=== PATIENT | female | born 1985 | race Caucasian/White ===

== ENCOUNTER → 2020-03-19 07:44 | Outpatient (BNVA) | payer OTHER, SELFPAY | PROVIDERS: PCP Nurse Practitioner Family; Referring Provider Nurse Practitioner Family; Visit Provider Surgery | DX: E66.9 Obesity, unspecified (principal); Z68.33 Body mass index [BMI] 33.0-33.9, adult; K90.9 Intestinal malabsorption, unspecified; Z98.84 Bariatric surgery status ==

== ENCOUNTER → 2020-04-23 08:55 | Outpatient (BNVA) | payer OTHER, SELFPAY | PROVIDERS: PCP Nurse Practitioner Family; Referring Provider Nurse Practitioner Family; Visit Provider Surgery | DX: E66.3 Overweight (principal); Z68.29 Body mass index [BMI] 29.0-29.9, adult; Z98.84 Bariatric surgery status | CPT/HCPCS: 99212 ==

== ENCOUNTER → 2020-05-23 07:44 | Outpatient (BNVA) | payer OTHER, SELFPAY | PROVIDERS: PCP Nurse Practitioner Family; Referring Provider Nurse Practitioner Family; Visit Provider Surgery | DX: Z76.89 Persons encountering health services in other specified circumstances (principal) ==

== ENCOUNTER → 2020-05-30 10:42 | Outpatient (BNVA) | payer OTHER, SELFPAY | PROVIDERS: PCP Nurse Practitioner Family; Visit Provider Nurse Practitioner | DX: Z76.89 Persons encountering health services in other specified circumstances (principal) ==

== ENCOUNTER 2020-06-12 08:43 | Outpatient (REF) | payer OTHER, SELFPAY ==
[2020-06-12 11:35] LABS: Alanine Aminotransferase 11 U/L (0-31); Albumin Level 4.2 g/dL (3.5-5.0); Alkaline Phosphatase 51 U/L (39-117); Anion Gap 12 (12-20); Aspartate Amino Transferase 12 U/L (5-31); Bilirubin Total 0.8 mg/dL (0.0-1.0); Blood Urea Nitrogen 9 mg/dL (9-16); Calcium 8.5 mg/dL (8.4-10.2); Carbon Dioxide 28 mmol/L (22-29); Chloride 104 mmol/L (96-108); Cholesterol 153 mg/dL; Estimated Glomerular Filt Rate > 60; Glucose Fasting 87 mg/dL (60-99); HDL Cholesterol 48 mg/dL; LDL Cholesterol Calculated 92 mg/dl; Potassium 3.8 mmol/l (3.3-5.1); Sodium 140 mmol/L (135-145); Total Protein 6.4 g/dL (6.5-8.0); Triglycerides 68 mg/dL
[2020-06-12 11:55] LABS: TSH reflex Free T4 0.89 mIU/mL (0.32-4.0)
[2020-06-14 11:37] LABS: Alpha Fetoprotein 2.1 ng/mL
== END 2020-06-12 08:44 | disposition home or self-care (01) ==
LOC: HO.HMGCLDS 08:43
PROVIDERS: PCP Nurse Practitioner Family; Visit Provider Nurse Practitioner
DX: Z00.00 Encounter for general adult medical examination without abnormal findings (principal); K75.81 Nonalcoholic steatohepatitis (NASH)
CPT/HCPCS: 80053; 80061; 82105; 84443

== ENCOUNTER → 2020-06-25 08:08 | Outpatient (BNVA) | payer OTHER, SELFPAY | PROVIDERS: PCP Nurse Practitioner Family; Visit Provider Surgery | DX: Z76.89 Persons encountering health services in other specified circumstances (principal) ==

== ENCOUNTER 2020-07-03 08:13 | Outpatient (REF) | payer OTHER, SELFPAY ==
--- NOTE | 2020-07-03 08:16 | US_ITS ---
EXAMINATION: US ABDOMEN COMPLETE CLINICAL INFORMATION: CHATMAN COMPARISON: None TECHNIQUE: Real-time imaging of the abdominal viscera. FINDINGS: PANCREAS: Normal. ABDOMINAL AORTA: The proximal, mid, and distal segments are normal in caliber. INFERIOR VENA CAVA: Visualized portions are normal. LIVER: The liver is normal size, contour with increased echogenicity. No focal lesion seen. There is no intrahepatic biliary duct dilatation seen. It is slightly limited in evaluation due to bowel gas pattern. GALLBLADDER: Normal. The gallbladder is physiologically distended without evidence of stones, sludge, polyps, wall thickening or pericholecystic fluid. COMMON BILE DUCT: Normal in caliber measuring 0.7 cm in diameter. RIGHT KIDNEY: Normal. No hydronephrosis. No renal calculi or focal parenchymal lesions. The kidney measures 10.9 cm in maximum dimension. LEFT KIDNEY: Normal. No hydronephrosis. No renal calculi or focal parenchymal lesions. The kidney measures 12.4 cm in maximum dimension. SPLEEN: Normal. The spleen measures 12.3 cm in maximum dimension. FREE FLUID: None. US/US abdomen complete IMPRESSION: Hepatic steatosis without focal lesion. Rest of the abdominal ultrasound is unremarkable.
== END 2020-07-03 08:14 | disposition home or self-care (01) ==
LOC: HO.US 08:13
PROVIDERS: PCP Nurse Practitioner Family; Visit Provider Nurse Practitioner
DX: K75.81 Nonalcoholic steatohepatitis (NASH) (principal)
CPT/HCPCS: 76700

== ENCOUNTER → 2020-08-03 08:21 | Outpatient (BNVA) | payer OTHER, SELFPAY | PROVIDERS: PCP Nurse Practitioner Family; Visit Provider Surgery ==

== ENCOUNTER → 2020-08-17 08:41 | Outpatient (BNVA) | payer OTHER, SELFPAY | PROVIDERS: PCP Nurse Practitioner Family; Visit Provider Physician Assistant ==

== ENCOUNTER 2020-08-31 09:05 | Outpatient (REF) | payer OTHER, SELFPAY ==
[2020-09-06 07:22] LABS: HPV 16 RNA NOT DETECTED (NOT DETECTED); HPV mRNA E6/E7 rflx Detected (Not Detected)
== END 2020-08-31 09:06 | disposition home or self-care (01) ==
LOC: HO.LAB 09:05
PROVIDERS: PCP Nurse Practitioner Family; Visit Provider Obstetrics & Gynecology
DX: Z01.419 Encounter for gynecological examination (general) (routine) without abnormal findings (principal); Z11.51 Encounter for screening for human papillomavirus (HPV); Z91.89 Other specified personal risk factors, not elsewhere classified
CPT/HCPCS: 36415; 87624; 87625; 88141; 88142

== ENCOUNTER → 2020-09-10 08:13 | Outpatient (BNVA) | payer OTHER, SELFPAY | PROVIDERS: PCP Nurse Practitioner Family; Visit Provider Surgery ==

== ENCOUNTER 2020-10-09 15:27 | Outpatient (REF) | payer OTHER, SELFPAY | END 2020-10-09 15:28 | disposition home or self-care (01) | LOC: HO.LAB 15:27 | PROVIDERS: PCP Nurse Practitioner Family; Visit Provider Obstetrics & Gynecology | DX: B97.7 Papillomavirus as the cause of diseases classified elsewhere (principal); Z87.891 Personal history of nicotine dependence | CPT/HCPCS: 57454; 81025; 88305 ==

== ENCOUNTER → 2020-10-24 11:19 | Outpatient (BNVA) | payer OTHER, SELFPAY | PROVIDERS: PCP Nurse Practitioner Family; Visit Provider Obstetrics & Gynecology ==

== ENCOUNTER 2020-11-06 11:41 | Outpatient (REF) | payer OTHER, SELFPAY ==
--- NOTE | ~2020-11-06 | MM_ITS ---
EXAMINATION: MM SCREENING DIGITAL BREAST TOMOSYNTHESIS, BILATERAL CLINICAL INFORMATION: Screening. Asymptomatic. Family history breast cancer. The lifetime risk of breast cancer based on the Tyrer-Cuzick Model is 25%. COMPARISON: Mammography: 11/01/2018 (baseline) TECHNIQUE: Digital breast tomosynthesis is performed in both the craniocaudal and mediolateral oblique views along with computer-aided detection (CAD). Synthesized 2D images are generated from the tomosynthesis. FINDINGS: There are scattered areas of fibroglandular density (ACR BI-RADS breast composition Category b). There are no significant masses, abnormal calcifications, or other abnormalities. Parenchymal pattern is similar to prior exams. No developing density. The axilla and skin contours are unremarkable. No significant changes. MM/MM tomosynthesis screening BI IMPRESSION: No mammographic evidence of malignancy. ASSESSMENT: BI-RADS 1: Negative RECOMMENDATION: 1. Routine annual mammography screening. 2. The lifetime risk of breast cancer based on the Tyrer-Cuzick Model is 25%. Additional annual adjunct screening with breast MRI may be of benefit in women with a risk score of 20% or greater. This patient's information was entered into a reminder system with a target due date for their next mammogram.
== END 2020-11-06 11:42 | disposition home or self-care (01) ==
LOC: HO.MAMMO 11:41
PROVIDERS: PCP Nurse Practitioner Family; Visit Provider Obstetrics & Gynecology
DX: Z12.31 Encounter for screening mammogram for malignant neoplasm of breast (principal)
CPT/HCPCS: 77063; 77067

== ENCOUNTER → 2020-11-27 13:17 | Outpatient (BNVA) | payer OTHER, SELFPAY | PROVIDERS: PCP Nurse Practitioner Family; Referring Provider Nurse Practitioner Family; Visit Provider Nurse Practitioner | DX: K59.04 Chronic idiopathic constipation (principal); K75.81 Nonalcoholic steatohepatitis (NASH); K90.89 Other intestinal malabsorption; K21.9 Gastro-esophageal reflux disease without esophagitis | CPT/HCPCS: 99212 ==

== ENCOUNTER 2020-12-11 08:12 | Outpatient (REF) | payer OTHER, SELFPAY ==
[2020-12-11 09:46] LABS: Alanine Aminotransferase 6 U/L (0-31); Albumin Level 4.2 g/dL (3.5-5.0); Alkaline Phosphatase 44 U/L (39-117); Anion Gap 12 (12-20); Aspartate Amino Transferase 10 U/L (5-31); Bilirubin Total 0.2 mg/dL (0.0-1.0); Blood Urea Nitrogen 12 mg/dL (9-16); Calcium 9.3 mg/dL (8.4-10.2); Carbon Dioxide 27 mmol/L (22-29); Chloride 107 mmol/L (96-108); Estimated Glomerular Filt Rate > 60; Glucose Random 79 mg/dL (60-115); Potassium 4.5 mmol/L (3.3-5.1); Sodium 141 mmol/L (135-145); Total Protein 6.4 g/dL (6.5-8.0)
[2020-12-12 13:17] LABS: Alpha Fetoprotein 2.3 ng/mL
== END 2020-12-11 08:13 | disposition home or self-care (01) ==
LOC: HO.LAB 08:12
PROVIDERS: PCP Nurse Practitioner Family; Visit Provider Nurse Practitioner
DX: K75.81 Nonalcoholic steatohepatitis (NASH) (principal)
CPT/HCPCS: 36415; 80053; 82105

== ENCOUNTER 2021-01-15 10:24 | Outpatient (REF) | payer OTHER, SELFPAY ==
--- NOTE | ~2021-01-15 | US_ITS ---
EXAMINATION: US ABDOMEN LIMITED CLINICAL INFORMATION: CHATMAN (nonalcoholic steatosis). COMPARISON: Ultrasound abdomen complete dated 07/03/2020 and 04/29/2019. CT abdomen and pelvis without contrast dated 07/01/2017. X-ray abdomen dated 02/15/2016 and 02/06/2016. TECHNIQUE: Real-time imaging of the right upper quadrant abdominal viscera. FINDINGS: PANCREAS: Normal. The visualized pancreatic head and body are normal in appearance. The remainder of the pancreas is obscured from visualization by the overlying bowel gas. LIVER: There is diffuse increased liver parenchymal echogenicity. No focal hepatic mass is seen. The liver is normal in size and contour. No biliary ductal dilatation. GALLBLADDER: Surgically absent. COMMON BILE DUCT: Normal in caliber measuring 0.35 cm in diameter. RIGHT KIDNEY: There is mild pelviectasis, without myrna hydronephrosis. No renal calculi or focal parenchymal lesions. The kidney measures 11.9 cm in maximum dimension. FREE FLUID: None. US/US abdomen limited IMPRESSION: 1. There is generalized increase in hepatic echotexture, consistent with fatty infiltration or hepatocellular disease. Please correlate clinically. Provided history of CHATMAN noted. No focal hepatic mass or intrahepatic biliary dilatation is seen. 2. Otherwise, unremarkable abdominal ultrasound examination, with imaging of the pancreas technically limited.
== END 2021-01-15 10:25 | disposition home or self-care (01) ==
LOC: HO.HMGCX 10:24
PROVIDERS: PCP Nurse Practitioner Family; Visit Provider Nurse Practitioner
DX: K75.81 Nonalcoholic steatohepatitis (NASH) (principal)
CPT/HCPCS: 76705

== ENCOUNTER 2021-01-31 09:40 | Outpatient (REF) | payer OTHER, SELFPAY ==
--- NOTE | ~2021-01-31 | MR_ITS ---
EXAMINATION: MR BREAST WITHOUT AND WITH CONTRAST, BILATERAL CLINICAL INFORMATION: 35-year-old for high-risk screening lifetime risk based on Tyrer-Cuzick model is 25%. Family history of aunts mothers and cousins. COMPARISON: Correlation to mammogram of 11/06/2020. TECHNIQUE: Imaging was performed with a dedicated breast coil. Prior to the administration of contrast, bilateral axial T1 and bilateral axial T2 weighted sequences were obtained. After the uneventful administration of?7 mL of Gadavist, dynamic contrast-enhanced VIBRANT series through the breasts in the axial plane were performed. Subtracted images were performed and reviewed. A delayed sagittal sequence through both breasts was acquired. Additionally, CAD post-processing, including maximum intensity projections, 3-D reconstructions and kinetic analysis, were performed an independent workstation and reviewed by the interpreting radiologist is a portion of this exam. FINDINGS: The patient's fibroglandular tissue demonstrates minimal background enhancement. LEFT BREAST: No suspicious mass-like or icg-chvd-laae enhancement. No abnormal skin thickening or nipple retraction. There are a few scattered foci of enhancement demonstrating subthreshold and progressive-type kinetics. No abnormal architectural distortion. Review of the T2-weighted images demonstrates no fibrocystic changes or dilated ducts. Review of kinetic images reveals no additional findings. RIGHT BREAST: No suspicious mass-like or vgm-[id number]-csfn enhancement. No abnormal skin thickening or nipple retraction. There are a few scattered foci of enhancement demonstrating subthreshold kinetics. No abnormal architectural distortion. Review of the T2-weighted images demonstrates no fibrocystic changes or dilated ducts. Review of kinetic images reveals no additional findings. There is no suspicious internal mammary chain or axillary adenopathy. Limited views of the chest and abdomen are unremarkable. MR/MR breast BI wo/w con IMPRESSION: No MR specific evidence of malignancy. ASSESSMENT: Left Breast: BI-RADS 2 - Benign Right Breast: BI-RADS 2 - Benign RECOMMENDATIONS: Routine mammographic imaging as per most recent study and MRI as per high-risk protocol.
== END 2021-01-31 09:41 | disposition home or self-care (01) ==
LOC: HO.MRI 09:40
PROVIDERS: Visit Provider Obstetrics & Gynecology
DX: Z91.89 Other specified personal risk factors, not elsewhere classified (principal)
CPT/HCPCS: 77049; A9585

== ENCOUNTER → 2021-02-25 10:54 | Outpatient (BNVA) | payer OTHER, SELFPAY | PROVIDERS: PCP Nurse Practitioner Family; Referring Provider Nurse Practitioner Family; Visit Provider Surgery | DX: M79.3 Panniculitis, unspecified (principal); Z98.84 Bariatric surgery status | CPT/HCPCS: 99212 ==

== ENCOUNTER → 2021-04-22 08:04 | Outpatient (BNVA) | payer OTHER, SELFPAY | PROVIDERS: PCP Nurse Practitioner Family; Visit Provider Surgery | DX: M79.3 Panniculitis, unspecified (principal); Z98.84 Bariatric surgery status ==

== ENCOUNTER → 2021-05-22 08:03 | Outpatient (BNVA) | payer OTHER, SELFPAY | PROVIDERS: PCP Nurse Practitioner Family; Visit Provider Physician Assistant ==

== ENCOUNTER 2021-06-28 07:34 | Outpatient (REF) | payer OTHER, SELFPAY ==
[2021-06-28 11:36] LABS: Appearance Urine CLEAR; Color Urine YELLOW; Glucose Urine UA NEG (NEG); Leukocyte Esterase Urine NEG (NEG); MANUAL DIFF FLAG NO; Nitrite Urine NEG (NEG); Specific Gravity - Urine 1.015 (1.005-1.025); Urine Blood NEG (NEG); Urine Ketones 40 MG/DL (NEG); Urine Protein NEG (NEG-TRACE)
[2021-06-28 11:53] LABS: Basophils Percent Auto 0.5 % (0-2); Eosinophils Absolute Auto 0.2 X10*3/uL (0.0-0.4); Eosinophils Percent Auto 3.7 % (0-4); Hematocrit 39.6 % (37.0-47.0); Hemoglobin 13.7 g/dl (12.0-16.0); Imm Gran Abs Auto 0.01 X10*3/uL (0.00-0.03); Imm Gran Pct Auto 0.2 % (0.0-0.4); Lymphocytes Absolute Auto 1.6 X10*3/uL (1.2-4.9); Lymphocytes Percent Auto 38.6 % (20-40); Mean Corpuscular HGB Conc 34.6 g/dl (31.0-35.0); Mean Corpuscular Hemoglobin 31.2 pg (27.0-33.0); Mean Corpuscular Volume 90.2 fL (80.0-98.0); Monocytes Absolute Auto 0.2 X10*3/uL (0.1-1.2); Monocytes Percent Auto 5.7 % (2-11); Neutrophils Absolute Auto 2.1 x10*3/uL (2.0-8.3); Neutrophils Percent Auto 51.3 % (45-73); Platelet Count 176 X10*3/uL (160-400); Red Blood Count 4.39 X10*6/uL (4.20-5.50); Red Cell Distribution Width 11.9 % (11.0-16.0)
[2021-06-28 11:57] LABS: Estimated Average Glucose 91 mg/dL; Hemoglobin A1c % 4.8 %
[2021-06-28 12:05] LABS: Alanine Aminotransferase 9 U/L (0-31); Albumin Level 4.3 g/dL (3.5-5.0); Alkaline Phosphatase 40 U/L (39-117); Anion Gap 16 (12-20); Aspartate Amino Transferase 12 U/L (5-31); Bilirubin Total 0.7 mg/dL (0.0-1.0); Blood Urea Nitrogen 11 mg/dL (9-16); C Reactive Protein 0.05 mg/dL (< or = 0.50); Calcium 9.2 mg/dL (8.4-10.2); Carbon Dioxide 24 mmol/L (22-29); Chloride 103 mmol/L (96-108); Cholesterol 152 mg/dL; Estimated Glomerular Filt Rate > 60; Glucose Fasting 76 mg/dL (60-99); HDL Cholesterol 38 mg/dL; Iron 104 mcg/dL (30-160); LDL Cholesterol Calculated 99 mg/dl; Percent Iron Saturation 42 % (15-50); Potassium 3.4 mmol/L (3.3-5.1); Sodium 140 mmol/L (135-145); Total Iron Binding Capacity 250 mcg/dL (228-428); Total Protein 6.7 g/dL (6.5-8.0); Triglycerides 77 mg/dL; Unsaturated Iron Binding 146 ug/dL
[2021-06-28 12:11] LABS: Cholesterol 150 mg/dL; HDL Cholesterol 39 mg/dL; LDL Cholesterol Calculated 96 mg/dl; Triglycerides 76 mg/dL
[2021-06-28 12:30] LABS: Ferritin 70 ng/mL (10-122); Insulin 7 uU/mL (2-29); Vitamin D 25-OH Total 54.1 ng/mL (>30)
[2021-06-28 12:34] LABS: TSH reflex Free T4 0.49 uIU/mL (0.32-4.0)
[2021-06-28 12:46] LABS: Folate > 20.0 ng/mL (> or = 4.0); Vitamin B12 1341 pg/mL (200-900)
[2021-07-02 15:06] LABS: Calcium (PTHI) 9.4 mg/dL (8.6-10.2); PTHI 8 pg/mL (14-64)
[2021-07-03 03:01] LABS: Zinc 56 mcg/dL (60-130)
[2021-07-04 16:06] LABS: Vitamin B1 22 nmol/L (8-30)
[2021-07-05 23:56] LABS: Vitamin A 37 mcg/dL (38-98)
== END 2021-06-28 07:35 | disposition home or self-care (01) ==
LOC: HO.HMGCLDS 07:34
PROVIDERS: Absent Provider Nurse Practitioner Family; PCP Nurse Practitioner Family; Visit Provider Physician Assistant
DX: Z00.00 Encounter for general adult medical examination without abnormal findings (principal); Z98.84 Bariatric surgery status
CPT/HCPCS: 36415; 80053; 80061; 81003; 82306; 82607; 82728; 82746; 83036; 83525; 83540; 83970; 84425; 84443; 84590; 84630; 85025; 86140

== ENCOUNTER 2021-07-04 09:54 | Emergency (ER) | payer OTHER, SELFPAY ==
--- NOTE | ~2021-07-04 | US_ITS ---
EXAMINATION: US PELVIS TRANSVAGINAL CLINICAL INFORMATION: Right lower quadrant pain COMPARISON: CT scan of July 01, 2017 and ultrasound of June 24, 2016 TECHNIQUE: Transcutaneous and transvaginal pelvic ultrasound. Transvaginal scanning was performed after voiding to better evaluate the endometrium and adnexa. FINDINGS: The uterus measures 7.6 x 4.6 x 5.7 cm. The uterus is anteverted. No suspicious abnormalities region of the cervix. The uterine contour is smooth. The endometrium measures 0.8 cm. No focal abnormalities within the myometrium. The right ovary measures approximately 3.5 x 2.2 x 2.9 cm. The calculated right ovarian volume is approximately 11.7 mL. There are numerous simple appearing right adnexal cysts present largest measuring 1.7 x 1.9 x 1.4 cm in size. There is normal vascularity present. The left ovary measures 3.5 x 2.2 x 2.6 cm. The calculated left ovarian volume is approximately 10.5 mL. No abnormal left adnexal mass. Normal vascular flow. Numerous simple appearing cysts with the largest one measuring approximately 1.5 cm in diameter. There is a small amount of free fluid present within the cul-de-sac. US/US pelvic and transvaginal IMPRESSION: Bilateral ovarian cysts with small amount of free pelvic fluid. No abnormal adnexal mass.
[2021-07-04 10:14] VITALS: BP 136/72; PULSE 100; RESP 18; TEMP 35.9; O2SAT 98; BMI 24.3
[2021-07-04 10:45] LABS: MANUAL DIFF FLAG NO
[2021-07-04 10:46] LABS: Basophils Absolute Auto 0.1 X10*3/uL (0.0-0.2); Basophils Percent Auto 0.9 % (0-2); Eosinophils Absolute Auto 0.3 X10*3/uL (0.0-0.4); Eosinophils Percent Auto 4.6 % (0-4); Hematocrit 41.1 % (37.0-47.0); Imm Gran Abs Auto 0.01 X10*3/uL (0.00-0.03); Imm Gran Pct Auto 0.2 % (0.0-0.4); Lymphocytes Absolute Auto 1.9 X10*3/uL (1.2-4.9); Lymphocytes Percent Auto 35.7 % (20-40); Mean Corpuscular HGB Conc 34.1 g/dl (31.0-35.0); Mean Corpuscular Hemoglobin 31.1 pg (27.0-33.0); Mean Corpuscular Volume 91.3 fL (80.0-98.0); Mean Platelet Volume 11.6 fL (9.4-12.3); Monocytes Absolute Auto 0.4 X10*3/uL (0.1-1.2); Monocytes Percent Auto 6.8 % (2-11); Neutrophils Absolute Auto 2.8 x10*3/uL (2.0-8.3); Neutrophils Percent Auto 51.8 % (45-73); Platelet Count 179 X10*3/uL (160-400); Red Cell Distribution Width 12.1 % (11.0-16.0); White Blood Count 5.4 X10*3/uL (4.8-10.8)
[2021-07-04 10:58] LABS: Appearance Urine CLEAR; Color Urine YELLOW; Glucose Urine UA NEG (NEG); Leukocyte Esterase Urine NEG (NEG); Nitrite Urine NEG (NEG); PH 6.5 (5.0-8.0); Specific Gravity - Urine 1.015 (1.005-1.025); Urine Blood NEG (NEG); Urine Ketones NEG (NEG); Urine Pregnancy NEGATIVE (NEGATIVE); Urine Protein NEG (NEG-TRACE)
[2021-07-04 10:59] LABS: UPreg QC Valid YES
[2021-07-04 11:09] LABS: Alanine Aminotransferase 11 U/L (0-31); Albumin Level 4.2 g/dL (3.5-5.0); Alkaline Phosphatase 44 U/L (39-117); Anion Gap 9 (12-20); Aspartate Amino Transferase 12 U/L (5-31); Bilirubin Direct 0.2 mg/dL (0.0-0.5); Bilirubin Total 0.5 mg/dL (0.0-1.0); Blood Urea Nitrogen 8 mg/dL (9-16); Calcium 9.4 mg/dL (8.4-10.2); Carbon Dioxide 33 mmol/L (22-29); Chloride 106 mmol/L (96-108); Creatinine Clr Calc Pharmacy 93.6; Estimated Glomerular Filt Rate > 60; Glucose Random 99 mg/dL (60-115); Lipase 30 U/L (8-78); Potassium 4.2 mmol/L (3.3-5.1); Sodium 144 mmol/L (135-145); Total Protein 6.7 g/dL (6.5-8.0)
--- NOTE | 2021-07-04 11:13 | ED_ITS ---
HPI - Abdominal Pain General Chief Complaint: Abdominal Pain Stated Complaint: Pelvic pain Time Seen by Provider: 07/04/21 11:00 Source: patient Mode of arrival: ambulatory Limitations: no limitations History of Present Illness HPI narrative: Patient comes to emergency room complaining of right lower quadrant pain since yesterday. Patient states that she has had ovarian cyst ruptures in the past and the pain is similar. Patient states that 2-3 years ago she had a laparotomy done due to a ruptured ovarian cyst, at the same time, her appendix was taken out due to inflammation that was visualized during the [facility]. Patient has been taking ibuprofen at home with no relief. Related Data Home Medications Medication Instructions Recorded Confirmed buspirone 30 mg tablet 30 mg PO BID 03/17/20 06/27/21 duloxetine 60 mg capsule,delayed 60 mg PO DAILY 03/17/20 06/27/21 release ondansetron 4 mg disintegrating mg PO 03/17/20 06/27/21 tablet prazosin 2 mg capsule mg PO 05/29/20 06/27/21 prazosin 5 mg capsule 5 mg PO BEDTIME 05/29/20 06/27/21 cholecalciferol (vitamin D3) 25 25 mcg PO DAILY 05/22/21 06/27/21 mcg (1,000 unit) capsule cyanocobalamin (vitamin B-12) 500 500 mcg PO DAILY 05/22/21 06/27/21 mcg tablet dyxzpmnchexm-Sd-amqu-minerals 18 tab PO 05/22/21 06/27/21 mg-0.4 mg tablet bupropion HCl 150 mg 24 hr tablet, 150 mg PO BEDTIME 06/27/21 06/27/21 extended release duloxetine 30 mg capsule,delayed 30 mg PO DAILY 06/27/21 06/27/21 release Previous Rx's Medication Instructions Recorded clonazepam 1 mg tablet 1 mg PO BID PRN 30 Days #60 tab 08/13/20 verapamil 80 mg tablet 80 mg PO BID #60 tab 08/20/20 sumatriptan succinate 100 mg tablet See Rx Instructions PO .COMPLEX 10 01/28/21 Days #10 tab pantoprazole 40 mg tablet,delayed 40 mg PO DAILY #30 tab 03/07/21 release cyclobenzaprine 10 mg tablet 10 mg PO BEDTIME #30 tab 05/17/21 loratadine 10 mg tablet 10 mg PO DAILY 30 Days #90 tab 05/17/21 clotrimazole 1 % topical cream 1 appl TOPICAL BID 28 Days #90 g 05/22/21 gabapentin 800 mg tablet 800 mg PO BID #60 tab 06/10/21 epinephrine 0.3 mg/0.3 mL 0.3 mg (0.3 mL) IM ONCE 30 Days #9 06/16/21 injection, auto-injector ea nicotine 14 mg/24 hr daily 1 patch TRANSDERMAL DAILY 30 Days 07/03/21 transdermal patch #28 ea diphenhydramine HCl 25 mg tablet 25 mg PO BID PRN #7 tab 07/04/21 (Benadryl Allergy) finasteride 5 mg tablet 5 mg PO DAILY #30 tab 07/04/21 tramadol 50 mg tablet 50 mg PO BID PRN #7 tab 07/04/21 Allergies Allergy/AdvReac Type Severity Reaction Status Date / Time hydromorphone [From DILAUDID] Allergy Severe HIVES Verified 06/27/21 12:06 morphine [MORPHINE] Allergy Intermediate RASH,DIZZINESS,VOMITING, Verified 06/27/21 12:06 hives, hives zolpidem [From AMBIEN] Allergy Intermediate BLACK Verified 06/27/21 12:06 OUTS acetaminophen [Percocet] Allergy Unknown hives Verified 06/27/21 12:06 codeine Allergy Unknown anaphylaxsi Verified 06/27/21 12:06 s Vicodin Allergy Unknown nausea and Verified 06/27/21 12:06 vomiting, sweats,nausea,spins influenza virus vaccine, AdvReac Severe SWELLING Verified 06/27/21 12:06 specific [FLU VACCINE] bees Allergy Unknown Unknown Uncoded 06/27/21 12:06 TDAP Allergy Unknown anaphylaxis Uncoded 06/27/21 12:06 Review of Systems Review of Systems Constitutional : No Weight loss, No Fever, No Chills, No Night Sweats, No Fatigue, No Malaise ENT/Mouth : No Hearing loss, No Ear Pain, No Nasal Congestion, No Sinus Pain, No Hoarseness, No sore throat, No Rhinorrhea, No Swallowing Difficulty Eyes: No Eye Pain, No Swelling, No Redness, No Foreign Body, No Discharge, No Vision Changes Cardiovascular : No Chest Pain, No SOB, No Dyspnea on Exertion, No Orthopnea, No Edema, No Palpitations Respiratory : No Cough, No Sputum, No Wheezing, No Smoke Exposure, No Dyspnea Gastrointestinal : Complaining of nausea, No Diarrhea, No Constipation, complaining of right lower quadrant pain, No Hematochezia, No Melena Genitourinary : no irregular bleeding, No Dysuria, No Urinary Frequency, No Hematuria, No Urinary Incontinence, No Urgency, No Flank Pain, No Urinary Flow Changes, No Hesitancy Musculoskeletal : No joint pain, No Myalgias, No Joint Swelling Skin : No Skin Lesions, No rash Neuro : No Weakness, No Numbness, No Paresthesias, No Loss of Consciousness, No Dizziness, No Headache Psych : No Anxiety/Panic, No Depression, No SI/HI/AH/VH, No Social Issues, Heme/Lymph: No Bruising, No Bleeding,No Lymphadenopathy Endocrine : No Polyuria, No Polydipsia, No Temperature Intolerance Physical Exam Vital Signs: Vital Signs: Last Vital Signs Temp 98.6 F 07/04/21 11:25 Pulse 70 07/04/21 11:25 Resp 16 07/04/21 11:25 BP 112/77 07/04/21 11:25 Pulse Ox 98 07/04/21 11:25 BMI result Body Mass Index 24.3 Const: Other: Appearance: Alert. Oriented X3. No acute distress. Well- appearing Eyes: Pupils equal, round and reactive to light. ENT: Pharynx normal. Neck: Normal inspection. Neck supple. No lymph nodes noted. No crepitus CVS: Normal heart rate and rhythm. Pulses normal. Normal S1 and S2 Respiratory: No respiratory distress. Breath sounds normal. No Wheezing. No rales Abdomen: Soft , tenderness to palpation in suprapubic area, right lower quadrant, mild rebound, no guarding Skin: Skin warm and dry. Normal skin color. Normal skin turgor. Extremities: No lower extremity edema. No lower extremity edema. No Lacerations. No Rash Neuro: Oriented X 3. No motor deficit. No sensory deficit. Moving all extermities. No slurred speech. Course Course Course Narrative: Pain medication was offered to the patient, however it is very limited well within offered to her. Patient is allergic to all narcotics, states it causes severe nausea, vomiting and hives. Patient cannot take NSAIDs due to her gastric sleeve surgery. At this time, we can only offer Tylenol, patient understands. Ultrasound the right lower quadrant pending. I discussed the ultrasound with the patient, patient does have ovarian cysts but does not seem to have rupture cyst. Patient's hemoglobin and blood pressure stable. Patient states that she can take tramadol if given with Benadryl. Patient drove herself. Patient agrees to pick and shovel man her medication at her pharmacy. Patient will follow-up with OBGYN MDM - Abdominal Pain Lab Data Result diagrams: 07/04/21 10:39 07/04/21 10:39 Labs: Lab Results 07/04/21 07/04/21 07/04/21 Range/Units 10:35 10:35 10:39 WBC 5.4 (4.8-10.8) X10*3/uL RBC 4.50 (4.20-5.50) X10*6/uL Hgb 14.0 (12.0-16.0) g/dl Hct 41.1 (37.0-47.0) % MCV 91.3 (80.0-98.0) fL MCH 31.1 (27.0-33.0) pg MCHC 34.1 (31.0-35.0) g/dl RDW 12.1 (11.0-16.0) % Plt Count 179 (160-400) X10*3/uL MPV 11.6 (9.4-12.3) fL Immature Gran % (Auto) 0.2 (0.0-0.4) % Neut % (Auto) 51.8 (45-73) % Lymph % (Auto) 35.7 (20-40) % [place] % (Auto) 6.8 (2-11) % Eos % (Auto) 4.6 H (0-4) % Baso % (Auto) 0.9 (0-2) % Lymph # (Auto) 1.9 (1.2-4.9) X10*3/uL [place] # (Auto) 0.4 (0.1-1.2) X10*3/uL Eos # (Auto) 0.3 (0.0-0.4) X10*3/uL Baso # (Auto) 0.1 (0.0-0.2) X10*3/uL Abs Immat Gran (auto) 0.01 (0.00-0.03) X10*3/uL Absolute Neuts (auto) 2.8 (2.0-8.3) x10*3/uL Absolute Nucleated RBC 0.000 (0.0-0.012) X10*3/uL Nucleated RBC % (auto) 0.0 (0.0-0.2) /100WBC Sodium (135-145) mmol/L Potassium (3.3-5.1) mmol/L Chloride (96-108) mmol/L Carbon Dioxide (22-29) mmol/L Anion Gap (12-20) BUN (9-16) mg/dL Creatinine (0.5-1.4) mg/dL Estim Creat Clear Calc Estimated GFR Random Glucose (60-115) mg/dL Calcium (8.4-10.2) mg/dL Total Bilirubin (0.0-1.0) mg/dL Direct Bilirubin (0.0-0.5) mg/dL AST (5-31) U/L ALT (0-31) U/L Alkaline Phosphatase (39-117) U/L Total Protein (6.5-8.0) g/dL Albumin (3.5-5.0) g/dL Lipase (8-78) U/L Urine Color YELLOW Urine Appearance CLEAR Urine pH 6.5 (5.0-8.0) Ur Specific [place] 1.015 (1.005-1.025) Urine Protein NEG (NEG-TRACE) MG/DL Urine Glucose (UA) NEG (NEG) MG/DL Urine Ketones NEG (NEG) MG/DL Urine Blood NEG (NEG) Urine Nitrite NEG (NEG) Ur Leukocyte Esterase NEG (NEG) Urine Test NEGATIVE (NEGATIVE) 07/04/21 Range/Units 10:39 WBC (4.8-10.8) X10*3/uL RBC (4.20-5.50) X10*6/uL Hgb (12.0-16.0) g/dl Hct (37.0-47.0) % MCV (80.0-98.0) fL MCH (27.0-33.0) pg MCHC (31.0-35.0) g/dl RDW (11.0-16.0) % Plt Count (160-400) X10*3/uL MPV (9.4-12.3) fL Immature Gran % (Auto) (0.0-0.4) % Neut % (Auto) (45-73) % Lymph % (Auto) (20-40) % [place] % (Auto) (2-11) % Eos % (Auto) (0-4) % Baso % (Auto) (0-2) % Lymph # (Auto) (1.2-4.9) X10*3/uL [place] # (Auto) (0.1-1.2) X10*3/uL Eos # (Auto) (0.0-0.4) X10*3/uL Baso # (Auto) (0.0-0.2) X10*3/uL Abs Immat Gran (auto) (0.00-0.03) X10*3/uL Absolute Neuts (auto) (2.0-8.3) x10*3/uL Absolute Nucleated RBC (0.0-0.012) X10*3/uL Nucleated RBC % (auto) (0.0-0.2) /100WBC Sodium 144 (135-145) mmol/L Potassium 4.2 D (3.3-5.1) mmol/L Chloride 106 (96-108) mmol/L Carbon Dioxide 33 H (22-29) mmol/L Anion Gap 9 L (12-20) BUN 8 L (9-16) mg/dL Creatinine 0.74 (0.5-1.4) mg/dL Estim Creat Clear Calc 93.6 Estimated GFR > 60 Random Glucose 99 (60-115) mg/dL Calcium 9.4 (8.4-10.2) mg/dL Total Bilirubin 0.5 (0.0-1.0) mg/dL Direct Bilirubin 0.2 (0.0-0.5) mg/dL AST 12 (5-31) U/L ALT 11 (0-31) U/L Alkaline Phosphatase 44 (39-117) U/L Total Protein 6.7 (6.5-8.0) g/dL Albumin 4.2 (3.5-5.0) g/dL Lipase 30 (8-78) U/L Urine Color Urine Appearance Urine pH (5.0-8.0) Ur Specific [place] (1.005-1.025) Urine Protein (NEG-TRACE) MG/DL Urine Glucose (UA) (NEG) MG/DL Urine Ketones (NEG) MG/DL Urine Blood (NEG) Urine Nitrite (NEG) Ur Leukocyte Esterase (NEG) Urine Test (NEGATIVE) Imaging Data US - abdomen: Radiologist's impression: INDINGS: The uterus measures 7.6 x 4.6 x 5.7 cm. The uterus is anteverted. No suspicious abnormalities region of the cervix. The uterine contour is smooth. The endometrium measures 0.8 cm. No focal abnormalities within the myometrium. The right ovary measures approximately 3.5 x 2.2 x 2.9 cm. The calculated right ovarian volume is approximately 11.7 mL. There are numerous simple appearing right adnexal cysts present largest measuring 1.7 x 1.9 x 1.4 cm in size. There is normal vascularity present. The left ovary measures 3.5 x 2.2 x 2.6 cm. The calculated left ovarian volume is approximately 10.5 mL. No abnormal left adnexal mass. Normal vascular flow. Numerous simple appearing cysts with the largest one measuring approximately 1.5 cm in diameter. There is a small amount of free fluid present within the cul-de-sac. US/US pelvic and transvaginal IMPRESSION: Bilateral ovarian cysts with small amount of free pelvic fluid. ? No abnormal adnexal mass. ? Discharge Plan Discharge Clinical Impression: Ovarian cyst Patient Disposition: Home, Self-Care Instructions: Ovarian Cyst (ED) Additional Instructions: Please follow-up with your primary care physician tomorrow. If you have any worsening or new symptoms, please return to the emergency room or call 911 Prescriptions: New tramadol 50 mg tablet 50 mg PO BID PRN (Reason: pain) Qty: 7 RF: 0 diphenhydramine HCl [Benadryl Allergy] 25 mg tablet 25 mg PO BID PRN (Reason: allergy symptoms) Qty: 7 RF: 0 No Action clonazepam 1 mg tablet 1 mg PO BID PRN (Reason: anxiety) 30 Days Qty: 60 RF: 0 verapamil 80 mg tablet 80 mg PO BID Qty: 60 RF: 11 sumatriptan succinate 100 mg tablet See Rx Instructions PO .COMPLEX 10 Days Qty: 10 RF: 0 pantoprazole 40 mg tablet,delayed release (DR/EC) 40 mg PO DAILY Qty: 30 RF: 4 cyclobenzaprine 10 mg tablet 10 mg PO BEDTIME Qty: 30 RF: 1 loratadine 10 mg tablet 10 mg PO DAILY 30 Days Qty: 90 RF: 2 gabapentin 800 mg tablet 800 mg PO BID Qty: 60 RF: 1 epinephrine 0.3 mg/0.3 mL auto-injector 0.3 mg IM ONCE 30 Days Qty: 9 RF: 2 nicotine 14 mg/24 hr patch 24 hour 1 patch transdermal DAILY 30 Days Qty: 28 RF: 0 finasteride 5 mg tablet 5 mg PO DAILY Qty: 30 RF: 1 prazosin 2 mg capsule PO RF: 0 prazosin 5 mg capsule 5 mg PO BEDTIME RF: 0 bupropion HCl 150 mg tablet extended release 24 hr 150 mg PO BEDTIME RF: 0 duloxetine 30 mg capsule,delayed release(DR/EC) 30 mg PO DAILY RF: 0 buspirone 30 mg tablet 30 mg PO BID RF: 0 ondansetron 4 mg tablet,disintegrating PO RF: 0 duloxetine 60 mg capsule,delayed release(DR/EC) 60 mg PO DAILY RF: 0 clotrimazole 1 % cream 1 appl topical BID 28 Days Qty: 90 RF: 2 cholecalciferol (vitamin D3) 25 mcg (1,000 unit) capsule 25 mcg PO DAILY RF: 0 jjrxnxlwrzqt-Of-nbfk-minerals 18-0.4 mg tablet PO RF: 0 cyanocobalamin (vitamin B-12) 500 mcg tablet 500 mcg PO DAILY RF: 0 PMFSH Past Medical History Medical History ASCUS with positive high risk HPV Asthma Cervical adenopathy Complex ovarian cyst Cyst of ovary Depression Elevated ferritin Fatty liver Hemochromatosis carrier IBS (irritable bowel syndrome) Intestinal malabsorption Lymphadenopathy Migraine Obesity (BMI 30.0-34.9) PCOS (polycystic ovarian syndrome) Positive IVANA (antinuclear antibody) PTSD (post-traumatic stress disorder) Restless leg Surgical History History of esophagogastroduodenoscopy (EGD) History of exploratory laparotomy Hx laparoscopic cholecystectomy Hx of colonoscopy Hx of tubal ligation S/P appendectomy S/P tonsillectomy and adenoidectomy S/P wisdom tooth extraction Family History Family History Father History of colon polyps Cancer Mother Thyroid disease Breast cancer Brother No problems noted. Son No problems noted. Son No problems noted. Other Mental health disorder Substance use disorder Social History Social History Housing: House Alcohol intake: current Alcohol intake frequency: does not drink Patient Tobacco Use Status: Current everyday Tobacco user Tobacco use type: Cigarette Cigarettes Per Day: 4 Years Smoked: 10.5 e-Cigarette/Vaping Use: Currently Using Second Hand Smoke Exposure: Yes Advance Directives: No Advance Directives Information Provided: No service: No Current occupational status: unemployed and disabled
[2021-07-04 11:25] VITALS: BP 112/77; PULSE 70; RESP 16; TEMP 37; O2SAT 98
[2021-07-04] MEDS: Acetaminophen 325 MG TABLET 650 MG PO (11:52)
== END 2021-07-04 14:16 | disposition home or self-care (01) ==
PROVIDERS: Emergency Provider Emergency Medicine; PCP Nurse Practitioner Family
DX: N83.202 Unspecified ovarian cyst, left side (principal); N83.201 Unspecified ovarian cyst, right side; R10.2 Pelvic and perineal pain
CPT/HCPCS: 36415; 76830; 76856; 80048; 80076; 81003; 81025; 83690; 85025; 99284

== ENCOUNTER → 2021-07-24 08:38 | Outpatient (BNVA) | payer OTHER, SELFPAY | PROVIDERS: PCP Nurse Practitioner Family; Visit Provider Physician Assistant | DX: Z98.84 Bariatric surgery status (principal) ==

== ENCOUNTER 2021-08-16 08:41 | Outpatient (REF) | payer OTHER, SELFPAY ==
--- NOTE | ~2021-08-16 | XR_ITS ---
EXAMINATION: XR C-SPINE XR PELVIS CLINICAL INFORMATION: Cervicalgia. Sacrococcygeal disorder. COMPARISON: C-spine done on 08/30/2018. TECHNIQUE: 3 views of the cervical spine and single frontal view of the pelvis. FINDINGS: Cervical spine: Mild reversal of midcervical lordosis is present. Mild degenerative spondylosis is seen at C4-5, similar to prior study. The remainder of the intervertebral discs appear unremarkable. The posterior appendages are intact. The C1-C2 alignment is intact. Prespinal soft tissues are unremarkable. Pelvis: The bony alignment is intact. The cortices are intact. The soft tissues are unremarkable. XR/XR pelvis 1-2V IMPRESSION: 1. Mild reversal of midcervical lordosis and mild degenerative spondylosis at C4, similar to prior study dated 08/30/2018. 2. Radiographically unremarkable pelvis.
--- NOTE | ~2021-08-16 | XR_ITS ---
EXAMINATION: XR C-SPINE XR PELVIS CLINICAL INFORMATION: Cervicalgia. Sacrococcygeal disorder. COMPARISON: C-spine done on 08/30/2018. TECHNIQUE: 3 views of the cervical spine and single frontal view of the pelvis. FINDINGS: Cervical spine: Mild reversal of midcervical lordosis is present. Mild degenerative spondylosis is seen at C4-5, similar to prior study. The remainder of the intervertebral discs appear unremarkable. The posterior appendages are intact. The C1-C2 alignment is intact. Prespinal soft tissues are unremarkable. Pelvis: The bony alignment is intact. The cortices are intact. The soft tissues are unremarkable. XR/XR cervical spine 2V IMPRESSION: 1. Mild reversal of midcervical lordosis and mild degenerative spondylosis at C4, similar to prior study dated 08/30/2018. 2. Radiographically unremarkable pelvis.
== END 2021-08-16 08:42 | disposition home or self-care (01) ==
LOC: HO.XRAY 08:41
PROVIDERS: PCP Nurse Practitioner Family; Visit Provider Nurse Practitioner Family
DX: M54.2 Cervicalgia (principal); M53.3 Sacrococcygeal disorders, not elsewhere classified; M79.7 Fibromyalgia
CPT/HCPCS: 72040; 72170; 99212

== ENCOUNTER 2021-08-21 08:54 | Outpatient (REF) | payer OTHER, SELFPAY ==
--- NOTE | 2021-08-21 12:29 | MHC.AU.ANR ---
Adult Audiological Evaluation Date of Visit: 08/21/21 Reason for Appointment: Audiological evaluation due to concern for decreased hearing. Ms. Curran reports that she often has to ask for repetition and uses captions when watching TV. She notes that she talks louder because she can't hear herself well. Ms. Curran reports intermittent feelings of aural fullness (like she's underwater) and intermittent tinnitus daily. She has a history of ear infections both in childhood and adulthood, but hasn't had any in at least three years. Does patient feel they have a hearing loss?: Yes If Yes, Which Ear?: Both Ears Hearing Handicap Inventory: HHIE SCORE: 28 Based on HHIE score, patient has: Severe perceived hearing handicap Ear History: Family History of Hearing Loss?: Yes: Father, grandparents Ear Infections in Childhood: Both Ears Bothersome Tinnitus/Ringing/Noises in Ears: Both Ears Blocked/Full Sensation in Ear(s): Both Ears Medical History: Medical History: Headache, Migraines, Tobacco Use Medical History (Other): Tonsillectomy, adenoidectomy, chronic dehydration, tubal ligation, ovarian cyst removal, bariatric sleeve in February 2020, fibromyalgia Allergies: Codeine, Percocet, Vicodin, morphine, Dilaudid (hydromorphone), tramadol, zolpidem, acetaminophen, flu vaccine Medication List: See EMR Otoscopy: Right Ear: Unremarkable Left Ear: Unremarkable Tympanometry: Tympanometry performed due to: To assess integrity of the middle ear system Right Ear: Normal Middle Ear System (Type A) Left Ear: Normal Middle Ear System (Type A) Hearing Evaluation: Transducer(s) Used: Insert Earphones, Bone Conduction Method: Conventional Audiometry Stimuli Used: Pure Tones Right Ear: Description of Hearing: Mild sensorineural hearing loss from 250-8000 Hz. Left Ear: Description of Hearing: Mild to moderate sensorineural hearing loss from 250-8000 Hz. Speech Recognition Threshold (SRT): Method Used: Monitored Live Voice Stimuli Used: Spondee Words Right Ear: 30 dBHL Left Ear: 35 dBHL Word Discrimination: Method: Recorded Lists Word Lists Used: NU-6 Right Ear: 100% at 70 dBHL Left Ear: 96% at 75 dBHL Recommendations: Audiological re-evaluation in one year. Trial with amplification is recommended. Medical clearance from a physician is required before fitting. Hearing aid(s) will be ordered after approval is received. Given hearing loss and patient's reported hearing difficulties/needs, binaural amplification is recommended to help facilitate improved communication. She is agreeable to this recommendation and would like the try rechargeable jziowflm-lk-zzx-canal style hearing aids. Diagnosis: Primary Diagnosis: H90.3 Bilateral Sensorineural Hearing Loss Services Performed: Services Performed: Comprehensive Audiological Evaluation (CPT 22519) Tympanometry (CPT 10540) Signature: Provider: Gonzalo Frost, CCC-A
--- NOTE | 2021-08-21 12:30 | MHC.AU.HAS ---
Hearing Aid Evaluation Date of Visit: 08/21/21 Historical Information: Description of Hearing: Mild SNHL in the right ear. Mild to moderate SNHL in the left ear. Current personal amplification information, if applicable: None Summary: Based on degree of hearing loss and patient's shared listening needs and difficulties, binaural amplification is recommended to help facilitate improved communication. Discussed hearing aid styles and technologies. Patient is interested in rechargeable qfllpdnm-hl-uno-canal style hearing aids. Hearing Aid Prescription: Based on the individual?s shared listening needs, communication environments, dexterity, desire for connectivity, and personal preferences, the following prescription for amplification has been made: Right ear: Career Development Manager: Phonak Model: Audeo P70-R Battery Size: Rechargeable Color: P6- Silver Griffin Motion Picture Critic: Size 1 M Type of Dome: Open Left ear: Left ear prescription to be same as Right Hearing Aid above: Career Development Manager: Phonak Model: Audeo P70-R Battery Size: Rechargeable Color: P6 - Silver Griffin Motion Picture Critic: Size 1 M Type of Dome: Open Plan of Care: Medical Clearance to be requested from PCP/ENT. Hearing Instrument Fitting to be scheduled when materials arrive. Hearing aids will be ordered once MD clearance is received. Primary Diagnosis: H90.3 Bilateral Sensorineural Hearing Loss Signature: Provider: Gonzalo Frost, CCC-A
--- NOTE | 2021-08-21 12:31 | MHC.AU.MED ---
Medical Clearance for Hearing Instrumentation Date: 08/21/21 Patient Name: Suni Curran Date of : 1985 We have seen your patient on 08/21/21 and have determined that they are a candidate for amplification (See accompanying report). Specifically, they would benefit from: Hearing aid use in both ears There is a statute that addresses Medical Evaluation Requirements prior to fitting a patient with a hearing aid. According to [place] statute [facility] CMR:6.03(1), (a) General. Except as provided in 265 CMR 6.03(1)(b), a body shop technician shall not sell a hearing aid unless the prospective user has presented to the body shop technician a written statement signed by a licensed physician that states that the patient's hearing loss has been medically evaluated and the patient may be considered a candidate for a hearing aid. The medical evaluation must have taken place within the preceding six months. Please note: Due to the [place] Statute referenced above, we cannot accept a signature other than that of a licensed physician. PACK PRESS OPERATOR and PA signatures cannot be accepted. I am in agreement with the above recommendation. There is no medical contraindication for hearing instrumentation. Physician Signature Date Physician Name (Printed)
== END 2021-08-21 08:55 | disposition home or self-care (01) ==
LOC: HO.SH 08:54
PROVIDERS: Visit Provider Nurse Practitioner Family
DX: Z01.118 Encounter for examination of ears and hearing with other abnormal findings (principal); Z46.1 Encounter for fitting and adjustment of hearing aid; H90.3 Sensorineural hearing loss, bilateral
CPT/HCPCS: 92557; 92567; 92591

== ENCOUNTER 2021-09-02 09:41 | Outpatient (REF) | payer OTHER, SELFPAY ==
[2021-09-02 14:16] LABS: CT PCR NOT DETECTED (Not Detect.); NG PCR NOT DETECTED (Not Detect.)
[2021-09-07 23:46] LABS: HPV 16 RNA NOT DETECTED (NOT DETECTED); HPV mRNA E6/E7 rflx Detected (Not Detected)
== END 2021-09-02 09:42 | disposition home or self-care (01) ==
LOC: HO.LAB 09:41
PROVIDERS: PCP Nurse Practitioner Family; Visit Provider Obstetrics & Gynecology
DX: Z01.411 Encounter for gynecological examination (general) (routine) with abnormal findings (principal); Z11.51 Encounter for screening for human papillomavirus (HPV); R10.2 Pelvic and perineal pain; N93.9 Abnormal uterine and vaginal bleeding, unspecified
CPT/HCPCS: 87491; 87591; 87624; 87625; 88142; 99212

== ENCOUNTER 2021-09-05 12:21 | Outpatient (REF) | payer OTHER, SELFPAY ==
--- NOTE | ~2021-09-05 | US_ITS ---
EXAMINATION: US PELVIS and transvaginal CLINICAL INFORMATION: Abnormal uterine and vaginal bleeding COMPARISON: None TECHNIQUE: Ultrasound of the pelvis is performed using both transabdominal and transvaginal transducers along with Doppler. Transvaginal imaging is performed due to inadequate visualization transabdominally. FINDINGS: Uterus: The uterus is anteverted and measures 8.8 cm in length, 4.4 cm in AP and 5.0 cm and transit dimension. The double wall endometrial thickness is 0.91 cm. The uterus is smooth in contour and has normal myometrial echogenicity. No visible fibroid. Adnexa: Both ovaries are visualized. There is normal color flow to the adnexa. There is no ovarian torsion. There is no pelvic ascites or fluid collection. Right ovary measures 3.2 x 1.6 x 2.4 cm and volume 6.4 mL. There are small follicular cysts seen. Previously right ovary measured 3.5 x 2.2 x 2.9 cm and volume 11.7 cm. Left ovary measures 3.5 x 2.3 x 2.6 cm and volume 10.5 mL. There is a corpus luteal cyst measuring 2.4 x 1.2 x 1.7 cm. Previously left ovary measured 3.5 x 2.2 x 2.6 cm and volume 11.0 mL. There is a small amount of free fluid adjacent to left ovary. US/US pelvic and transvaginal IMPRESSION: Unremarkable uterus. Small corpus luteal cyst left ovary measuring 2.4 x 1.2 x 1.7 cm. Small follicular cyst in right ovary.
== END 2021-09-05 12:22 | disposition home or self-care (01) ==
LOC: HO.US 12:21
PROVIDERS: PCP Nurse Practitioner Family; Visit Provider Obstetrics & Gynecology
DX: R10.2 Pelvic and perineal pain (principal); N93.9 Abnormal uterine and vaginal bleeding, unspecified
CPT/HCPCS: 76830; 76856; 87491; 87591; 99212

== ENCOUNTER 2021-09-05 14:08 | Outpatient (REF) | payer OTHER, SELFPAY ==
[2021-09-05 21:42] LABS: CT PCR NOT DETECTED (Not Detect.); NG PCR NOT DETECTED (Not Detect.)
== END 2021-09-05 14:09 | disposition home or self-care (01) ==
LOC: HO.LAB 14:08
PROVIDERS: Visit Provider Obstetrics & Gynecology
DX: Z13.89 Encounter for screening for other disorder (principal)
CPT/HCPCS: 87491; 87591

== ENCOUNTER 2021-09-18 08:07 | Outpatient (REF) | payer OTHER, SELFPAY | END 2021-09-18 08:08 | disposition home or self-care (01) | LOC: HO.HAP 08:07 | PROVIDERS: Visit Provider Internal Medicine | DX: Z46.1 Encounter for fitting and adjustment of hearing aid (principal); H90.3 Sensorineural hearing loss, bilateral | CPT/HCPCS: V5011; V5020; V5160; V5261 ==

== ENCOUNTER 2021-09-23 09:56 | Outpatient (REF) | payer OTHER, SELFPAY | END 2021-09-23 09:57 | disposition home or self-care (01) | LOC: HO.LAB 09:56 | PROVIDERS: PCP Nurse Practitioner Family; Visit Provider Obstetrics & Gynecology | DX: N93.9 Abnormal uterine and vaginal bleeding, unspecified (principal); B97.7 Papillomavirus as the cause of diseases classified elsewhere; F17.210 Nicotine dependence, cigarettes, uncomplicated; Z32.02 Encounter for pregnancy test, result negative | CPT/HCPCS: 57454; 58100; 58110; 81025; 88305 ==

== ENCOUNTER 2021-09-24 15:33 | Outpatient (REF) | payer OTHER, SELFPAY ==
[2021-09-25 03:15] LABS: CT PCR NOT DETECTED (Not Detect.); NG PCR NOT DETECTED (Not Detect.)
[2021-10-11 05:01] LABS: HPV 16 RNA NOT DETECTED (NOT DETECTED); HPV mRNA E6/E7 rflx Detected (Not Detected)
== END 2021-09-24 15:34 | disposition home or self-care (01) ==
LOC: HO.LAB 15:33
PROVIDERS: PCP Nurse Practitioner Family; Visit Provider Obstetrics & Gynecology
DX: R87.615 Unsatisfactory cytologic smear of cervix (principal); R10.2 Pelvic and perineal pain; N93.9 Abnormal uterine and vaginal bleeding, unspecified; B97.7 Papillomavirus as the cause of diseases classified elsewhere; Z11.3 Encounter for screening for infections with a predominantly sexual mode of transmission; Z11.8 Encounter for screening for other infectious and parasitic diseases; U07.0 Vaping-related disorder; F17.210 Nicotine dependence, cigarettes, uncomplicated; Z98.51 Tubal ligation status; Z90.49 Acquired absence of other specified parts of digestive tract; Z88.7 Allergy status to serum and vaccine; Z88.8 Allergy status to other drugs, medicaments and biological substances; Z88.6 Allergy status to analgesic agent; Z91.030 Bee allergy status
CPT/HCPCS: 81025; 87491; 87591; 87624; 87625; 88142; 99212

== ENCOUNTER → 2021-09-27 15:02 | Outpatient (BNVA) | payer OTHER, SELFPAY | PROVIDERS: PCP Nurse Practitioner Family; Visit Provider Nurse Practitioner | DX: K21.9 Gastro-esophageal reflux disease without esophagitis (principal); R10.9 Unspecified abdominal pain; R19.7 Diarrhea, unspecified | CPT/HCPCS: 99212 ==

== ENCOUNTER 2021-10-02 08:09 | Outpatient (REF) | payer OTHER, SELFPAY | END 2021-10-02 08:10 | disposition home or self-care (01) | LOC: HO.HAP 08:09 | PROVIDERS: Visit Provider Nurse Practitioner Family | DX: Z13.89 Encounter for screening for other disorder (principal) ==

== ENCOUNTER 2021-10-11 07:48 | Outpatient (REF) | payer OTHER, SELFPAY ==
[2021-10-11 08:42] LABS: Hematocrit 38.4 % (37.0-47.0); Hemoglobin 13.3 g/dl (12.0-16.0); Mean Corpuscular HGB Conc 34.6 g/dl (31.0-35.0); Mean Corpuscular Hemoglobin 31.6 pg (27.0-33.0); Mean Corpuscular Volume 91.2 fL (80.0-98.0); Mean Platelet Volume 11.5 fL (9.4-12.3); Platelet Count 167 X10*3/uL (160-400); Red Blood Count 4.21 X10*6/uL (4.20-5.50); Red Cell Distribution Width 12.1 % (11.0-16.0); White Blood Count 4.8 X10*3/uL (4.8-10.8)
[2021-10-11 08:47] LABS: Amylase 63 U/L (28-100)
[2021-10-11 08:58] LABS: Alanine Aminotransferase 12 U/L (0-31); Albumin Level 4.1 g/dL (3.5-5.0); Alkaline Phosphatase 42 U/L (39-117); Anion Gap 10 (12-20); Aspartate Amino Transferase 13 U/L (5-31); Bilirubin Total 0.5 mg/dL (0.0-1.0); Blood Urea Nitrogen 16 mg/dL (9-16); C Reactive Protein 0.04 mg/dL (< or = 0.50); Calcium 9.4 mg/dL (8.4-10.2); Carbon Dioxide 32 mmol/L (22-29); Chloride 102 mmol/L (96-108); Estimated Glomerular Filt Rate > 60; Glucose Random 89 mg/dL (60-115); Lipase 33 U/L (8-78); Potassium 4.1 mmol/L (3.3-5.1); Sodium 140 mmol/L (135-145); Total Protein 6.4 g/dL (6.5-8.0)
[2021-10-11 09:22] LABS: HCG Quantitative < 2 mIU/mL
[2021-10-14 23:01] LABS: Gliadin Deamidated IgA Ab <1.0 U/mL; Gliadin Deamidated IgG Ab <1.0 U/mL; Transglutaminase Ab IgG <1.0 U/mL; Transglutaminase IgA <1.0 U/mL
== END 2021-10-11 07:49 | disposition home or self-care (01) ==
LOC: HO.LAB 07:48
PROVIDERS: Absent Provider Nurse Practitioner; PCP Nurse Practitioner Family; Visit Provider Obstetrics & Gynecology
DX: N93.9 Abnormal uterine and vaginal bleeding, unspecified (principal); K75.81 Nonalcoholic steatohepatitis (NASH); R10.9 Unspecified abdominal pain; R19.7 Diarrhea, unspecified
CPT/HCPCS: 36415; 80053; 82150; 83690; 84443; 84702; 85027; 86003; 86140; 86258; 86364

== ENCOUNTER 2021-10-29 13:02 | Outpatient (REF) | payer OTHER, SELFPAY ==
--- NOTE | ~2021-10-29 | US_ITS ---
EXAMINATION: US PELVIC AND TRANSVAGINAL CLINICAL INFORMATION: Abnormal uterine and vaginal bleeding. COMPARISON: 09/05/2021 and 07/04/2021. TECHNIQUE: Ultrasound of the pelvis is performed using both transabdominal and transvaginal transducers along with Doppler. Transvaginal imaging is performed due to inadequate visualization transabdominally. FINDINGS: Uterus: The uterus is anteverted and measures 8.5 x 4.3 x 5.2 cm. The double wall endometrial thickness is 7 mm. The uterus is smooth in contour and has normal myometrial echogenicity. No visible fibroid. Adnexa: Both ovaries are visualized. There is normal color flow to the adnexa. There is no ovarian torsion. There is no pelvic ascites or fluid collection. Right ovary measures 3.1 x 1.7 x 2.5 cm. Volume of 6.8 mL. There is a heterogeneous hypoechoic 1.7 x 1.0 x 1.6 cm lesion with large amount of peripheral vascularity consistent with a corpus luteum. Left ovary measures 3.2 x 2.2 x 2.2 cm. Volume of 8.2 mL. There is a 1.9 x 1.6 x 1.8 cm minimally complex cyst with increased through sound transmission and no internal vascularity appreciated. US/US pelvic and transvaginal IMPRESSION: 1. Right ovarian corpus luteum cyst. 2. Minimally complex left ovarian cyst.
== END 2021-10-29 13:03 | disposition home or self-care (01) ==
LOC: HO.HMGCX 13:02
PROVIDERS: Absent Provider Nurse Practitioner Family; PCP Nurse Practitioner Family; Visit Provider Obstetrics & Gynecology
DX: N93.9 Abnormal uterine and vaginal bleeding, unspecified (principal); R30.0 Dysuria
CPT/HCPCS: 76830; 76856; 87086; 87088; 87186

== ENCOUNTER → 2021-10-31 08:09 | Outpatient (BNVA) | payer OTHER, SELFPAY | PROVIDERS: PCP Nurse Practitioner Family; Visit Provider Physician Assistant | DX: Z98.84 Bariatric surgery status (principal); K90.9 Intestinal malabsorption, unspecified ==

== ENCOUNTER 2021-11-18 13:02 | Outpatient (REF) | payer OTHER, SELFPAY ==
--- NOTE | ~2021-11-18 | CT_ITS ---
EXAMINATION: CT ABDOMEN AND PELVIS WITH CONTRAST CLINICAL INFORMATION: Nonalcoholic steatohepatitis COMPARISON: Previous abdominal ultrasounds from [address] of the abdomen and pelvis from 2018 TECHNIQUE: Multidetector volumetric images were obtained from the superior aspect of the liver through the pubic symphysis following administration 75 mL of Omnipaque 350 intravenous contrast. Sagittal and coronal reformatted images were obtained on the technologist's workstation. Oral contrast: Yes This CT examination was performed using dose optimization techniques as appropriate, variously including the following: *Automated exposure control *Adjustment of mA and/or kV according to patient size (this includes techniques or standardized protocols for targeted exams where dose is matched to indication/reason for exam; i.e. extremities or head) *Use of iterative reconstruction technique DLP: 329 mGy-cm FINDINGS: LUNG BASES: The visualized lung bases are unremarkable. LIVER, GALLBLADDER, AND BILIARY TREE: The liver is normal in size, shape, and attenuation. No focal hepatic lesion or biliary ductal dilatation is present. The gallbladder has been removed. PANCREAS: Unremarkable. SPLEEN: Unremarkable. ADRENAL GLANDS: Unremarkable. KIDNEYS AND URETERS: The kidneys are normal in size, shape, and attenuation. There are bilateral extrarenal pelvises. No hydronephrosis, hydroureter, or calculi seen. No perinephric stranding. BLADDER: There is a small amount of air in the bladder. The bladder is otherwise normal. GASTROINTESTINAL TRACT: The small and large bowel are unremarkable. The appendix is not seen and may been removed. There are surgical clips adjacent to the stomach. ABDOMINAL WALL: No significant hernia is appreciated. LYMPH NODES: Normal. VASCULAR: Unremarkable. PELVIC VISCERA: Unremarkable. OSSEOUS STRUCTURES: Unremarkable. CT/CT abdomen pelvis w con IMPRESSION: Normal-appearing liver. Postcholecystectomy. Surgical clips adjacent to the stomach. Small amount of air in the bladder. This may be related to recent catheterization. Clinical correlation recommended. Fleischner guidelines were followed.
== END 2021-11-18 13:03 | disposition home or self-care (01) ==
LOC: HO.CT 13:02
PROVIDERS: Visit Provider Nurse Practitioner
DX: K75.81 Nonalcoholic steatohepatitis (NASH) (principal); R10.9 Unspecified abdominal pain
CPT/HCPCS: 74177; Q9967

== ENCOUNTER 2021-11-20 09:00 | Outpatient (RCR) | payer OTHER, SELFPAY ==
--- NOTE | 2021-10-11 14:55 | MHC.PT.EP ---
[facility] [place] Office [place] Office [place] Office [address] Isaac Skaggs [address] [phone] F: [phone] F: [phone] F: [phone] F: [phone] Physical Therapy Plan of Care Date of Evaluation: Date of Surgery: Diagnosis: NECK PAIN, HIP PAIN (KP) Assessment: JITENDRA IS A PLEASANT 36 YO FEMALE WHO PRESENTS TO PT WITH TY NECK AND SHOULDER PAIN. UPON EXAM, SHE DEMONSTRATES SIGNIFICANT TISSUE TENSION IN TY UPPER TRAPS, LEVATOR, SCM AND SCALENES. OTHER IMPAIRMENTS INCLUDE DECREASED STRENGTH AND ROM OF SHOULDERS, INCREASED PAIN AND SOFT TISSUE DYSFUNCTION, ALTERED POSTURE AND POSITIONING. FUNCTIONAL LIMITATIONS INCLUDE DECREASED ABILITY TO PERFORM LIFTING, REACHING, PUSHING, PULLING AND CARRYING. SHE REPORTS DECREASED ABILITY TO PERFORM HOMEMAKING AND CHILDCARE TASKS, DECREASED PARTICIPATION IN FITNESS AND COMMUNITY ACTIVITIES AND DISRUPTED SLEEP. OF NOTE SHE UNDERWENT BARIATRIC SURGERY AND HAS LOST NEARLY 100# BUT ALSO WITH INCREASED PELVIC PAIN AND INCONTENINCE RESULTING FROM THIS AND MAY BENEFIT FROM PELVIC FLOOR THERAPY WELL. Pt IS A GOOD CANDIDATE FOR SKILLED PT DUE TO AGE, POTENTIAL REMEDIATION OF IMPAIRMENTS, TYPICAL DISEASE/CONDITION PROGRESSION AND PROGNOSIS, COMORBIDITIES, AND MOTIVATION. Pt WOULD BENEFIT FROM TAILORED PROGRAM OF THERAPEUTIC ACTIVITIES, FUNCTIONAL TRAINING, GAIT TRAINING, POSTURAL EDUCATION, NEUROMUSCULAR RE-EDUCATION, AND MODALITIES NEEDED. Frequency and Duration: The patient will be seen 2 X WEEK FOR 4 WEEKS Short Term Goals: INITIATE HEP AND PROMOTE SELF MANAGEMENT OF SYMPTOMS Penitentiary Goals: IN 4 WEEKS FULL, PAIN FREE CERVICAL ROM FULL, PAIN FREE UPPER EXTREMITY STRENGTH, EQUAL TY TO REPORT AT MOST 2 HEADACHE DAYS PER WEEK INDEPENDENT HEP Treatment Plan: Modalities to reduce pain, spasms and effusion. Manual therapy to restore motion and function. Therapeutic exercise to improve strength and flexibility. Neuromuscular re-education for posture and balance. Therapeutic activities to return to functional activities of daily living. Electronically signed by: Brianna Ho PT, DPT Please sign and return to therapist. Thank you for your referral.
== END 2021-12-31 13:00 | disposition home or self-care (01) ==
LOC: HO.PT 09:00
PROVIDERS: PCP Nurse Practitioner Family; Visit Provider Nurse Practitioner Family
DX: M54.2 Cervicalgia (principal); M25.551 Pain in right hip; M25.552 Pain in left hip
CPT/HCPCS: 97110; 97112; 97140; 97162

== ENCOUNTER 2021-11-20 14:08 | Outpatient (REF) | payer OTHER, SELFPAY ==
--- NOTE | ~2021-11-20 | XR_ITS ---
EXAMINATION: RIGHT HAND AND WRIST, RIGHT ELBOW, AND RIGHT SHOULDER. CLINICAL INFORMATION: Pain COMPARISON: Hand study of November 13, 2016 TECHNIQUE: Three-view right elbow, three-view right hand and wrist, and three-view right shoulder. FINDINGS: 3 views of the right elbow do not demonstrate any evidence of acute fracture or dislocation. No elbow effusion is identified. No significant degenerative change. There is no evidence of acute fracture or dislocation of the right shoulder. Glenohumeral joint appears unremarkable. No calcific tendinitis. Acromioclavicular joint unremarkable. No widening of the coracoclavicular space is seen. Views of the right hand and wrist do not demonstrate any evidence of acute fracture or dislocation. No erosive changes are identified. Joint spaces are maintained. No significant degenerative changes noted. XR/XR shoulder RT min 2V IMPRESSION: No significant bony abnormality of the right elbow, right shoulder, or right hand and wrist.
--- NOTE | ~2021-11-20 | XR_ITS ---
EXAMINATION: RIGHT HAND AND WRIST, RIGHT ELBOW, AND RIGHT SHOULDER. CLINICAL INFORMATION: Pain COMPARISON: Hand study of November 13, 2016 TECHNIQUE: Three-view right elbow, three-view right hand and wrist, and three-view right shoulder. FINDINGS: 3 views of the right elbow do not demonstrate any evidence of acute fracture or dislocation. No elbow effusion is identified. No significant degenerative change. There is no evidence of acute fracture or dislocation of the right shoulder. Glenohumeral joint appears unremarkable. No calcific tendinitis. Acromioclavicular joint unremarkable. No widening of the coracoclavicular space is seen. Views of the right hand and wrist do not demonstrate any evidence of acute fracture or dislocation. No erosive changes are identified. Joint spaces are maintained. No significant degenerative changes noted. XR/XR elbow RT min 3V IMPRESSION: No significant bony abnormality of the right elbow, right shoulder, or right hand and wrist.
--- NOTE | ~2021-11-20 | XR_ITS ---
EXAMINATION: RIGHT HAND AND WRIST, RIGHT ELBOW, AND RIGHT SHOULDER. CLINICAL INFORMATION: Pain COMPARISON: Hand study of November 13, 2016 TECHNIQUE: Three-view right elbow, three-view right hand and wrist, and three-view right shoulder. FINDINGS: 3 views of the right elbow do not demonstrate any evidence of acute fracture or dislocation. No elbow effusion is identified. No significant degenerative change. There is no evidence of acute fracture or dislocation of the right shoulder. Glenohumeral joint appears unremarkable. No calcific tendinitis. Acromioclavicular joint unremarkable. No widening of the coracoclavicular space is seen. Views of the right hand and wrist do not demonstrate any evidence of acute fracture or dislocation. No erosive changes are identified. Joint spaces are maintained. No significant degenerative changes noted. XR/XR hand wrist RT IMPRESSION: No significant bony abnormality of the right elbow, right shoulder, or right hand and wrist.
== END 2021-11-20 14:09 | disposition home or self-care (01) ==
LOC: HO.HMGCX 14:08
PROVIDERS: PCP Nurse Practitioner Family; Visit Provider Physician Assistant
DX: M25.521 Pain in right elbow (principal); M25.511 Pain in right shoulder; M25.531 Pain in right wrist
CPT/HCPCS: 73030; 73080; 73110; 73130

== ENCOUNTER → 2021-11-26 12:42 | Outpatient (BNVA) | payer OTHER, SELFPAY | PROVIDERS: PCP Nurse Practitioner Family; Visit Provider Orthopaedic Surgery | DX: M25.531 Pain in right wrist (principal); S60.211A Contusion of right wrist, initial encounter | CPT/HCPCS: 99202 ==

== ENCOUNTER 2021-12-03 09:08 | Outpatient (REF) | payer OTHER, SELFPAY ==
--- NOTE | ~2021-12-03 | XR_ITS ---
EXAMINATION: XR WRIST, RIGHT CLINICAL INFORMATION: M25.531 - Pain in right wrist COMPARISON: Radiographs right hand and wrist 11/20/2021, 11/13/2016 TECHNIQUE: Right wrist is imaged in 4 views. FINDINGS: Normal bony mineralization. No fracture, dislocation, or destructive process. No joint narrowing or erosive change or chondral calcinosis. Pronator quadratus fat pad normal. XR/XR wrist RT w scaphoid IMPRESSION: Normal study.
== END 2021-12-03 09:09 | disposition home or self-care (01) ==
LOC: HO.HOSX 09:08
PROVIDERS: Visit Provider Orthopaedic Surgery
DX: M25.531 Pain in right wrist (principal); S60.211A Contusion of right wrist, initial encounter; M79.642 Pain in left hand
CPT/HCPCS: 73110; 99212

== ENCOUNTER 2021-12-03 11:58 | Outpatient (REF) | payer SELFPAY | END 2021-12-03 11:59 | disposition home or self-care (01) | LOC: HO.HAP 11:58 | PROVIDERS: Visit Provider Nurse Practitioner Family | DX: Z13.89 Encounter for screening for other disorder (principal) ==

== ENCOUNTER 2021-12-17 15:23 | Outpatient (REF) | payer OTHER, SELFPAY ==
--- NOTE | ~2021-12-17 | MR_ITS ---
EXAMINATION: MR WRIST WITHOUT CONTRAST, RIGHT CLINICAL INFORMATION: Wrist pain. Fall 2 weeks ago. COMPARISON: X-ray 12/03/2021 TECHNIQUE: MRI of the wrist was performed using routine sequences on a high-field scanner. FINDINGS: BONE/JOINTS: Inhomogeneous fat saturation limits evaluation of the proximal first metacarpal. Question increased signal in the proximal first metacarpal base, which could be artifactual versus mild nonspecific edema. Mild patchy edema in the distal scaphoid, nonspecific. These findings could represent bone bruise. No focal fracture is seen. Focal subchondral sclerosis in the proximal medial lunate. No significant wrist joint effusion. Small distal radioulnar joint fluid. MUSCLE/TENDONS: Tendons intact. No appreciable tenosynovitis. Mild edema in the thenar muscles possible contusion/strain injury. LIGAMENTS: There is degeneration, slight thinning and fraying of the radial aspect of the triangular fibrocartilage involving a segment approximately 3 mm transverse. No full-thickness perforation is identified. Mild increased signal in the ulnar attachments of the TFCC, could reflect degeneration. Scapholunate, lunotriquetral ligaments appear grossly intact. MEDIAN NERVE: Within normal limits. Guyon's canal: Unremarkable MR/MR wrist RT wo con IMPRESSION: 1. Findings in the distal scaphoid pole and the proximal first metacarpal base, could represent mild bone contusion. No focal fracture is seen. 2. Mild edema in the thenar muscles of the hand, could reflect contusion or strain injury. 3. Thinning/fraying of the radial aspect of the triangular fibrocartilage involving a segment approximately 3 mm transverse. No full-thickness tear is seen. 4. Additional findings and details as above.
== END 2021-12-17 15:24 | disposition home or self-care (01) ==
LOC: HO.MRI 15:23
PROVIDERS: Visit Provider Orthopaedic Surgery
DX: M25.531 Pain in right wrist (principal)
CPT/HCPCS: 73221

== ENCOUNTER → 2022-01-07 13:44 | Outpatient (BNVA) | payer OTHER, SELFPAY | PROVIDERS: PCP Nurse Practitioner Family; Visit Provider Orthopaedic Surgery | DX: S60.211A Contusion of right wrist, initial encounter (principal); M25.531 Pain in right wrist | CPT/HCPCS: 99212 ==

== ENCOUNTER → 2022-01-08 10:52 | Outpatient (BNVA) | payer OTHER, SELFPAY | PROVIDERS: PCP Nurse Practitioner Family; Visit Provider Obstetrics & Gynecology | DX: G25.81 Restless legs syndrome (principal); G47.50 Parasomnia, unspecified; R40.0 Somnolence; R06.83 Snoring; E28.2 Polycystic ovarian syndrome; N71.9 Inflammatory disease of uterus, unspecified; N93.9 Abnormal uterine and vaginal bleeding, unspecified; N83.299 Other ovarian cyst, unspecified side; R87.610 Atypical squamous cells of undetermined significance on cytologic smear of cervix (ASC-US); R87.810 Cervical high risk human papillomavirus (HPV) DNA test positive | CPT/HCPCS: 99202; 99212 ==

== ENCOUNTER → 2022-02-03 20:30 | Outpatient (REF) | payer OTHER, SELFPAY | LOC: HO.SL 20:30 | PROVIDERS: PCP Nurse Practitioner Family; Visit Provider Nurse Practitioner Family | DX: R06.83 Snoring (principal) | CPT/HCPCS: 95810 ==

== ENCOUNTER 2022-02-18 14:10 | Outpatient (REF) | payer OTHER, SELFPAY ==
[2022-02-18 18:16] LABS: CT PCR NOT DETECTED (Not Detect.); NG PCR NOT DETECTED (Not Detect.)
== END 2022-02-18 14:11 | disposition home or self-care (01) ==
LOC: HO.LNP 14:10
PROVIDERS: PCP Nurse Practitioner Family; Visit Provider Obstetrics & Gynecology
DX: R10.2 Pelvic and perineal pain (principal); N83.299 Other ovarian cyst, unspecified side; Z32.02 Encounter for pregnancy test, result negative
CPT/HCPCS: 81025; 87491; 87591; 99212

== ENCOUNTER 2022-03-14 13:22 | Outpatient (REF) | payer OTHER, SELFPAY ==
--- NOTE | 2022-03-25 10:12 | MHC.AU.HFU ---
Hearing Instrument Follow-Up- Binaural Date of Visit: 03/14/22 Right Ear: Mud Jack Nozzleman: Phonak Model: Audeo P70-R Serial Number: [id number] Repair Warranty: 12/02/2024 Loss and Damage Warranty: 12/02/2024 Battery Size: Rechargeable Color: P6- Silver Griffin Tinware Lithograph Press Operator: Size 1 M Type of Dome: Open Type of Wax Guard: Cerushield Dispensed By: [facility] Date of Fittin09/18/2021 Left Ear: Mud Jack Nozzleman: Phonak Model: Audeo P70-R Serial Number: [id number] Repair Warranty: 12/02/2024 Loss and Damage Warranty: 12/02/2024 Battery Size: Rechargeable Color: P6 - Silver Griffin Tinware Lithograph Press Operator: Size 1 M Type of Dome: Open Type of Wax Guard: Cerushield Dispensed By: [facility] Date of Fittin09/18/2021 Follow-Up Summary: Suni returned to sisal picker her right L&D replacement hearing aid. She reported that she had since found the lost hearing aid but it is not working. Suni did not bring any hearing aids to this appointment. Called [facility] to determine if L&D warranty could be reinstated if the replacement hearing aid is returned, as patient has since found the lost hearing aid. [facility] customer leader, Romana, reported L&D warranty will be reinstated once aid is received. Suni will drop off her hearing aids next week for service. Will return replacement hearing aid to [facility] and service patient's hearing aids once she drops them off. Recommendations: Hearing instrument follow-up/maintenance upon drop-off. Please contact our clinic with any questions or concerns. Diagnosis Code(s): Primary Diagnosis: H90.3 Bilateral Sensorineural Hearing Loss Signature: Provider: Olu Beal CCC-Melissa
== END 2022-03-14 13:23 | disposition home or self-care (01) ==
LOC: HO.HAP 13:22
PROVIDERS: Visit Provider Nurse Practitioner Family
DX: Z13.89 Encounter for screening for other disorder (principal)

== ENCOUNTER 2022-03-17 12:36 | Outpatient (REF) | payer OTHER, SELFPAY ==
--- NOTE | 2022-03-17 17:17 | MHC.AU.HFU ---
Hearing Instrument Follow-Up- Binaural Date of Visit: 03/17/22 Right Ear: Plate Gauger: Phonak Model: Audeo P70-R Serial Number: [id number] Repair Warranty: 12/02/2024 Loss and Damage Warranty: 12/02/2024 Battery Size: Rechargeable Color: P6- Silver Griffin Systems Operator: Size 1 M Type of Dome: Open Type of Wax Guard: Cerushield Dispensed By: [facility] Date of Fittin09/18/2021 Left Ear: Plate Gauger: Phonak Model: Audeo P70-R Serial Number: [id number] Repair Warranty: 12/02/2024 Loss and Damage Warranty: 12/02/2024 Battery Size: Rechargeable Color: P6 - Silver Griffin Systems Operator: Size 1 M Type of Dome: Open Type of Wax Guard: Cerushield Dispensed By: [facility] Date of Fittin09/18/2021 Follow-Up Summary: Patient dropped off both hearing aids today reporting the right aid is not working. Listening check confirmed the aid is . Replaced the #1M right instructor ground services with improved sound quality, but still sounded weak based on the audiogram. Increased the right low and high frquencies by 3 dB overall with the aid providing more appropriate amplification. Returned the right L&D since patient has found both hearing aids now. Spoke with Phone Customer Service who reported Olu had called on 03/14/22 regarding the found L&D. Hao will reinstate the L&D warranty when the L&D aid is received. Sent the aid back today. Patient will car pick up driver the aids and blind hooker dropped off today. Recommendations:Hearing instrument follow-up or maintenance as needed. Please contact our clinic with any questions or concerns. Diagnosis Code(s):Primary Diagnosis: H90.3 Bilateral Sensorineural Hearing Loss Signature:Provider: Gonzalo Rae, HELENA-A
== END 2022-03-17 12:37 | disposition home or self-care (01) ==
LOC: HO.HAP 12:36
PROVIDERS: Visit Provider Nurse Practitioner Family
DX: Z13.89 Encounter for screening for other disorder (principal)

== ENCOUNTER 2022-03-20 12:45 | Outpatient (REF) | payer OTHER, SELFPAY ==
--- NOTE | ~2022-03-20 | US_ITS ---
EXAMINATION: US PELVIS CLINICAL INFORMATION: Ovarian cyst. Pelvic pain. COMPARISON: None. TECHNIQUE: Ultrasound of the pelvis is performed using both transabdominal and transvaginal transducers along with Doppler. Transvaginal imaging is performed due to inadequate visualization transabdominally. FINDINGS: UTERUS: The uterus is anteverted and measures 8.3 cm in length, 4.1 mL in AP and 4.8 cm in transverse dimension. The double wall endometrial thickness is 0.34 cm. The uterus is smooth in contour and has normal myometrial echogenicity. No visible fibroid. ADNEXA: Both ovaries are visualized. There is normal color flow to the adnexa. There is no ovarian torsion. There is no pelvic ascites or fluid collection. Right ovary measures 2.7 x 1.4 x 1.7 cm and volume 3.2 mL. Ovary appears unremarkable. Previously it measured 3.1 x 1.7 x 2.5 cm and volume 6.8 mL. Left ovary measures 3.5 x 1.4 x 1.9 cm and volume 4.9 mL. Previously left ovary measured 3.2 x 2.2 x 2.2 cm and volume 8.2 mL. There is no free fluid in the cul-de-sac. US/US pelvic and transvaginal IMPRESSION: Unremarkable uterus and ovaries. No free fluid in the cul-de-sac. Previously seen cyst in both ovaries on CT 10/29/2021 are not visualized.
[2022-03-22 08:31] LABS: Follicle Stimulating Hormone 21.7 mIU/mL; Lutenizing Hormone 8.9 mIU/mL; Prolactin 3.4 ng/mL
[2022-03-26 18:42] LABS: Vitamin A 54 mcg/dL (38-98)
== END 2022-03-20 12:46 | disposition home or self-care (01) ==
LOC: HO.HMGCX 12:45
PROVIDERS: Absent Provider Physician Assistant; PCP Nurse Practitioner Family; Referring Provider Internal Medicine Endocrinology, Diabetes & Metabolism; Visit Provider Obstetrics & Gynecology
DX: E28.2 Polycystic ovarian syndrome (principal); Z98.84 Bariatric surgery status
CPT/HCPCS: 36415; 76830; 76856; 83001; 83002; 84146; 84590

== ENCOUNTER 2022-03-25 08:08 | Outpatient (REF) | payer OTHER, SELFPAY | END 2022-03-25 08:09 | disposition home or self-care (01) | LOC: HO.HAP 08:08 | PROVIDERS: Visit Provider Nurse Practitioner Family | DX: Z13.89 Encounter for screening for other disorder (principal) ==

== ENCOUNTER → 2022-04-23 08:17 | Outpatient (BNVA) | payer OTHER, SELFPAY | PROVIDERS: PCP Nurse Practitioner Family; Visit Provider Physician Assistant Surgical | DX: K21.9 Gastro-esophageal reflux disease without esophagitis (principal); F17.210 Nicotine dependence, cigarettes, uncomplicated; Z98.84 Bariatric surgery status | CPT/HCPCS: 99212 ==

== ENCOUNTER 2022-05-07 11:45 | Outpatient (REF) | payer OTHER, SELFPAY ==
--- NOTE | ~2022-05-07 | XR_ITS ---
EXAMINATION: XR BILATERAL HIPS WITH AP PELVIS CLINICAL INFORMATION: Pain bilateral hips. COMPARISON: None TECHNIQUE: AP view of the pelvis and 2 views of each hip were obtained. FINDINGS: AP pelvis: There is normal symmetry of bilateral SI joints and hip joints. No bony erosive changes. No fracture, sclerotic or lytic process seen involving the pelvic bones. Right hip: AP and frog-leg views right hip reveal no bony erosive changes, loose bodies or fracture. No enthesophytes or soft tissue calcification. Left hip: AP and frog-leg views reveals no bony erosive changes. No acute fracture or dislocation. No loose bodies. The soft tissues are normal. XR/XR hips TY min 3V IMPRESSION: Unremarkable AP pelvis and bilateral hip exam.
== END 2022-05-07 11:46 | disposition home or self-care (01) ==
LOC: HO.HMGCX 11:45
PROVIDERS: PCP Nurse Practitioner Family; Visit Provider Nurse Practitioner Family
DX: M25.551 Pain in right hip (principal); M25.552 Pain in left hip
CPT/HCPCS: 73522

== ENCOUNTER 2022-05-21 13:00 | Outpatient (REF) | payer OTHER, SELFPAY ==
--- NOTE | ~2022-05-21 | US_ITS ---
EXAMINATION: US PELVIS COMPLETE CLINICAL INFORMATION: Ovarian cyst COMPARISON: Pelvic ultrasound 03/20/[address] abdomen pelvis 11/18/2021 TECHNIQUE: Transabdominal and transvaginal imaging was performed. FINDINGS: The uterus is of normal size and echogenicity measuring 7.7 x 4.3 x 5.5 cm. A regular homogeneous endometrium is identified measuring 0.6 cm. Both ovaries are of normal size and echogenicity. The right measures 2.7 x 1.6 x 2.7 cm for a volume of 5.7 mL. The left measures 3.1 x 2.9 x 2.2 cm for a volume of 0.6 mL. Ovaries are remarkable for bilateral physiologic involuting hemorrhagic corpus luteum cyst. A avascular 4 mm echogenic focus in the left ovary, not previously seen unclear if this could be artifactual due to technique or reflect a tiny echogenic lesion, such as a dermoid. Consider 6-12 week follow-up pelvic ultrasound and reassessment. There is no pelvic free fluid. US/US pelvic and transvaginal IMPRESSION: An avascular 4 mm echogenic focus in the left ovary, not previously seen unclear if this could be artifactual due to technique or reflect a tiny echogenic lesion, such as a dermoid. Consider 6-12 week follow-up pelvic ultrasound and reassessment
== END 2022-05-21 13:01 | disposition home or self-care (01) ==
LOC: HO.HMGCX 13:00
PROVIDERS: PCP Nurse Practitioner Family; Visit Provider Obstetrics & Gynecology
DX: N83.299 Other ovarian cyst, unspecified side (principal)
CPT/HCPCS: 76830; 76856

== ENCOUNTER 2022-05-27 07:54 | Outpatient (REF) | payer OTHER, SELFPAY ==
[2022-05-27 08:12] LABS: MANUAL DIFF FLAG NO
[2022-05-27 08:55] LABS: Basophils Percent Auto 0.7 % (0-2); Eosinophils Absolute Auto 0.2 X10*3/uL (0.0-0.4); Eosinophils Percent Auto 4.3 % (0-4); Hematocrit 39.1 % (37.0-47.0); Hemoglobin 13.2 g/dl (12.0-16.0); Imm Gran Abs Auto 0.01 X10*3/uL (0.00-0.03); Imm Gran Pct Auto 0.2 % (0.0-0.4); Lymphocytes Absolute Auto 2.1 X10*3/uL (1.2-4.9); Lymphocytes Percent Auto 37.2 % (20-40); Mean Corpuscular HGB Conc 33.8 g/dl (31.0-35.0); Mean Corpuscular Hemoglobin 31.2 pg (27.0-33.0); Mean Corpuscular Volume 92.4 fL (80.0-98.0); Mean Platelet Volume 11.8 fL (9.4-12.3); Monocytes Absolute Auto 0.4 X10*3/uL (0.1-1.2); Monocytes Percent Auto 6.7 % (2-11); Neutrophils Absolute Auto 2.8 x10*3/uL (2.0-8.3); Neutrophils Percent Auto 50.9 % (45-73); Platelet Count 175 X10*3/uL (160-400); Red Blood Count 4.23 X10*6/uL (4.20-5.50); Red Cell Distribution Width 12.3 % (11.0-16.0); White Blood Count 5.6 X10*3/uL (4.8-10.8)
[2022-05-27 09:16] LABS: Appearance Urine Clear; Color Urine Yellow; Glucose Urine UA Negative (Negative); Leukocyte Esterase Urine Negative (Negative); Nitrite Urine Positive (Negative); PH 6.5 (5.0-9.0); UMIC TRIGGER UACC YES; Urine Blood Negative (Negative); Urine Ketones Negative (Negative); Urine Protein Negative (Neg-Trace)
[2022-05-27 09:22] LABS: Bacteria Urine 4+ (None Seen); Hyaline Casts Urine 0-2 /LPF (0-2); RBC Urine 0-2 /HPF (0-2); Squamous Epithelial Cell Urine 0-2 /HPF (0-2); UACC Culture Trigger YES; WBC Urine 0-5 /HPF (0-5)
[2022-05-27 09:41] LABS: Erythrocyte Sedimentation Rate 5 MM/HR (0-20)
[2022-05-27 10:01] LABS: Alanine Aminotransferase 13 U/L (0-31); Albumin Level 4.2 g/dL (3.5-5.0); Alkaline Phosphatase 40 U/L (39-117); Anion Gap 11 (12-20); Aspartate Amino Transferase 19 U/L (5-31); Bilirubin Total 0.5 mg/dL (0.0-1.0); Blood Urea Nitrogen 10 mg/dL (9-16); Calcium 9.3 mg/dL (8.4-10.2); Carbon Dioxide 30 mmol/L (22-29); Chloride 105 mmol/L (96-108); Cholesterol 170 mg/dL; Estimated Glomerular Filt Rate > 60; Glucose Fasting 76 mg/dL (60-99); HDL Cholesterol 51 mg/dL; LDL Cholesterol Calculated 102 mg/dl; Potassium 4.1 mmol/L (3.3-5.1); Rheumatoid Factor < 13.0 IU/mL (<15.0); Sodium 142 mmol/L (135-145); TSH reflex Free T4 1.13 uIU/mL (0.32-4.0); Total Protein 6.2 g/dL (6.5-8.0); Triglycerides 86 mg/dL; Vitamin D 25-OH Total 43.6 ng/mL (>30)
[2022-05-27 10:07] LABS: Folate 17.9 ng/mL (> or = 4.0); Vitamin B12 592 pg/mL (200-900)
[2022-05-29 08:29] LABS: CA-125 7 U/mL (<35)
[2022-05-29 14:44] LABS: Cyclic Citrullinated Peptide <16 UNITS
[2022-05-29 21:14] LABS: Antibody to SS-A Antigen <1.0 NEG AI (<1.0 NEG); Antibody to SS-B Antigen <1.0 NEG AI (<1.0 NEG)
[2022-05-30 12:49] LABS: Anti Nuclear Antibody Screen NEGATIVE (NEGATIVE)
[2022-06-05 01:29] LABS: HLA B27 Negative (Negative)
== END 2022-05-27 07:55 | disposition home or self-care (01) ==
LOC: HO.LAB 07:54
PROVIDERS: Absent Provider Nurse Practitioner; PCP Nurse Practitioner Family; Visit Provider Obstetrics & Gynecology
DX: M79.7 Fibromyalgia (principal); N83.299 Other ovarian cyst, unspecified side; R52 Pain, unspecified
CPT/HCPCS: 36415; 80053; 80061; 81001; 81003; 82306; 82607; 82746; 84443; 85025; 85652; 86038; 86039; 86140; 86200; 86235; 86304; 86431; 86812; 87086; 87088; 87186

== ENCOUNTER → 2022-06-25 12:29 | Outpatient (BNVA) | payer OTHER, SELFPAY | PROVIDERS: PCP Nurse Practitioner Family; Visit Provider Obstetrics & Gynecology | DX: N83.299 Other ovarian cyst, unspecified side (principal) | CPT/HCPCS: 99212 ==

== ENCOUNTER → 2022-07-04 08:23 | Outpatient (BNVA) | payer OTHER, SELFPAY | PROVIDERS: PCP Nurse Practitioner Family; Visit Provider Nurse Practitioner Family | DX: G25.81 Restless legs syndrome (principal); R53.82 Chronic fatigue, unspecified | CPT/HCPCS: 99212 ==

== ENCOUNTER → 2022-07-18 09:19 | Outpatient (BNVA) | payer OTHER, SELFPAY | PROVIDERS: PCP Nurse Practitioner Family; Visit Provider Physician Assistant Surgical | DX: Z13.89 Encounter for screening for other disorder (principal) ==

== ENCOUNTER → 2022-09-05 08:12 | Outpatient (BNVA) | payer OTHER, SELFPAY | PROVIDERS: PCP Nurse Practitioner Family; Visit Provider Nurse Practitioner Family | DX: M79.7 Fibromyalgia (principal); M54.2 Cervicalgia | CPT/HCPCS: 99212 ==

== ENCOUNTER → 2022-09-12 14:22 | Outpatient (BNVA) | payer OTHER, SELFPAY | PROVIDERS: PCP Nurse Practitioner Family; Referring Provider Nurse Practitioner Family; Visit Provider Nurse Practitioner | DX: K58.2 Mixed irritable bowel syndrome (principal); K21.9 Gastro-esophageal reflux disease without esophagitis; K75.81 Nonalcoholic steatohepatitis (NASH); Z90.710 Acquired absence of both cervix and uterus; Z83.71 Family history of colonic polyps | CPT/HCPCS: 99212 ==

== ENCOUNTER 2022-09-16 10:54 | Outpatient (REF) | payer OTHER, SELFPAY ==
--- NOTE | ~2022-09-16 | US_ITS ---
EXAMINATION: US PELVIS CLINICAL INFORMATION: Ovarian cyst; the patient is status-post hysterectomy. COMPARISON: Pelvic ultrasound dated 05/21/2022. TECHNIQUE: Ultrasound of the pelvis is performed using both transabdominal and transvaginal transducers along with Doppler. Transvaginal imaging is performed due to inadequate visualization transabdominally. FINDINGS: Uterus: The uterus is surgically absent. Adnexa: Both ovaries are visualized. There is normal color flow to the adnexa. There is no ovarian torsion. There is no pelvic ascites or fluid collection. Right ovary measures 2.5 x 2.1 x 1.6 cm, volume 4.4 mL. Small physiologic follicles are noted, as detailed. Left ovary measures 3.0 x 1.6 x 1.6 cm, volume 4.0 mL. The left ovary contains 1.2 cm in 1.1 cm in maximal diameter dominant simple cysts. These are benign and require no imaging follow-up. US/US pelvic and transvaginal IMPRESSION: 1. The uterus is surgically absent. 2. There are benign, simple dominant left ovarian cysts, for which no imaging follow-up is recommended. 3. A previously noted 4 mm echogenic left ovarian focus is not presently redemonstrated.
== END 2022-09-16 10:55 | disposition home or self-care (01) ==
LOC: HO.US 10:54
PROVIDERS: PCP Nurse Practitioner Family; Visit Provider Obstetrics & Gynecology
DX: N83.299 Other ovarian cyst, unspecified side (principal)
CPT/HCPCS: 76830; 76856

== ENCOUNTER 2022-10-15 10:58 | Outpatient (REF) | payer SELFPAY | END 2022-10-15 10:59 | disposition home or self-care (01) | LOC: HO.HAP 10:58 | PROVIDERS: Visit Provider Nurse Practitioner Family | DX: Z46.1 Encounter for fitting and adjustment of hearing aid (principal); H90.3 Sensorineural hearing loss, bilateral | CPT/HCPCS: V5267 ==

== ENCOUNTER 2022-10-15 11:18 | Outpatient (REF) | payer OTHER, SELFPAY ==
[2022-10-15 11:41] LABS: MANUAL DIFF FLAG NO
[2022-10-15 11:58] LABS: Basophils Absolute Auto 0.1 X10*3/uL (0.0-0.2); Eosinophils Absolute Auto 0.2 X10*3/uL (0.0-0.4); Eosinophils Percent Auto 3.4 % (0-4); Hematocrit 37.9 % (37.0-47.0); Imm Gran Abs Auto 0.02 X10*3/uL (0.00-0.03); Imm Gran Pct Auto 0.3 % (0.0-0.4); Lymphocytes Absolute Auto 2.5 X10*3/uL (1.2-4.9); Lymphocytes Percent Auto 34.7 % (20-40); Mean Corpuscular HGB Conc 34.3 g/dl (31.0-35.0); Mean Corpuscular Volume 93.3 fL (80.0-98.0); Mean Platelet Volume 10.9 fL (9.4-12.3); Monocytes Absolute Auto 0.5 X10*3/uL (0.1-1.2); Monocytes Percent Auto 6.6 % (2-11); Neutrophils Absolute Auto 3.9 x10*3/uL (2.0-8.3); Platelet Count 209 X10*3/uL (160-400); Red Blood Count 4.06 X10*6/uL (4.20-5.50); Retic HGB Equivalent 36.9 pg (30.0-35.0); Reticulocyte Percent 1.3 % (0.5-1.8); Reticulocytes Absolute 0.053 X10*6/uL (0.026-0.095); White Blood Count 7.1 X10*3/uL (4.8-10.8)
[2022-10-15 12:32] LABS: Alanine Aminotransferase 8 U/L (0-31); Albumin Level 4.1 g/dL (3.5-5.0); Alkaline Phosphatase 43 U/L (39-117); Anion Gap 11 (12-20); Aspartate Amino Transferase 12 U/L (5-31); Bilirubin Total 0.3 mg/dL (0.0-1.0); Blood Urea Nitrogen 13 mg/dL (9-16); Calcium 9.3 mg/dL (8.4-10.2); Carbon Dioxide 30 mmol/L (22-29); Chloride 106 mmol/L (96-108); Estimated Glomerular Filt Rate > 60; Glucose Random 95 mg/dL (60-115); Iron 49 mcg/dL (30-160); Percent Iron Saturation 15 % (15-50); Potassium 4.4 mmol/L (3.3-5.1); Sodium 143 mmol/L (135-145); Total Iron Binding Capacity 329 mcg/dL (228-428); Total Protein 6.3 g/dL (6.5-8.0); Unsaturated Iron Binding 280 ug/dL
[2022-10-15 12:53] LABS: Ferritin 8 ng/mL (10-122); Folate 8.5 ng/mL (> or = 4.0); TSH reflex Free T4 0.89 uIU/mL (0.32-4.0); Vitamin B12 448 pg/mL (200-900)
[2022-10-15 14:25] LABS: Appearance Urine Clear; Color Urine Yellow; Glucose Urine UA Negative (Negative); Leukocyte Esterase Urine Negative (Negative); Nitrite Urine Negative (Negative); PH 6.5 (5.0-9.0); Specific Gravity - Urine <= 1.005 (1.005-1.025); Urine Blood Negative (Negative); Urine Ketones Negative (Negative); Urine Protein Negative (Neg-Trace)
== END 2022-10-15 11:19 | disposition home or self-care (01) ==
LOC: HO.LAB 11:18
PROVIDERS: Absent Provider Nurse Practitioner Family; PCP Nurse Practitioner Family; Visit Provider Nurse Practitioner Family
DX: R53.82 Chronic fatigue, unspecified (principal)
CPT/HCPCS: 36415; 80053; 81003; 82306; 82607; 82728; 82746; 83540; 84443; 85025; 85045

== ENCOUNTER 2022-10-21 12:01 | Outpatient (REF) | payer OTHER, SELFPAY ==
[2022-10-24 04:18] LABS: HPV mRNA E6/E7 rflx Not Detected (Not Detected)
== END 2022-10-21 12:02 | disposition home or self-care (01) ==
LOC: HO.LNP 12:01
PROVIDERS: PCP Nurse Practitioner Family; Visit Provider Obstetrics & Gynecology
DX: Z01.419 Encounter for gynecological examination (general) (routine) without abnormal findings (principal); N83.299 Other ovarian cyst, unspecified side; R87.610 Atypical squamous cells of undetermined significance on cytologic smear of cervix (ASC-US); R87.810 Cervical high risk human papillomavirus (HPV) DNA test positive; Z90.710 Acquired absence of both cervix and uterus
CPT/HCPCS: 87624; 88142; 99212

== ENCOUNTER → 2022-10-29 13:31 | Outpatient (BNVA) | payer OTHER, SELFPAY | PROVIDERS: PCP Nurse Practitioner Family; Visit Provider Physician Assistant Surgical | DX: L98.7 Excessive and redundant skin and subcutaneous tissue (principal); R21 Rash and other nonspecific skin eruption; Z90.49 Acquired absence of other specified parts of digestive tract | CPT/HCPCS: 99212 ==

== ENCOUNTER 2022-11-19 08:13 | Outpatient (REF) | payer OTHER, SELFPAY | END 2022-11-19 08:14 | disposition home or self-care (01) | LOC: HO.HAP 08:13 | PROVIDERS: Visit Provider Nurse Practitioner Family | DX: Z13.89 Encounter for screening for other disorder (principal) ==

== ENCOUNTER 2022-11-27 10:02 | Outpatient (REF) | payer OTHER, SELFPAY | END 2022-11-27 10:03 | disposition home or self-care (01) | LOC: HO.HAP 10:02 | PROVIDERS: Visit Provider Nurse Practitioner Family | DX: Z46.1 Encounter for fitting and adjustment of hearing aid (principal); H90.3 Sensorineural hearing loss, bilateral | CPT/HCPCS: 92592 ==

== ENCOUNTER 2023-01-09 09:58 | Outpatient (AMB) | payer OTHER, SELFPAY ==
--- NOTE | 2023-01-09 10:02 | MHC.OFFVISWM ---
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 Allergies hydromorphone [From DILAUDID] Allergy (Severe, Verified 01/09/23 10:11) HIVES morphine [MORPHINE] Allergy (Intermediate, Verified 01/09/23 10:11) RASH,DIZZINESS,VOMITING, hives, hives tramadol Allergy (Intermediate, Verified 01/09/23 10:11) Hives zolpidem [From AMBIEN] Allergy (Intermediate, Verified 01/09/23 10:11) BLACK OUTS acetaminophen [Percocet] Allergy (Unknown, Verified 01/09/23 10:11) hives codeine Allergy (Unknown, Verified 01/09/23 10:11) anaphylaxsis hydrocodone [From Vicodin] Allergy (Unknown, Verified 01/09/23 10:11) Nausea, Vomiting, Sweats, Spins influenza virus vaccine, specific [FLU VACCINE] Adverse Reaction (Severe, Verified 01/09/23 10:11) SWELLING bees Allergy (Unknown, Uncoded 12/01/22 11:44) Unknown TDAP Allergy (Unknown, Uncoded 12/01/22 11:44) anaphylaxis Medication List - Last Reconciled 01/09/23 by AWA Kapadia bupropion HCl 300 mg PO DAILY buspirone 30 mg PO BID calcium carbonate-vitamin D3 600 mg-10 mcg (400 unit) (Calcium with Vitamin D) 1 tab PO BID 90 days clonazepam 1 mg PO TID PRN cyclobenzaprine 10 mg PO BEDTIME diphenhydramine HCl (Benadryl Allergy) 25 mg PO BID PRN duloxetine 60 mg PO BID epinephrine 0.3 mg (0.3 mL) IM ONCE 30 days finasteride 5 mg PO DAILY 90 days gabapentin 800 mg PO BID loratadine 10 mg PO DAILY 30 days methylcellulose (laxative) (Citrucel) 1,000 mg (2 x 500 mg) PO DAILY pantoprazole 40 mg PO BID prazosin 5 mg PO BEDTIME prazosin 2 mg PO BID ropinirole 1 mg PO BEDTIME 90 days simethicone (Gas Relief (simethicone)) 80 mg PO QID PRN sumatriptan succinate take 1 tab at onset of headache; if no relief, may repeat 1 tab after at least 2 hrs; max = 2 tabs/24 hrs PO 10 days verapamil 80 mg PO BID 90 days HPI HPI Comments History of Present Illness Details 37 yo female presents for pre-op planning for scheduled panniculectomy on 01/22/23. Meal plan: 20 gm czech yogurt, toast w PB or egg cold cut sandwich w veggies 4-5 forks steak/chicken and veg Exercise plan: walking PFSH Medical History ASCUS with positive high risk HPV Asthma Cervical adenopathy Chronic idiopathic constipation Complex ovarian cyst Cyst of ovary Depression Elevated ferritin Fatty liver Hemochromatosis carrier IBS (irritable bowel syndrome) Intestinal malabsorption Lymphadenopathy Migraine Obesity (BMI 30.0-34.9) PCOS (polycystic ovarian syndrome) Positive IVANA (antinuclear antibody) PTSD (post-traumatic stress disorder) Restless leg Surgical History History of esophagogastroduodenoscopy (EGD) History of exploratory laparotomy Hx laparoscopic cholecystectomy Hx of colonoscopy Hx of hysterectomy Hx of tubal ligation S/P appendectomy S/P tonsillectomy and adenoidectomy S/P wisdom tooth extraction Family History Father History of colon polyps Cancer Mother Thyroid disease Breast cancer Brother Cardiac abnormality Son No problems noted. Son No problems noted. Other Mental health disorder Substance use disorder Social History Housing: House Alcohol intake: former Year quit: 2017 Patient Tobacco Use Status: Former Tobacco user Quit Date: May 2022 Years Smoked: 10.5 e-Cigarette/Vaping Use: Currently Using Second Hand Smoke Exposure: Yes Substance Use Type: Marijuana service: No Current occupational status: unemployed and disabled Cognitive needs: No Hearing needs: No Vision needs: No Female Reproductive History Menstrual Age of Menarche: 9 Assessment & Plan Assessment & Plan (1) Excess skin: Code(s): L98.7 - Excessive and redundant skin and subcutaneous tissue Plan: 1. Plan for panniculectomy on 01/22/23 2. Continue all vitamins 3. Avoid aspirin, Motrin, aleve, Naproxyn, Advil, tumeric etc from now until surgery 4. 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 It is an antibiotic for after surgery. Not now 5. Please do the preoperative blood work any day between Thursday01/12/23 and Thursday01/16/23 6. Change nutritional plan to 3 Pure shakes (1 scoop in the first shake and 1/2 scoop in 8oz almond milk in the other shakes) and a dinner. This nutritional plan will give you the best nutritional support to heal your incisions after your surgery. 7. Risks and complications were discussed the possibility of bleeding that may require transfusion, loss of the umbilicus, wound dehiscence or infection, dog ears , flap asymmetry. We also discussed the need for a drain postoperatively that may remain for more than 3-4 weeks. We also discussed the importance of strict avoidance of weight lifting. Orders: Orders Type and Screen Today Z01.818 - Encounter for other preprocedural examination Vitamin B12 Today Z01.818 - Encounter for other preprocedural examination Comprehensive Met. Panel Today Z01.818 - Encounter for other preprocedural examination C Reactive Protein Today Z01.818 - Encounter for other preprocedural examination Ferritin Today Z01.818 - Encounter for other preprocedural examination Hemoglobin A1c Today Z01.818 - Encounter for other preprocedural examination IRON PROFILE Today Z01.818 - Encounter for other preprocedural examination Lipid Panel Today Z01.818 - Encounter for other preprocedural examination PTHI Today Z01.818 - Encounter for other preprocedural examination TSH reflex Free T4 Today Z01.818 - Encounter for other preprocedural examination Vitamin A Today Z01.818 - Encounter for other preprocedural examination Vitamin B1 Today Z01.818 - Encounter for other preprocedural examination Vitamin D 25-OH Total Today Z01.818 - Encounter for other preprocedural examination Zinc Today Z.818 - Encounter for other preprocedural examination Prothrombin Time INR Today Z.818 - Encounter for other preprocedural examination Partial Thromboplastin Time Today Z.818 - Encounter for other preprocedural examination Complete Blood Count Auto Diff Today Z.818 - Encounter for other preprocedural examination [facility]errals [facility] Referral L98.7 - Excessive and redundant skin and subcutaneous tissue Medications: New cephalexin do not start until after surgery on 01/22/23 500 mg PO Q12H 60 caps 0RF Coding Level of Care Code Est Pt Level 4 (32519) Diagnoses Excess skin L98.7 Time Spent (min) 45
[2023-01-09 10:09] VITALS: BP 116/56; PULSE 84; TEMP 36.4; O2SAT 97; BMI 25.4
== END 2023-01-09 11:55 | disposition home or self-care (01) ==
PROVIDERS: PCP Nurse Practitioner Family; Visit Provider Physician Assistant Surgical
DX: L98.7 Excessive and redundant skin and subcutaneous tissue (principal)
CPT/HCPCS: 99214

== ENCOUNTER → 2023-01-09 09:58 | Outpatient (BNVA) | payer OTHER, SELFPAY | PROVIDERS: PCP Nurse Practitioner Family; Visit Provider Physician Assistant Surgical | DX: Z01.818 Encounter for other preprocedural examination (principal); L98.7 Excessive and redundant skin and subcutaneous tissue | CPT/HCPCS: 99212 ==

== ENCOUNTER 2023-01-16 07:54 | Outpatient (REF) | payer OTHER, SELFPAY ==
[2023-01-16 08:30] LABS: MANUAL DIFF FLAG NO
[2023-01-16 09:13] LABS: Basophils Absolute Auto 0.1 X10*3/uL (0.0-0.2); Basophils Percent Auto 0.9 % (0-2); Eosinophils Absolute Auto 0.3 X10*3/uL (0.0-0.4); Eosinophils Percent Auto 4.6 % (0-4); Hematocrit 39.6 % (37.0-47.0); Hemoglobin 13.3 g/dl (12.0-16.0); Imm Gran Abs Auto 0.01 X10*3/uL (0.00-0.03); Imm Gran Pct Auto 0.2 % (0.0-0.4); Lymphocytes Percent Auto 31.9 % (20-40); Mean Corpuscular HGB Conc 33.6 g/dl (31.0-35.0); Mean Corpuscular Hemoglobin 31.5 pg (27.0-33.0); Mean Corpuscular Volume 93.8 fL (80.0-98.0); Monocytes Absolute Auto 0.4 X10*3/uL (0.1-1.2); Monocytes Percent Auto 6.9 % (2-11); Neutrophils Absolute Auto 3.5 x10*3/uL (2.0-8.3); Neutrophils Percent Auto 55.5 % (45-73); Platelet Count 183 X10*3/uL (160-400); Red Blood Count 4.22 X10*6/uL (4.20-5.50); Red Cell Distribution Width 12.4 % (11.0-16.0); White Blood Count 6.4 X10*3/uL (4.8-10.8)
[2023-01-16 09:15] LABS: Estimated Average Glucose 91 mg/dL; Hemoglobin A1c % 4.8 %
[2023-01-16 09:16] LABS: INTERNATIONAL NORM RATIO 0.9 (0.9-1.1); Prothrombin Time 10.9 SEC (11.1-13.3)
[2023-01-16 09:18] LABS: Partial Thromboplastin Time 32.4 SEC (26.0-36.4)
[2023-01-16 09:50] LABS: Appearance Urine Cloudy; Color Urine Yellow; Glucose Urine UA Negative (Negative); Leukocyte Esterase Urine Trace (Negative); Nitrite Urine Negative (Negative); PH >= 9.0 (5.0-9.0); Specific Gravity - Urine 1.025 (1.005-1.025); UMIC TRIGGER UACC YES; Urine Blood Negative (Negative); Urine Ketones Negative (Negative); Urine Protein 30 (1+) mg/dL (Neg-Trace)
[2023-01-16 09:56] LABS: Bacteria Urine 1+ (None Seen); Hyaline Casts Urine 0-2 /LPF (0-2); RBC Urine 0-2 /HPF (0-2); WBC Urine 0-5 /HPF (0-5)
[2023-01-16 10:11] LABS: Cholesterol 193 mg/dL; HDL Cholesterol 54 mg/dL; LDL Cholesterol Calculated 125 mg/dl; Triglycerides 70 mg/dL
[2023-01-16 10:24] LABS: Alanine Aminotransferase 26 U/L (0-31); Albumin Level 3.9 g/dL (3.5-5.0); Alkaline Phosphatase 42 U/L (39-117); Aspartate Amino Transferase 21 U/L (5-31); Bilirubin Total 0.3 mg/dL (0.0-1.0); Blood Urea Nitrogen 13 mg/dL (9-16); C Reactive Protein < 0.10 mg/dL (< or = 0.50); Calcium 9.1 mg/dL (8.4-10.2); Chloride 104 mmol/L (96-108); Cholesterol 194 mg/dL; Estimated Glomerular Filt Rate > 60; Glucose Fasting 86 mg/dL (60-99); Glucose Random 86 mg/dL (60-115); HDL Cholesterol 53 mg/dL; Iron 100 mcg/dL (30-160); LDL Cholesterol Calculated 127 mg/dl; Percent Iron Saturation 34 % (15-50); Potassium 4.2 mmol/L (3.3-5.1); Sodium 141 mmol/L (135-145); TSH reflex Free T4 0.81 uIU/mL (0.32-4.0); Total Iron Binding Capacity 297 mcg/dL (228-428); Total Protein 6.4 g/dL (6.5-8.0); Triglycerides 70 mg/dL; Unsaturated Iron Binding 197 ug/dL; Vitamin B12 663 pg/mL (200-900)
[2023-01-16 10:27] LABS: Ferritin 26 ng/mL (10-122); TSH reflex Free T4 0.79 uIU/mL (0.32-4.0); Vitamin D 25-OH Total 48.1 ng/mL (>30)
[2023-01-16 10:50] LABS: Anion Gap 17 (12-20); Carbon Dioxide 26 mmol/L (22-29)
[2023-01-19 12:42] LABS: Calcium (PTHI) 8.9 mg/dL (8.6-10.2); PTHI 43 pg/mL (16-77)
[2023-01-20 17:08] LABS: Zinc 67 mcg/dL (60-130)
[2023-01-21 16:18] LABS: Vitamin B1 18 nmol/L (8-30)
[2023-01-22 15:08] LABS: Vitamin A 66 mcg/dL (38-98)
== END 2023-01-16 07:55 | disposition home or self-care (01) ==
LOC: HO.LAB 07:54
PROVIDERS: Physician Assistant Surgical; PCP Nurse Practitioner Family; Visit Provider Nurse Practitioner Family
DX: Z00.00 Encounter for general adult medical examination without abnormal findings (principal)
CPT/HCPCS: 36415; 80053; 80061; 81001; 82306; 82607; 82728; 83036; 83540; 83970; 84425; 84443; 84590; 84630; 85025; 85610; 85730; 86140

== ENCOUNTER 2023-01-22 07:31 | Day surgery (SDC) | payer OTHER, SELFPAY ==
--- NOTE | 2023-01-14 08:36 | MHC.SHP ---
Pre-Procedural Eval Section A Date of Service: 01/14/23 The patient is an INPATIENT: No The History & Physical has been completed within 30 days and I have reviewed it.: Yes Section B Chief Complaint: Excessive and redundant skin and subcutaneous tiss Relevant Family History (Specify if Yes): No Relevant Social History: None Present Medications: None Medical History: No relevant PMH History of Previous Operations: Relevant previous surgery/procedure and date(s) (laparoscopic sleeve gastrectomy) Allergies: Allergies Allergy/AdvReac Type Severity Reaction Status Date / Time hydromorphone [From DILAUDID] Allergy Severe HIVES Verified 01/09/23 10:11 morphine [MORPHINE] Allergy Intermediate RASH,DIZZINESS,VOMITING, Verified 01/09/23 10:11 hives, hives tramadol Allergy Intermediate Hives Verified 01/09/23 10:11 zolpidem [From AMBIEN] Allergy Intermediate BLACK Verified 01/09/23 10:11 OUTS acetaminophen [Percocet] Allergy Unknown hives Verified 01/09/23 10:11 codeine Allergy Unknown anaphylaxsi Verified 01/09/23 10:11 s hydrocodone [From Vicodin] Allergy Unknown Nausea, Verified 01/09/23 10:11 Vomiting, Sweats, Spins influenza virus vaccine, AdvReac Severe SWELLING Verified 01/09/23 10:11 specific [FLU VACCINE] bees Allergy Unknown Unknown Uncoded 12/01/22 11:44 TDAP Allergy Unknown anaphylaxis Uncoded 12/01/22 11:44 Review of Systems Sugical H&P ROS: Negative: Constitution, Cardiovascular, Respiratory, Neurological, Psychiatric, Hem-Onc, Allergic/Immunologic, Gastrointestinal, Genitourinary, Musculoskeletal, Integumentary, Endocrine and Eyes/Ears/Nose/Throat Exam Surgical H&P Exam: Normal: HEENT, Normal: Heart, Normal: Lungs, Normal: Extremities, Normal: Abdomen, Normal: Skin and Normal: Neurological Plan Diagnosis/Plan: Unchanged I have reviewed the history and physical and performed a pertinent physical examination on my patient. No changes have occurred unless specified. Time Spent With Patient Time: Total time managing care of this patient today ____ minutes.
[2023-01-14 16:11] VITALS: BMI 24.8
--- NOTE | 2023-01-21 10:15 | HO.ANESPROP2 ---
Documented by User: Anne Grullon NP 01/21/23 10:19 HPI - Anesthesia Eval Consult details Narrative: 37yo F for Panniculectomy s/p sleeve 02/2020 PMFSH Active Problems Active Problems: All Active Problems (Updated 01/09/23 @ 10:32 by AWA Kapadia) BMI 33.0-33.9,adult (Acute) Overweight (Acute) Physical exam (Acute) Family hx-breast malignancy (Acute) Family hx of ovarian malignancy (Acute) GERD (gastroesophageal reflux disease) (Acute) CHATMAN (nonalcoholic steatohepatitis) (Acute) Well woman exam (Acute) At risk for breast cancer (Acute) HPV in female (Acute) Acute sinusitis (Acute) Panniculitis (Acute) S/P laparoscopic sleeve gastrectomy (Acute) Hearing loss (Acute) Fibromyalgia (Acute) JOHANNA (obstructive sleep apnea) (Acute) Female pelvic pain (Acute) Abnormal uterine bleeding (Acute) Pelvic pain (Acute) DDD (degenerative disc disease), cervical (Acute) Endometritis (Acute) Unsatisfactory cervical Papanicolaou smear (Acute) Diarrhea (Acute) Abdominal pain (Acute) Dysuria (Acute) PTSD (post-traumatic stress disorder) (Acute) Fibromyalgia (Acute) Right wrist pain (Acute) Contusion of right wrist (Acute) Tenderness of anatomical snuffbox (Acute) ASCUS with positive high risk HPV cervical (Acute) Complex ovarian cyst (Acute) Snoring (Acute) Daytime sleepiness (Acute) Parasomnia (Acute) Whole body pain (Acute) Bilateral hip pain (Acute) Chronic fatigue (Acute) Urinary incontinence (Acute) Irritable bowel syndrome with both constipation and diarrhea (Acute) Family history of polyps in the colon (Acute) Breast cancer screening, high risk patient (Acute) Excess skin (Acute) Pre-op evaluation (Acute) Restless leg (Acute) PCOS (polycystic ovarian syndrome) (Acute) Intestinal malabsorption (Acute) Obesity (BMI 30.0-34.9) (Acute) Past Medical History Medical History ASCUS with positive high risk HPV Asthma Cervical adenopathy Chronic idiopathic constipation Complex ovarian cyst Cyst of ovary Depression Elevated ferritin Fatty liver Hemochromatosis carrier IBS (irritable bowel syndrome) Intestinal malabsorption Lymphadenopathy Migraine Obesity (BMI 30.0-34.9) PCOS (polycystic ovarian syndrome) Positive IVANA (antinuclear antibody) PTSD (post-traumatic stress disorder) Restless leg Family History Family History Father History of colon polyps Cancer Mother Thyroid disease Breast cancer Brother Cardiac abnormality Son No problems noted. Son No problems noted. Other Mental health disorder Substance use disorder Surgical History Surgical History History of esophagogastroduodenoscopy (EGD) History of exploratory laparotomy Hx laparoscopic cholecystectomy Hx of colonoscopy Hx of hysterectomy Hx of tubal ligation S/P appendectomy S/P gastric sleeve procedure S/P tonsillectomy and adenoidectomy S/P wisdom tooth extraction Social History Social History Housing: House Are you a primary respiratory care instructor to a significant other at home: No Do you presently have visiting nurse or other home services: No Alcohol intake: former Year quit: 2017 Patient Tobacco Use Status: Former Tobacco user Quit Date: 2021 Tobacco use type: Cigarette Years Smoked: 10.5 e-Cigarette/Vaping Use: Currently Using Second Hand Smoke Exposure: Yes Use of substances other than those prescribed or required for medical reasons: Yes Substance Use Type: Marijuana Substance Use Type Other:: vapes THC at bedtime Substance Use Frequency: Daily Have you been hit, kicked, punched, or otherwise hurt by someone within the past year? If so, by whom?: No Are you DNR?: No Advance Directives: No Advance Directives Information Provided: Yes Advance Directives on File: No Recently lost weight without trying: No Patient : No service: No Current occupational status: unemployed and disabled Cognitive needs: No Hearing needs: No Vision needs: No Meds Allergies Allergy/AdvReac Type Severity Reaction Status Date / Time codeine Allergy Intermediate Nausea and Verified 01/14/23 16:09 Vomiting hydrocodone [From Vicodin] Allergy Intermediate Nausea, Verified 01/14/23 16:09 Vomiting, Sweats, Spins hydromorphone [From DILAUDID] Allergy Intermediate HIVES Verified 01/14/23 16:09 morphine [MORPHINE] Allergy Intermediate RASH,DIZZINESS,VOMITING, Verified 01/09/23 10:11 hives, hives oxycodone Allergy Intermediate Nausea and Verified 01/14/23 16:09 Vomiting tramadol Allergy Intermediate Hives Verified 01/09/23 10:11 zolpidem [From AMBIEN] Allergy Intermediate BLACK Verified 01/09/23 10:11 OUTS influenza virus vaccine, AdvReac Severe SWELLING, Verified 01/14/23 16:08 specific at [FLU VACCINE] injection site bees Allergy Severe Anaphylaxis Uncoded 01/14/23 16:08 TDAP Allergy Severe Swelling Uncoded 01/14/23 16:08 at injection site Home Medications Medication Instructions Recorded Confirmed Last Taken Type buspirone 30 mg tablet 30 mg PO BID 03/17/20 01/14/23 01/22/23 History prazosin 5 mg capsule 5 mg PO BEDTIME 05/29/20 01/14/23 Unknown History duloxetine 60 mg capsule,delayed 60 mg PO BID 04/23/22 01/14/23 01/22/23 History release clonazepam 1 mg tablet 1 mg PO TID PRN anxiety 07/04/22 01/14/23 Unknown History prazosin 2 mg capsule 2 mg PO BID 09/05/22 01/14/23 01/22/23 History bupropion HCl 300 mg 24 hr tablet, 300 mg PO DAILY 09/12/22 01/14/23 01/22/23 History extended release simethicone 80 mg chewable tablet 80 mg PO QID PRN abdominal 01/09/23 01/14/23 Unknown History (Gas Relief (simethicone)) distention Exam Exam Date and Time: January 21, 2023 1015 Height,Weight and Vital Signs: Height 5 ft 5 in Weight 67.585 kg Pertinent Lab Results Pertinent Lab Results: Laboratory Tests 01/16/23 08:20 Blood Type O Negative Antibody Screen NEGATIVE Laboratory Tests 01/16/23 01/16/23 08:28 08:28 WBC 6.4 Hgb 13.3 Hct 39.6 Plt Count 183 Sodium 141 Potassium 4.2 Chloride 104 Carbon Dioxide 26 BUN 13 Creatinine 0.69 Assessment and Plan Assessment Anesthesia Assessment: Chart Reviewed Documented by User: Tracy Victoria MD 01/22/23 09:51 PMF Active Problems Active Problems: All Active Problems (Updated 01/22/23 @ 09:15 by Tracy Victoria MD) BMI 33.0-33.9,adult (Acute) Overweight (Acute) Physical exam (Acute) Family hx-breast malignancy (Acute) Family hx of ovarian malignancy (Acute) GERD (gastroesophageal reflux disease) (Acute) CHATMAN (nonalcoholic steatohepatitis) (Acute) Well woman exam (Acute) At risk for breast cancer (Acute) HPV in female (Acute) Acute sinusitis (Acute) Panniculitis (Acute) S/P laparoscopic sleeve gastrectomy (Acute) Hearing loss (Acute) Fibromyalgia (Acute) JOHANNA (obstructive sleep apnea) (Acute)- 02/03 Normal sleep study Female pelvic pain (Acute) Abnormal uterine bleeding (Acute) Pelvic pain (Acute) DDD (degenerative disc disease), cervical (Acute) Endometritis (Acute) Unsatisfactory cervical Papanicolaou smear (Acute) Diarrhea (Acute) Abdominal pain (Acute) Dysuria (Acute) PTSD (post-traumatic stress disorder) (Acute) Fibromyalgia (Acute) Right wrist pain (Acute) Contusion of right wrist (Acute) Tenderness of anatomical snuffbox (Acute) ASCUS with positive high risk HPV cervical (Acute) Complex ovarian cyst (Acute) Snoring (Acute) Daytime sleepiness (Acute) Parasomnia (Acute) Whole body pain (Acute) Bilateral hip pain (Acute) Chronic fatigue (Acute) Urinary incontinence (Acute) Irritable bowel syndrome with both constipation and diarrhea (Acute) Family history of polyps in the colon (Acute) Breast cancer screening, high risk patient (Acute) Excess skin (Acute) Pre-op evaluation (Acute) Restless leg (Acute) PCOS (polycystic ovarian syndrome) (Acute) Intestinal malabsorption (Acute) Obesity (BMI 30.0-34.9) (Acute) Past Medical History Medical History ASCUS with positive high risk HPV Asthma Cervical adenopathy Chronic idiopathic constipation Complex ovarian cyst Cyst of ovary Depression Elevated ferritin Fatty liver Hemochromatosis carrier IBS (irritable bowel syndrome) Intestinal malabsorption Lymphadenopathy Migraine Obesity (BMI 30.0-34.9) PCOS (polycystic ovarian syndrome) Positive IVANA (antinuclear antibody) PTSD (post-traumatic stress disorder) Restless leg Family History Family History Father History of colon polyps Cancer Mother Thyroid disease Breast cancer Brother Cardiac abnormality Son No problems noted. Son No problems noted. Other Mental health disorder Substance use disorder Family history of problems with anesthesia: No Surgical History Surgical History History of esophagogastroduodenoscopy (EGD) History of exploratory laparotomy Hx laparoscopic cholecystectomy Hx of colonoscopy Hx of hysterectomy Hx of tubal ligation S/P appendectomy S/P gastric sleeve procedure S/P tonsillectomy and adenoidectomy S/P wisdom tooth extraction History of Problems with Anesthesia: Yes (PONV) Social History Social History Housing: House Are you a primary respiratory care instructor to a significant other at home: No Do you presently have visiting nurse or other home services: No Alcohol intake: former Year quit: 2017 Patient Tobacco Use Status: Former Tobacco user Quit Date: 2021 Tobacco use type: Cigarette Years Smoked: 10.5 e-Cigarette/Vaping Use: Currently Using Second Hand Smoke Exposure: Yes Use of substances other than those prescribed or required for medical reasons: Yes Substance Use Type: Marijuana Substance Use Type Other:: vapes THC at bedtime Substance Use Frequency: Daily Have you been hit, kicked, punched, or otherwise hurt by someone within the past year? If so, by whom?: No Are you DNR?: No Advance Directives: No Advance Directives Information Provided: Yes Advance Directives on File: No Recently lost weight without trying: No Patient : No service: No Current occupational status: unemployed and disabled Cognitive needs: No Hearing needs: No Vision needs: No Meds Allergies Allergy/AdvReac Type Severity Reaction Status Date / Time codeine Allergy Intermediate Nausea and Verified 01/14/23 16:09 Vomiting hydrocodone [From Vicodin] Allergy Intermediate Nausea, Verified 01/14/23 16:09 Vomiting, Sweats, Spins hydromorphone [From DILAUDID] Allergy Intermediate HIVES Verified 01/14/23 16:09 morphine [MORPHINE] Allergy Intermediate RASH,DIZZINESS,VOMITING, Verified 01/09/23 10:11 hives, hives oxycodone Allergy Intermediate Nausea and Verified 01/14/23 16:09 Vomiting tramadol Allergy Intermediate Hives Verified 01/09/23 10:11 zolpidem [From AMBIEN] Allergy Intermediate BLACK Verified 01/09/23 10:11 OUTS influenza virus vaccine, AdvReac Severe SWELLING, Verified 01/14/23 16:08 specific at [FLU VACCINE] injection site bees Allergy Severe Anaphylaxis Uncoded 01/14/23 16:08 TDAP Allergy Severe Swelling Uncoded 01/14/23 16:08 at injection site Home Medications Medication Instructions Recorded Confirmed Last Taken Type buspirone 30 mg tablet 30 mg PO BID 03/17/20 01/14/23 01/22/23 History prazosin 5 mg capsule 5 mg PO BEDTIME 05/29/20 01/14/23 Unknown History duloxetine 60 mg capsule,delayed 60 mg PO BID 04/23/22 01/14/23 01/22/23 History release clonazepam 1 mg tablet 1 mg PO TID PRN anxiety 07/04/22 01/14/23 Unknown History prazosin 2 mg capsule 2 mg PO BID 09/05/22 01/14/23 01/22/23 History bupropion HCl 300 mg 24 hr tablet, 300 mg PO DAILY 09/12/22 01/14/23 01/22/23 History extended release simethicone 80 mg chewable tablet 80 mg PO QID PRN abdominal 01/09/23 01/14/23 Unknown History (Gas Relief (simethicone)) distention Exam Height,Weight and Vital Signs: Height 5 ft 5 in Weight 67.585 kg Vital Signs Temp Pulse Resp BP Pulse Ox O2 Del Method 01/22/23 08:44 96.9 F 65 16 94/41 L 98 Room Air Pertinent Lab Results Pertinent Lab Results: Laboratory Tests 01/16/23 08:20 Blood Type O Negative Antibody Screen NEGATIVE Laboratory Tests 01/16/23 01/16/23 08:28 08:28 WBC 6.4 Hgb 13.3 Hct 39.6 Plt Count 183 Sodium 141 Potassium 4.2 Chloride 104 Carbon Dioxide 26 BUN 13 Creatinine 0.69 Airway Mallampati Class: II TM Dist: >3cm Neck ROM: Full (but some discomfort with full extension) Loose/Missing/Broken Teeth: No (Denies broken, loose, missing teeth) Heart: RRR Lungs: CTAB Assessment and Plan Assessment Anesthesia Assessment: Anesthesia Plan Discussed Final Anesthetic Review Family History of Problems with Anesthesia: No History of Problems with Anesthesia: Yes (PONV) NPO: Yes ASA Class: III Final Preanesthetic Review: No Changes in Pt Med Stat, Meds/Allgs Chart Reviewed, Consent Obtained/Reviewed and Anes Risks/Benef Reviewed Patient Risk: Intermediate Procedure Risk: Intermediate Assessment/Block/Sedation in SS: Assess/Block/Sedation-SS Anesthetic Plan Anesthetic Plan: GA Disposition: Standard PACU
[2023-01-22] VITALS (7 sets, daily range): BP systolic 94–107; BP diastolic 41–63; PULSE 65–73; RESP 12–16; TEMP 36.1–36.8; O2SAT 97–99
[2023-01-22] MEDS: Lactated Ringers 1,000 ML 100 ML IVCONT (08:45)
[2023-01-22] MEDS: Scopolamine 1.5 MG PATCH.TD.3 TRANSDERMA (09:37)
--- NOTE | 2023-01-22 10:02 | P.BOP_ITS ---
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 She had an excellent result achieving a BMI of 25.5 kg/m2 with a total weight loss of 86.5lbs, or 36.8% of her TBWL. As a result, she has developed panniculitis which has not resolved despite continuous use of clotrimazole ointment as well as skin irritation. On exam she has extreme skin laxity due to massive weight loss, with the abdominal pannus completely hanging 4cm below the pubis. Panniculectomy was recommended. We discussed the two options for the panniculectomy of using a combined vertical and horizontal incisions or just a horizontal (bikini) incision. It was my recommendation to do only horizontal incision based on her body habitus and skin laxity. The patient agreed with this. Risks and complications were discussed with the patient including bleeding, infection, umbilical loss, flap necrosis, asymmetry, dehiscence, seroma, VTE. The patient understood the risks and was in agreement to proceed with surgery. PROCEDURE: The incisions were appropriately marked at the preop area with the patient standing and laying down. After induction of general anesthesia a Rodriguez catheter and pneumatic compression devices were placed. The patient was prepped and draped in the usual sterile manner and the incisions were marked again and confirmed. The skin was infiltrated with lidocaine and epinephrine. The #10 blade scalpel was used for the large incisions and the #15 blade scalpel for the umbilicus. Cautery was used to divide the subcutaneous tissues until the fascia was identified. Then I used the Sonincision (R-Squared) to separate the pannus from the fascia. The inferior incision was made initially and I mobilized the flap for a several centimeters cephalad to the umbilicus. The umbilicus was incised circumferentially and detached from the surrounding tissues all the way to the fascia while its stalk was preserved. With the patient in reflex position I confirmed that the skin flaps were appropriate and would allow for the tissues to come together with reasonable tension. At that point a horizontal incision was made 4 cm above the umbilicus. #10 blade was used for the skin, cautery for the dermis and the Thunderbeat for the remaining tissues. A subcutaneous fat flap was raised from the upper skin flap in order to fill the space under the skin and support the closure of the two flaps. In addition the inferior flap was mobilized caudally for a few centimeters to create a space for the subcutaneous fat flap as well as relieve tension from the closure. A circumferential incision was made at the area where the umbilicus would be re-implanted. The umbilicus was appropriately oriented and was delivered through the defect and was secured in place with a Saurav. No bleeding was noted anywhere. One Shay drain was placed from the left corner of the horizontal incision across the wound and was secured in place with a silk suture. A total of 14ml of Zynrelef was applied on top of the fascia and under the subcutaneous fat flaps. The subcutaneous fat flap was secured under the inferior flap with several interrupted 3.0 Monocryl sutures. The two flaps were brought together and were attached at the midline of the horizontal incision with a #3.0 Monocryl suture. At that point the umbilicus was properly oriented and was re-approximated to the skin with 8 interrupted 3.0 Monocryl sutures. In a similar fashion the skin flaps were re-approximated with multiple 3.0 Monocryl sutures. The skin was closed in all incisions and umbilicus with 4.0 Monocryl sutures. Steri-strips, xeroform gauzes and gauzes were used to cover the incisions. An abdominal binder was also placed. The was awaken and was transferred to the recover room in a stable condition. I was present and performed the entire procedure. Mr. Reyna was the sales assistant displays. Earl Keyes MD, PhD, FACS Surgeon: Grzegorz Keyes MD Surgeon: Grzegorz Keyes MD Anesthesia: GETA, local and other (14ml Zynrelef ) Was an And Drying Supervisor Cooking Casing used for this Procedure?: No And Drying Supervisor Cooking Casing: Isrrael Reyna Estimated blood loss (mL): 10 IV fluids (mL): 1,500 Urine output (mL): 200 Pathology: other (Abdominal pannus) Condition: stable Disposition: PACU
== END 2023-01-22 16:00 | disposition home or self-care (01) ==
PROVIDERS: PCP Nurse Practitioner Family; Visit Provider Surgery
PROC: 0JB80ZZ Excision of Abdomen Subcutaneous Tissue and Fascia, Open Approach (ICD-10-PCS; CPT 15830; principal; 2023-01-22 10:10)
DX: L98.7 Excessive and redundant skin and subcutaneous tissue (principal); M79.3 Panniculitis, unspecified; E65 Localized adiposity; Z90.3 Acquired absence of stomach [part of]; Z98.84 Bariatric surgery status; K90.9 Intestinal malabsorption, unspecified; K76.0 Fatty (change of) liver, not elsewhere classified; R79.89 Other specified abnormal findings of blood chemistry; J45.909 Unspecified asthma, uncomplicated; E66.9 Obesity, unspecified; Z68.25 Body mass index [BMI] 25.0-25.9, adult; Z79.899 Other long term (current) drug therapy; Z88.8 Allergy status to other drugs, medicaments and biological substances; Z90.49 Acquired absence of other specified parts of digestive tract; Z87.891 Personal history of nicotine dependence
CPT/HCPCS: 15830; 15847; 86850; 86900; 86901; 88304; C9088; J0131; J0690; J1100; J1170; J1200; J2250; J2371; J2405; J3010; J3370

== ENCOUNTER → 2023-01-22 07:31 | Outpatient (BNV) | payer OTHER, SELFPAY | PROVIDERS: PCP Nurse Practitioner Family; Visit Provider Surgery | DX: L98.7 Excessive and redundant skin and subcutaneous tissue (principal); Z90.3 Acquired absence of stomach [part of]; Z98.84 Bariatric surgery status | CPT/HCPCS: 15830 ==

== ENCOUNTER 2023-01-30 10:58 | Outpatient (AMB) | payer OTHER, SELFPAY ==
--- NOTE | 2023-01-30 11:08 | MHC.OFFVISWM ---
Intake VS Expanded 01/30/23 11:11 Height 5 ft 5 in Weight 150 lb 12.8 oz BMI 25.1 BP 135/60 Blood Pressure Location Rt brachial Blood Pressure Position Sitting Pulse 105 H Pulse Source Pulse Oximeter Temp 97.4 F Temperature Source Temporal Artery Scan Pulse Oximetry 97 Oxygen Delivery Method Room Air Body Fat 46.0 Body Fat Percentage 30.6 Free Fat Mass 104.8 Muscle Mass 99.4 Visceral Mass 5.0 Water Mass 74.8 BMR 1,422 Intake Visit Reasons: (OV) 8 Days PO Panniculectomy 01/22/23 Allergies codeine Allergy (Intermediate, Verified 01/30/23 11:19) Nausea and Vomiting hydrocodone [From Vicodin] Allergy (Intermediate, Verified 01/30/23 11:19) Nausea, Vomiting, Sweats, Spins hydromorphone [From DILAUDID] Allergy (Intermediate, Verified 01/30/23 11:19) HIVES morphine [MORPHINE] Allergy (Intermediate, Verified 01/30/23 11:19) RASH,DIZZINESS,VOMITING, hives, hives oxycodone Allergy (Intermediate, Verified 01/30/23 11:19) Nausea and Vomiting tramadol Allergy (Intermediate, Verified 01/30/23 11:19) Hives zolpidem [From AMBIEN] Allergy (Intermediate, Verified 01/30/23 11:19) BLACK OUTS influenza virus vaccine, specific [FLU VACCINE] Adverse Reaction (Severe, Verified 01/30/23 11:19) SWELLING, at injection site bees Allergy (Severe, Uncoded 01/14/23 16:08) Anaphylaxis TDAP Allergy (Severe, Uncoded 01/14/23 16:08) Swelling at injection site Medication List - Last Reconciled 01/30/23 by Radha Condon PA-C bupropion HCl 300 mg PO DAILY buspirone 30 mg PO BID calcium carbonate-vitamin D3 600 mg-10 mcg (400 unit) (Calcium with Vitamin D) 1 tab PO BID 90 days cephalexin 500 mg PO Q12H clonazepam 1 mg PO TID PRN cyclobenzaprine 10 mg PO BEDTIME diphenhydramine HCl (Benadryl Allergy) 25 mg PO BID PRN docusate sodium (Colace) 100 mg PO DAILY duloxetine 60 mg PO BID epinephrine 0.3 mg (0.3 mL) IM ONCE 30 days finasteride 5 mg PO DAILY 90 days gabapentin 800 mg PO BID loratadine 10 mg PO DAILY methylcellulose (laxative) (Citrucel) 1,000 mg (2 x 500 mg) PO DAILY pantoprazole 40 mg PO BID prazosin 5 mg PO BEDTIME prazosin 2 mg PO BID ropinirole 1 mg PO BEDTIME 90 days simethicone (Gas Relief (simethicone)) 80 mg PO QID PRN sumatriptan succinate take 1 tab at onset of headache; if no relief, may repeat 1 tab after at least 2 hrs; max = 2 tabs/24 hrs PO 10 days verapamil 80 mg PO BID 90 days HPI HPI Comments History of Present Illness Details Pt is 1 week s/p panniculectomy. Was very upset yesterday when she was told that she would have a different provider to see today, she does not like when things change. She is tired of being in her bedroom all day everyday and wants to sit downstairs with her family sometimes. Hard to pass her BM's, use citracell and colace daily. Meal plan of 3 shakes, 1 meal of 46 forks protien and 4-6 forks vegetables. May have some fruit at night. Drain output - 65 - 75 cc/day of dark watery bloody fluid Antibiotics - still taking PFSH Medical History ASCUS with positive high risk HPV Asthma Cervical adenopathy Chronic idiopathic constipation Complex ovarian cyst Cyst of ovary Depression Elevated ferritin Fatty liver Hemochromatosis carrier IBS (irritable bowel syndrome) Intestinal malabsorption Lymphadenopathy Migraine Obesity (BMI 30.0-34.9) PCOS (polycystic ovarian syndrome) Positive IVANA (antinuclear antibody) PTSD (post-traumatic stress disorder) Restless leg Surgical History History of esophagogastroduodenoscopy (EGD) History of exploratory laparotomy Hx laparoscopic cholecystectomy Hx of colonoscopy Hx of hysterectomy Hx of tubal ligation S/P appendectomy S/P gastric sleeve procedure S/P tonsillectomy and adenoidectomy S/P wisdom tooth extraction Family History Father History of colon polyps Cancer Mother Thyroid disease Breast cancer Brother Cardiac abnormality Son No problems noted. Son No problems noted. Other Mental health disorder Substance use disorder Social History Housing: House Are you a primary healthcare consultant to a significant other at home: No Do you presently have visiting nurse or other home services: No Alcohol intake: former Year quit: 2017 Patient Tobacco Use Status: Former Tobacco user Quit Date: 2021 Tobacco use type: Cigarette Years Smoked: 10.5 e-Cigarette/Vaping Use: Currently Using Second Hand Smoke Exposure: Yes Substance Use Type: Marijuana service: No Current occupational status: unemployed and disabled Cognitive needs: No Hearing needs: No Vision needs: No Female Reproductive History Menstrual Age of Menarche: 9 Physical Exam Const General: cooperative, healthy appearing, comfortable, no acute distress and anxious GI Other: drain site clean and dry, drain emptied of watery bloody serous fluid 10 cc. Inspection: Yes incision (clean, dry intact with steri strips) Assessment & Plan Assessment & Plan (1) S/P panniculectomy: Code(s): Z98.890 - Other specified postprocedural states Plan: Doing well 8 d post op. Continue to record drain output daily and being sheet to office visits. Will continue VNA visits and same meal plan. May go down the stairs once or twice per day for activity. Continue to keep knees bent when sitting or lying down. Increase colace to bid. Next aptp in 1 week with Isrrael. PT given another binder, guaze pads and tape today. Coding Level of Care Code Global (39043) Diagnoses S/P panniculectomy Z98.890
[2023-01-30 11:11] VITALS: BP 135/60; PULSE 105; TEMP 36.3; O2SAT 97; BMI 25.1
== END 2023-01-30 11:49 | disposition home or self-care (01) ==
PROVIDERS: PCP Nurse Practitioner Family; Visit Provider Physician Assistant
DX: Z98.890 Other specified postprocedural states (principal)
CPT/HCPCS: 99024

== ENCOUNTER → 2023-01-30 10:58 | Outpatient (BNVA) | payer OTHER, SELFPAY | PROVIDERS: PCP Nurse Practitioner Family; Visit Provider Physician Assistant ==

== ENCOUNTER 2023-02-05 14:12 | Outpatient (AMB) | payer OTHER, SELFPAY ==
[2023-02-05 14:29] VITALS: BP 139/73; PULSE 88; TEMP 36.6; O2SAT 98
--- NOTE | 2023-02-05 14:29 | MHC.OFFVISWM ---
Intake VS Expanded 02/05/23 14:29 Height 5 ft 5 in BP 139/73 Blood Pressure Location Rt brachial Blood Pressure Position Sitting Pulse 88 Pulse Source Pulse Oximeter Temp 97.8 F Temperature Source Temporal Artery Scan Pulse Oximetry 98 Oxygen Delivery Method Room Air Intake Visit Reasons: (OV) PO Panniculectomy 01/22/23 Allergies codeine Allergy (Intermediate, Verified 02/05/23 14:31) Nausea and Vomiting hydrocodone [From Vicodin] Allergy (Intermediate, Verified 02/05/23 14:31) Nausea, Vomiting, Sweats, Spins hydromorphone [From DILAUDID] Allergy (Intermediate, Verified 02/05/23 14:31) HIVES morphine [MORPHINE] Allergy (Intermediate, Verified 02/05/23 14:31) RASH,DIZZINESS,VOMITING, hives, hives oxycodone Allergy (Intermediate, Verified 02/05/23 14:31) Nausea and Vomiting tramadol Allergy (Intermediate, Verified 02/05/23 14:31) Hives zolpidem [From AMBIEN] Allergy (Intermediate, Verified 02/05/23 14:31) BLACK OUTS influenza virus vaccine, specific [FLU VACCINE] Adverse Reaction (Severe, Verified 02/05/23 14:31) SWELLING, at injection site bees Allergy (Severe, Uncoded 01/14/23 16:08) Anaphylaxis TDAP Allergy (Severe, Uncoded 01/14/23 16:08) Swelling at injection site HPI HPI Comments History of Present Illness Details 37 yo female POD 14 s/p panniculectomy. Doing very well. 40-50 mL serosang drainage daily no sig pain following nicola plan and continues abx PFSH Medical History ASCUS with positive high risk HPV Asthma Cervical adenopathy Chronic idiopathic constipation Complex ovarian cyst Cyst of ovary Depression Elevated ferritin Fatty liver Hemochromatosis carrier IBS (irritable bowel syndrome) Intestinal malabsorption Lymphadenopathy Migraine Obesity (BMI 30.0-34.9) PCOS (polycystic ovarian syndrome) Positive IVANA (antinuclear antibody) PTSD (post-traumatic stress disorder) Restless leg Surgical History History of esophagogastroduodenoscopy (EGD) History of exploratory laparotomy Hx laparoscopic cholecystectomy Hx of colonoscopy Hx of hysterectomy Hx of tubal ligation S/P appendectomy S/P gastric sleeve procedure S/P tonsillectomy and adenoidectomy S/P wisdom tooth extraction Family History Father History of colon polyps Cancer Mother Thyroid disease Breast cancer Brother Cardiac abnormality Son No problems noted. Son No problems noted. Other Mental health disorder Substance use disorder Social History Housing: House Are you a primary healthcare economics consultant to a significant other at home: No Do you presently have visiting nurse or other home services: No Alcohol intake: former Year quit: 2017 Patient Tobacco Use Status: Former Tobacco user Quit Date: 2021 Tobacco use type: Cigarette Years Smoked: 10.5 e-Cigarette/Vaping Use: Currently Using Second Hand Smoke Exposure: Yes Substance Use Type: Marijuana service: No Current occupational status: unemployed and disabled Cognitive needs: No Hearing needs: No Vision needs: No Female Reproductive History Menstrual Age of Menarche: 9 Physical Exam Vital Signs: Last Vital Signs Temp 97.8 F 02/05/23 14:29 Pulse 88 02/05/23 14:29 BP 139/73 02/05/23 14:29 Pulse Ox 98 02/05/23 14:29 Oxygen Delivery Method Room Air 02/05/23 14:29 GI Other: no dehiscence or drainage Assessment & Plan Assessment & Plan (1) S/P panniculectomy: Code(s): Z98.890 - Other specified postprocedural states Plan: continue current plan rtc 1 week Coding Level of Care Code Global (29298) Diagnoses S/P panniculectomy Z98.890
== END 2023-02-05 15:07 | disposition home or self-care (01) ==
PROVIDERS: PCP Nurse Practitioner Family; Visit Provider Physician Assistant Surgical
DX: Z98.890 Other specified postprocedural states (principal)
CPT/HCPCS: 99024

== ENCOUNTER → 2023-02-05 14:12 | Outpatient (BNVA) | payer OTHER, SELFPAY | PROVIDERS: PCP Nurse Practitioner Family; Visit Provider Physician Assistant Surgical ==

== ENCOUNTER 2023-02-12 08:55 | Outpatient (AMB) | payer OTHER, SELFPAY ==
--- NOTE | 2023-02-12 09:07 | MHC.OFFVISWM ---
Intake VS Expanded 02/12/23 09:10 BP 104/58 L Blood Pressure Location Lt brachial Blood Pressure Position Sitting Pulse 118 H Pulse Source Pulse Oximeter Temp 96.9 F Temperature Source Temporal Artery Scan Pulse Oximetry 98 Oxygen Delivery Method Room Air Intake Visit Reasons: (OV) PO Panniculectomy 01/22/23 Allergies codeine Allergy (Intermediate, Verified 02/12/23 09:11) Nausea and Vomiting hydrocodone [From Vicodin] Allergy (Intermediate, Verified 02/12/23 09:11) Nausea, Vomiting, Sweats, Spins hydromorphone [From DILAUDID] Allergy (Intermediate, Verified 02/12/23 09:11) HIVES morphine [MORPHINE] Allergy (Intermediate, Verified 02/12/23 09:11) RASH,DIZZINESS,VOMITING, hives, hives oxycodone Allergy (Intermediate, Verified 02/12/23 09:11) Nausea and Vomiting tramadol Allergy (Intermediate, Verified 02/12/23 09:11) Hives zolpidem [From AMBIEN] Allergy (Intermediate, Verified 02/12/23 09:11) BLACK OUTS influenza virus vaccine, specific [FLU VACCINE] Adverse Reaction (Severe, Verified 02/12/23 09:11) SWELLING, at injection site bees Allergy (Severe, Uncoded 02/12/23 09:11) Anaphylaxis TDAP Allergy (Severe, Uncoded 02/12/23 09:11) Swelling at injection site HPI HPI Comments History of Present Illness Details 37 yo female POD 21 s/p panniculectomy. Following meal plan per Dr Dwain valladares sig pain continues abd binder at all times except care continues abx 40 serosang daily from drain [facility] Medical History ASCUS with positive high risk HPV Asthma Cervical adenopathy Chronic idiopathic constipation Complex ovarian cyst Cyst of ovary Depression Elevated ferritin Fatty liver Hemochromatosis carrier IBS (irritable bowel syndrome) Intestinal malabsorption Lymphadenopathy Migraine Obesity (BMI 30.0-34.9) PCOS (polycystic ovarian syndrome) Positive IVANA (antinuclear antibody) PTSD (post-traumatic stress disorder) Restless leg Surgical History History of esophagogastroduodenoscopy (EGD) History of exploratory laparotomy Hx laparoscopic cholecystectomy Hx of colonoscopy Hx of hysterectomy Hx of tubal ligation S/P appendectomy S/P gastric sleeve procedure S/P tonsillectomy and adenoidectomy S/P wisdom tooth extraction Family History Father History of colon polyps Cancer Mother Thyroid disease Breast cancer Brother Cardiac abnormality Son No problems noted. Son No problems noted. Other Mental health disorder Substance use disorder Social History Housing: House Are you a primary career development coordinator/teacher to a significant other at home: No Do you presently have visiting nurse or other home services: No Alcohol intake: former Year quit: 2017 Patient Tobacco Use Status: Former Tobacco user Quit Date: 2021 Tobacco use type: Cigarette Years Smoked: 10.5 e-Cigarette/Vaping Use: Currently Using Second Hand Smoke Exposure: Yes Substance Use Type: Marijuana service: No Current occupational status: unemployed and disabled Cognitive needs: No Hearing needs: No Vision needs: No Female Reproductive History Menstrual Age of Menarche: 9 Physical Exam Skin Other: all incisions healing well Assessment & Plan Assessment & Plan (1) S/P panniculectomy: Code(s): Z98.890 - Other specified postprocedural states Plan: continue plans continue abx continue tracking output continue binder rtc 1 week Coding Level of Care Code Global (52518) Diagnoses S/P panniculectomy Z98.890
[2023-02-12 09:10] VITALS: BP 104/58; PULSE 118; TEMP 36.1; O2SAT 98
== END 2023-02-12 09:27 | disposition home or self-care (01) ==
PROVIDERS: PCP Nurse Practitioner Family; Visit Provider Physician Assistant Surgical
DX: Z98.890 Other specified postprocedural states (principal)
CPT/HCPCS: 99024

== ENCOUNTER → 2023-02-12 08:55 | Outpatient (BNVA) | payer OTHER, SELFPAY | PROVIDERS: PCP Nurse Practitioner Family; Visit Provider Physician Assistant Surgical ==

== ENCOUNTER 2023-02-20 11:25 | Outpatient (AMB) | payer OTHER, SELFPAY ==
--- NOTE | 2023-02-20 11:36 | MHC.OFFVISWM ---
Intake VS Expanded 02/20/23 11:40 Height 5 ft 5 in Weight 151 lb 9.6 oz BMI 25.2 BP 117/58 L Blood Pressure Location Rt brachial Blood Pressure Position Sitting Pulse 88 Pulse Source Pulse Oximeter Temp 97.6 F Temperature Source Temporal Artery Scan Pulse Oximetry 97 Oxygen Delivery Method Room Air Body Fat 51.0 Body Fat Percentage 33.6 Free Fat Mass 100.6 Muscle Mass 95.4 Visceral Mass 5.0 Water Mass 71.8 BMR 1,383 Intake Visit Reasons: PO Panniculectomy 01/22/23 Allergies codeine Allergy (Intermediate, Verified 02/20/23 11:42) Nausea and Vomiting hydrocodone [From Vicodin] Allergy (Intermediate, Verified 02/20/23 11:42) Nausea, Vomiting, Sweats, Spins hydromorphone [From DILAUDID] Allergy (Intermediate, Verified 02/20/23 11:42) HIVES morphine [MORPHINE] Allergy (Intermediate, Verified 02/20/23 11:42) RASH,DIZZINESS,VOMITING, hives, hives oxycodone Allergy (Intermediate, Verified 02/20/23 11:42) Nausea and Vomiting tramadol Allergy (Intermediate, Verified 02/20/23 11:42) Hives zolpidem [From AMBIEN] Allergy (Intermediate, Verified 02/20/23 11:42) BLACK OUTS influenza virus vaccine, specific [FLU VACCINE] Adverse Reaction (Severe, Verified 02/20/23 11:42) SWELLING, at injection site bees Allergy (Severe, Uncoded 02/12/23 09:11) Anaphylaxis TDAP Allergy (Severe, Uncoded 02/12/23 09:11) Swelling at injection site HPI HPI Comments History of Present Illness Details 37 yo female s/p panniculectomy on 01/22/23 30 ml ser output via drain continue abx but only 2 days left continues meal plan/binder/no heavy lifting no complaints PFSH Medical History ASCUS with positive high risk HPV Asthma Cervical adenopathy Chronic idiopathic constipation Complex ovarian cyst Cyst of ovary Depression Elevated ferritin Fatty liver Hemochromatosis carrier IBS (irritable bowel syndrome) Intestinal malabsorption Lymphadenopathy Migraine Obesity (BMI 30.0-34.9) PCOS (polycystic ovarian syndrome) Positive IVANA (antinuclear antibody) PTSD (post-traumatic stress disorder) Restless leg Surgical History S/P gastric sleeve procedure Hx of hysterectomy History of esophagogastroduodenoscopy (EGD) Hx of colonoscopy S/P wisdom tooth extraction S/P tonsillectomy and adenoidectomy Hx of tubal ligation S/P appendectomy History of exploratory laparotomy Hx laparoscopic cholecystectomy Family History Father History of colon polyps Cancer Mother Thyroid disease Breast cancer Brother Cardiac abnormality Son No problems noted. Son No problems noted. Other Mental health disorder Substance use disorder Social History Housing: House Are you a primary landcare facilitator to a significant other at home: No Do you presently have visiting nurse or other home services: No Alcohol intake: former Year quit: 2017 Patient Tobacco Use Status: Former Tobacco user Quit Date: 2021 Tobacco use type: Cigarette Years Smoked: 10.5 e-Cigarette/Vaping Use: Currently Using Second Hand Smoke Exposure: Yes Substance Use Type: Marijuana service: No Current occupational status: unemployed and disabled Cognitive needs: No Hearing needs: No Vision needs: No Female Reproductive History Menstrual Age of Menarche: 9 Physical Exam Vital Signs: Last Vital Signs Temp 97.6 F 02/20/23 11:40 Pulse 88 02/20/23 11:40 BP 117/58 L 02/20/23 11:40 Pulse Ox 97 02/20/23 11:40 Oxygen Delivery Method Room Air 02/20/23 11:40 BMI result Body Mass Index 25.2 Skin Other: transverse incision looks great, umbilicus healing well, no s/sx infection or dehisc Assessment & Plan Assessment & Plan (1) S/P panniculectomy: Code(s): Z98.890 - Other specified postprocedural states Plan: abx refill track drain output rtc 1 week Medications: Refilled cephalexin do not start until after surgery on 01/22/23 500 mg PO Q12H 60 caps 0RF Coding Level of Care Code Global (43641) Diagnoses S/P panniculectomy Z98.890
[2023-02-20 11:40] VITALS: BP 117/58; PULSE 88; TEMP 36.4; O2SAT 97; BMI 25.2
== END 2023-02-20 12:10 | disposition home or self-care (01) ==
PROVIDERS: PCP Nurse Practitioner Family; Visit Provider Physician Assistant Surgical
DX: Z98.890 Other specified postprocedural states (principal)
CPT/HCPCS: 99024

== ENCOUNTER → 2023-02-20 11:25 | Outpatient (BNVA) | payer OTHER, SELFPAY | PROVIDERS: PCP Nurse Practitioner Family; Visit Provider Physician Assistant Surgical ==

== ENCOUNTER 2023-02-25 11:27 | Outpatient (AMB) | payer OTHER, SELFPAY ==
--- NOTE | 2023-02-25 11:28 | MHC.OFFVISWM ---
Intake VS Expanded 02/25/23 11:36 Height 5 ft 5 in Weight 153 lb 6.4 oz BMI 25.5 BP 114/57 L Blood Pressure Location Rt brachial Blood Pressure Position Sitting Pulse 97 Pulse Source Pulse Oximeter Temp 97.7 F Temperature Source Temporal Artery Scan Pulse Oximetry 97 Oxygen Delivery Method Room Air Body Fat 49.8 Body Fat Percentage 32.5 Free Fat Mass 103.4 Muscle Mass 98.2 Visceral Mass 5.0 Water Mass 5.0 BMR 1,413 Intake Visit Reasons: PO Panniculectomy 01/22/23 Allergies codeine Allergy (Intermediate, Verified 02/25/23 11:34) Nausea and Vomiting hydrocodone [From Vicodin] Allergy (Intermediate, Verified 02/25/23 11:34) Nausea, Vomiting, Sweats, Spins hydromorphone [From DILAUDID] Allergy (Intermediate, Verified 02/25/23 11:34) HIVES morphine [MORPHINE] Allergy (Intermediate, Verified 02/25/23 11:34) RASH,DIZZINESS,VOMITING, hives, hives oxycodone Allergy (Intermediate, Verified 02/25/23 11:34) Nausea and Vomiting tramadol Allergy (Intermediate, Verified 02/25/23 11:34) Hives zolpidem [From AMBIEN] Allergy (Intermediate, Verified 02/25/23 11:34) BLACK OUTS influenza virus vaccine, specific [FLU VACCINE] Adverse Reaction (Severe, Verified 02/25/23 11:34) SWELLING, at injection site bees Allergy (Severe, Uncoded 02/12/23 09:11) Anaphylaxis TDAP Allergy (Severe, Uncoded 02/12/23 09:11) Swelling at injection site HPI HPI Comments History of Present Illness Details 37 yo female s/p panniculectomy 01/22/23. Continues abx, meal plan per Dr Dwain Sr ser fluid in bulb daily. [facility] Medical History ASCUS with positive high risk HPV Asthma Cervical adenopathy Chronic idiopathic constipation Complex ovarian cyst Cyst of ovary Depression Elevated ferritin Fatty liver Hemochromatosis carrier IBS (irritable bowel syndrome) Intestinal malabsorption Lymphadenopathy Migraine Obesity (BMI 30.0-34.9) PCOS (polycystic ovarian syndrome) Positive IVANA (antinuclear antibody) PTSD (post-traumatic stress disorder) Restless leg Surgical History S/P gastric sleeve procedure Hx of hysterectomy History of esophagogastroduodenoscopy (EGD) Hx of colonoscopy S/P wisdom tooth extraction S/P tonsillectomy and adenoidectomy Hx of tubal ligation S/P appendectomy History of exploratory laparotomy Hx laparoscopic cholecystectomy Family History Father History of colon polyps Cancer Mother Thyroid disease Breast cancer Brother Cardiac abnormality Son No problems noted. Son No problems noted. Other Mental health disorder Substance use disorder Social History Housing: House Are you a primary post acute care registered nurse to a significant other at home: No Do you presently have visiting nurse or other home services: No Alcohol intake: former Year quit: 2018 Patient Tobacco Use Status: Former Tobacco user Quit Date: 2021 Tobacco use type: Cigarette Years Smoked: 10.5 e-Cigarette/Vaping Use: Currently Using Second Hand Smoke Exposure: Yes Substance Use Type: Marijuana service: No Current occupational status: unemployed and disabled Cognitive needs: No Hearing needs: No Vision needs: No Female Reproductive History Menstrual Age of Menarche: 9 Physical Exam Vital Signs: Last Vital Signs Temp 97.7 F 02/25/23 11:36 Pulse 97 02/25/23 11:36 BP 114/57 L 02/25/23 11:36 Pulse Ox 97 02/25/23 11:36 Oxygen Delivery Method Room Air 02/25/23 11:36 BMI result Body Mass Index 25.5 GI Inspection: Yes incision (healing well) Assessment & Plan Assessment & Plan (1) S/P panniculectomy: Code(s): Z98.890 - Other specified postprocedural states Plan: continue plans, maintain drain, rtc 1 week Coding Level of Care Code Global (51181) Diagnoses S/P panniculectomy Z98.890
[2023-02-25 11:36] VITALS: BP 114/57; PULSE 97; TEMP 36.5; O2SAT 97; BMI 25.5
== END 2023-02-25 12:09 | disposition home or self-care (01) ==
PROVIDERS: PCP Nurse Practitioner Family; Visit Provider Physician Assistant Surgical
DX: Z98.890 Other specified postprocedural states (principal)
CPT/HCPCS: 99024

== ENCOUNTER → 2023-02-25 11:27 | Outpatient (BNVA) | payer OTHER, SELFPAY | PROVIDERS: PCP Nurse Practitioner Family; Visit Provider Physician Assistant Surgical ==

== ENCOUNTER 2023-03-04 10:28 | Outpatient (AMB) | payer OTHER, SELFPAY ==
--- NOTE | 2023-03-04 10:31 | A.OFFVIS_ITS ---
Intake VS Expanded 03/04/23 10:51 Height 5 ft 5 in BP 112/58 L Blood Pressure Location Rt brachial Blood Pressure Position Sitting Pulse 89 Pulse Source Pulse Oximeter Temp 98.2 F Temperature Source Temporal Artery Scan Pulse Oximetry 97 Oxygen Delivery Method Room Air Intake Visit Reasons: PO Panniculectomy 01/22/23 Allergies codeine Allergy (Intermediate, Verified 03/04/23 10:52) Nausea and Vomiting hydrocodone [From Vicodin] Allergy (Intermediate, Verified 03/04/23 10:52) Nausea, Vomiting, Sweats, Spins hydromorphone [From DILAUDID] Allergy (Intermediate, Verified 03/04/23 10:52) HIVES morphine [MORPHINE] Allergy (Intermediate, Verified 03/04/23 10:52) RASH,DIZZINESS,VOMITING, hives, hives oxycodone Allergy (Intermediate, Verified 03/04/23 10:52) Nausea and Vomiting tramadol Allergy (Intermediate, Verified 03/04/23 10:52) Hives zolpidem [From AMBIEN] Allergy (Intermediate, Verified 03/04/23 10:52) BLACK OUTS influenza virus vaccine, specific [FLU VACCINE] Adverse Reaction (Severe, Verified 03/04/23 10:52) SWELLING, at injection site bees Allergy (Severe, Uncoded 02/12/23 09:11) Anaphylaxis TDAP Allergy (Severe, Uncoded 02/12/23 09:11) Swelling at injection site HPI HPI Comments History of Present Illness Details 37 yo female s/p panniculectomy 01/22/23. Developed a small opening at the midline of the incision over the weekend. Bandais and steri strips applied and has since scabbed over.No other issuees Continues abx and following meal plan. [facility] Medical History ASCUS with positive high risk HPV Asthma Cervical adenopathy Chronic idiopathic constipation Complex ovarian cyst Cyst of ovary Depression Elevated ferritin Fatty liver Hemochromatosis carrier IBS (irritable bowel syndrome) Intestinal malabsorption Lymphadenopathy Migraine Obesity (BMI 30.0-34.9) PCOS (polycystic ovarian syndrome) Positive IVANA (antinuclear antibody) PTSD (post-traumatic stress disorder) Restless leg Surgical History S/P gastric sleeve procedure Hx of hysterectomy History of esophagogastroduodenoscopy (EGD) Hx of colonoscopy S/P wisdom tooth extraction S/P tonsillectomy and adenoidectomy Hx of tubal ligation S/P appendectomy History of exploratory laparotomy Hx laparoscopic cholecystectomy Family History Father History of colon polyps Cancer Mother Thyroid disease Breast cancer Brother Cardiac abnormality Son No problems noted. Son No problems noted. Other Mental health disorder Substance use disorder Social History Housing: House Are you a primary senior care manager to a significant other at home: No Do you presently have visiting nurse or other home services: No Alcohol intake: former Year quit: 2017 Patient Tobacco Use Status: Former Tobacco user Quit Date: 2021 Tobacco use type: Cigarette Years Smoked: 10.5 e-Cigarette/Vaping Use: Currently Using Second Hand Smoke Exposure: Yes Substance Use Type: Marijuana service: No Current occupational status: unemployed and disabled Cognitive needs: No Hearing needs: No Vision needs: No Female Reproductive History Menstrual Age of Menarche: 9 Physical Exam Skin Other: 0.2 x 0.4 cm scab midline incision, no erythema or warmth Assessment & Plan Assessment & Plan (1) S/P panniculectomy: Code(s): Z98.890 - Other specified postprocedural states Plan: continues with 20 mL drainiage. Drain left off suction but intact to monitor clinical course. Will text if any firmness or accumulation to lower abdomen. If no issues will remove next week may shower Coding Level of Care Code Global (71798) Diagnoses S/P panniculectomy Z98.890
[2023-03-04 10:51] VITALS: BP 112/58; PULSE 89; TEMP 36.8; O2SAT 97
== END 2023-03-04 10:56 | disposition home or self-care (01) ==
PROVIDERS: PCP Nurse Practitioner Family; Visit Provider Physician Assistant Surgical
DX: Z98.890 Other specified postprocedural states (principal)
CPT/HCPCS: 99024

== ENCOUNTER → 2023-03-04 10:28 | Outpatient (BNVA) | payer OTHER, SELFPAY | PROVIDERS: PCP Nurse Practitioner Family; Visit Provider Physician Assistant Surgical ==

== ENCOUNTER 2023-03-06 08:27 | Outpatient (AMB) | payer OTHER, SELFPAY ==
--- NOTE | 2023-03-06 08:44 | MHC.OFFVISWM ---
Intake Intake Visit Reasons: (OV) PO Panniculectomy 01/22/23 Allergies codeine Allergy (Intermediate, Verified 03/06/23 08:55) Nausea and Vomiting hydrocodone [From Vicodin] Allergy (Intermediate, Verified 03/06/23 08:55) Nausea, Vomiting, Sweats, Spins hydromorphone [From DILAUDID] Allergy (Intermediate, Verified 03/06/23 08:55) HIVES morphine [MORPHINE] Allergy (Intermediate, Verified 03/06/23 08:55) RASH,DIZZINESS,VOMITING, hives, hives oxycodone Allergy (Intermediate, Verified 03/06/23 08:55) Nausea and Vomiting tramadol Allergy (Intermediate, Verified 03/06/23 08:55) Hives zolpidem [From AMBIEN] Allergy (Intermediate, Verified 03/06/23 08:55) BLACK OUTS influenza virus vaccine, specific [FLU VACCINE] Adverse Reaction (Severe, Verified 03/06/23 08:55) SWELLING, at injection site bees Allergy (Severe, Uncoded 03/06/23 08:55) Anaphylaxis TDAP Allergy (Severe, Uncoded 03/06/23 08:55) Swelling at injection site HPI HPI Comments History of Present Illness Details Patient called service last night - her drain stitch dislodged, was told to come to office this am for evaluation. States drainage has been about 10 cc over last 36 hours. No other complaints. [facility] Medical History ASCUS with positive high risk HPV Asthma Cervical adenopathy Chronic idiopathic constipation Complex ovarian cyst Cyst of ovary Depression Elevated ferritin Fatty liver Hemochromatosis carrier IBS (irritable bowel syndrome) Intestinal malabsorption Lymphadenopathy Migraine Obesity (BMI 30.0-34.9) PCOS (polycystic ovarian syndrome) Positive IVANA (antinuclear antibody) PTSD (post-traumatic stress disorder) Restless leg Surgical History S/P gastric sleeve procedure Hx of hysterectomy History of esophagogastroduodenoscopy (EGD) Hx of colonoscopy S/P wisdom tooth extraction S/P tonsillectomy and adenoidectomy Hx of tubal ligation S/P appendectomy History of exploratory laparotomy Hx laparoscopic cholecystectomy Family History Father History of colon polyps Cancer Mother Thyroid disease Breast cancer Brother Cardiac abnormality Son No problems noted. Son No problems noted. Other Mental health disorder Substance use disorder Social History Housing: House Are you a primary family day care provider to a significant other at home: No Do you presently have visiting nurse or other home services: No Alcohol intake: former Year quit: 2017 Patient Tobacco Use Status: Former Tobacco user Quit Date: 2021 Tobacco use type: Cigarette Years Smoked: 10.5 e-Cigarette/Vaping Use: Currently Using Second Hand Smoke Exposure: Yes Substance Use Type: Marijuana service: No Current occupational status: unemployed and disabled Cognitive needs: No Hearing needs: No Vision needs: No Female Reproductive History Menstrual Age of Menarche: 9 Physical Exam GI Inspection: Yes incision (intact. 0.5 cm opening in mid incision has closed. ) and Yes J-tube present (thick white/yellowish fluid in drain about 8cc. stitch dislodged from skin ) Assessment & Plan Assessment & Plan (1) S/P panniculectomy: Code(s): Z98.890 - Other specified postprocedural states Plan: Pt is about 6 weeks s/p panniculectomy and stitch has dislodged, drain no longer functioning appropriately. Dr Prakash is awre of color and consistency of drainfluid and advised to have drain removed today. Drain removed without difficulty, pt will continue her present plan of treatment and return to office next week for her scheduled appt with [place]. Coding Level of Care Code Global (91683) Diagnoses S/P panniculectomy Z98.890
== END 2023-03-06 09:25 | disposition home or self-care (01) ==
LOC: HO.HBS 08:27
PROVIDERS: PCP Nurse Practitioner Family; Visit Provider Physician Assistant
DX: Z98.890 Other specified postprocedural states (principal)
CPT/HCPCS: 99024

== ENCOUNTER → 2023-03-06 08:27 | Outpatient (BNVA) | payer OTHER, SELFPAY | PROVIDERS: PCP Nurse Practitioner Family; Visit Provider Physician Assistant ==

== ENCOUNTER 2023-03-12 08:25 | Outpatient (AMB) | payer OTHER, SELFPAY ==
[2023-03-12 08:58] VITALS: BP 122/60; PULSE 132; RESP 16; TEMP 36.4; O2SAT 97
--- NOTE | 2023-03-12 08:58 | A.OFFVIS_ITS ---
Intake VS Expanded 03/12/23 08:58 Height 5 ft 5 in BP 122/60 Blood Pressure Location Rt brachial Blood Pressure Position Sitting Respiratory Rate 16 Pulse 132 H Pulse Source Pulse Oximeter Temp 97.6 F Temperature Source Temporal Artery Scan Pulse Oximetry 97 Oxygen Delivery Method Room Air Intake Visit Reasons: (OV) PO Panniculectomy 01/22/23 Allergies codeine Allergy (Intermediate, Verified 03/06/23 08:55) Nausea and Vomiting hydrocodone [From Vicodin] Allergy (Intermediate, Verified 03/06/23 08:55) Nausea, Vomiting, Sweats, Spins hydromorphone [From DILAUDID] Allergy (Intermediate, Verified 03/06/23 08:55) HIVES morphine [MORPHINE] Allergy (Intermediate, Verified 03/06/23 08:55) RASH,DIZZINESS,VOMITING, hives, hives oxycodone Allergy (Intermediate, Verified 03/06/23 08:55) Nausea and Vomiting tramadol Allergy (Intermediate, Verified 03/06/23 08:55) Hives zolpidem [From AMBIEN] Allergy (Intermediate, Verified 03/06/23 08:55) BLACK OUTS influenza virus vaccine, specific [FLU VACCINE] Adverse Reaction (Severe, Verified 03/06/23 08:55) SWELLING, at injection site bees Allergy (Severe, Uncoded 03/06/23 08:55) Anaphylaxis TDAP Allergy (Severe, Uncoded 03/06/23 08:55) Swelling at injection site HPI HPI Comments History of Present Illness Details 37-year-old female, status post pannicul ectomy 8823. Drain was removed last week as it had become dislodged the day prior. She reports she is doing well, has 1 more week of antibiotics and is continuing her meal plan as outlined by Dr. Prakash. she reports that she is going on a daily walk, around her block. She has no pain or complaints today. [facility] Medical History ASCUS with positive high risk HPV Asthma Cervical adenopathy Chronic idiopathic constipation Complex ovarian cyst Cyst of ovary Depression Elevated ferritin Fatty liver Hemochromatosis carrier IBS (irritable bowel syndrome) Intestinal malabsorption Lymphadenopathy Migraine Obesity (BMI 30.0-34.9) PCOS (polycystic ovarian syndrome) Positive IVANA (antinuclear antibody) PTSD (post-traumatic stress disorder) Restless leg Surgical History S/P gastric sleeve procedure Hx of hysterectomy History of esophagogastroduodenoscopy (EGD) Hx of colonoscopy S/P wisdom tooth extraction S/P tonsillectomy and adenoidectomy Hx of tubal ligation S/P appendectomy History of exploratory laparotomy Hx laparoscopic cholecystectomy Family History Father History of colon polyps Cancer Mother Thyroid disease Breast cancer Brother Cardiac abnormality Son No problems noted. Son No problems noted. Other Mental health disorder Substance use disorder Social History Housing: House Are you a primary tree care foreman to a significant other at home: No Do you presently have visiting nurse or other home services: No Alcohol intake: former Year quit: 2017 Patient Tobacco Use Status: Former Tobacco user Quit Date: 2021 Tobacco use type: Cigarette Years Smoked: 10.5 e-Cigarette/Vaping Use: Currently Using Second Hand Smoke Exposure: Yes Substance Use Type: Marijuana service: No Current occupational status: unemployed and disabled Cognitive needs: No Hearing needs: No Vision needs: No Female Reproductive History Menstrual Age of Menarche: 9 Physical Exam Vital Signs: Last Vital Signs Temp 97.6 F 03/12/23 08:58 Pulse 132 H 03/12/23 08:58 Resp 16 03/12/23 08:58 BP 122/60 03/12/23 08:58 Pulse Ox 97 03/12/23 08:58 Oxygen Delivery Method Room Air 03/12/23 08:58 GI Inspection: Yes incision (Healing well. Umbilicus is viable.) Assessment & Plan Assessment & Plan (1) S/P panniculectomy: Code(s): Z98.890 - Other specified postprocedural states Plan: Overall doing very well. Continue current plans. Return to clinic in 3 weeks. Coding Level of Care Code Global (21714) Diagnoses S/P panniculectomy Z98.890
== END 2023-03-12 09:44 | disposition home or self-care (01) ==
PROVIDERS: PCP Nurse Practitioner Family; Visit Provider Physician Assistant Surgical
DX: Z98.890 Other specified postprocedural states (principal)
CPT/HCPCS: 99024

== ENCOUNTER → 2023-03-12 08:25 | Outpatient (BNVA) | payer OTHER, SELFPAY | PROVIDERS: PCP Nurse Practitioner Family; Visit Provider Physician Assistant Surgical ==

== ENCOUNTER 2023-03-30 11:40 | Outpatient (AMB) | payer OTHER, SELFPAY ==
--- NOTE | 2023-03-30 11:43 | A.OFFVIS_ITS ---
Intake VS Expanded 03/30/23 11:57 BP 110/58 L Blood Pressure Location Rt brachial Blood Pressure Position Sitting Pulse 78 Pulse Source Pulse Oximeter Temp 97.8 F Temperature Source Temporal Artery Scan Pulse Oximetry 98 Oxygen Delivery Method Room Air Height 5 ft 5 in Weight 155 lb 3.2 oz BMI 25.8 Body Fat % 34.9 Body Fat Mass 54.0 Fat Free Mass 101.0 Visceral Fat Rating 5.0 Body Water % 46.7 Body Water Mass 72.4 Muscle Mass/Score 96.0 Basal Metabolic Rate/Score 1,391 Intake Visit Reasons: (OV) PO Panniculectomy 01/22/23 Allergies codeine Allergy (Intermediate, Verified 03/30/23 11:51) Nausea and Vomiting hydrocodone [From Vicodin] Allergy (Intermediate, Verified 03/30/23 11:51) Nausea, Vomiting, Sweats, Spins hydromorphone [From DILAUDID] Allergy (Intermediate, Verified 03/30/23 11:51) HIVES morphine [MORPHINE] Allergy (Intermediate, Verified 03/30/23 11:51) RASH,DIZZINESS,VOMITING, hives, hives oxycodone Allergy (Intermediate, Verified 03/30/23 11:51) Nausea and Vomiting tramadol Allergy (Intermediate, Verified 03/30/23 11:51) Hives zolpidem [From AMBIEN] Allergy (Intermediate, Verified 03/30/23 11:51) BLACK OUTS influenza virus vaccine, specific [FLU VACCINE] Adverse Reaction (Severe, Verified 03/30/23 11:51) SWELLING, at injection site bees Allergy (Severe, Uncoded 03/06/23 08:55) Anaphylaxis TDAP Allergy (Severe, Uncoded 03/06/23 08:55) Swelling at injection site HPI HPI Comments History of Present Illness Details Pleasant 37-year-old female returns to the office today in follow-up of her panniculectomy on 01/22/2023. She reports she is doing well and offered no significant complaints. She has been walking and has been following a meal plan consistent of 2 ready to drink premier protein shakes and a meal at night with 6 4 of protein and 6 forks of vegetables and a small meal at lunch consistent of a half of a tuna sandwich. [facility] Medical History ASCUS with positive high risk HPV Asthma Cervical adenopathy Chronic idiopathic constipation Complex ovarian cyst Cyst of ovary Depression Elevated ferritin Fatty liver Hemochromatosis carrier IBS (irritable bowel syndrome) Intestinal malabsorption Lymphadenopathy Migraine Obesity (BMI 30.0-34.9) PCOS (polycystic ovarian syndrome) Positive IVANA (antinuclear antibody) PTSD (post-traumatic stress disorder) Restless leg Surgical History S/P gastric sleeve procedure Hx of hysterectomy History of esophagogastroduodenoscopy (EGD) Hx of colonoscopy S/P wisdom tooth extraction S/P tonsillectomy and adenoidectomy Hx of tubal ligation S/P appendectomy History of exploratory laparotomy Hx laparoscopic cholecystectomy Family History Father History of colon polyps Cancer Mother Thyroid disease Breast cancer Brother Cardiac abnormality Son No problems noted. Son No problems noted. Other Mental health disorder Substance use disorder Social History Housing: House Are you a primary lpn care manager to a significant other at home: No Do you presently have visiting nurse or other home services: No Alcohol intake: former Year quit: 2018 Patient Tobacco Use Status: Former Tobacco user Quit Date: 2021 Tobacco use type: Cigarette Years Smoked: 10.5 e-Cigarette/Vaping Use: Currently Using Second Hand Smoke Exposure: Yes Substance Use Type: Marijuana service: No Current occupational status: unemployed and disabled Cognitive needs: No Hearing needs: No Vision needs: No Female Reproductive History Menstrual Age of Menarche: 9 Physical Exam Vital Signs: Last Vital Signs Temp 97.8 F 03/30/23 11:57 Pulse 78 03/30/23 11:57 BP 110/58 L 03/30/23 11:57 Pulse Ox 98 03/30/23 11:57 Oxygen Delivery Method Room Air 03/30/23 11:57 BMI result Body Mass Index 25.8 GI Inspection: Yes incision (Well-healed) Assessment & Plan Assessment & Plan (1) S/P panniculectomy: Code(s): Z98.890 - Other specified postprocedural states Plan: Recommended decreasing to 1-1/2 shakes per day, small meal at lunch of 4 folk fulls of protein and a meal at dinner time with 6 fork fulls of protein. She may continue to walk freely and may start to use weights for her upper extremities, no more than 5 lb. She will return to clinic in 1 month Coding Level of Care Code Global (92116) Diagnoses S/P panniculectomy Z98.890
[2023-03-30 11:57] VITALS: BP 110/58; PULSE 78; TEMP 36.6; O2SAT 98; BMI 25.8
== END 2023-03-30 12:22 | disposition home or self-care (01) ==
PROVIDERS: PCP Nurse Practitioner Family; Visit Provider Physician Assistant Surgical
DX: Z98.890 Other specified postprocedural states (principal)
CPT/HCPCS: 99024

== ENCOUNTER → 2023-03-30 11:40 | Outpatient (BNVA) | payer OTHER, SELFPAY | PROVIDERS: PCP Nurse Practitioner Family; Visit Provider Physician Assistant Surgical ==

== ENCOUNTER 2023-04-08 09:38 | Outpatient (REF) | payer OTHER, SELFPAY ==
--- NOTE | ~2023-04-08 | MR_ITS ---
EXAMINATION: MR BREAST WITHOUT AND WITH CONTRAST, BILATERAL CLINICAL INFORMATION: 37-year-old for high-risk screening family history on, mother and cousins COMPARISON: MRI 02/04/2021 TECHNIQUE: Imaging was performed with a dedicated breast coil. Prior to the administration of contrast, bilateral axial T1 and bilateral axial T2 weighted sequences were obtained. After the uneventful administration of?7 mL of Gadavist, dynamic contrast-enhanced VIBRANT series through the breasts in the axial plane were performed. Subtracted images were performed and reviewed. A delayed sagittal sequence through both breasts was acquired. Additionally, CAD post-processing, including maximum intensity projections, 3-D reconstructions and kinetic analysis, were performed an independent workstation and reviewed by the interpreting radiologist is a portion of this exam. FINDINGS: The patient's fibroglandular tissue demonstrates minimal background enhancement. LEFT BREAST: No suspicious masslike or non-masslike enhancement. No abnormal skin thickening or nipple retraction. No abnormal architectural distortion. There are a few scattered stable foci of enhancement. Review of the T2 weighted images demonstrates no fibrocystic changes or dilated ducts. Review of kinetic images reveals no additional findings. RIGHT BREAST: No suspicious masslike or non-masslike enhancement. No abnormal skin thickening or nipple retraction. No abnormal architectural distortion. There are a few stable foci of enhancement. Review of the T2 weighted images demonstrates no fibrocystic changes or dilated ducts. Review of kinetic images reveals no additional findings. There is no suspicious internal mammary chain or axillary adenopathy. Limited views of the chest and abdomen are unremarkable. MR/MR breast BI wo/w con IMPRESSION: No MR specific evidence of malignancy. ASSESSMENT: LEFT BREAST: BI-RADS 2 benign RIGHT BREAST: BI-RADS 2 benign RECOMMENDATIONS: Routine mammographic imaging and MRI as per high-risk protocol.
[2023-04-08] MEDS: gadobutroL 7.5 ML VIAL IVPUSH (10:41)
== END 2023-04-08 09:39 | disposition home or self-care (01) ==
LOC: HO.MRI 09:38
PROVIDERS: PCP Nurse Practitioner Family; Visit Provider Obstetrics & Gynecology
DX: Z12.39 Encounter for other screening for malignant neoplasm of breast (principal)
CPT/HCPCS: 77049; A9585

== ENCOUNTER 2023-04-16 11:50 | Outpatient (AMB) | payer OTHER, SELFPAY ==
[2023-04-16 11:55] VITALS: BP 106/56; PULSE 56; BMI 26.3
--- NOTE | 2023-04-16 11:55 | A.OFFVIS_ITS ---
Intake Vital Signs 3 04/16/23 11:55 Height 5 ft 5 in Weight 157 lb 13.616 oz BMI 26.3 BP 106/56 L Blood Pressure Location Rt brachial Position Sitting Pulse 56 Intake Visit Reasons: 6 Month Follow up & Colonoscopy Screening Intake Note: Patient presents to in office visit today in follow up of IBS and to discuss colonoscopy screening. CC: Patient reports constipation and diarrhea, occasional nausea, heartburn, and acid reflux. She states pantoprazole works well to manage GERD symptoms. Denies other GI symptoms today. Resident Assistant Required: No Accompanied by: Self / Same As Patient Allergies codeine Allergy (Intermediate, Verified 05/12/23 09:25) Nausea and Vomiting hydrocodone [From Vicodin] Allergy (Intermediate, Verified 05/12/23 09:25) Nausea, Vomiting, Sweats, Spins hydromorphone [From DILAUDID] Allergy (Intermediate, Verified 05/12/23 09:25) HIVES morphine [MORPHINE] Allergy (Intermediate, Verified 05/12/23 09:25) RASH,DIZZINESS,VOMITING, hives, hives oxycodone Allergy (Intermediate, Verified 05/12/23 09:25) Nausea and Vomiting tramadol Allergy (Intermediate, Verified 05/12/23 09:25) Hives zolpidem [From AMBIEN] Allergy (Intermediate, Verified 05/12/23 09:25) BLACK OUTS influenza virus vaccine, specific [FLU VACCINE] Adverse Reaction (Severe, Verified 05/12/23 09:25) SWELLING, at injection site bees Allergy (Severe, Uncoded 05/12/23 09:25) Anaphylaxis TDAP Allergy (Severe, Uncoded 05/12/23 09:25) Swelling at injection site HPI 6 Month Follow up & Colonoscopy Screening 2 HPI0 Details Assessment & Plan (1) GERD (gastroesophageal reflux diseas e): Code(s): K21.9 - Gastro-esophageal reflux disease without esophagitis Plan: She had her hysterectomy, but no sling. She is now pain free for the most part, except for gas pain which she can feel. 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 Now her bowels well be mostly formed stools with occasional loose stools; but at times she will have a very large volume harder stool and will have to digitally push it out through my vagina. No longer on Amitiza, but I think fiber is what would be best, will try sending it. Still on 1 bentyl a day. Still on protonix bid. She has only had 1 episode of fecal and urinary incontinence since her surgery. She is due for repeat scope r/t FHX crc and is agreeable There are no prior problems with anesthesia or sedation. She denies any cardiac or respiratory problems. There are no infectious disease problems. ROV 6 mos. (2) CHATMAN (nonalcoholic steatohepatitis): Comment: 04/2019 ALPHA FETOPROTEIN is 2.8, ceruloplasmin is 39 and normal, alpha 1 antitrypsin levels are normal, TSH is 0.57, ferritin is normal at 97, CRP is not elevated at 0.45, there is mild thrombocytopenia of 159,000, celiac panel is negative, sed rate is normal at 6, amylase and lipase are normal, hemochromatosis genetic study shows a low probability for this disease. Hepatitis a B and C negative, ferritin elevated at 174 LABS: Laboratory Tests 06/12/20 08:53 Alpha Fetoprotein 2.1 Laboratory Tests 06/12/20 08:53 Total Bilirubin 0.8 AST 12 ALT 11 Alkaline Phosphatase 51 ULTRASOUND THE ABDOMEN ]] 06/2020 IMPRESSION: Hepatic steatosis without focal lesion. Rest of the abdominal ultrasound is unremarkable. Dictated By:MOISES ANTHONY MDSigned By:<Electronically signed by MOISES ANTHONY MD in [place]>07/03/20 0903 Code(s): K75.81 - Nonalcoholic steatohepatitis (CHATMAN) (3) Irritable bowel syndrome with both c onstipation and diarrhea: Code(s): K58.2 - Mixed irritable bowel syndrome (4) Family history of polyps in the colo n: Code(s): Z83.71 - Family history of colonic polyps Medications: New methylcellulose (l axative) (Citrucel ) 1,000 mg (2 x 500 mg) PO DAILY 60 ta bs 6RF K58.2 - Mixed irri table bowel syndro me peg 3350-electroly tammi 236-22.74-6.74 -5.86 gram (Golyt aviva) until feca l effluent is almaz r; do not exceed a total volume of 2 ,000 mL 240 mL PO Q10M 1 day 4,000 mL 0RF Z12.11 - Encounter for screening for malignant neoplas m of colon Refilled pantoprazole 40 mg PO BID 180 tabs 2RF COLONOSCOPY BIOPSY TODAY'S VISIT She her panniculectomy and is healing well! She still struggles with constipation alternating with diarrhea but she feels that it is manageable utilizing her senna and her Colace. She also continues on her pantoprazole feels that the GERD is well controlled. However, she has been having intermittent episodes of nausea. This is not directly related to eating and can happen throughout the day at any time of day. It will generally last about an hour. She does seem to be able to abated by taking a simethicone and waiting about half an hour. This seems to point to gas trapping as a possible etiology. She is a gastric sleeve patient and Dr. Thomas tells her that ?my body does not digest things properly? and that is why she needs to continue on protein shakes. This makes me wonder if digestive enzymes might be helpful and I think will give her a trial of Creon. She is agreeable to this. She asked to review her liver function tests since her weight loss and I am happy to tell her that her transaminases appear normal. If she gains weight again she surely will have fatty liver since this is a genetic problem but she certainly has done her liver a big favor with her weight loss. I think that her primary care provider can continue to follow her liver enzymes and she does not really need to be followed by my service unless they become more than twice the normal level. Return office visit in 6 weeks to evaluate how she is doing with the Creon. [facility] Medical History (Updated 05/21/23 @ 07:51 by FELY Colbert) Constipation Excess skin Daytime sleepiness Snoring Tenderness of anatomical snuffbox Contusion of right wrist Right wrist pain Unsatisfactory cervical Papanicolaou smear Female pelvic pain Panniculitis At risk for breast cancer Well woman exam Physical exam Obesity (BMI 30.0-34.9) PCOS (polycystic ovarian syndrome) ASCUS with positive high risk HPV Cervical adenopathy Complex ovarian cyst Restless leg Depression Cyst of ovary Migraine Lymphadenopathy Elevated ferritin Asthma Hemochromatosis carrier Positive IVANA (antinuclear antibody) PTSD (post-traumatic stress disorder) Intestinal malabsorption Surgical History (Updated 05/21/23 @ 07:47 by FELY Colbert) S/P panniculectomy S/P laparoscopic sleeve gastrectomy S/P gastric sleeve procedure Hx of hysterectomy History of esophagogastroduodenoscopy (EGD) Hx of colonoscopy S/P wisdom tooth extraction S/P tonsillectomy and adenoidectomy Hx of tubal ligation S/P appendectomy History of exploratory laparotomy Hx laparoscopic cholecystectomy Family History Father History of colon polyps Prostate CA Mother Thyroid disease Breast cancer, Onset Age: 35 Brother Cardiac abnormality Son No problems noted. Son No problems noted. Maternal Aunt Breast cancer, Onset Age: 44 Family/Other Breast cancer, Onset Age: 30 Maternal Grandmother Cervical cancer Paternal Grandmother Cervical cancer Other Mental health disorder Substance use disorder Social History Housing: House Are you a primary day care home provider to a significant other at home: No Do you presently have visiting nurse or other home services: No Alcohol intake: former Year quit: 2018 Patient Tobacco Use Status: Former Tobacco user Quit Date: 2021 Tobacco use type: Smokeless Tobacco Years Smoked: 10.5 e-Cigarette/Vaping Use: Currently Using Second Hand Smoke Exposure: Yes Substance Use Type: Marijuana service: No Current occupational status: unemployed and disabled Cognitive needs: No Hearing needs: No Vision needs: No Female Reproductive History Menstrual Age of Menarche: 9 Review of Systems Const Denies fatigue, Denies fever(s), Denies night sweats, Denies poor appetite and Reports weight loss ENT Reports Normal hearing present, Denies dental pain, Denies dysphagia, Denies hearing loss, Denies mouth pain, Denies odynophagia, Denies throat swelling, Denies tongue swelling and Reports other (Dentition adequate) Card Reports no additional complaints Resp Reports no additional complaints GI Denies abdominal pain, Denies melena, Reports bloating, Denies hematochezia, Reports constipation, Reports GI cramping, Denies dysphagia, Denies excessive flatus, Denies early satiety, Reports heartburn, Reports diarrhea, Reports nausea, Denies odynophagia, Denies vomiting and Denies hematemesis Skin/Breast Denies pruritus, Denies lesions, Denies rash and Denies jaundice Neuro Reports Normal hearing present and Denies Abnormal speech present Endo Denies fatigue Aller/Immun Denies throat swelling and Denies tongue swelling Physical Exam Vital Signs: Last Vital Signs Pulse 56 04/16/23 11:55 BP 106/56 L 04/16/23 11:55 BMI result Body Mass Index 26.3 Const General: cooperative, no acute distress, well developed and well groomed Nutritional Appearance: average body habitus and well nourished Orientation/consciousness: oriented to person, oriented to place and oriented to time Limitations: No language barrier HEENT Head: Yes normocephalic and Yes atraumatic Eyes General: appearance normal, both eyes and all related structures Pupils: Equal, round and reactive pupils present Neck Neck: Yes normal visual inspection and Yes no lymphadenopathy Thyroid: Thyroid normal Resp Effort & Inspection: normal respiratory effort and able to speak in complete sentences Auscultation: clear to auscultation bilaterally Cardio Rate: regular rate Rhythm: regular rhythm Heart sounds: Normal, physiologic split S2 sound present Peripheral pulses: radial pulses present and posterior tibial pulses present GI Inspection: No distended, No Abdominal panniculus present, Yes scar and Yes striae Palpation (GI): Soft to palpation, nontender, no guarding, not rigid and No hepatosplenomegaly present Percussion: Yes normal to percussion Auscultation: normal bowel sounds Rectal Exam - Female: deferred Abdomen image: 2 1. surgical scars 2. Skin General skin exam: no rashes or lesions noted, turgor normal, skin not dry, no jaundice, No spider nevi and no striae Rashes: no rashes Nails: normal Neuro General: oriented to person, oriented to place and oriented to time Cranial nerves: Yes Equal, round and reactive pupils present and Yes Normal hearing present Speech: No Abnormal speech present Extrem General: Yes normal to inspection, No clubbing, No cyanosis and No edema Psych Appearance: grossly normal and well kempt Mental Status: mental status grossly normal Speech and movement: Normal speech and movement present Affect: normal affect Attitude: cooperative Thought process: Normal thought process present and not confabulating Thought content: Normal thought content present Insight: Limited insight present (Psych) Judgement: Limited judgement present (Psych) Assessment & Plan Assessment & Plan (1) Intestinal malabsorption: Code(s): K90.9 - Intestinal malabsorption, unspecified (2) Nausea: Code(s): R11.0 - Nausea (3) Irritable bowel syndrome with both constipation and diarrhea: Code(s): K58.2 - Mixed irritable bowel syndrome (4) GERD (gastroesophageal reflux disease): Code(s): K21.9 - Gastro-esophageal reflux disease without esophagitis (5) CHATMAN (nonalcoholic steatohepatitis): Comment: 04/2019 ALPHA FETOPROTEIN is 2.8, ceruloplasmin is 39 and normal, alpha 1 antitrypsin levels are normal, TSH is 0.57, ferritin is normal at 97, CRP is not elevated at 0.45, there is mild thrombocytopenia of 159,000, celiac panel is negative, sed rate is normal at 6, amylase and lipase are normal, hemochromatosis genetic study shows a low probability for this disease. Hepatitis a B and C negative, ferritin elevated at 174 LABS: Laboratory Tests 06/12/20 08:53 Alpha Fetoprotein 2.1 Laboratory Tests 06/12/20 08:53 Total Bilirubin 0.8 AST 12 ALT 11 Alkaline Phosphatase 51 ULTRASOUND THE ABDOMEN ]] 06/2020 IMPRESSION: Hepatic steatosis without focal lesion. Rest of the abdominal ultrasound is unremarkable. Dictated By:MOISES ANTHONY MDSigned By:<Electronically signed by MOISES ANTHONY MD in [place]>07/03/20 0903 Code(s): K75.81 - Nonalcoholic steatohepatitis (CHATMAN) (6) Family history of polyps in the colon: Comment: 2017 negative scope repeat at age 43 - aeb Code(s): Z83.71 - Family history of colonic polyps Plan She her panniculectomy and is healing well! She still struggles with constipation alternating with diarrhea but she feels that it is manageable utilizing her senna and her Colace. She also continues on her pantoprazole feels that the GERD is well controlled. However, she has been having intermittent episodes of nausea. This is not directly related to eating and can happen throughout the day at any time of day. It will generally last about an hour. She does seem to be able to abated by taking a simethicone and waiting about half an hour. This seems to point to gas trapping as a possible etiology. She is a gastric sleeve patient and Dr. Thomas tells her that ?my body does not digest things properly? and that is why she needs to continue on protein shakes. This makes me wonder if digestive enzymes might be helpful and I think will give her a trial of Creon. She is agreeable to this. She asked to review her liver function tests since her weight loss and I am happy to tell her that her transaminases appear normal. If she gains weight again she surely will have fatty liver since this is a genetic problem but she certainly has done her liver a big favor with her weight loss. I think that her primary care provider can continue to follow her liver enzymes and she does not really need to be followed by my service unless they become more than twice the normal level. Return office visit in 6 weeks to evaluate how she is doing with the Creon. Orders: Orders 2 Colonoscopy - GI Use Only 04/16/23 Z83.71 - Family history of colonic polyps Medications: New 2 chmmdl-jbuezweh-atecoli 24,000-76,000 -120,000 unit (Creon) administer with meals and/or snacks 1 cap PO QID 120 caps 6RF 30 days K58.9 - Irritable bowel syndrome without diarrhea simethicone (Gas Relief (simethicone)) 80 mg PO QID PRN 90 tabs 6RF abdominal distention Refilled 2 sennosides (Senna Laxative) 17.2 mg (2 x 8.6 mg) PO BEDTIME 60 tabs 3RF K59.00 - Constipation, unspecified pantoprazole 40 mg PO BID 180 tabs 2RF docusate sodium (Colace) 100 mg PO DAILY 90 caps 2RF K59.00 - Constipation, unspecified Coding Level of Care Code Est Pt Level 3 (51553) Diagnoses Intestinal malabsorption K90.9 Nausea R11.0 Irritable bowel syndrome with both constipation and diarrhea K58.2 GERD (gastroesophageal reflux disease) K21.9 CHATMAN (nonalcoholic steatohepatitis) K75.81 Family history of polyps in the colon Z83.71
== END 2023-04-16 12:25 | disposition home or self-care (01) ==
PROVIDERS: PCP Nurse Practitioner Family; Visit Provider Nurse Practitioner
DX: K90.9 Intestinal malabsorption, unspecified (principal); R11.0 Nausea; K58.2 Mixed irritable bowel syndrome; K21.9 Gastro-esophageal reflux disease without esophagitis; K75.81 Nonalcoholic steatohepatitis (NASH); Z83.71 Family history of colonic polyps
CPT/HCPCS: 99213

== ENCOUNTER → 2023-04-16 11:50 | Outpatient (BNVA) | payer OTHER, SELFPAY | PROVIDERS: PCP Nurse Practitioner Family; Visit Provider Nurse Practitioner | DX: K21.9 Gastro-esophageal reflux disease without esophagitis (principal); K75.81 Nonalcoholic steatohepatitis (NASH); K58.2 Mixed irritable bowel syndrome; Z83.719 Family history of colon polyps, unspecified | CPT/HCPCS: 99212 ==

== ENCOUNTER 2023-04-22 08:33 | Outpatient (AMB) | payer OTHER, SELFPAY ==
--- NOTE | 2023-04-22 08:36 | A.OFFVIS_ITS ---
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: No Information Interpreted: non-clinical & clinical Accompanied by: Self / Same As Patient Allergies codeine Allergy (Intermediate, Verified 04/22/23 08:39) Nausea and Vomiting hydrocodone [From Vicodin] Allergy (Intermediate, Verified 04/22/23 08:39) Nausea, Vomiting, Sweats, Spins hydromorphone [From DILAUDID] Allergy (Intermediate, Verified 04/22/23 08:39) HIVES morphine [MORPHINE] Allergy (Intermediate, Verified 04/22/23 08:39) RASH,DIZZINESS,VOMITING, hives, hives oxycodone Allergy (Intermediate, Verified 04/22/23 08:39) Nausea and Vomiting tramadol Allergy (Intermediate, Verified 04/22/23 08:39) Hives zolpidem [From AMBIEN] Allergy (Intermediate, Verified 04/22/23 08:39) BLACK OUTS influenza virus vaccine, specific [FLU VACCINE] Adverse Reaction (Severe, Verified 04/22/23 08:39) SWELLING, at injection site bees Allergy (Severe, Uncoded 04/22/23 08:39) Anaphylaxis TDAP Allergy (Severe, Uncoded 04/22/23 08:39) Swelling at injection site Is last menstrual period known: No (hysterectomy) HPI HPI Comments History of Present Illness Details Presenting for follow-up after breast MRI, BI-RADS 2 bilaterally. A mammogram is not done yet and the patient has not seen Dr. Sauer yet regarding her high-risk breast cancer status PFS Medical History PCOS (polycystic ovarian syndrome) ASCUS with positive high risk HPV Chronic idiopathic constipation IBS (irritable bowel syndrome) Cervical adenopathy Complex ovarian cyst Restless leg Depression Cyst of ovary Migraine Lymphadenopathy Elevated ferritin Asthma Hemochromatosis carrier Positive IVANA (antinuclear antibody) PTSD (post-traumatic stress disorder) Fatty liver Intestinal malabsorption Obesity (BMI 30.0-34.9) Surgical History S/P gastric sleeve procedure Hx of hysterectomy History of esophagogastroduodenoscopy (EGD) Hx of colonoscopy S/P wisdom tooth extraction S/P tonsillectomy and adenoidectomy Hx of tubal ligation S/P appendectomy History of exploratory laparotomy Hx laparoscopic cholecystectomy Family History Father History of colon polyps Cancer Mother Thyroid disease Breast cancer Brother Cardiac abnormality Son No problems noted. Son No problems noted. Other Mental health disorder Substance use disorder Social History Housing: House Are you a primary adult care provider to a significant other at home: No Do you presently have visiting nurse or other home services: No Alcohol intake: former Year quit: 2017 Patient Tobacco Use Status: Former Tobacco user Quit Date: 2021 Tobacco use type: Cigarette Years Smoked: 10.5 e-Cigarette/Vaping Use: Currently Using Second Hand Smoke Exposure: Yes Substance Use Type: Marijuana service: No Current occupational status: unemployed and disabled Cognitive needs: No Hearing needs: No Vision needs: No Female Reproductive History Menstrual Age of Menarche: 9 Review of Systems Const All systems reviewed & are unremarkable except as noted in HPI and below Reports as per HPI and Reports no additional complaints GI Reports no additional complaints Reports no additional complaints Assessment & Plan Assessment & Plan (1) At risk for breast cancer: Code(s): Z91.89 - Other specified personal risk factors, not elsewhere classified Plan: Discussed with the patient her increased risk for Breast ca. Recommended Intensification of breast Cancer screening with annual MRI breast in addition to annual mammogram and MRI alternating every 6 months. Mammogram ordered in 11/04, instructed the patient to have a done shana Referral to Dr Sauer placed for possible Genetic Ca counseling and possible testing, in addition to counseling regarding Chemoprevention strategies All questions answered, the patient verbalized understanding and agreed with the plan Coding Level of Care Code Est Pt Level 3 (80734) Diagnoses At risk for breast cancer Z91.89
[2023-04-22 08:38] VITALS: BP 100/60; BMI 26.0
== END 2023-04-22 08:47 | disposition home or self-care (01) ==
LOC: HO.HWS 08:33
PROVIDERS: PCP Nurse Practitioner Family; Visit Provider Obstetrics & Gynecology
DX: Z91.89 Other specified personal risk factors, not elsewhere classified (principal)
CPT/HCPCS: 99213

== ENCOUNTER → 2023-04-22 08:33 | Outpatient (BNVA) | payer OTHER, SELFPAY | PROVIDERS: PCP Nurse Practitioner Family; Visit Provider Obstetrics & Gynecology | DX: Z91.89 Other specified personal risk factors, not elsewhere classified (principal) | CPT/HCPCS: 99212 ==

== ENCOUNTER → 2023-04-27 11:32 | Outpatient (BNVA) | payer OTHER, SELFPAY | PROVIDERS: PCP Nurse Practitioner Family; Visit Provider Physician Assistant Surgical ==

== ENCOUNTER 2023-04-28 08:14 | Outpatient (AMB) | payer OTHER, SELFPAY ==
--- NOTE | 2023-04-28 08:19 | A.OFFVIS_ITS ---
Intake VS Expanded 04/28/23 08:39 BP 128/58 L Blood Pressure Location Rt brachial Blood Pressure Position Sitting Pulse 104 H Pulse Source Pulse Oximeter Temp 97.7 F Temperature Source Temporal Artery Scan Pulse Oximetry 96 Oxygen Delivery Method Room Air Height 5 ft 5 in Weight 157 lb BMI 26.1 Body Fat % 33.6 Body Fat Mass 52.6 Fat Free Mass 104.2 Visceral Fat Rating 5.0 Body Water % 47.5 Body Water Mass 74.6 Muscle Mass/Score 99.0 Basal Metabolic Rate/Score 1,428 Intake Visit Reasons: (OV) PO Panniculectomy 01/22/23 Photography Colorist Required: No Allergies codeine Allergy (Intermediate, Verified 04/28/23 08:25) Nausea and Vomiting hydrocodone [From Vicodin] Allergy (Intermediate, Verified 04/28/23 08:25) Nausea, Vomiting, Sweats, Spins hydromorphone [From DILAUDID] Allergy (Intermediate, Verified 04/28/23 08:25) HIVES morphine [MORPHINE] Allergy (Intermediate, Verified 04/28/23 08:25) RASH,DIZZINESS,VOMITING, hives, hives oxycodone Allergy (Intermediate, Verified 04/28/23 08:25) Nausea and Vomiting tramadol Allergy (Intermediate, Verified 04/28/23 08:25) Hives zolpidem [From AMBIEN] Allergy (Intermediate, Verified 04/28/23 08:25) BLACK OUTS influenza virus vaccine, specific [FLU VACCINE] Adverse Reaction (Severe, Verified 04/28/23 08:25) SWELLING, at injection site bees Allergy (Severe, Uncoded 04/22/23 08:39) Anaphylaxis TDAP Allergy (Severe, Uncoded 04/22/23 08:39) Swelling at injection site Medication List - Last Reconciled 04/28/23 by AWA Kapadia bupropion HCl 300 mg PO DAILY buspirone 30 mg PO BID calcium carbonate-vitamin D3 600 mg-10 mcg (400 unit) (Calcium with Vitamin D) 1 tab PO BID 90 days clonazepam 1 mg PO TID PRN cyanocobalamin (vitamin B-12) 500 mcg PO DAILY 90 days cyclobenzaprine 10 mg PO BEDTIME diphenhydramine HCl (Benadryl Allergy) 25 mg PO BID PRN docusate sodium (Colace) 100 mg PO DAILY duloxetine 60 mg PO BID epinephrine 0.3 mg (0.3 mL) IM ONCE 30 days ferrous sulfate 324 mg PO BID finasteride 5 mg PO DAILY gabapentin 800 mg PO BID lamotrigine 50 mg PO DAILY hhcreh-rkdctrxg-igihssd 24,000-76,000 -120,000 unit (Creon) 1 cap PO QID 30 days loratadine 10 mg PO DAILY multivitamin 1 tab PO DAILY 90 days pantoprazole 40 mg PO BID prazosin 5 mg PO BEDTIME prazosin 2 mg PO BID [premier protein ready to drink supplement As directed NS] ropinirole 1 mg PO BEDTIME 90 days sennosides (Senna Laxative) 17.2 mg (2 x 8.6 mg) PO BEDTIME simethicone (Gas Relief (simethicone)) 80 mg PO QID PRN sumatriptan succinate take 1 tab at onset of headache; if no relief, may repeat 1 tab after at least 2 hrs; max = 2 tabs/24 hrs PO 10 days verapamil 80 mg PO BID 90 days HPI HPI Comments History of Present Illness Details Patient is a 37-year-old female returns to the office today for 3 month follow-up of her panniculectomy performed on 01/22/2023. Overall she has felt some bloating although reports moving her bowels regularly. She has done limited exercise. She continues to follow her meal plan including 2 eggs in the morning her ready to drink protein shake at lunch (she cannot tolerate powder) and a meal in the evening consisting of 4-5 for fulls of protein and 4-5 for close of vegetables. She was able to express some frustrations with her postoperative care including support. She made multiple suggestions that were very well received regarding different support groups that could be employed to help other patients during the postoperative period. She also suggested incorporating a remote access to different programs that are run through the program to allow people that could not attend. These were all very good suggestions. [facility], [facility] Medical History PCOS (polycystic ovarian syndrome) ASCUS with positive high risk HPV Chronic idiopathic constipation IBS (irritable bowel syndrome) Cervical adenopathy Complex ovarian cyst Restless leg Depression Cyst of ovary Migraine Lymphadenopathy Elevated ferritin Asthma Hemochromatosis carrier Positive IVANA (antinuclear antibody) PTSD (post-traumatic stress disorder) Fatty liver Intestinal malabsorption Obesity (BMI 30.0-34.9) Surgical History S/P gastric sleeve procedure Hx of hysterectomy History of esophagogastroduodenoscopy (EGD) Hx of colonoscopy S/P wisdom tooth extraction S/P tonsillectomy and adenoidectomy Hx of tubal ligation S/P appendectomy History of exploratory laparotomy Hx laparoscopic cholecystectomy Family History Father History of colon polyps Cancer Mother Thyroid disease Breast cancer Brother Cardiac abnormality Son No problems noted. Son No problems noted. Other Mental health disorder Substance use disorder Social History (Updated 04/28/23 @ 08:25 by Deb Devi DESIGN ARCHITECT) Housing: House Are you a primary critical care rn to a significant other at home: No Do you presently have visiting nurse or other home services: No Alcohol intake: former Year quit: 2017 Patient Tobacco Use Status: Former Tobacco user Quit Date: 2021 Tobacco use type: Smokeless Tobacco Years Smoked: 10.5 e-Cigarette/Vaping Use: Currently Using Second Hand Smoke Exposure: Yes Substance Use Type: Marijuana service: No Current occupational status: unemployed and disabled Cognitive needs: No Hearing needs: No Vision needs: No Female Reproductive History Menstrual Age of Menarche: 9 Physical Exam Vital Signs: Last Vital Signs Temp 97.7 F 04/28/23 08:39 Pulse 104 H 04/28/23 08:39 BP 128/58 L 04/28/23 08:39 Pulse Ox 96 04/28/23 08:39 Oxygen Delivery Method Room Air 04/28/23 08:39 BMI result Body Mass Index 26.1 GI Other: Transverse incision and umbilical incisions are healed nicely. No fluid collection appreciated. Assessment & Plan Assessment & Plan (1) S/P panniculectomy: Code(s): Z98.890 - Other specified postprocedural states Plan: Patient may now exercise freely and was encouraged to do so. She will return to the office in approximately 1 month to ensure that she is now back on track. She may text at any time with any questions or concerns. Coding Level of Care Code Est Pt Level 3 (75205) Diagnoses S/P panniculectomy Z98.890
[2023-04-28 08:39] VITALS: BP 128/58; PULSE 104; TEMP 36.5; O2SAT 96; BMI 26.1
== END 2023-04-28 09:05 | disposition home or self-care (01) ==
PROVIDERS: PCP Nurse Practitioner Family; Visit Provider Physician Assistant Surgical
DX: E66.3 Overweight (principal); Z68.26 Body mass index [BMI] 26.0-26.9, adult; Z98.890 Other specified postprocedural states
CPT/HCPCS: 99213

== ENCOUNTER → 2023-04-28 08:14 | Outpatient (BNVA) | payer OTHER, SELFPAY | PROVIDERS: PCP Nurse Practitioner Family; Visit Provider Physician Assistant Surgical | DX: Z98.890 Other specified postprocedural states (principal) | CPT/HCPCS: 99212 ==

== ENCOUNTER 2023-05-01 16:08 | Outpatient (REF) | payer OTHER, SELFPAY | END 2023-05-01 16:09 | disposition home or self-care (01) | LOC: HO.MAMMO 16:08 | PROVIDERS: PCP Nurse Practitioner Family; Visit Provider Obstetrics & Gynecology | DX: Z12.31 Encounter for screening mammogram for malignant neoplasm of breast (principal) | CPT/HCPCS: 77063; 77067 ==

== ENCOUNTER → 2023-05-01 16:15 | Outpatient (BNV) | payer OTHER, SELFPAY | PROVIDERS: PCP Nurse Practitioner Family; Visit Provider Radiology Diagnostic Radiology | DX: Z12.31 Encounter for screening mammogram for malignant neoplasm of breast (principal) | CPT/HCPCS: 77063; 77067 ==

== ENCOUNTER 2023-05-12 09:19 | Outpatient (AMB) | payer OTHER, SELFPAY ==
--- NOTE | 2023-05-12 09:21 | A.OFFVIS_ITS ---
Intake Vital Signs 05/12/23 09:25 Height 5 ft 5 in Weight 158 lb 11.725 oz BMI 26.4 BP 98/60 Blood Pressure Location Lt brachial Position Sitting Intake Visit Reasons: High risk breast cancer Intake Note: Patient is seen in office for high risk of breast cancer. Patient c/o: has some hard spots in the breasts, nipples are sensitive, occasional nipple discharge milky for aprox 6 months, has extensive family hx of breast cancer, and 2 paternal family members with BRCA positive, is interested in genetic testing MRI B: 04/08/23 mm:05/01/23 Parachute Rigger Required: No Accompanied by: Self / Same As Patient Allergies codeine Allergy (Intermediate, Verified 05/12/23 09:25) Nausea and Vomiting hydrocodone [From Vicodin] Allergy (Intermediate, Verified 05/12/23 09:25) Nausea, Vomiting, Sweats, Spins hydromorphone [From DILAUDID] Allergy (Intermediate, Verified 05/12/23 09:25) HIVES morphine [MORPHINE] Allergy (Intermediate, Verified 05/12/23 09:25) RASH,DIZZINESS,VOMITING, hives, hives oxycodone Allergy (Intermediate, Verified 05/12/23 09:25) Nausea and Vomiting tramadol Allergy (Intermediate, Verified 05/12/23 09:25) Hives zolpidem [From AMBIEN] Allergy (Intermediate, Verified 05/12/23 09:25) BLACK OUTS influenza virus vaccine, specific [FLU VACCINE] Adverse Reaction (Severe, Verified 05/12/23 09:25) SWELLING, at injection site bees Allergy (Severe, Uncoded 05/12/23 09:25) Anaphylaxis TDAP Allergy (Severe, Uncoded 05/12/23 09:25) Swelling at injection site HPI HPI Comments History of Present Illness Details 37-year-old female patient with a strong family history of breast cancer including her mother. She was determined to be at high risk for breast cancer with a Tyrer-Cuzick remaining lifetime risk of breast cancer at 25%. She has been followed by Dr. Carrion and undergone yearly breast MRIs. Her most r ecent breast MRI obtained 04/08/2023 revealed no MR specific evidence of malignancy (BI-RADS 2 bilaterally). Her most recent mammogram dated 04/26/2023 also revealed no mammographic evidence of malignancy (BI-RADS 1). Family history includes her mother developing breast cancer in her 30s, a maternal aunt developed breast cancer in her 40s, a maternal grandmother with breast cancer, a paternal grandmother with cervical cancer, a paternal aunt with breast cancer and her father with prostate cancer. She denies any breast symptoms or breast pain. She denies a previous history of breast problems or breast surgery. She is 2 para 2 and breastfed both her children. She occasionally notes some clear discharge which she has had since having children. She feels her mother underwent genetic testing and may have been positive for BRCA. [facility] Medical History PCOS (polycystic ovarian syndrome) ASCUS with positive high risk HPV Chronic idiopathic constipation IBS (irritable bowel syndrome) Cervical adenopathy Complex ovarian cyst Restless leg Depression Cyst of ovary Migraine Lymphadenopathy Elevated ferritin Asthma Hemochromatosis carrier Positive IVANA (antinuclear antibody) PTSD (post-traumatic stress disorder) Fatty liver Intestinal malabsorption Obesity (BMI 30.0-34.9) Surgical History S/P gastric sleeve procedure Hx of hysterectomy History of esophagogastroduodenoscopy (EGD) Hx of colonoscopy S/P wisdom tooth extraction S/P tonsillectomy and adenoidectomy Hx of tubal ligation S/P appendectomy History of exploratory laparotomy Hx laparoscopic cholecystectomy Family History Father History of colon polyps Prostate CA Mother Thyroid disease Breast cancer, Onset Age: 35 Brother Cardiac abnormality Son No problems noted. Son No problems noted. Maternal Aunt Breast cancer, Onset Age: 44 Family/Other Breast cancer, Onset Age: 30 Maternal Grandmother Cervical cancer Paternal Grandmother Cervical cancer Other Mental health disorder Substance use disorder Housing: House Are you a primary medicare coordinator to a significant other at home: No Do you presently have visiting nurse or other home services: No Alcohol intake: former Year quit: 2017 Patient Tobacco Use Status: Former Tobacco user Quit Date: 2021 Tobacco use type: Smokeless Tobacco Years Smoked: 10.5 e-Cigarette/Vaping Use: Currently Using Second Hand Smoke Exposure: Yes Substance Use Type: Marijuana service: No Current occupational status: unemployed and disabled Cognitive needs: No Hearing needs: No Vision needs: No Female Reproductive History Menstrual Age of Menarche: 9 Date of last menstrual period: 06/15/22 Total pregnancies: 7 Number of Living Children: 2 Review of Systems Const All systems reviewed & are unremarkable except as noted in HPI and below Denies chills, Denies fever(s), Denies headache(s), Denies poor appetite and Denies weakness ENT Denies headache(s) Card Denies chest pain, Denies irregular heart rhythm, Denies palpitations and Denies dyspnea Resp Denies cough, Denies excessive phlegm production and Denies dyspnea GI Denies abdominal pain, Denies bloating, Denies change in bowel habits, Denies constipation, Denies heartburn, Denies diarrhea, Denies nausea and Denies vomiting Denies urinary frequency Musc Denies back pain, Denies muscle weakness and Denies numbness Skin/Breast Denies changing lesions and Denies unusual bruising Neuro Denies headache(s), Denies numbness, Denies paresthesias and Denies weakness Psych Denies anxiety and Denies depression Endo Denies palpitations Raghu/Lymph Denies lymphadenopathy Physical Exam Const General: cooperative and no acute distress Nutritional Appearance: well nourished Orientation/consciousness: patient oriented x3 Limitations: no limitations HEENT Head: Yes normocephalic and Yes atraumatic Ears: hearing grossly normal bilaterally Chest Other: Left breast: No skin change, no nipple retraction, no nipple discharge, no palpable mass, no enlarged lymph nodes. Right breast: No skin change, no nipple retraction, no nipple discharge, no palpable mass, no enlarged lymph nodes Resp Effort & Inspection: normal respiratory effort, no audible wheezes, no cough and no respiratory distress Cardio Jugular venous distension: no JVD GI Inspection: Yes normal to inspection Skin Other: Warm, dry, no rash Neuro General: patient oriented x3 Extrem General: Yes no clubbing, cyanosis or edema Assessment & Plan Assessment & Plan (1) Breast cancer screening, high risk patient: Code(s): Z12.39 - Encounter for other screening for malignant neoplasm of breast (2) At risk for breast cancer: Code(s): Z91.89 - Other specified personal risk factors, not elsewhere classified Plan 37-year-old female patient determined to be at high risk for breast cancer due to her strong family history. Her Tyrer-Cuzick remaining lifetime risk of breast cancer was calculated at 25 %. She undergoes her annual mammogram alternating every 6 months with breast MRI, ordered by Dr. Carrion which have been normal. Examination today revealed no suspicious findings in either breast. I would recommend genetic testing given her strong family history of breast cancer and other cancers. After discussion of the procedure and risks involved she consents to undergoing the testing. This will be scheduled at her earliest convenience. She should return in 6 months for follow-up high risk breast examination and wall so returns 6 weeks after genetic testing to review the results. She is welcome to call sooner for any new concerns. Coding Level of Care Code New Pt Level 4 (08682) Diagnoses Breast cancer screening, high risk patient Z12.39 At risk for breast cancer Z91.89
[2023-05-12 09:25] VITALS: BP 98/60; BMI 26.4
== END 2023-05-12 09:58 | disposition home or self-care (01) ==
PROVIDERS: PCP Nurse Practitioner Family; Visit Provider Surgery
DX: Z80.3 Family history of malignant neoplasm of breast (principal); Z12.39 Encounter for other screening for malignant neoplasm of breast; Z91.89 Other specified personal risk factors, not elsewhere classified
CPT/HCPCS: 99204

== ENCOUNTER → 2023-05-12 09:19 | Outpatient (BNVA) | payer OTHER, SELFPAY | PROVIDERS: PCP Nurse Practitioner Family; Visit Provider Surgery | DX: Z91.89 Other specified personal risk factors, not elsewhere classified (principal); Z80.3 Family history of malignant neoplasm of breast | CPT/HCPCS: 99202 ==

== ENCOUNTER 2023-06-01 09:49 | Outpatient (AMB) | payer OTHER, SELFPAY ==
--- NOTE | 2023-06-01 09:55 | MHC.PC.OV ---
Vital Signs 06/01/23 09:57 Height 5 ft 5 in Weight 155 lb 2 oz BMI 25.8 BP 110/70 Blood Pressure Location Rt brachial Position Sitting Pulse 97 Pulse Source Pulse Oximeter Pulse Oximetry (%) 97 Oxygen Delivery Method Room Air Intake Visit Reasons: 6 month follow up Intake Note: Patient here to follow up on fibromyalgia, ovaries and labs. Allergies codeine Allergy (Intermediate, Verified 06/01/23 09:57) Nausea and Vomiting hydrocodone [From Vicodin] Allergy (Intermediate, Verified 06/01/23 09:57) Nausea, Vomiting, Sweats, Spins hydromorphone [From DILAUDID] Allergy (Intermediate, Verified 06/01/23 09:57) HIVES morphine [MORPHINE] Allergy (Intermediate, Verified 06/01/23 09:57) RASH,DIZZINESS,VOMITING, hives, hives oxycodone Allergy (Intermediate, Verified 06/01/23 09:57) Nausea and Vomiting tramadol Allergy (Intermediate, Verified 06/01/23 09:57) Hives zolpidem [From AMBIEN] Allergy (Intermediate, Verified 06/01/23 09:57) BLACK OUTS influenza virus vaccine, specific [FLU VACCINE] Adverse Reaction (Severe, Verified 06/01/23 09:57) SWELLING, at injection site bees Allergy (Severe, Uncoded 06/01/23 09:57) Anaphylaxis TDAP Allergy (Severe, Uncoded 06/01/23 09:57) Swelling at injection site Tobacco use date assessed: 12/01/22 Dental Screening Dental Screen Date: 06/01/23 Did you have a dental visit in the last 12 months?: Yes Did you have a dental problem in the last 6 months where you did not have access to dental care?: No Was dental information given to patient?: Patient has dentist HPI 6 month follow up HPI Details viral (respiratory) illness: Pt reports being sick last week with cough and congestion. She reports ongoing intermittent cough though is doing much better. Denies fever, chills, sore throat, and shortness of breath. [facility] Medical History (Updated 06/01/23 @ 10:27 by Med Duffy, SENIOR UNDERWRITING ASSISTANT-) Constipation Excess skin Daytime sleepiness Snoring Tenderness of anatomical snuffbox Contusion of right wrist Right wrist pain Unsatisfactory cervical Papanicolaou smear Female pelvic pain Panniculitis At risk for breast cancer Well woman exam Physical exam Obesity (BMI 30.0-34.9) PCOS (polycystic ovarian syndrome) ASCUS with positive high risk HPV Cervical adenopathy Complex ovarian cyst Restless leg Depression Cyst of ovary Migraine Lymphadenopathy Elevated ferritin Asthma Hemochromatosis carrier Positive IVANA (antinuclear antibody) PTSD (post-traumatic stress disorder) Intestinal malabsorption Surgical History (Updated 05/21/23 @ 07:47 by FELY Colbert) S/P panniculectomy S/P laparoscopic sleeve gastrectomy S/P gastric sleeve procedure Hx of hysterectomy History of esophagogastroduodenoscopy (EGD) Hx of colonoscopy S/P wisdom tooth extraction S/P tonsillectomy and adenoidectomy Hx of tubal ligation S/P appendectomy History of exploratory laparotomy Hx laparoscopic cholecystectomy Family History Father History of colon polyps Prostate CA Mother Thyroid disease Breast cancer, Onset Age: 35 Brother Cardiac abnormality Son No problems noted. Son No problems noted. Maternal Aunt Breast cancer, Onset Age: 44 Family/Other Breast cancer, Onset Age: 30 Maternal Grandmother Cervical cancer Paternal Grandmother Cervical cancer Other Mental health disorder Substance use disorder Social History Housing: House Are you a primary career development coordinator to a significant other at home: No Do you presently have visiting nurse or other home services: No Alcohol intake: former Year quit: 2018 Patient Tobacco Use Status: Former Tobacco user Quit Date: 2021 Tobacco use type: Smokeless Tobacco Years Smoked: 10.5 e-Cigarette/Vaping Use: Currently Using Second Hand Smoke Exposure: Yes Substance Use Type: Marijuana service: No Current occupational status: unemployed and disabled Cognitive needs: No Hearing needs: No Vision needs: No Female Reproductive History Menstrual Age of Menarche: 9 Questionnaire Thrive Questionnaire Date Thrive assessed: 06/27/21 SARABJIT-7 AMB Questionnaire SARABJIT-7 Date SARABJIT - 7 assessed: 06/27/21 Source: Developed by Drs. Alpesh Morocho, Rula Infante, Hollis Winkler and colleagues, with an educational teresa from [employer] Review of Systems Const Reports as per HPI Physical exam (Primary Care) Vital Signs: Last Vital Signs Pulse 97 06/01/23 09:57 BP 110/70 06/01/23 09:57 Pulse Ox 97 06/01/23 09:57 Oxygen Delivery Method Room Air 06/01/23 09:57 BMI result Body Mass Index 25.8 Tobacco/Smoking Status: Tobacco use Status Tobacco use date assessed 12/01/22 06/01/23 09:55 Patient Tobacco Use Status Former Tobacco user 06/01/23 09:55 Tobacco use type Smokeless Tobacco 06/01/23 09:55 e-Cigarette/Vaping Use Currently Using 06/01/23 09:55 Thrive Assessment: Date of Thrive Assessment Date Thrive assessed 06/27/21 06/01/23 09:55 Const General: cooperative Orientation/consciousness: patient oriented x3 Resp Effort & Inspection: normal respiratory effort Auscultation: clear to auscultation bilaterally Cardio Rate: regular rate Rhythm: regular rhythm Heart sounds: S1 normal heart sound present and S2 normal heart sound present Neuro General: patient oriented x3 Extrem Right lower extremity: no edema Left lower extremity: no edema Psych Appearance: grossly normal Mental Status: mental status grossly normal Speech and movement: Normal speech and movement present Affect: normal affect Attitude: cooperative Thought process: Normal thought process present Thought content: Normal thought content present Insight: Good insight present (Psych) Judgement: Good judgement present (Psych) Assessment and Plan Assessment & Plan (1) Viral illness: Code(s): B34.9 - Viral infection, unspecified Plan: Push fluids and rest Plan The patient agreed to the use of a medical office technologist for this encounter. Scribed for SHA Slater by Shaniqua Rodriguez medical office technologist, on 06/01/2023 at 10:15 EST. Coding Level of Care Code Est Pt Level 3 (00475) Diagnoses Viral illness B34.9
[2023-06-01 09:57] VITALS: BP 110/70; PULSE 97; O2SAT 97; BMI 25.8
== END 2023-06-01 10:24 | disposition home or self-care (01) ==
PROVIDERS: PCP Nurse Practitioner Family; Visit Provider Nurse Practitioner Family
DX: B34.9 Viral infection, unspecified (principal)
CPT/HCPCS: 99213

== ENCOUNTER 2023-07-08 11:49 | Outpatient (REF) | payer OTHER, SELFPAY ==
[2023-07-08 13:57] LABS: TSH reflex Free T4 1.18 uIU/mL (0.32-4.0)
[2023-07-10 02:13] LABS: Follicle Stimulating Hormone 14.3 mIU/mL
== END 2023-07-08 11:50 | disposition home or self-care (01) ==
LOC: HO.LAB 11:49
PROVIDERS: PCP Nurse Practitioner Family; Visit Provider Obstetrics & Gynecology
DX: F32.81 Premenstrual dysphoric disorder (principal)
CPT/HCPCS: 36415; 83001; 83002; 84443; 99212

== ENCOUNTER 2023-07-08 11:49 | Outpatient (AMB) | payer OTHER, SELFPAY ==
--- NOTE | 2023-07-08 11:52 | MHC.OFFVIS ---
Intake Vital Signs 07/08/23 11:54 Height 5 ft 5 in Weight 154 lb 5.177 oz BMI 25.7 BP 116/70 Intake Visit Reasons: ? menopause Vat Tender Required: No Information Interpreted: non-clinical & clinical Accompanied by: Self / Same As Patient Allergies codeine Allergy (Intermediate, Verified 07/08/23 11:58) Nausea and Vomiting hydrocodone [From Vicodin] Allergy (Intermediate, Verified 07/08/23 11:58) Nausea, Vomiting, Sweats, Spins hydromorphone [From DILAUDID] Allergy (Intermediate, Verified 07/08/23 11:58) HIVES morphine [MORPHINE] Allergy (Intermediate, Verified 07/08/23 11:58) RASH,DIZZINESS,VOMITING, hives, hives oxycodone Allergy (Intermediate, Verified 07/08/23 11:58) Nausea and Vomiting tramadol Allergy (Intermediate, Verified 07/08/23 11:58) Hives zolpidem [From AMBIEN] Allergy (Intermediate, Verified 07/08/23 11:58) BLACK OUTS influenza virus vaccine, specific [FLU VACCINE] Adverse Reaction (Severe, Verified 07/08/23 11:58) SWELLING, at injection site bees Allergy (Severe, Uncoded 07/08/23 11:58) Anaphylaxis TDAP Allergy (Severe, Uncoded 07/08/23 11:58) Swelling at injection site Is last menstrual period known: No (Hysterectomy) HPI HPI Comments History of Present Illness Details The patient is complaining of markedly depressed mood, feelings of hopelessness, anxiety, tension, affective lability, Persistent and marked anger / irritability / increased interpersonal conflicts, decreased interest in usual activities, difficulty in concentrating, lack of energy, breast tenderness and hot flash. all those symptoms are cyclic , the patient had a hysterectomy.. Those disturbances are affecting her usual social activities and relationships. [facility] Medical History Constipation Excess skin Daytime sleepiness Snoring Tenderness of anatomical snuffbox Contusion of right wrist Right wrist pain Unsatisfactory cervical Papanicolaou smear Female pelvic pain Panniculitis At risk for breast cancer Well woman exam Physical exam Obesity (BMI 30.0-34.9) PCOS (polycystic ovarian syndrome) ASCUS with positive high risk HPV Cervical adenopathy Complex ovarian cyst Restless leg Depression Cyst of ovary Migraine Lymphadenopathy Elevated ferritin Asthma Hemochromatosis carrier Positive IVANA (antinuclear antibody) PTSD (post-traumatic stress disorder) Intestinal malabsorption Surgical History S/P panniculectomy S/P laparoscopic sleeve gastrectomy S/P gastric sleeve procedure Hx of hysterectomy History of esophagogastroduodenoscopy (EGD) Hx of colonoscopy S/P wisdom tooth extraction S/P tonsillectomy and adenoidectomy Hx of tubal ligation S/P appendectomy History of exploratory laparotomy Hx laparoscopic cholecystectomy Family History Father History of colon polyps Prostate CA Mother Thyroid disease Breast cancer, Onset Age: 35 Brother Cardiac abnormality Son No problems noted. Son No problems noted. Maternal Aunt Breast cancer, Onset Age: 44 Family/Other Breast cancer, Onset Age: 30 Maternal Grandmother Cervical cancer Paternal Grandmother Cervical cancer Other Mental health disorder Substance use disorder Social History Housing: House Are you a primary home care attendant to a significant other at home: No Do you presently have visiting nurse or other home services: No Alcohol intake: former Year quit: 2018 Patient Tobacco Use Status: Former Tobacco user Quit Date: 2021 Tobacco use type: Smokeless Tobacco Years Smoked: 10.5 e-Cigarette/Vaping Use: Currently Using Second Hand Smoke Exposure: Yes Substance Use Type: Marijuana service: No Current occupational status: unemployed and disabled Cognitive needs: No Hearing needs: No Vision needs: No Female Reproductive History Menstrual Age of Menarche: 9 Review of Systems Const All systems reviewed & are unremarkable except as noted in HPI and below Reports as per HPI and Reports no additional complaints GI Reports no additional complaints Reports no additional complaints Physical Exam Vital Signs: Last Vital Signs BP 116/70 07/08/23 11:54 BMI result Body Mass Index 25.7 Assessment & Plan Assessment & Plan (1) PMDD (premenstrual dysphoric disorder): Code(s): F32.81 - Premenstrual dysphoric disorder Plan: Will order FSH/LH was TSH to rule out other causes of the symptoms specifically hot flashes. Recommended exercise and relaxation techniques, chastberry, [place] oil, vitamin B6, vitamin-E, calcium and magnesium symptoms diary Instructions given to the patient to schedule a follow up appointment within 2 weeks Orders: Orders TSH reflex Free T4 Today F381 - Premenstrual dysphoric disorder Follicle Stimulating Hormone Today F381 - Premenstrual dysphoric disorder Lutenizing Hormone Today F381 - Premenstrual dysphoric disorder Coding Level of Care Code Est Pt Level 3 (33396) Diagnoses PMDD (premenstrual dysphoric disorder) F381
[2023-07-08 11:54] VITALS: BP 116/70; BMI 25.7
== END 2023-07-08 12:26 | disposition home or self-care (01) ==
LOC: HO.HWS 11:49
PROVIDERS: PCP Nurse Practitioner Family; Visit Provider Obstetrics & Gynecology
DX: F32.81 Premenstrual dysphoric disorder (principal)
CPT/HCPCS: 99213

== ENCOUNTER 2023-08-26 07:05 | Day surgery (SDC) | payer OTHER, SELFPAY ==
[2023-08-24 10:58] VITALS: BMI 26.3
--- NOTE | 2023-08-24 13:36 | HO.ANESPROP2 ---
Documented by User: Anne Grullon NP 08/24/23 13:37 HPI - Anesthesia Eval Consult details Narrative: 38yo F for Colonoscopy PMFSH Active Problems Active Problems: All Active Problems (Updated 08/24/23 @ 10:59 by Марина Klein RN) PMDD (premenstrual dysphoric disorder) (Acute) Viral illness (Acute) Nausea (Acute) Breast cancer screening, high risk patient (Acute) Family history of polyps in the colon (Acute) Irritable bowel syndrome with both constipation and diarrhea (Acute) Urinary incontinence (Acute) Chronic fatigue (Acute) Bilateral hip pain (Acute) Whole body pain (Acute) Parasomnia (Acute) Complex ovarian cyst (Acute) ASCUS with positive high risk HPV cervical (Acute) Fibromyalgia (Acute) PTSD (post-traumatic stress disorder) (Acute) Endometritis (Acute) DDD (degenerative disc disease), cervical (Acute) Abnormal uterine bleeding (Acute) JOHANNA (obstructive sleep apnea) (Acute) Fibromyalgia (Acute) Hearing loss (Acute) HPV in female (Acute) CHATMAN (nonalcoholic steatohepatitis) (Acute) GERD (gastroesophageal reflux disease) (Acute) Family hx of ovarian malignancy (Acute) Family hx-breast malignancy (Acute) Overweight (Acute) Asthma (Acute) Restless leg (Acute) PCOS (polycystic ovarian syndrome) (Acute) Intestinal malabsorption (Acute) Past Medical History Medical History (Updated 08/24/23 @ 10:59 by Марина Klein RN) Sleep apnea Constipation Excess skin Daytime sleepiness Snoring Tenderness of anatomical snuffbox Contusion of right wrist Right wrist pain Unsatisfactory cervical Papanicolaou smear Female pelvic pain Panniculitis At risk for breast cancer Well woman exam PCOS (polycystic ovarian syndrome) ASCUS with positive high risk HPV Cervical adenopathy Complex ovarian cyst Restless leg Depression Cyst of ovary Migraine Lymphadenopathy Elevated ferritin Asthma Hemochromatosis carrier Positive IVANA (antinuclear antibody) PTSD (post-traumatic stress disorder) Physical exam Intestinal malabsorption Obesity (BMI 30.0-34.9) Family History Family History Father History of colon polyps Prostate CA Mother Thyroid disease Breast cancer, Onset Age: 35 Brother Cardiac abnormality Son No problems noted. Son No problems noted. Maternal Aunt Breast cancer, Onset Age: 44 Family/Other Breast cancer, Onset Age: 30 Maternal Grandmother Cervical cancer Paternal Grandmother Cervical cancer Other Mental health disorder Substance use disorder Family history of problems with anesthesia: No Surgical History Surgical History Hx of abdominal surgery S/P panniculectomy S/P gastric sleeve procedure Hx of hysterectomy S/P laparoscopic sleeve gastrectomy History of esophagogastroduodenoscopy (EGD) Hx of colonoscopy S/P wisdom tooth extraction S/P tonsillectomy and adenoidectomy Hx of tubal ligation S/P appendectomy History of exploratory laparotomy Hx laparoscopic cholecystectomy History of Problems with Anesthesia: Yes Social History Social History Housing: House Are you a primary personal care worker to a significant other at home: No Do you presently have visiting nurse or other home services: No Alcohol intake: former Year quit: 2017 Patient Tobacco Use Status: Former Tobacco user Quit Date: 2021 Tobacco use type: Smokeless Tobacco Years Smoked: 10.5 e-Cigarette/Vaping Use: Currently Using Second Hand Smoke Exposure: Yes Substance Use Type: Marijuana Advance Directives: No Advance Directives Information Provided: Yes service: No Current occupational status: unemployed and disabled Cognitive needs: No Hearing needs: No Vision needs: No Meds Allergies Allergy/AdvReac Type Severity Reaction Status Date / Time codeine Allergy Intermediate Nausea and Verified 08/26/23 07:30 Vomiting hydrocodone [From Vicodin] Allergy Intermediate Nausea, Verified 08/26/23 07:30 Vomiting, Sweats, Spins hydromorphone [From DILAUDID] Allergy Intermediate HIVES Verified 08/26/23 07:30 morphine [MORPHINE] Allergy Intermediate RASH,DIZZINESS,VOMITING, Verified 08/26/23 07:30 hives, hives oxycodone Allergy Intermediate Nausea and Verified 08/26/23 07:30 Vomiting tramadol Allergy Intermediate Hives Verified 08/26/23 07:30 zolpidem [From AMBIEN] Allergy Intermediate BLACK Verified 08/26/23 07:30 OUTS influenza virus vaccine, AdvReac Severe SWELLING, Verified 08/26/23 07:30 specific at [FLU VACCINE] injection site bees Allergy Severe Anaphylaxis Uncoded 08/26/23 07:30 TDAP Allergy Severe Swelling Uncoded 08/26/23 07:30 at injection site Home Medications Medication Instructions Recorded Confirmed Last Taken Type buspirone 30 mg tablet 30 mg PO BID 03/17/20 08/26/23 01/22/23 History prazosin 5 mg capsule 5 mg PO BEDTIME 05/29/20 08/26/23 Unknown History duloxetine 60 mg capsule,delayed 60 mg PO BID 04/23/22 08/26/23 01/22/23 History release clonazepam 1 mg tablet 1 mg PO TID PRN anxiety 07/04/22 08/26/23 Unknown History prazosin 2 mg capsule 2 mg PO BID 09/05/22 08/26/23 01/22/23 History bupropion HCl 300 mg 24 hr tablet, 300 mg PO DAILY 09/12/22 08/26/23 01/22/23 History extended release lamotrigine 25 mg tablet 50 mg PO DAILY 03/30/23 08/26/23 Unknown History Exam Height,Weight and Vital Signs: Height 5 ft 5 in Weight 71.668 kg Assessment and Plan Assessment Anesthesia Assessment: Chart Reviewed Final Anesthetic Review Family History of Problems with Anesthesia: No History of Problems with Anesthesia: Yes Documented by User: Randy Wan MD 08/26/23 08:02 [facility] Past Medical History Medical History (Updated 08/24/23 @ 10:59 by Марина Klein RN) Sleep apnea Constipation Excess skin Daytime sleepiness Snoring Tenderness of anatomical snuffbox Contusion of right wrist Right wrist pain Unsatisfactory cervical Papanicolaou smear Female pelvic pain Panniculitis At risk for breast cancer Well woman exam PCOS (polycystic ovarian syndrome) ASCUS with positive high risk HPV Cervical adenopathy Complex ovarian cyst Restless leg Depression Cyst of ovary Migraine Lymphadenopathy Elevated ferritin Asthma Hemochromatosis carrier Positive IVANA (antinuclear antibody) PTSD (post-traumatic stress disorder) Physical exam Intestinal malabsorption Obesity (BMI 30.0-34.9) Patient : No Family History Family History Father History of colon polyps Prostate CA Mother Thyroid disease Breast cancer, Onset Age: 35 Brother Cardiac abnormality Son No problems noted. Son No problems noted. Maternal Aunt Breast cancer, Onset Age: 44 Family/Other Breast cancer, Onset Age: 30 Maternal Grandmother Cervical cancer Paternal Grandmother Cervical cancer Other Mental health disorder Substance use disorder Surgical History Surgical History Hx of abdominal surgery S/P panniculectomy S/P gastric sleeve procedure Hx of hysterectomy S/P laparoscopic sleeve gastrectomy History of esophagogastroduodenoscopy (EGD) Hx of colonoscopy S/P wisdom tooth extraction S/P tonsillectomy and adenoidectomy Hx of tubal ligation S/P appendectomy History of exploratory laparotomy Hx laparoscopic cholecystectomy History of Problems with Anesthesia: Yes (Doesn't tolerate opiates) Social History Social History Housing: House Are you a primary personal care worker to a significant other at home: No Do you presently have visiting nurse or other home services: No Alcohol intake: former Year quit: 2018 Patient Tobacco Use Status: Former Tobacco user Quit Date: 2021 Tobacco use type: Smokeless Tobacco Years Smoked: 10.5 e-Cigarette/Vaping Use: Currently Using Second Hand Smoke Exposure: Yes Substance Use Type: Marijuana Advance Directives: No Advance Directives Information Provided: Yes service: No Current occupational status: unemployed and disabled Cognitive needs: No Hearing needs: No Vision needs: No Meds Allergies Allergy/AdvReac Type Severity Reaction Status Date / Time codeine Allergy Intermediate Nausea and Verified 08/26/23 07:30 Vomiting hydrocodone [From Vicodin] Allergy Intermediate Nausea, Verified 08/26/23 07:30 Vomiting, Sweats, Spins hydromorphone [From DILAUDID] Allergy Intermediate HIVES Verified 08/26/23 07:30 morphine [MORPHINE] Allergy Intermediate RASH,DIZZINESS,VOMITING, Verified 08/26/23 07:30 hives, hives oxycodone Allergy Intermediate Nausea and Verified 08/26/23 07:30 Vomiting tramadol Allergy Intermediate Hives Verified 08/26/23 07:30 zolpidem [From AMBIEN] Allergy Intermediate BLACK Verified 08/26/23 07:30 OUTS influenza virus vaccine, AdvReac Severe SWELLING, Verified 08/26/23 07:30 specific at [FLU VACCINE] injection site bees Allergy Severe Anaphylaxis Uncoded 08/26/23 07:30 TDAP Allergy Severe Swelling Uncoded 08/26/23 07:30 at injection site Home Medications Medication Instructions Recorded Confirmed Last Taken Type buspirone 30 mg tablet 30 mg PO BID 03/17/20 08/26/23 01/22/23 History prazosin 5 mg capsule 5 mg PO BEDTIME 05/29/20 08/26/23 Unknown History duloxetine 60 mg capsule,delayed 60 mg PO BID 04/23/22 08/26/23 01/22/23 History release clonazepam 1 mg tablet 1 mg PO TID PRN anxiety 07/04/22 08/26/23 Unknown History prazosin 2 mg capsule 2 mg PO BID 09/05/22 08/26/23 01/22/23 History bupropion HCl 300 mg 24 hr tablet, 300 mg PO DAILY 09/12/22 08/26/23 01/22/23 History extended release lamotrigine 25 mg tablet 50 mg PO DAILY 03/30/23 08/26/23 Unknown History Exam Airway Mallampati Class: II TM Dist: <=3cm Neck ROM: Full Loose/Missing/Broken Teeth: No Heart: ok Lungs: ok Assessment and Plan Assessment Anesthesia Assessment: Anesthesia Plan Discussed Final Anesthetic Review History of Problems with Anesthesia: Yes (Doesn't tolerate opiates) NPO: Yes ASA Class: III Final Preanesthetic Review: No Changes in Pt Med Stat, Meds/Allgs Chart Reviewed, Consent Obtained/Reviewed and Anes Risks/Benef Reviewed Patient Risk: Intermediate Procedure Risk: Low Anesthetic Plan Anesthetic Plan: MAC: and Agree w/ Assess. and Plan Disposition: Standard PACU
[2023-08-26 07:35] VITALS: BP 88/40; PULSE 73; RESP 16; TEMP 36.7; O2SAT 97; BMI 27.0
--- NOTE | 2023-08-26 08:59 | MHC.SHP ---
Pre-Procedural Eval Section A - 24 Hr Update-Section A only Date of Service: 08/26/23 Section B - Complete if H&P > 30 days Chief Complaint: Family history of colon polyps, unspecified Relevant Family History (Specify if Yes): Yes Relevant Social History: Other (specify) (THC, vaping) Present Medications: see Short Stay Collaborative assessment Medical History: Significant History (Constipation Excess skin Daytime sleepiness Snoring Tenderness of anatomical snuffbox Contusion of right wrist Right wrist pain Unsatisfactory cervical Papanicolaou smear Female pelvic pain Panniculitis At risk for breast cancer Well woman exam Physical exam Obesity (BMI 30.0-34.9) PCOS (polycystic ) History of Previous Operations: Relevant previous surgery/procedure and date(s) (S/P panniculectomy S/P laparoscopic sleeve gastrectomy S/P gastric sleeve procedure Hx of hysterectomy History of esophagogastroduodenoscopy (EGD) Hx of colonoscopy S/P wisdom tooth extraction S/P tonsillectomy and adenoidectomy Hx of tubal ligation S/P appendectomy History of exploratory laparotomy) Allergies: Allergies Allergy/AdvReac Type Severity Reaction Status Date / Time codeine Allergy Intermediate Nausea and Verified 08/26/23 07:30 Vomiting hydrocodone [From Vicodin] Allergy Intermediate Nausea, Verified 08/26/23 07:30 Vomiting, Sweats, Spins hydromorphone [From DILAUDID] Allergy Intermediate HIVES Verified 08/26/23 07:30 morphine [MORPHINE] Allergy Intermediate RASH,DIZZINESS,VOMITING, Verified 08/26/23 07:30 hives, hives oxycodone Allergy Intermediate Nausea and Verified 08/26/23 07:30 Vomiting tramadol Allergy Intermediate Hives Verified 08/26/23 07:30 zolpidem [From AMBIEN] Allergy Intermediate BLACK Verified 08/26/23 07:30 OUTS influenza virus vaccine, AdvReac Severe SWELLING, Verified 08/26/23 07:30 specific at [FLU VACCINE] injection site bees Allergy Severe Anaphylaxis Uncoded 08/26/23 07:30 TDAP Allergy Severe Swelling Uncoded 08/26/23 07:30 at injection site Review of Systems Sugical H&P ROS: Negative: Constitution, Cardiovascular, Respiratory, Neurological, Psychiatric, Hem-Onc, Allergic/Immunologic, Gastrointestinal, Genitourinary, Musculoskeletal, Integumentary, Endocrine and Eyes/Ears/Nose/Throat Exam Surgical H&P Exam: Normal: HEENT, Normal: Heart, Normal: Lungs, Normal: Extremities, Normal: Abdomen, Normal: Skin and Normal: Neurological Plan Diagnosis/Plan: Unchanged I have reviewed the history and physical and performed a pertinent physical examination on my patient. No changes have occurred unless specified. Time Spent With Patient Time: Total time managing care of this patient today ____ minutes.
--- NOTE | 2023-08-26 09:27 | W.PM.OPN ---
Operative Note Operative Note Date of Service: 08/26/23 Narrative: Operative Information Procedure Description: Colonoscopy Indication: Fh of colon polyps, Anesthesia: MAC COLONOSCOPY Instrument: Olympus variable stiffness pediatric scope 190L Colonoscopy Monitoring: Vital signs and clinical assessment, continuous EKG monitoring, Pulse oximetry, Carbon Dioxide monitoring and blood pressure monitoring were done throughout the procedure. Colon withdrawal time was 6 minutes. Procedure: The patient was placed in the left lateral decubitis position and pre-procedure medications were administered. After a digital rectal examination of the ano-rectum, the video colonoscope was inserted into the rectum and advanced through the colon to the cecum/TI. The colonoscope was slowly withdrawn in a retrograde panoramic fashion and the colon mucosa was carefully examined including a retroflexed view of the rectum. Findings and interventions are described below. Procedure Difficulty: moderate Findings: Terminal Ileum-normal Cecum:normal Right sided retroflexion- normal Ascending Colon: normal Transverse Colon -normal Descending Colon:normal Sigmoid Colon: few diverticula seen Rectum: Retroflexion with small internal hemorrhoids seen, grade I Anorectum - normal Intervention: none Colon preparation: [place] Bowel Preparation Scale Right colon; 2 Transverse colon: 2 Left colon; 1-2 (0 = Unprepared colon segment with mucosa not seen due to solid stool that cannot be cleared. 1 = Portion of mucosa of the colon segment seen, but other areas of the colon segment not well seen due to staining, residual stool and/or opaque liquid. 2 = Minor amount of residual staining, small fragments of stool and/or opaque liquid, but mucosa of colon segment seen well. 3 = Entire mucosa of colon segment seen well with no residual staining, small fragments of stool or opaque liquid) Impression and Post Procedure Diagnosis: diverticulosis internal hemorrhoids Plan: High fiber diet leaflet Avoid straining at stool, epsom salts and sitz bath, anusol supps or cream Repeat Colonoscopy in 5 years due to FH and fair prep or earlier if clinically indicated Above findings were reviewed with the patient and relevant handouts were provided if indicated.
[2023-08-26 09:31] VITALS: BP 100/54; PULSE 65; RESP 16; TEMP 36.4; O2SAT 95
[2023-08-26 09:46] VITALS: BP 106/68; PULSE 64; RESP 16; TEMP 36.3; O2SAT 96
== END 2023-08-26 10:17 | disposition home or self-care (01) ==
PROVIDERS: PCP Nurse Practitioner Family; Visit Provider Internal Medicine Gastroenterology
PROC: 0DJD8ZZ Inspection of Lower Intestinal Tract, Via Natural or Artificial Opening Endoscopic (ICD-10-PCS; CPT 45378; principal; 2023-08-26 09:50)
DX: Z12.11 Encounter for screening for malignant neoplasm of colon (principal); K57.30 Diverticulosis of large intestine without perforation or abscess without bleeding; K64.0 First degree hemorrhoids; Z83.719 Family history of colon polyps, unspecified; K75.81 Nonalcoholic steatohepatitis (NASH); K58.2 Mixed irritable bowel syndrome; J45.909 Unspecified asthma, uncomplicated; M79.7 Fibromyalgia; G47.33 Obstructive sleep apnea (adult) (pediatric); K21.9 Gastro-esophageal reflux disease without esophagitis; Z90.710 Acquired absence of both cervix and uterus; Z90.49 Acquired absence of other specified parts of digestive tract; Z98.84 Bariatric surgery status; Z87.891 Personal history of nicotine dependence; F12.90 Cannabis use, unspecified, uncomplicated
CPT/HCPCS: 45378; J2704

== ENCOUNTER → 2023-08-26 07:05 | Outpatient (BNV) | payer OTHER, SELFPAY | PROVIDERS: PCP Nurse Practitioner Family; Visit Provider Internal Medicine Gastroenterology | DX: Z12.11 Encounter for screening for malignant neoplasm of colon (principal); Z83.719 Family history of colon polyps, unspecified; K57.30 Diverticulosis of large intestine without perforation or abscess without bleeding; K64.0 First degree hemorrhoids | CPT/HCPCS: 45378 ==

== ENCOUNTER 2023-09-09 08:49 | Outpatient (AMB) | payer OTHER, SELFPAY ==
[2023-09-09 08:52] VITALS: BP 111/71; PULSE 97; BMI 28.2
--- NOTE | 2023-09-09 08:52 | MHC.OFFVIS ---
Intake Vital Signs 09/09/23 08:52 Height 5 ft 5 in Weight 169 lb 12.095 oz BMI 28.2 BP 111/71 Blood Pressure Location Lt brachial Position Sitting Pulse 97 Intake Visit Reasons: s/p colon Intake Note: Suni returns to in office follow up s/p colonoscopy on 08/26/23. CC: Per patient she has been pooping differently less frequent and more firm. She states if she does not have a BM in 2 days then she takes the laxative. Patient states she is not taking Creon because it made her very nauseous. Prison Officer Required: No Accompanied by: Self / Same As Patient Allergies codeine Allergy (Intermediate, Verified 09/09/23 09:06) Nausea and Vomiting hydrocodone [From Vicodin] Allergy (Intermediate, Verified 09/09/23 09:06) Nausea, Vomiting, Sweats, Spins hydromorphone [From DILAUDID] Allergy (Intermediate, Verified 09/09/23 09:06) HIVES morphine [MORPHINE] Allergy (Intermediate, Verified 09/09/23 09:06) RASH,DIZZINESS,VOMITING, hives, hives oxycodone Allergy (Intermediate, Verified 09/09/23 09:06) Nausea and Vomiting tramadol Allergy (Intermediate, Verified 09/09/23 09:06) Hives zolpidem [From AMBIEN] Allergy (Intermediate, Verified 09/09/23 09:06) BLACK OUTS influenza virus vaccine, specific [FLU VACCINE] Adverse Reaction (Severe, Verified 09/09/23 09:06) SWELLING, at injection site bees Allergy (Severe, Uncoded 08/26/23 07:30) Anaphylaxis TDAP Allergy (Severe, Uncoded 08/26/23 07:30) Swelling at injection site HPI s/p colon HPI Details Assessment & Plan (1) Intestinal malabsorption: Code(s): K90.9 - Intestinal malabsorption, unspecified (2) Nausea: Code(s): R11.0 - Nausea (3) Irritable bowel syndrome with both constipation and diarrhea: Code(s): K58.2 - Mixed irritable bowel syndrome (4) GERD (gastroesophageal reflux disease): Code(s): K21.9 - Gastro-esophageal reflux disease without esophagitis (5) CHATMAN (nonalcoholic steatohepatitis): Comment: 04/2019 ALPHA FETOPROTEIN is 2.8, ceruloplasmin is 39 and normal, alpha 1 antitrypsin levels are normal, TSH is 0.57, ferritin is normal at 97, CRP is not elevated at 0.45, there is mild thrombocytopenia of 159,000, celiac panel is negative, sed rate is normal at 6, amylase and lipase are normal, hemochromatosis genetic study shows a low probability for this disease. Hepatitis a B and C negative, ferritin elevated at 174 LABS: Laboratory Tests 06/12/20 08:53 Alpha Fetoprotein 2.1 Laboratory Tests 06/12/20 08:53 Total Bilirubin 0.8 AST 12 ALT 11 Alkaline Phosphatase 51 ULTRASOUND THE ABDOMEN ]] 06/2020 IMPRESSION: Hepatic steatosis without focal lesion. Rest of the abdominal ultrasound is unremarkable. Dictated By:MOISES ANTHONY MDSigned By:<Electronically signed by MOISES ANTHONY MD in OV>07/03/20 0903 Code(s): K75.81 - Nonalcoholic steatohepatitis (CHATMAN) (6) Family history of polyps in the colon: Comment: 2018 negative scope repeat at age 43 - aeb Code(s): Z83.71 - Family history of colonic polyps Plan She her panniculectomy and is healing well! She still struggles with constipation alternating with diarrhea but she feels that it is manageable utilizing her senna and her Colace. She also continues on her pantoprazole feels that the GERD is well controlled. However, she has been having intermittent episodes of nausea. This is not directly related to eating and can happen throughout the day at any time of day. It will generally last about an hour. She does seem to be able to abated by taking a simethicone and waiting about half an hour. This seems to point to gas trapping as a possible etiology. She is a gastric sleeve patient and Dr. Thomas tells her that ?my body does not digest things properly? and that is why she needs to continue on protein shakes. This makes me wonder if digestive enzymes might be helpful and I think will give her a trial of Creon. She is agreeable to this. She asked to review her liver function tests since her weight loss and I am happy to tell her that her transaminases appear normal. If she gains weight again she surely will have fatty liver since this is a genetic problem but she certainly has done her liver a big favor with her weight loss. I think that her primary care provider can continue to follow her liver enzymes and she does not really need to be followed by my service unless they become more than twice the normal level. Return office visit in 6 weeks to evaluate how she is doing with the Creon. Orders: Orders Colonoscopy - GI U se Only 04/16/23 Z83.71 - Family hi story of colonic p olyps Medications: New gbzxcq-qoilwpda-iw ylase 24,000-76,00 0 -120,000 unit (C reon) administe r with meals and/o r snacks 1 cap PO QID 120 c aps 6RF 30 days K58.9 - Irritable bowel syndrome wit hout diarrhea simethicone (Gas R elief (simethicone )) 80 mg PO QID PRN 9 0 tabs 6RF abdomin al distention Refilled sennosides (Senna Laxative) 17.2 mg (2 x 8.6 m g) PO BEDTIME 60 t abs 3RF K59.00 - Constipat ion, unspecified pantoprazole 40 mg PO BID 180 t abs 2RF docusate sodium (C olace) 100 mg PO DAILY 90 caps 2RF K59.00 - Constipat ion, unspecified COLONOSCOPY 08/26/23 Findings: Terminal Ileum-normal Cecum:normal Right sided retroflexion- normal Ascending Colon: normal Transverse Colon -normal Descending Colon:normal Sigmoid Colon: few diverticula seen Rectum: Retroflexion with small internal hemorrhoids seen, grade I Anorectum - normal Intervention: none Impression and Post Procedure Diagnosis: diverticulosis internal hemorrhoids Plan: High fiber diet leaflet Avoid straining at stool, epsom salts and sitz bath, anusol supps or cream Repeat Colonoscopy in 5 years due to FH and fair prep or earlier if clinically indicated TODAY'S VISIT The procedure should be repeated in 5 years due to family history of colon cancer. The procedure was well tolerated. The results were explained and the patient is agreeable to the follow-up interval as stated. The bowel pattern has returned to normal. Education was provided to tell any 1st degree relatives about their findings to be sure that they are screened by age 45. Educated that they will be put on a recall list when it is time for their repeat scope but should they move out of state or away from the hospital they will need to remember along with their primary to repeat the procedure in a timely fashion to avoid any adverse complications. She has mixed irritable bowel syndrome but she feels like she can control it utilizing her Colace, senna, and Creon. Her pantoprazole 40 mg twice a day continues to control her GERD. I put her on simethicone at the last visit to see if this would help bloating and nausea. She is having more bloating and gas, she did receive the simethicone but was only using it prn, I suggest she use it bid instead, could not tolerate the creon r/t nausea - this improve with cessation. She asks about getting her protein shakes covered by insurance and she asks if I would be the provider to get this approved, she is also on a lot of vitamins for maldigestion as well. I refer her to her PCP and her bariatrics - this would be the appropriate providers. Return office visit in 6 months [facility] Medical History (Updated 09/09/23 @ 09:32 by FELY Colbert) Viral illness Nausea Sleep apnea Constipation Excess skin Daytime sleepiness Snoring Tenderness of anatomical snuffbox Contusion of right wrist Right wrist pain Unsatisfactory cervical Papanicolaou smear Female pelvic pain Panniculitis At risk for breast cancer Well woman exam PCOS (polycystic ovarian syndrome) ASCUS with positive high risk HPV Cervical adenopathy Complex ovarian cyst Restless leg Depression Cyst of ovary Migraine Lymphadenopathy Elevated ferritin Asthma Hemochromatosis carrier Positive IVANA (antinuclear antibody) PTSD (post-traumatic stress disorder) Physical exam Intestinal malabsorption Obesity (BMI 30.0-34.9) Surgical History Hx of abdominal surgery S/P panniculectomy S/P gastric sleeve procedure Hx of hysterectomy S/P laparoscopic sleeve gastrectomy History of esophagogastroduodenoscopy (EGD) Hx of colonoscopy S/P wisdom tooth extraction S/P tonsillectomy and adenoidectomy Hx of tubal ligation S/P appendectomy History of exploratory laparotomy Hx laparoscopic cholecystectomy Family History Father History of colon polyps Prostate CA Mother Thyroid disease Breast cancer, Onset Age: 35 Brother Cardiac abnormality Son No problems noted. Son No problems noted. Maternal Aunt Breast cancer, Onset Age: 44 Family/Other Breast cancer, Onset Age: 30 Maternal Grandmother Cervical cancer Paternal Grandmother Cervical cancer Other Mental health disorder Substance use disorder Social History Housing: House Are you a primary hospice care transitions coordinator to a significant other at home: No Do you presently have visiting nurse or other home services: No Alcohol intake: former Year quit: 2017 Patient Tobacco Use Status: Former Tobacco user Quit Date: 2021 Tobacco use type: Smokeless Tobacco Years Smoked: 10.5 e-Cigarette/Vaping Use: Currently Using Second Hand Smoke Exposure: Yes Substance Use Type: Marijuana service: No Current occupational status: unemployed and disabled Cognitive needs: No Hearing needs: No Vision needs: No Female Reproductive History Menstrual Age of Menarche: 9 Review of Systems Const Denies fatigue, Denies fever(s), Denies night sweats, Denies poor appetite and Denies weight loss Eyes Details: glasses Reports requires corrective lenses ENT Reports Normal hearing present, Denies dental pain, Denies dysphagia, Denies hearing loss, Denies mouth pain, Denies odynophagia, Denies throat swelling, Denies tongue swelling and Reports other (Dentition adequate) Card Reports no additional complaints Resp Reports no additional complaints GI Details: Denies abdominal pain, Denies melena, Reports bloating, Denies hematochezia, Denies constipation, Denies GI cramping, Denies dysphagia, Reports excessive flatus, Denies early satiety, Reports heartburn, Reports diarrhea, Denies nausea, Denies odynophagia, Denies vomiting and Denies hematemesis Skin/Breast Denies pruritus, Denies lesions, Denies rash and Denies jaundice Neuro Reports Normal hearing present and Denies Abnormal speech present Endo Denies fatigue Aller/Immun Denies throat swelling and Denies tongue swelling Physical Exam Vital Signs: Last Vital Signs Pulse 97 09/09/23 08:52 BP 111/71 09/09/23 08:52 BMI result Body Mass Index 28.2 Const General: cooperative, no acute distress, well developed and well groomed Nutritional Appearance: well nourished and overweight Orientation/consciousness: oriented to person, oriented to place and oriented to time Limitations: No language barrier HEENT Head: Yes normocephalic and Yes atraumatic Eyes General: appearance normal, both eyes and all related structures Pupils: Equal, round and reactive pupils present Neck Neck: Yes normal visual inspection and Yes no lymphadenopathy Thyroid: Thyroid normal Resp Effort & Inspection: normal respiratory effort and able to speak in complete sentences Auscultation: clear to auscultation bilaterally Cardio Rate: regular rate Rhythm: regular rhythm Heart sounds: Normal, physiologic split S2 sound present Peripheral pulses: radial pulses present and posterior tibial pulses present GI Inspection: No distended, No Abdominal panniculus present and Yes obesity Palpation (GI): Soft to palpation, nontender, no guarding, not rigid and No hepatosplenomegaly present Percussion: Yes normal to percussion Auscultation: normal bowel sounds Rectal Exam - Female: deferred Skin General skin exam: no rashes or lesions noted, turgor normal, skin not dry, no jaundice, No spider nevi and no striae Rashes: no rashes Nails: normal Neuro General: oriented to person, oriented to place and oriented to time Cranial nerves: Yes Equal, round and reactive pupils present and Yes Normal hearing present Speech: No Abnormal speech present Extrem General: Yes normal to inspection, No clubbing, No cyanosis and No edema Psych Appearance: grossly normal and well kempt Mental Status: mental status grossly normal Speech and movement: Normal speech and movement present Affect: normal affect Attitude: cooperative Thought process: Normal thought process present and not confabulating Thought content: Normal thought content present Insight: Fair insight present (Psych) Judgement: Fair judgement present (Psych) Assessment & Plan Assessment & Plan (1) Irritable bowel syndrome with both constipation and diarrhea: Code(s): K58.2 - Mixed irritable bowel syndrome (2) Family history of polyps in the colon: Comment: 2018 negative scope repeat at age 43 - aeb Code(s): Z83.71 - Family history of colonic polyps (3) GERD (gastroesophageal reflux disease): Code(s): K21.9 - Gastro-esophageal reflux disease without esophagitis Plan The procedure should be repeated in 5 years due to family history of colon cancer. The procedure was well tolerated. The results were explained and the patient is agreeable to the follow-up interval as stated. The bowel pattern has returned to normal. Education was provided to tell any 1st degree relatives about their findings to be sure that they are screened by age 45. Educated that they will be put on a recall list when it is time for their repeat scope but should they move out of state or away from the hospital they will need to remember along with their primary to repeat the procedure in a timely fashion to avoid any adverse complications. She has mixed irritable bowel syndrome but she feels like she can control it utilizing her Colace, senna, and Creon. Her pantoprazole 40 mg twice a day continues to control her GERD. I put her on simethicone at the last visit to see if this would help bloating and nausea. She is having more bloating and gas, she did receive the simethicone but was only using it prn, I suggest she use it bid instead, could not tolerate the creon r/t nausea - this improve with cessation. She asks about getting her protein shakes covered by insurance and she asks if I would be the provider to get this approved, she is also on a lot of vitamins for maldigestion as well. I refer her to her PCP and her bariatrics - this would be the appropriate providers. Return office visit in 6 months Medications: New L.acidophil-L.plantar-Bifido 7 15 billion cell (up4 Probiotics Adult) 1 cap PO DAILY 30 caps 6RF K58.2 - Mixed irritable bowel syndrome, Z83.71 - Family history of colonic polyps famotidine (Pepcid) 20 mg PO .qaclunch 30 tabs 6RF K21.9 - Gastro-esophageal reflux disease without esophagitis Refilled sennosides (Senna Laxative) 17.2 mg (2 x 8.6 mg) PO BEDTIME 60 tabs 3RF K59.00 - Constipation, unspecified docusate sodium (Colace) 100 mg PO DAILY 90 caps 2RF K59.00 - Constipation, unspecified pantoprazole 40 mg PO BID 180 tabs 2RF simethicone (Gas Relief (simethicone)) 80 mg PO QID PRN 90 tabs 6RF abdominal distention Discontinued kgfgoo-uykigyiw-mmfpsja 24,000-76,000 -120,000 unit (Creon) administer with meals and/or snacks Discontinued Reason: Doctor's Order 1 cap PO QID 30 days 120 caps 6RF K58.9 - Irritable bowel syndrome without diarrhea Coding Level of Care Code Est Pt Level 3 (98088) Diagnoses Irritable bowel syndrome with both constipation and diarrhea K58.2 Family history of polyps in the colon Z83.71 GERD (gastroesophageal reflux disease) K21.9
== END 2023-09-09 10:21 | disposition home or self-care (01) ==
PROVIDERS: PCP Nurse Practitioner Family; Visit Provider Nurse Practitioner
DX: K58.2 Mixed irritable bowel syndrome (principal); Z83.719 Family history of colon polyps, unspecified; K21.9 Gastro-esophageal reflux disease without esophagitis
CPT/HCPCS: 99213

== ENCOUNTER → 2023-09-09 08:49 | Outpatient (BNVA) | payer OTHER, SELFPAY | PROVIDERS: PCP Nurse Practitioner Family; Visit Provider Nurse Practitioner | DX: K58.2 Mixed irritable bowel syndrome (principal); K21.9 Gastro-esophageal reflux disease without esophagitis; Z83.719 Family history of colon polyps, unspecified | CPT/HCPCS: 99212 ==

== ENCOUNTER 2023-09-22 08:49 | Outpatient (AMB) | payer OTHER, SELFPAY ==
--- NOTE | 2023-09-22 09:01 | MHC.OFFVISWM ---
Intake VS Expanded 09/22/23 09:19 BP 128/59 L Blood Pressure Location Rt brachial Blood Pressure Position Sitting Pulse 106 H Pulse Source Pulse Oximeter Temp 97.5 F Temperature Source Temporal Artery Scan Pulse Oximetry 96 Oxygen Delivery Method Room Air Height 5 ft 5 in Weight 162 lb 12.8 oz BMI 27.1 Body Fat % 37.5 Body Fat Mass 61 Fat Free Mass 101.6 Visceral Fat Rating 6.0 Body Water % 44.7 Body Water Mass 72.8 Muscle Mass/Score 96.6 Basal Metabolic Rate/Score 1,409 Intake Visit Reasons: (OV) PO Panniculectomy 01/22/23 Allergies codeine Allergy (Intermediate, Verified 09/22/23 09:10) Nausea and Vomiting hydrocodone [From Vicodin] Allergy (Intermediate, Verified 09/22/23 09:10) Nausea, Vomiting, Sweats, Spins hydromorphone [From DILAUDID] Allergy (Intermediate, Verified 09/22/23 09:10) HIVES morphine [MORPHINE] Allergy (Intermediate, Verified 09/22/23 09:10) RASH,DIZZINESS,VOMITING, hives, hives oxycodone Allergy (Intermediate, Verified 09/22/23 09:10) Nausea and Vomiting tramadol Allergy (Intermediate, Verified 09/22/23 09:10) Hives zolpidem [From AMBIEN] Allergy (Intermediate, Verified 09/22/23 09:10) BLACK OUTS influenza virus vaccine, specific [FLU VACCINE] Adverse Reaction (Severe, Verified 09/22/23 09:10) SWELLING, at injection site bees Allergy (Severe, Uncoded 08/26/23 07:30) Anaphylaxis TDAP Allergy (Severe, Uncoded 08/26/23 07:30) Swelling at injection site HPI HPI Comments History of Present Illness Details Patient is a pleasant 38-year-old female who returns to the office today in follow-up. She is status post panniculectomy on 01/22/2023 and sleeve gastrectomy on 02/14/2020. Current weight is 162.8 lb with a BMI of 27.1. She was able to get in touch with her insurance company and given her comorbidities of mixed IBS, diverticulosis, vitamin deficiencies and reflux as well as an intolerance to protein powders causing nausea and vomiting, it is necessary that she have ready to drink protein supplements in her meal plan. Meal plan: 2 eggs PB toast tuna 1/2 can Ground turkey/turkey/chicken/pork and veg, 6-8 forks protein and 6 forks veg. 64-96 oz Exercise plan: walking 1-3 mi outside or dancing at home. [facility] Medical History Viral illness Nausea Sleep apnea Constipation Excess skin Daytime sleepiness Snoring Tenderness of anatomical snuffbox Contusion of right wrist Right wrist pain Unsatisfactory cervical Papanicolaou smear Female pelvic pain Panniculitis At risk for breast cancer Well woman exam PCOS (polycystic ovarian syndrome) ASCUS with positive high risk HPV Cervical adenopathy Complex ovarian cyst Restless leg Depression Cyst of ovary Migraine Lymphadenopathy Elevated ferritin Asthma Hemochromatosis carrier Positive IVANA (antinuclear antibody) PTSD (post-traumatic stress disorder) Physical exam Intestinal malabsorption Obesity (BMI 30.0-34.9) Surgical History (Updated 09/22/23 @ 09:37 by AWA Kapadia) Hx of abdominal surgery S/P panniculectomy S/P gastric sleeve procedure Hx of hysterectomy S/P laparoscopic sleeve gastrectomy History of esophagogastroduodenoscopy (EGD) Hx of colonoscopy S/P wisdom tooth extraction S/P tonsillectomy and adenoidectomy Hx of tubal ligation S/P appendectomy History of exploratory laparotomy Hx laparoscopic cholecystectomy Family History Father History of colon polyps Prostate CA Mother Thyroid disease Breast cancer, Onset Age: 35 Brother Cardiac abnormality Son No problems noted. Son No problems noted. Maternal Aunt Breast cancer, Onset Age: 44 Family/Other Breast cancer, Onset Age: 30 Maternal Grandmother Cervical cancer Paternal Grandmother Cervical cancer Other Mental health disorder Substance use disorder Social History Housing: House Are you a primary health care facilities inspector to a significant other at home: No Do you presently have visiting nurse or other home services: No Alcohol intake: former Year quit: 2017 Patient Tobacco Use Status: Former Tobacco user Quit Date: 2021 Tobacco use type: Smokeless Tobacco Years Smoked: 10.5 e-Cigarette/Vaping Use: Currently Using Second Hand Smoke Exposure: Yes Substance Use Type: Marijuana service: No Current occupational status: unemployed and disabled Cognitive needs: No Hearing needs: No Vision needs: No Female Reproductive History Menstrual Age of Menarche: 9 Physical Exam Const General: healthy appearing and no acute distress Resp Effort & Inspection: normal respiratory effort Auscultation: clear to auscultation bilaterally Cardio Rate: regular rate Rhythm: regular rhythm GI Auscultation: normal bowel sounds Skin Other: Transverse incision well healed Extrem General: Yes normal to inspection Assessment & Plan Assessment & Plan (1) S/P gastric sleeve procedure: Comment: 2020 Code(s): Z90.3 - Acquired absence of stomach [part of] Plan: Overall, doing well. She will obtain the prior authorization form from her insurance company for ready to drink protein shakes. I did suggest that she remove her peanut butter toast. Increase walking as much as possible and if she is unable to go outside consider videos at home. Suggested body weight exercises and strength training exercises at home. We will have her return to the office for her 4 year postop appointment in February, sooner with any questions or concerns. Coding Level of Care Code Est Pt Level 3 (39179) Diagnoses S/P gastric sleeve procedure Z90.3
[2023-09-22 09:19] VITALS: BP 128/59; PULSE 106; TEMP 36.4; O2SAT 96; BMI 27.1
== END 2023-09-22 09:38 | disposition home or self-care (01) ==
PROVIDERS: PCP Nurse Practitioner Family; Visit Provider Physician Assistant Surgical
DX: E66.3 Overweight (principal); Z68.27 Body mass index [BMI] 27.0-27.9, adult; Z90.3 Acquired absence of stomach [part of]; Z98.84 Bariatric surgery status
CPT/HCPCS: 99213

== ENCOUNTER → 2023-09-22 08:49 | Outpatient (BNVA) | payer OTHER, SELFPAY | PROVIDERS: PCP Nurse Practitioner Family; Visit Provider Physician Assistant Surgical | DX: Z90.3 Acquired absence of stomach [part of] (principal); Z98.84 Bariatric surgery status; Z98.890 Other specified postprocedural states | CPT/HCPCS: 99212 ==

== ENCOUNTER 2023-12-25 10:05 | Outpatient (AMB) | payer OTHER, SELFPAY ==
--- NOTE | 2023-12-25 10:06 | A.OFFPC_ITS ---
Vital Signs 12/25/23 10:09 Height 5 ft 5 in Weight 158 lb BMI 26.3 BP 108/80 Blood Pressure Location Rt brachial Position Sitting Pulse 90 Pulse Source Pulse Oximeter Pulse Oximetry (%) 98 Oxygen Delivery Method Room Air Intake Visit Reasons: PE Intake Note: pt is here for annual PE. Mammogram 05/01/23. Pap 10/22/22 Allergies codeine Allergy (Intermediate, Verified 12/25/23 10:06) Nausea and Vomiting hydrocodone [From Vicodin] Allergy (Intermediate, Verified 12/25/23 10:06) Nausea, Vomiting, Sweats, Spins hydromorphone [From DILAUDID] Allergy (Intermediate, Verified 12/25/23 10:06) HIVES morphine [MORPHINE] Allergy (Intermediate, Verified 12/25/23 10:06) RASH,DIZZINESS,VOMITING, hives, hives oxycodone Allergy (Intermediate, Verified 12/25/23 10:06) Nausea and Vomiting tramadol Allergy (Intermediate, Verified 12/25/23 10:06) Hives zolpidem [From AMBIEN] Allergy (Intermediate, Verified 12/25/23 10:06) BLACK OUTS influenza virus vaccine, specific [FLU VACCINE] Adverse Reaction (Severe, Verified 12/25/23 10:06) SWELLING, at injection site bees Allergy (Severe, Uncoded 12/25/23 10:06) Anaphylaxis TDAP Allergy (Severe, Uncoded 12/25/23 10:06) Swelling at injection site Medication List - Last Reconciled 12/25/23 by CHARLES Hein bupropion HCl XL 300 mg PO DAILY buspirone 30 mg PO BID calcium carbonate-vitamin D3 600 mg-10 mcg (400 unit) (Calcium with Vitamin D) 1 tab PO BID 90 days clonazepam 1 mg PO TID PRN cyanocobalamin (vitamin B-12) 500 mcg PO DAILY 90 days cyclobenzaprine 10 mg PO BEDTIME diphenhydramine HCl (Benadryl Allergy) 25 mg PO BID PRN docusate sodium (Colace) 100 mg PO DAILY duloxetine 60 mg PO BID epinephrine 0.3 mg (0.3 mL) IM ONCE 30 days famotidine (Pepcid) 20 mg PO .qaclunch ferrous sulfate 324 mg PO BID finasteride 5 mg PO DAILY gabapentin 800 mg PO BID lamotrigine 200 mg PO BID loratadine 10 mg PO DAILY multivitamin with folic acid 400 mcg (Daily-May (with folic acid)) 1 tab PO DAILY pantoprazole 40 mg PO BID prazosin 5 mg PO BEDTIME prazosin 2 mg PO ONCE [premier protein ready to drink supplement As directed NS] rhubarb root extract (Estroven Complete Menopause Relief) 4 mg PO DAILY ropinirole 1 mg PO BEDTIME 90 days sennosides (Senna Laxative) 17.2 mg (2 x 8.6 mg) PO BEDTIME simethicone (Gas Relief (simethicone)) 80 mg PO QID PRN sodium fluoride-pot nitrate 1.1-4.5 % 1 appl dental BID sumatriptan succinate take 1 tab at onset of headache; if no relief, may repeat 1 tab after at least 2 hrs; max = 2 tabs/24 hrs PO 10 days trazodone 100 mg PO BEDTIME PRN verapamil 80 mg PO BID 90 days Tobacco use date assessed: 12/25/23 Dental Screening Dental Screen Date: 12/25/23 Did you have a dental visit in the last 12 months?: Yes Did you have a dental problem in the last 6 months where you did not have access to dental care?: No Was dental information given to patient?: Patient has dentist HPI HPI Comments History of Present Illness Details Patient is a 38-year-old female who I am meeting for the 1st time in for physical exam. Patient is due for tetanus vaccine will offer today. Mammogram is up to date, next is scheduled. Through [facility]. Patient is also up to date with pap-smear [facility]. Patient also has a referral from her government relations director out for a urogynecologist at [facility]. Patient is followed by speech and hearing for diminished hearing and hearing aids. Patient has establish care with psychiatry in therapy. Migraines- patient utilizing verapamil and sumatriptan with good effect. Patient has chronic history of upper back and cervical neck pain. Will order cervical spine x-ray and give referral to physical therapy. Patient has also been educated that she can follow up with massage therapy or acupuncture. Patient has history of bariatric surgery has will follow ups with them every year. Utilizing pantoprazole and famotidine for gastric reflux. [facility], [facility] Medical History (Updated 12/25/23 @ 10:45 by CHARLES Hein) Physical exam Viral illness Nausea Sleep apnea Constipation Excess skin Daytime sleepiness Snoring Tenderness of anatomical snuffbox Contusion of right wrist Right wrist pain Unsatisfactory cervical Papanicolaou smear Female pelvic pain Panniculitis At risk for breast cancer Well woman exam PCOS (polycystic ovarian syndrome) ASCUS with positive high risk HPV Cervical adenopathy Complex ovarian cyst Restless leg Depression Cyst of ovary Migraine Lymphadenopathy Elevated ferritin Asthma Hemochromatosis carrier Positive IVANA (antinuclear antibody) PTSD (post-traumatic stress disorder) Intestinal malabsorption Obesity (BMI 30.0-34.9) Surgical History Hx of abdominal surgery S/P panniculectomy S/P gastric sleeve procedure Hx of hysterectomy S/P laparoscopic sleeve gastrectomy History of esophagogastroduodenoscopy (EGD) Hx of colonoscopy S/P wisdom tooth extraction S/P tonsillectomy and adenoidectomy Hx of tubal ligation S/P appendectomy History of exploratory laparotomy Hx laparoscopic cholecystectomy Family History Father History of colon polyps Prostate CA Mother Thyroid disease Breast cancer, Onset Age: 35 Brother Cardiac abnormality Son No problems noted. Son No problems noted. Maternal Aunt Breast cancer, Onset Age: 44 Family/Other Breast cancer, Onset Age: 30 Maternal Grandmother Cervical cancer Paternal Grandmother Cervical cancer Other Mental health disorder Substance use disorder Social History Housing: House Are you a primary animal care technician to a significant other at home: No Do you presently have visiting nurse or other home services: No Alcohol intake: former Year quit: 2018 Patient Tobacco Use Status: Former Tobacco user Tobacco use type: Smokeless Tobacco Years Smoked: 10.5 e-Cigarette/Vaping Use: Currently Using Second Hand Smoke Exposure: Yes Substance Use Type: Marijuana service: No Current occupational status: unemployed and disabled Cognitive needs: No Hearing needs: No Vision needs: No Female Reproductive History Menstrual Age of Menarche: 9 Questionnaire PHQ-9 Over the last 2 weeks, how often have you been bothered by any of the following problems? 1. Little interest or pleasure in doing things: nearly every day 2. Feeling down, depressed, or hopeless: nearly every day 3. Trouble falling or staying asleep, or sleeping too much: nearly every day 4. Feeling tired or having little energy: nearly every day 5. Poor appetite or overeating: not at all 6. Feeling bad about yourself - or that you are a failure or have let yourself or your family down: nearly every day 7. Trouble concentrating on things, such as reading the newspaper or watching television: nearly every day 8. Moving or speaking so slowly that other people could have noticed. Or the opposite - being so fidgety or restless that you have been moving around a lot more than usual: nearly every day 9. Thoughts that you would be better off or of hurting yourself in some way: not at all Total score: 21 Depression Screening Interpretation: Positive Depression Screening Follow-up: Existing condition and In treatment Depression Screening Done: Yes 50665 - PHQ-9 Billing: Yes Source: Developed by Drs. Alpesh Morocho, Rula Infante, Hollis Winkler and colleagues, with an educational teresa from [employer]. Thrive Questionnaire Date Thrive assessed: 12/25/23 I am a: Patient What is your living situation today?: I have a steady place to live Within the past 12 months, did the food you bought not last and you didn't have the money to get more?: Often true Within the past 12 months, did you worry whether your food would run out before you got money to buy more?: Often true Do you have trouble paying for medicines?: Yes Do you have trouble getting transportation to medical appointments?: No Do you have trouble paying your heating and electricity bill?: Yes Do you have trouble taking care of your child, family member or friend?: No Do you have trouble with day-to-day activities such as bathing, preparing meals, shopping, managing finances, etc.?: No Are you currently unemployed and looking for a job?: No Are you interested in more education?: No Please select the resources that you would like help with: None Currently or been in a relationship where the following occur: No concerns reported THRIVE Score: 3 AUDIT C Alcohol Use Questionnaire (AUDIT-C) 1. How often do you have a drink containing alcohol?: Never 3. How often do you have six or more drinks on one occasion?: Never Total Score: 0 SARABJIT-7 AMB Questionnaire SARABJIT-7 Date SARABJIT - 7 assessed: 12/25/23 Feeling nervous, anxious, or on edge: 1 = Several days Not being able to stop or control worryin = Several days Worrying too much about different things: 1 = Several days Trouble relaxin = Several days Being so restless that it is hard to sit still: 3 = Nearly every day Becoming easily annoyed or irritable: 3 = Nearly every day Feeling afraid as if something awful might happen: 0 = Not at all Total SARABJIT-7 score (0-4 normal; 5-9 mild; 10-14 moderate; 15-21 severe): 10 Source: Developed by Drs. Alpesh Morocho, Rula Infante, Hollis Winkler and colleagues, with an educational teresa from [employer]. SARABJIT-7 Assessment Billing SARABJIT-7 Assessment Tool: SARABJIT-7 Assessment 01813 ( Has therapist in Psychiatry. Patient also taking medications) Review of Systems Const All systems reviewed & are unremarkable except as noted in HPI and below Physical exam (Primary Care) Vital Signs: Last Vital Signs Pulse 90 12/25/23 10:09 BP 108/80 12/25/23 10:09 Pulse Ox 98 12/25/23 10:09 Oxygen Delivery Method Room Air 12/25/23 10:09 BMI result Body Mass Index 26.3 Tobacco/Smoking Status: Tobacco use Status Tobacco use date assessed 12/25/23 12/25/23 10:21 Patient Tobacco Use Status Former Tobacco user 12/25/23 10:13 Tobacco use type Smokeless Tobacco 12/25/23 10:13 e-Cigarette/Vaping Use Currently Using 12/25/23 10:13 PHQ-9: PHQ-9 Score PHQ-9: Total score 21 12/25/23 10:21 Depression Screening Interpretation: Positive Depression Screening Follow-up: Existing condition and In treatment Thrive Assessment: Date of Thrive Assessment Date Thrive assessed 12/25/23 12/25/23 10:13 Currently or been in a relationship where the following occur: No concerns reported Const Other: Appearance: Alert.? Oriented X3.? No acute distress.? Head: Normocephalic, atraumatic, no step-offs or deformities Eyes: Pupils equal, round and reactive to light.? ENT: Pharynx normal.? Neck: Normal inspection.? Neck supple.? CVS: Normal heart rate and rhythm.? Pulses normal.? Respiratory: No respiratory distress.? Breath sounds normal.? Abdomen: Soft and nontender.? Skin: Skin warm and dry.? Normal skin color.? Normal skin turgor.? Extremities: No lower extremity edema.? No calf ttp. 5/5 strength to bilateral upper and lower extremities Back: No midline tenderness, no C-spine tenderness, Limited range of motion to neck rotation, no CVA tenderness bilaterally. Neuro: Oriented X 3.? No motor deficit.? No sensory deficit. CN 2-12 intact Assessment and Plan Assessment & Plan (1) Physical exam: Comment: Patient is due for tetanus vaccine will offer today. Mammogram is up to date, next is scheduled. Through [facility]. Patient is also up to date with pap-smear [facility]. Patient also has a referral from her government relations director out for a urogynecologist at [facility]. Patient is followed by speech and hearing for diminished hearing and hearing aids. Patient has establish care with psychiatry in therapy. Migraines- patient utilizing verapamil and sumatriptan with good effect. Patient has chronic history of upper back and cervical neck pain. Will order cervical spine x-ray and give referral to physical therapy. Patient has also been educated that she can follow up with massage therapy or acupuncture. Patient has history of bariatric surgery has will follow ups with them every year. Utilizing pantoprazole and famotidine for gastric reflux Code(s): Z00.00 - Encounter for general adult medical examination without abnormal findings Orders: Orders XR cervical spine 2V Today M54.9 - Dorsalgia, unspecified Coding Level of Care Code Est Pt Prev Care 40-64y(96441) Diagnoses Physical exam Z00.00 Additional Codes SARABJIT-7 Assessment Billing - SARABJIT-7 Assessment Tool: SARABJIT-7 Assessment 09822 ([id number]) Time Spent (min) 28
[2023-12-25 10:09] VITALS: BP 108/80; PULSE 90; O2SAT 98; BMI 26.3
== END 2023-12-25 10:43 | disposition home or self-care (01) ==
PROVIDERS: PCP Nurse Practitioner Family; Visit Provider Nurse Practitioner Primary Care
DX: Z00.00 Encounter for general adult medical examination without abnormal findings (principal)
CPT/HCPCS: 99396

== ENCOUNTER 2024-02-23 07:52 | Outpatient (REF) | payer OTHER, SELFPAY ==
--- NOTE | ~2024-02-23 | XR_ITS ---
EXAMINATION: XR CERVICAL SPINE CLINICAL INFORMATION: Reason for Exam M54.9 - Dorsalgia, unspecified. COMPARISON: Cervical spine series August 2021. TECHNIQUE: 3 views of the cervical spine were obtained. FINDINGS: There is persistent mild degenerative disc changes at C4-C5 with disc space narrowing and endplate osteophytes, unchanged compared to prior. Minimal posterior subluxation of C4 on C5, unchanged, likely related to the degenerative changes. Otherwise, the disc spaces are normal. Vertebral bodies are otherwise normally aligned with normal height. Facets unremarkable, surrounding bone and soft tissues are unremarkable. XR/XR cervical spine 2V IMPRESSION: Mild spondylosis of the cervical spine, unchanged, compared with prior exam August 2021. Electronically signed by: Guido Ibarra MD 03/09/2024 07:23 AM EDT
[2024-02-23 10:06] LABS: MANUAL DIFF FLAG NO
[2024-02-23 10:14] LABS: Basophils Percent Auto 0.7 % (0-2); Eosinophils Absolute Auto 0.2 X10*3/uL (0.0-0.4); Eosinophils Percent Auto 4.1 % (0-4); Hematocrit 38.2 % (37.0-47.0); Hemoglobin 12.9 g/dl (12.0-16.0); Imm Gran Abs Auto 0.01 X10*3/uL (0.00-0.03); Imm Gran Pct Auto 0.2 % (0.0-0.4); Lymphocytes Absolute Auto 1.9 X10*3/uL (1.2-4.9); Lymphocytes Percent Auto 31.9 % (20-40); Mean Corpuscular HGB Conc 33.8 g/dl (31.0-35.0); Mean Corpuscular Hemoglobin 32.2 pg (27.0-33.0); Mean Corpuscular Volume 95.3 fL (80.0-98.0); Mean Platelet Volume 11.2 fL (9.4-12.3); Monocytes Absolute Auto 0.4 X10*3/uL (0.1-1.2); Monocytes Percent Auto 7.3 % (2-11); Neutrophils Absolute Auto 3.3 x10*3/uL (2.0-8.3); Neutrophils Percent Auto 55.8 % (45-73); Platelet Count 177 X10*3/uL (160-400); Red Blood Count 4.01 X10*6/uL (4.20-5.50); Red Cell Distribution Width 11.9 % (11.0-16.0); White Blood Count 5.9 X10*3/uL (4.8-10.8)
[2024-02-23 10:57] LABS: Appearance Urine Cloudy; Color Urine Dark Yellow; Glucose Urine UA Negative (Negative); Leukocyte Esterase Urine Negative (Negative); Nitrite Urine Negative (Negative); PH 6.5 (5.0-9.0); Urine Blood Negative (Negative); Urine Ketones Negative (Negative); Urine Protein Negative (Neg-Trace)
[2024-02-23 11:02] LABS: HBS Num1 9.64 mIU/mL (0-7.99)
[2024-02-23 11:05] LABS: Alanine Aminotransferase 15 U/L (0-31); Albumin Level 3.9 g/dL (3.5-5.0); Alkaline Phosphatase 44 U/L (39-117); Anion Gap 11 (12-20); Aspartate Amino Transferase 14 U/L (5-31); Bilirubin Total 0.2 mg/dL (0.0-1.0); Blood Urea Nitrogen 13 mg/dL (9-16); Calcium 9.5 mg/dL (8.4-10.2); Carbon Dioxide 31 mmol/L (22-29); Chloride 105 mmol/L (96-108); Cholesterol 182 mg/dL (<200); Estimated Glomerular Filt Rate > 60; Glucose Fasting 82 mg/dL (60-99); HDL Cholesterol 49 mg/dL (>40); Iron 69 mcg/dL (30-160); LDL Cholesterol Calculated 117 mg/dL (<100); Percent Iron Saturation 29 % (15-50); Potassium 3.8 mmol/L (3.3-5.1); Sodium 143 mmol/L (135-145); Total Iron Binding Capacity 234 mcg/dL (228-428); Total Protein 6.3 g/dL (6.5-8.0); Triglycerides 80 mg/dL (<150); Unsaturated Iron Binding 165 ug/dL
[2024-02-23 11:21] LABS: Folate 11.7 ng/mL (> or = 4.0); Vitamin B12 847 pg/mL (200-900)
[2024-02-23 11:24] LABS: Ferritin 54 ng/mL (10-250); TSH reflex Free T4 0.92 uIU/mL (0.32-4.0)
[2024-02-23 13:15] LABS: HBS Num2 9.96 mIU/mL (0-7.99); ~Hepatitis B Surface Antibody GRAYZONE (Nonreactive)
[2024-02-24 17:43] LABS: Follicle Stimulating Hormone 46.1 mIU/mL
[2024-03-02 02:29] LABS: Estradiol Ultra Sensitive 91 pg/mL
== END 2024-02-23 07:53 | disposition home or self-care (01) ==
LOC: HO.HMGCX 07:52
PROVIDERS: PCP Nurse Practitioner Family; Referring Provider Physician Assistant; Visit Provider Nurse Practitioner Family
DX: N95.1 Menopausal and female climacteric states (principal); R53.82 Chronic fatigue, unspecified; M54.9 Dorsalgia, unspecified; Z28.39 Other underimmunization status
CPT/HCPCS: 36415; 72040; 80053; 80061; 81003; 82607; 82670; 82728; 82746; 83001; 83540; 84443; 85025; 86706

== ENCOUNTER 2024-02-23 09:17 | Outpatient (REF) | payer OTHER, SELFPAY | END 2024-02-23 09:18 | disposition home or self-care (01) | LOC: HO.HAP 09:17 | PROVIDERS: Visit Provider Nurse Practitioner Family | DX: Z13.89 Encounter for screening for other disorder (principal) ==

== ENCOUNTER 2024-02-26 11:34 | Outpatient (REF) | payer OTHER, SELFPAY | END 2024-02-26 11:35 | disposition home or self-care (01) | LOC: HO.HAP 11:34 | PROVIDERS: Visit Provider Nurse Practitioner Family | DX: Z46.1 Encounter for fitting and adjustment of hearing aid (principal); H90.3 Sensorineural hearing loss, bilateral | CPT/HCPCS: 92593 ==

== ENCOUNTER 2024-03-11 09:20 | Outpatient (AMB) | payer OTHER, SELFPAY ==
--- NOTE | 2024-03-11 09:20 | A.OFFVIS_ITS ---
Vital Signs 3 03/11/24 09:22 Height 5 ft 5 in Weight 156 lb BMI 26.0 BP 113/72 Blood Pressure Location Lt brachial Position Sitting Intake Visit Reasons: 6 month follow up Intake Note: Suni presents to in office 6 months follow up of IBS. CC: Patient c/o lower abdominal pain for a week and she believes from her diverticulitis. She reports on and off nausea. Denies other GI symptoms. Overedger Required: No Accompanied by: Self / Same As Patient Allergies codeine Allergy (Intermediate, Verified 12/25/23 10:06) Nausea and Vomiting hydrocodone [From Vicodin] Allergy (Intermediate, Verified 12/25/23 10:06) Nausea, Vomiting, Sweats, Spins hydromorphone [From DILAUDID] Allergy (Intermediate, Verified 12/25/23 10:06) HIVES morphine [MORPHINE] Allergy (Intermediate, Verified 12/25/23 10:06) RASH,DIZZINESS,VOMITING, hives, hives oxycodone Allergy (Intermediate, Verified 12/25/23 10:06) Nausea and Vomiting tramadol Allergy (Intermediate, Verified 12/25/23 10:06) Hives zolpidem [From AMBIEN] Allergy (Intermediate, Verified 12/25/23 10:06) BLACK OUTS influenza virus vaccine, specific [FLU VACCINE] Adverse Reaction (Severe, Verified 12/25/23 10:06) SWELLING, at injection site bees Allergy (Severe, Uncoded 12/25/23 10:06) Anaphylaxis TDAP Allergy (Severe, Uncoded 12/25/23 10:06) Swelling at injection site HPI HPI 6 month follow up: Details: Assessment & Plan (1) Irritable bowel syndrome with both constipation and diarrhea: Code(s): K58.2 - Mixed irritable bowel syndrome (2) Family history of polyps in the colon: Comment: 2018 negative scope repeat at age 43 - aeb Code(s): Z83.71 - Family history of colonic polyps (3) GERD (gastroesophageal reflux disease): Code(s): K21.9 - Gastro-esophageal reflux disease without esophagitis Plan The procedure should be repeated in 5 years due to family history of colon cancer. The procedure was well tolerated. The results were explained and the patient is agreeable to the follow-up interval as stated. The bowel pattern has returned to normal. Education was provided to tell any 1st degree relatives about their findings to be sure that they are screened by age 45. Educated that they will be put on a recall list when it is time for their repeat scope but should they move out of state or away from the hospital they will need to remember along with their primary to repeat the procedure in a timely fashion to avoid any adverse complications. She has mixed irritable bowel syndrome but she feels like she can control it utilizing her Colace, senna, and Creon. Her pantoprazole 40 mg twice a day continues to control her GERD. I put her on simethicone at the last visit to see if this would help bloating and nausea. She is having more bloating and gas, she did receive the simethicone but was only using it prn, I suggest she use it bid instead, could not tolerate the creon r/t nausea - this improve with cessation. She asks about getting her protein shakes covered by insurance and she asks if I would be the provider to get this approved, she is also on a lot of vitamins for maldigestion as well. I refer her to her PCP and her bariatrics - this would be the appropriate providers. Return office visit in 6 months Medications: New L.acidophil-L.plantar-Bifido 7 15 billion cell (up4 Probiotics Adult) 1 cap PO DAILY 30 caps 6RF K58.2 - Mixed irritable bowel syndrome, Z83.71 - Family history of colonic polyps famotidine (Pepcid) 20 mg PO .qaclunch 30 tabs 6RF K21.9 - Gastro-esophageal reflux disease without esophagitis Refilled sennosides (Senna Laxative) 17.2 mg (2 x 8.6 mg) PO BEDTIME 60 tabs 3RF K59.00 - Constipation, unspecified docusate sodium (Colace) 100 mg PO DAILY 90 caps 2RF K59.00 - Constipation, unspecified pantoprazole 40 mg PO BID 180 tabs 2RF simethicone (Gas Relief (simethicone)) 80 mg PO QID PRN 90 tabs 6RF abdominal distention Discontinued [id number] 24,000-76,000 -120,000 unit (Creon) administer with meals and/or snacks Discontinued Reason: Doctor's Order 1 cap PO QID 30 days 120 caps 6RF K58.9 - Irritable bowel syndrome without diarrhea TODAY'S VISIT She says she has a pain in the lower abd like my TICS which she has had 4 times. Will tx with augmentin. In general her IBS is doing ok with her current regimen. She asks for an explanation of IBS vs IBD - educated. Once a day, pantoprazole twice a day with famotidine for breakthrough, simethicone and senna. She also wants and HP test for upper abd pain. Will get stool antigen. Return office visit in 3 months per patient request. [facility] Medical History (Updated 03/11/24 @ 16:32 by Med Duffy, CHARLES-) Family hx-breast malignancy Family hx of ovarian malignancy Abnormal uterine bleeding Family history of polyps in the colon Breast cancer screening, high risk patient Immunizations incomplete Physical exam Viral illness Nausea Sleep apnea Constipation Excess skin Daytime sleepiness Snoring Tenderness of anatomical snuffbox Contusion of right wrist Right wrist pain Unsatisfactory cervical Papanicolaou smear Female pelvic pain Panniculitis At risk for breast cancer Well woman exam PCOS (polycystic ovarian syndrome) ASCUS with positive high risk HPV Cervical adenopathy Complex ovarian cyst Restless leg Depression Cyst of ovary Migraine Lymphadenopathy Elevated ferritin Asthma Hemochromatosis carrier Positive IVANA (antinuclear antibody) PTSD (post-traumatic stress disorder) Intestinal malabsorption Obesity (BMI 30.0-34.9) Surgical History (Updated 04/01/24 @ 14:15 by AWA Kapadia) S/P gastric sleeve procedure Hx of abdominal surgery S/P panniculectomy Hx of hysterectomy S/P laparoscopic sleeve gastrectomy History of esophagogastroduodenoscopy (EGD) Hx of colonoscopy S/P wisdom tooth extraction S/P tonsillectomy and adenoidectomy Hx of tubal ligation S/P appendectomy History of exploratory laparotomy Hx laparoscopic cholecystectomy Family History Father History of colon polyps Prostate CA Mother Thyroid disease Breast cancer, Onset Age: 35 Brother Cardiac abnormality Son No problems noted. Son No problems noted. Maternal Aunt Breast cancer, Onset Age: 44 Family/Other Breast cancer, Onset Age: 30 Maternal Grandmother Cervical cancer Paternal Grandmother Cervical cancer Other Mental health disorder Substance use disorder Social History Housing: House Are you a primary health care legal assistant to a significant other at home: No Do you presently have visiting nurse or other home services: No Alcohol intake: former Year quit: 2018 Patient Tobacco Use Status: Former Tobacco user Tobacco use type: Smokeless Tobacco Years Smoked: 10.5 e-Cigarette/Vaping Use: Currently Using Second Hand Smoke Exposure: Yes Substance Use Type: Marijuana service: No Current occupational status: unemployed and disabled Cognitive needs: No Hearing needs: No Vision needs: No Female Reproductive History Menstrual Age of Menarche: 9 Review of Systems Const Denies fatigue, Denies fever(s), Denies night sweats, Denies poor appetite and Denies weight loss Eyes Details: glasses Reports requires corrective lenses ENT Reports Normal hearing present, Denies dental pain, Denies dysphagia, Denies hearing loss, Denies mouth pain, Denies odynophagia, Denies throat swelling, Denies tongue swelling and Reports other (Dentition adequate) Card Reports no additional complaints Resp Reports no additional complaints GI Details: Reports abdominal pain, Denies melena, Reports bloating, Denies hematochezia, Reports constipation, Denies GI cramping, Denies dysphagia, Denies excessive flatus, Denies early satiety, Reports heartburn, Denies diarrhea, Denies nausea, Denies odynophagia, Denies vomiting and Denies hematemesis Skin/Breast Denies pruritus, Denies lesions, Denies rash and Denies jaundice Neuro Reports Normal hearing present and Denies Abnormal speech present Endo Denies fatigue Aller/Immun Denies throat swelling and Denies tongue swelling Physical Exam Vital Signs: Last Vital Signs BP 113/72 03/11/24 09:22 BMI result Body Mass Index 26.0 Const General: cooperative, no acute distress, well developed and well groomed Nutritional Appearance: average body habitus and well nourished Orientation/consciousness: oriented to person, oriented to place and oriented to time Limitations: No language barrier HEENT Head: Yes normocephalic and Yes atraumatic Eyes General: appearance normal, both eyes and all related structures Pupils: Equal, round and reactive pupils present Neck Neck: Yes normal visual inspection and Yes no lymphadenopathy Thyroid: Thyroid normal Resp Effort & Inspection: normal respiratory effort and able to speak in complete sentences Auscultation: clear to auscultation bilaterally Cardio Rate: regular rate Rhythm: regular rhythm Heart sounds: Normal, physiologic split S2 sound present Peripheral pulses: radial pulses present and posterior tibial pulses present GI Inspection: No distended and No Abdominal panniculus present Palpation (GI): Soft to palpation, nontender, no guarding, not rigid and No hepatosplenomegaly present Percussion: Yes normal to percussion Auscultation: normal bowel sounds Rectal Exam - Female: deferred Abdomen image: 2 1. well healing surgical scars 2. Skin General skin exam: no rashes or lesions noted, turgor normal, skin not dry, no jaundice, No spider nevi and no striae Rashes: no rashes Nails: normal Neuro General: oriented to person, oriented to place and oriented to time Cranial nerves: Yes Equal, round and reactive pupils present and Yes Normal hearing present Speech: No Abnormal speech present Extrem General: Yes normal to inspection, No clubbing, No cyanosis and No edema Psych Appearance: grossly normal and well kempt Mental Status: mental status grossly normal Speech and movement: Normal speech and movement present Affect: normal affect Attitude: cooperative Thought process: Normal thought process present and not confabulating Thought content: Normal thought content present Insight: Limited insight present (Psych) Judgement: Limited judgement present (Psych) Assessment & Plan Assessment & Plan (1) Irritable bowel syndrome with both constipation and diarrhea: Code(s): K58.2 - Mixed irritable bowel syndrome Category: Medical (2) Diverticulitis: Code(s): K57.92 - Diverticulitis of intestine, part unspecified, without perforation or abscess without bleeding Category: Medical (3) Upper abdominal pain: Code(s): R10.10 - Upper abdominal pain, unspecified Category: Medical Plan he says she has a pain in the lower abd like my TICS which she has had 4 times. Will tx with augmentin. In general her IBS is doing ok with her current regimen. She asks for an explanation of IBS vs IBD - educated. Once a day, pantoprazole twice a day with famotidine for breakthrough, simethicone and senna. She also wants and HP test for upper abd pain. Will get stool antigen. Return office visit in 3 months per patient request. Orders: Orders 2 H pylori Ag Stool 03/11/24 R10.10 - Upper abdominal pain, unspecified Medications: New 2 amoxicillin-pot clavulanate 875-125 mg 1 tab PO BID 10 tabs 0RF K57.92 - Diverticulitis of intestine, part unspecified, without perforation or abscess without bleeding Refilled 2 docusate sodium (Colace) 100 mg PO DAILY 90 caps 2RF K59.00 - Constipation, unspecified famotidine 20 mg PO DAILY 90 tabs 2RF K21.9 - Gastro-esophageal reflux disease without esophagitis pantoprazole 40 mg PO BID 180 tabs 2RF sennosides (Senna Laxative) 17.2 mg (2 x 8.6 mg) PO BEDTIME 60 tabs 3RF K59.00 - Constipation, unspecified simethicone (Gas Relief (simethicone)) 80 mg PO QID PRN 90 tabs 6RF abdominal distention Coding Level of Care Code Est Pt Level 3 (29839) Diagnoses Irritable bowel syndrome with both constipation and diarrhea K58.2 Diverticulitis K57.92 Upper abdominal pain R10.10
[2024-03-11 09:22] VITALS: BP 113/72; BMI 26.0
== END 2024-03-11 12:08 | disposition home or self-care (01) ==
PROVIDERS: PCP Nurse Practitioner Family; Visit Provider Nurse Practitioner
DX: K58.2 Mixed irritable bowel syndrome (principal); K57.92 Diverticulitis of intestine, part unspecified, without perforation or abscess without bleeding; R10.10 Upper abdominal pain, unspecified
CPT/HCPCS: 99213

== ENCOUNTER → 2024-03-11 09:20 | Outpatient (BNVA) | payer OTHER, SELFPAY | PROVIDERS: PCP Nurse Practitioner Family; Visit Provider Nurse Practitioner | DX: K58.2 Mixed irritable bowel syndrome (principal); K21.9 Gastro-esophageal reflux disease without esophagitis; K59.00 Constipation, unspecified; R10.10 Upper abdominal pain, unspecified; Z83.718 Family history of other colon polyps | CPT/HCPCS: 99212 ==

== ENCOUNTER 2024-04-08 13:23 | Outpatient (AMB) | payer OTHER, SELFPAY ==
--- NOTE | 2024-04-08 13:25 | MHC.OFFVISWM ---
VS Expanded 04/08/24 13:38 BP 112/58 L Blood Pressure Location Rt brachial Blood Pressure Position Sitting Pulse 89 Pulse Source Pulse Oximeter Temp 98.0 F Temperature Source Temporal Artery Scan Pulse Oximetry 97 Oxygen Delivery Method Room Air Height 5 ft 5 in Weight 155 lb BMI 25.8 Body Fat % 33.4 Body Fat Mass 51.8 Fat Free Mass 103.2 Visceral Fat Rating 5.0 Body Water % 47.7 Body Water Mass 73.8 Muscle Mass/Score 97.8 Basal Metabolic Rate/Score 1,412 Intake Visit Reasons: (OV) PO Panniculectomy 01/22/23 Station Agent Required: No Allergies codeine Allergy (Intermediate, Verified 04/08/24 13:29) Nausea and Vomiting hydrocodone [From Vicodin] Allergy (Intermediate, Verified 04/08/24 13:29) Nausea, Vomiting, Sweats, Spins hydromorphone [From DILAUDID] Allergy (Intermediate, Verified 04/08/24 13:29) HIVES morphine [MORPHINE] Allergy (Intermediate, Verified 04/08/24 13:29) RASH,DIZZINESS,VOMITING, hives, hives oxycodone Allergy (Intermediate, Verified 04/08/24 13:29) Nausea and Vomiting tramadol Allergy (Intermediate, Verified 04/08/24 13:29) Hives zolpidem [From AMBIEN] Allergy (Intermediate, Verified 04/08/24 13:29) BLACK OUTS influenza virus vaccine, specific [FLU VACCINE] Adverse Reaction (Severe, Verified 04/08/24 13:29) SWELLING, at injection site bees Allergy (Severe, Uncoded 12/25/23 10:06) Anaphylaxis TDAP Allergy (Severe, Uncoded 12/25/23 10:06) Swelling at injection site Medication List - Last Reconciled 04/08/24 by AWA Kapadia bupropion HCl XL 300 mg PO DAILY buspirone 30 mg PO BID clonazepam 1 mg PO TID PRN cyanocobalamin (vitamin B-12) 500 mcg PO DAILY 90 days cyclobenzaprine 10 mg PO BEDTIME diphenhydramine HCl (Benadryl Allergy) 25 mg PO BID PRN docusate sodium (Colace) 100 mg PO DAILY duloxetine 60 mg PO BID epinephrine 0.3 mg (0.3 mL) IM ONCE 30 days estradiol (Vivelle-Dot) patches transdermal famotidine 20 mg PO DAILY ferrous sulfate 324 mg PO BID finasteride 5 mg PO DAILY gabapentin 800 mg PO BID lamotrigine 200 mg PO BID loratadine 10 mg PO DAILY multivitamin with folic acid 400 mcg (Daily-May (with folic acid)) 1 tab PO DAILY pantoprazole 40 mg PO BID prazosin 5 mg PO BEDTIME prazosin 2 mg PO ONCE [premier protein ready to drink supplement As directed NS] ropinirole 1 mg PO BEDTIME 90 days sennosides (Senna Laxative) 17.2 mg (2 x 8.6 mg) PO BEDTIME simethicone (Gas Relief (simethicone)) 80 mg PO QID PRN sumatriptan succinate take 1 tab at onset of headache; if no relief, may repeat 1 tab after at least 2 hrs; max = 2 tabs/24 hrs PO 10 days trazodone 100 mg PO BEDTIME PRN verapamil 80 mg PO BID 90 days HPI Comments Details: Patient is a pleasant 38-year-old female who returns to the office today in follow-up. She is status post panniculectomy on 01/22/2023 and sleeve gastrectomy on 02/14/2020. Current weight is 155 lb with a BMI of 25.8. She was able to get in touch with her insurance company and given her comorbidities of mixed IBS, diverticulosis, vitamin deficiencies and reflux as well as an intolerance to protein powders causing nausea and vomiting, it is necessary that she have ready to drink protein supplements in her meal plan. She is followed by GI as well. She has been having perimenopausal symptoms and is being worked up by gynecology. She is limited by fibromyalgia although is exercising as she is able. Meal plan: 2 eggs PB toast tuna 1/2 can Ground turkey/turkey/chicken/pork and veg, 6-8 forks protein and 6 forks veg. 64-96 oz Exercise plan: walking outside daily, 1 mi Any post op complications: none JOHANNA: never DM: never HTN: never Hyperlipidemia: resolved GERD:?0-5 scale ??0 = no symptoms ??1 = symptoms noticeable but not bothersome 2 =symptoms bothersome but not daily ? 3 = symptoms bothersome and daily 4 = symptoms affect daily activities 5 = symptoms are incapacitating, unable to do daily activities ? How bad is the heartburn: 2 ? Heartburn while lying down: 2 ? Heartburn when standing up: 0 ? Heartburn after meals: 2 ? Does heartburn change your diet: 2 ? Does heartburn wake you up from sleep: 0 ? Do you have difficulty swallowin ? Do you have pain with swallowin ? If you take medicine for your reflux, does this affect your daily life: 0 Satisfaction with present condition - satisfied or not satisfied: satisfied [facility] Medical History (Updated 03/11/24 @ 16:32 by CHARLES Pacheco-) Family hx-breast malignancy Family hx of ovarian malignancy Abnormal uterine bleeding Family history of polyps in the colon Breast cancer screening, high risk patient Immunizations incomplete Physical exam Viral illness Nausea Sleep apnea Constipation Excess skin Daytime sleepiness Snoring Tenderness of anatomical snuffbox Contusion of right wrist Right wrist pain Unsatisfactory cervical Papanicolaou smear Female pelvic pain Panniculitis At risk for breast cancer Well woman exam PCOS (polycystic ovarian syndrome) ASCUS with positive high risk HPV Cervical adenopathy Complex ovarian cyst Restless leg Depression Cyst of ovary Migraine Lymphadenopathy Elevated ferritin Asthma Hemochromatosis carrier Positive IVANA (antinuclear antibody) PTSD (post-traumatic stress disorder) Intestinal malabsorption Obesity (BMI 30.0-34.9) Surgical History S/P gastric sleeve procedure Hx of abdominal surgery S/P panniculectomy Hx of hysterectomy S/P laparoscopic sleeve gastrectomy History of esophagogastroduodenoscopy (EGD) Hx of colonoscopy S/P wisdom tooth extraction S/P tonsillectomy and adenoidectomy Hx of tubal ligation S/P appendectomy History of exploratory laparotomy Hx laparoscopic cholecystectomy Family History Father History of colon polyps Prostate CA Mother Thyroid disease Breast cancer, Onset Age: 35 Brother Cardiac abnormality Son No problems noted. Son No problems noted. Maternal Aunt Breast cancer, Onset Age: 44 Family/Other Breast cancer, Onset Age: 30 Maternal Grandmother Cervical cancer Paternal Grandmother Cervical cancer Other Mental health disorder Substance use disorder Social History Housing: House Are you a primary child care center administrator to a significant other at home: No Do you presently have visiting nurse or other home services: No Alcohol intake: former Year quit: 2018 Patient Tobacco Use Status: Former Tobacco user Tobacco use type: Smokeless Tobacco Years Smoked: 10.5 e-Cigarette/Vaping Use: Currently Using Second Hand Smoke Exposure: Yes Substance Use Type: Marijuana service: No Current occupational status: unemployed and disabled Cognitive needs: No Hearing needs: No Vision needs: No Female Reproductive History Menstrual Age of Menarche: 9 Physical Exam Const General: healthy appearing and no acute distress Resp Effort & Inspection: normal respiratory effort Auscultation: clear to auscultation bilaterally Cardio Rate: regular rate Rhythm: regular rhythm GI Auscultation: normal bowel sounds Extrem General: Yes normal to inspection Assessment & Plan Assessment & Plan (1) S/P gastric sleeve procedure: Comment: 2020 Code(s): Z90.3 - Acquired absence of stomach [part of] Category: Surgical Plan: Patient recently had comprehensive labs although did not get vitamin profiles which I had ordered. She states that she will get these done. Change meal plan to include 1 shake Two eggs or Danish yogurt or 4 forks of protein and for forks of vegetables Meal 6 forks of protein 6 forks of vegetables Encouraged to exercise as she is able. Return to clinic 8 weeks.
[2024-04-08 13:38] VITALS: BP 112/58; PULSE 89; TEMP 36.7; O2SAT 97; BMI 25.8
== END 2024-04-08 14:05 | disposition home or self-care (01) ==
PROVIDERS: PCP Nurse Practitioner Family; Visit Provider Physician Assistant Surgical
DX: K58.9 Irritable bowel syndrome, unspecified (principal); Z90.3 Acquired absence of stomach [part of]; Z98.84 Bariatric surgery status
CPT/HCPCS: 99213; G2211

== ENCOUNTER → 2024-04-08 13:23 | Outpatient (BNVA) | payer OTHER, SELFPAY | PROVIDERS: PCP Nurse Practitioner Family; Visit Provider Physician Assistant Surgical | DX: E66.9 Obesity, unspecified (principal); M79.7 Fibromyalgia; Z68.25 Body mass index [BMI] 25.0-25.9, adult; Z90.3 Acquired absence of stomach [part of]; Z98.890 Other specified postprocedural states; Z98.84 Bariatric surgery status; Z90.49 Acquired absence of other specified parts of digestive tract | CPT/HCPCS: 99212 ==

== ENCOUNTER 2024-04-16 23:34 | Emergency (ER) | payer OTHER, SELFPAY ==
--- NOTE | ~2024-04-16 | XR_ITS ---
EXAMINATION: XR ABDOMEN KUB CLINICAL INDICATION: Question small bowel obstruction COMPARISON: CT abdomen and pelvis 11/18/2021. TECHNIQUE: 2 AP radiographs of the abdomen and pelvis. FINDINGS: Scattered bowel gas is identified in nondistended small and large bowel segments. Cholecystectomy clips are noted. Multiple surgical clips are present in the region of the stomach. No free intraperitoneal gas noted. The visualized lung bases are clear. XR/XR KUB IMPRESSION: Normal bowel gas pattern without evidence of intestinal obstruction. Electronically signed by: Jfef Shelton MD 04/17/2024 03:40 AM MARYAM MIKE
--- NOTE | ~2024-04-16 | CT_ITS ---
EXAMINATION: CT ABDOMEN AND PELVIS WITHOUT CONTRAST CLINICAL INFORMATION: Question partial small bowel obstruction. Abdominal pain. COMPARISON: Abdominal radiograph 04/17/2024, CT abdomen and pelvis 11/18/2021. TECHNIQUE: Multidetector volumetric imaging was performed from the superior aspect of the liver through the pubic symphysis. Sagittal and coronal reformatted images were obtained on the technologist's workstation. This CT examination was performed using dose optimization techniques as appropriate, variously including the following: *Automated exposure control *Adjustment of mA and/or kV according to patient size (this includes techniques or standardized protocols for targeted exams where dose is matched to indication/reason for exam; i.e. extremities or head) *Use of iterative reconstruction technique DLP: 593 mGy-cm FINDINGS: LUNG BASES: The visualized lung bases are unremarkable. LIVER, GALLBLADDER, AND BILIARY TREE: The liver is normal in size, shape, and attenuation. No focal hepatic lesion or biliary ductal dilatation is present. Cholecystectomy clips noted. PANCREAS: Unremarkable. SPLEEN: Unremarkable. ADRENAL GLANDS: Unremarkable. KIDNEYS AND URETERS: The kidneys are normal in size, shape, and attenuation. No hydronephrosis, hydroureter, or calculi seen. No perinephric stranding. BLADDER: Unremarkable. GASTROINTESTINAL TRACT: The appendix is not visualized. Suture material is noted in the region of the base of the cecum and may relate to prior appendectomy. Trace physiologic free intraperitoneal fluid is present in the pelvic cul-de-sac. A moderate-marked quantity of stool is present throughout the colon. No colonic or small bowel dilatation noted. No free intraperitoneal gas lines. Suture material is present in association with the stomach may relate to prior gastric sleeve resection. No inflammatory changes of the small bowel or sigmoid mesentery identified. No prominent or abnormal twisting of the small bowel mesentery noted. ABDOMINAL WALL: No significant hernia is appreciated. LYMPH NODES: Normal. VASCULAR: Unremarkable. PELVIC VISCERA: The uterus is absent. The right adnexal region a 3.5 cm x 4.0 cm x 3.0 cm faintly hyperdense focus is present along the right lateral aspect of the vaginal cuff in the proximal right adnexal region. A 2 cm rounded hypodensity is present centrally in this region. This finding may represent partial visualization of the right ovary and a right ovarian cyst. Left ovary is not visualized. OSSEOUS STRUCTURES: No suspicious skeletal lesions. CT/CT abdomen pelvis wo IV con IMPRESSION: *No acute abnormalities identified. No evidence of intestinal obstruction. A moderate-marked quantity of stool is present throughout the colon. No colonic dilatation to specifically suggest obstruction. *Status post hysterectomy. *Single 3.5 cm x 4.0 cm x 3.0 cm vaguely hyperdense focus in the proximal right adnexal region abutting the vaginal cuff with a possible centrally located 2 cm cyst. This finding may represent partial visualization of the low-lying right ovary with right ovarian enlargement secondary to a central cyst. A tumor related to the vaginal cuff or residual cervix status post hysterectomy could have this similar appearance. Recommend further evaluation with pelvic ultrasonography. *Status post gastric sleeve resection. Electronically signed by: Jeff Shelton MD 04/17/2024 04:12 AM MARYAM MIKE
[2024-04-16 23:44] VITALS: BP 136/85; PULSE 97; RESP 18; TEMP 36.6; O2SAT 98; BMI 25.8
[2024-04-16 23:58] LABS: MANUAL DIFF FLAG NO
[2024-04-16 23:59] LABS: Basophils Percent Auto 0.5 % (0-2); Eosinophils Absolute Auto 0.2 X10*3/uL (0.0-0.4); Eosinophils Percent Auto 2.3 % (0-4); Hematocrit 38.4 % (37.0-47.0); Hemoglobin 13.6 g/dl (12.0-16.0); Imm Gran Abs Auto 0.02 X10*3/uL (0.00-0.03); Imm Gran Pct Auto 0.2 % (0.0-0.4); Lymphocytes Absolute Auto 2.5 X10*3/uL (1.2-4.9); Lymphocytes Percent Auto 30.3 % (20-40); Mean Corpuscular HGB Conc 35.4 g/dl (31.0-35.0); Mean Corpuscular Hemoglobin 32.5 pg (27.0-33.0); Mean Corpuscular Volume 91.6 fL (80.0-98.0); Mean Platelet Volume 10.2 fL (9.4-12.3); Monocytes Absolute Auto 0.7 X10*3/uL (0.1-1.2); Monocytes Percent Auto 7.9 % (2-11); Neutrophils Absolute Auto 4.9 x10*3/uL (2.0-8.3); Neutrophils Percent Auto 58.8 % (45-73); Platelet Count 195 X10*3/uL (160-400); Red Blood Count 4.19 X10*6/uL (4.20-5.50); Red Cell Distribution Width 12.2 % (11.0-16.0); White Blood Count 8.4 X10*3/uL (4.8-10.8)
[2024-04-17 00:14] LABS: Alanine Aminotransferase 23 U/L (0-31); Albumin Level 4.1 g/dL (3.5-5.0); Alkaline Phosphatase 43 U/L (39-117); Anion Gap 17 (12-20); Aspartate Amino Transferase 21 U/L (5-31); Bilirubin Total 0.2 mg/dL (0.0-1.0); Blood Urea Nitrogen 10 mg/dL (9-16); Calcium 9.6 mg/dL (8.4-10.2); Carbon Dioxide 31 mmol/L (22-29); Chloride 97 mmol/L (96-108); Creatinine Clr Calc Pharmacy 111.4; Estimated Glomerular Filt Rate > 60; Glucose Random 96 mg/dL (60-115); Lipase 26 U/L (8-78); Potassium 4.5 mmol/L (3.3-5.1); Sodium 140 mmol/L (135-145); Total Protein 6.8 g/dL (6.5-8.0)
[2024-04-17 00:23] LABS: Appearance Urine Clear; Color Urine Yellow; Glucose Urine UA Negative (Negative); Leukocyte Esterase Urine Negative (Negative); Nitrite Urine Negative (Negative); Specific Gravity - Urine 1.015 (1.005-1.025); Urine Blood Negative (Negative); Urine Ketones Negative (Negative); Urine Protein Negative (Neg-Trace)
[2024-04-17 00:31] LABS: Bacteria Urine None Seen (None Seen); Hyaline Casts Urine 0-2 /LPF (0-2); RBC Urine 0-2 /HPF (0-2); Squamous Epithelial Cell Urine 0-2 /HPF (0-2); WBC Urine 0-5 /HPF (0-5)
[2024-04-17 01:04] VITALS: BP 105/51; PULSE 75; RESP 18; TEMP 36.7; O2SAT 98
--- NOTE | 2024-04-17 01:13 | ED_ITS ---
HPI - Abdominal Pain General Chief Complaint: Abdominal Pain Stated Complaint: blocked intestines Time Seen by Provider: 04/17/24 01:13 EST Source: patient Mode of arrival: ambulatory Limitations: no limitations History of Present Illness ED Provider: ramírez ALMONTE narrative: Patient is status post gastric sleeve surgery 2020 history of constipation with history of bowel obstruction in the past comes here as not able to move her bowels for last 2 days and feel bloated able to take p.o. liquids but whenever she eats solids she gets increased pain Related Data Home Medications ?Medication ?Instructions ?Recorded ?Confirmed buspirone 30 mg tablet 30 mg PO BID 03/17/20 04/08/24 prazosin 5 mg capsule 5 mg PO BEDTIME 05/29/20 04/08/24 duloxetine 60 mg capsule,delayed 60 mg PO BID 04/23/22 04/08/24 release clonazepam 1 mg tablet 1 mg PO TID PRN anxiety 07/04/22 04/08/24 bupropion HCl 300 mg 24 hr tablet, 300 mg PO DAILY 09/12/22 04/08/24 extended release lamotrigine 100 mg tablet 200 mg PO BID 09/09/23 04/08/24 multivitamin with folic acid 400 1 tab PO DAILY 09/09/23 04/08/24 mcg tablet (Daily-May (with folic acid)) prazosin 2 mg capsule 2 mg PO ONCE 12/25/23 04/08/24 trazodone 50 mg tablet 100 mg PO BEDTIME PRN 12/25/23 04/08/24 estradiol 0.05 mg/24 hr semiweekly patch transdermal 03/11/24 04/08/24 transdermal patch (Minervaelle-Dot) Previous Rx's ?Medication ?Instructions ?Recorded sumatriptan succinate 100 mg tablet See Rx Instructions PO .COMPLEX 10 01/28/21 days #10 tabs diphenhydramine HCl 25 mg tablet 25 mg PO BID PRN allergy symptoms 07/04/21 (Benadryl Allergy) #7 tabs epinephrine 0.3 mg/0.3 mL 0.3 mg (0.3 mL) IM ONCE 30 days #9 11/25/22 injection, auto-injector ea premier protein ready to drink #30 ea 03/06/23 supplement finasteride 5 mg tablet 5 mg PO DAILY #90 tabs 04/04/23 loratadine 10 mg tablet 10 mg PO DAILY #90 tabs 12/14/23 ropinirole 1 mg tablet 1 mg PO BEDTIME 90 days #90 tabs 12/25/23 cyclobenzaprine 10 mg tablet 10 mg PO BEDTIME #30 tabs 02/11/24 verapamil 80 mg tablet 80 mg PO BID 90 days #180 tabs 02/25/24 docusate sodium 100 mg capsule 100 mg PO DAILY #90 caps 03/11/24 (Colace) famotidine 20 mg tablet 20 mg PO DAILY #90 tabs 03/11/24 pantoprazole 40 mg tablet,delayed 40 mg PO BID #180 tabs 03/11/24 release sennosides 8.6 mg tablet (Senna 17.2 mg (2 x 8.6 mg) PO BEDTIME 03/11/24 Laxative) #60 tabs simethicone 80 mg chewable tablet 80 mg PO QID PRN abdominal 03/11/24 (Gas Relief (simethicone)) distention #90 tabs gabapentin 800 mg tablet 800 mg PO BID #60 tabs 04/01/24 cyanocobalamin (vitamin B-12) 500 500 mcg PO DAILY 90 days #90 tabs 04/07/24 mcg tablet ferrous sulfate 324 mg (65 mg 324 mg PO BID #180 tabs 04/17/24 iron) tablet,delayed release Allergies Allergy/AdvReac Type Severity Reaction Status Date / Time codeine Allergy Intermediate Nausea and Verified 04/16/24 23:46 Vomiting hydrocodone [From Vicodin] Allergy Intermediate Nausea, Verified 04/16/24 23:46 Vomiting, Sweats, Spins hydromorphone [From DILAUDID] Allergy Intermediate HIVES Verified 04/16/24 23:46 morphine [MORPHINE] Allergy Intermediate RASH,DIZZINESS,VOMITING, Verified 04/16/24 23:46 hives, hives oxycodone Allergy Intermediate Nausea and Verified 04/16/24 23:46 Vomiting tramadol Allergy Intermediate Hives Verified 04/16/24 23:46 zolpidem [From AMBIEN] Allergy Intermediate BLACK Verified 04/16/24 23:46 OUTS influenza virus vaccine, AdvReac Severe SWELLING, Verified 04/16/24 23:46 specific at [FLU VACCINE] injection site bees Allergy Severe Anaphylaxis Uncoded 12/25/23 10:06 TDAP Allergy Severe Swelling Uncoded 12/25/23 10:06 at injection site Review of Systems Review of Systems Yes all other systems are reviewed and are negative [facility] Past Medical History Medical History Family hx-breast malignancy Family hx of ovarian malignancy Abnormal uterine bleeding Family history of polyps in the colon Breast cancer screening, high risk patient Immunizations incomplete Physical exam Viral illness Nausea Sleep apnea Constipation Excess skin Daytime sleepiness Snoring Tenderness of anatomical snuffbox Contusion of right wrist Right wrist pain Unsatisfactory cervical Papanicolaou smear Female pelvic pain Panniculitis At risk for breast cancer Well woman exam PCOS (polycystic ovarian syndrome) ASCUS with positive high risk HPV Cervical adenopathy Complex ovarian cyst Restless leg Depression Cyst of ovary Migraine Lymphadenopathy Elevated ferritin Asthma Hemochromatosis carrier Positive IVANA (antinuclear antibody) PTSD (post-traumatic stress disorder) Intestinal malabsorption Obesity (BMI 30.0-34.9) Surgical History S/P gastric sleeve procedure Hx of abdominal surgery S/P panniculectomy Hx of hysterectomy S/P laparoscopic sleeve gastrectomy History of esophagogastroduodenoscopy (EGD) Hx of colonoscopy S/P wisdom tooth extraction S/P tonsillectomy and adenoidectomy Hx of tubal ligation S/P appendectomy History of exploratory laparotomy Hx laparoscopic cholecystectomy Family History Family History Father History of colon polyps Prostate CA Mother Thyroid disease Breast cancer, Onset Age: 35 Brother Cardiac abnormality Son No problems noted. Son No problems noted. Maternal Aunt Breast cancer, Onset Age: 44 Family/Other Breast cancer, Onset Age: 30 Maternal Grandmother Cervical cancer Paternal Grandmother Cervical cancer Other Mental health disorder Substance use disorder Social History Social History Housing: House Are you a primary rn long term care to a significant other at home: No Do you presently have visiting nurse or other home services: No Alcohol intake: former Year quit: 2018 Patient Tobacco Use Status: Former Tobacco user Tobacco use type: Smokeless Tobacco Years Smoked: 10.5 Smoked in Last 30 Days: No e-Cigarette/Vaping Use: Currently Using Second Hand Smoke Exposure: Yes Use of substances other than those prescribed or required for medical reasons: No Substance Use Type: Marijuana Advance Directives: No Advance Directives Information Provided: No Do you have a plan to hurt others: No Plan service: No Current occupational status: unemployed and disabled Cognitive needs: No Hearing needs: No Vision needs: No Physical Exam ED Vital Signs: Vital Signs - 24 hr 04/16/24 23:44 04/17/24 01:04 EST 04/17/24 03:25 Temperature 97.9 F 98.1 F 97.9 F Pulse Rate 97 75 60 Respiratory Rate 18 18 16 Blood Pressure 136/85 105/51 L 113/66 Pulse Oximetry 98 98 97 Oxygen Delivery Method Room Air Room Air Room Air BMI result Body Mass Index 25.8 Appearance: Alert. Oriented X3. No acute distress. Eyes: No pallor or icterus ENT: Pharynx normal. Oral Mucosa moist Neck: Normal inspection. Neck supple. CVS: Normal heart rate and rhythm. Pulses normal. Respiratory: No respiratory distress. Equal air entry bilateral, no wheezing/rales/rhonchi Abdomen: Soft and mild diffuse tenderness , no distention Bowel sounds are present, no mass palpable, no CVA tenderness Skin: Skin warm and dry. Normal skin color. Normal skin turgor. Extremities: No lower extremity edema. No calf tenderness Neuro: Oriented X 3. No motor deficit. Medical Decision Making Medical Decision Making [facility] Narrative: Patient has no diffuse abdominal pain with history of IBS and small bowel obstruction CT scan negative for small bowel obstruction showed constipation will discharge patient home advised to continue to take your stool softener Differential Diagnosis Differential Diagnoses: The differential diagnosis associated with the presentation includes SBO/IBS/diverticulitis/constipation Lab Data [facility] Lab Attestation statement: I reviewed the patient's lab results. 04/16/24 23:53 04/16/24 23:53 Labs: Lab Results 04/16/24 04/17/24 Range/Units 23:53 00:09 WBC 8.4 (4.8-10.8) X10*3/uL RBC 4.19 L (4.20-5.50) X10*6/uL Hgb 13.6 (12.0-16.0) g/dl Hct 38.4 (37.0-47.0) % MCV 91.6 (80.0-98.0) fL MCH 32.5 (27.0-33.0) pg MCHC 35.4 H (31.0-35.0) g/dl RDW 12.2 (11.0-16.0) % Plt Count 195 (160-400) X10*3/uL MPV 10.2 (9.4-12.3) fL Immature Gran % (Auto) 0.2 (0.0-0.4) % Neut % (Auto) 58.8 (45-73) % Lymph % (Auto) 30.3 (20-40) % [place] % (Auto) 7.9 (2-11) % Eos % (Auto) 2.3 (0-4) % Baso % (Auto) 0.5 (0-2) % Lymph # (Auto) 2.5 (1.2-4.9) X10*3/uL [place] # (Auto) 0.7 (0.1-1.2) X10*3/uL Eos # (Auto) 0.2 (0.0-0.4) X10*3/uL Baso # (Auto) 0.0 (0.0-0.2) X10*3/uL Abs Immat Gran (auto) 0.02 (0.00-0.03) X10*3/uL Absolute Neuts (auto) 4.9 (2.0-8.3) x10*3/uL Absolute Nucleated RBC 0.000 (0.0-0.012) X10*3/uL Nucleated RBC % (auto) 0.0 (0.0-0.2) /100WBC Sodium 140 (135-145) mmol/L Potassium 4.5 (3.3-5.1) mmol/L Chloride 97 (96-108) mmol/L Carbon Dioxide 31 H (22-29) mmol/L Anion Gap 17 (12-20) BUN 10 (9-16) mg/dL Creatinine 0.66 (0.5-1.4) mg/dL Estim Creat Clear Calc 111.4 Estimated GFR > 60 Random Glucose 96 (60-115) mg/dL Calcium 9.6 (8.4-10.2) mg/dL Total Bilirubin 0.2 (0.0-1.0) mg/dL AST 21 (5-31) U/L ALT 23 (0-31) U/L Alkaline Phosphatase 43 (39-117) U/L Total Protein 6.8 (6.5-8.0) g/dL Albumin 4.1 (3.5-5.0) g/dL Lipase 26 (8-78) U/L Urine Color Yellow Urine Appearance Clear Urine pH 7.0 (5.0-9.0) Ur Specific [place] 1.015 (1.005-1.025) Urine Protein Negative (Neg-Trace) mg/dL Urine Glucose (UA) Negative (Negative) mg/dL Urine Ketones Negative (Negative) mg/dL Urine Blood Negative (Negative) Urine Nitrite Negative (Negative) Ur Leukocyte Esterase Negative (Negative) Urine RBC 0-2 (0-2) /HPF Urine WBC 0-5 (0-5) /HPF Ur Squamous Epith Cells 0-2 (0-2) /HPF Urine Bacteria None Seen (None Seen) Hyaline Casts 0-2 (0-2) /LPF Independent Interpretation I performed an independent interpretation of an: CT Scan Radiology Impression Discussion of test interpretation with radiology: I have reviewed the radiologist's reading. Radiologist Impression: CT/CT abdomen pelvis wo IV con IMPRESSION: *No acute abnormalities identified. No evidence of intestinal obstruction. A moderate-marked quantity of stool is present throughout the colon. No colonic dilatation to specifically suggest obstruction. *Status post hysterectomy. *Single 3.5 cm x 4.0 cm x 3.0 cm vaguely hyperdense focus in the proximal right adnexal region abutting the vaginal cuff with a possible centrally located 2 cm cyst. This finding may represent partial visualization of the low-lying right ovary with right ovarian enlargement secondary to a central cyst. A tumor related to the vaginal cuff or residual cervix status post hysterectomy could have this similar appearance. Recommend further evaluation with pelvic ultrasonography. *Status post gastric sleeve resection. Electronically signed by: Jeff Shelton MD 04/17/2024 04:12 AM MARYAM Medications Administered Discontinued Medications Generic Name Dose Route Start Last Admin Trade Name Freq PRN Reason Stop Dose Admin Bisacodyl 10 mg 04/17/24 04:32 04/17/24 04:42 Bisacodyl 5 Mg Tablet. PO 04/17/24 04:33 10 mg ONCE ONE Administration Sodium Chloride 1,000 mls @ 999 mls/hr 04/17/24 01:53 EST 04/17/24 04:12 Ns IV 04/17/24 02:53 Infused .Q1H1M ONE Infusion Ketorolac Tromethamine 30 mg 04/17/24 01:54 EST 04/17/24 02:10 Ketorolac Tromethamine 30 Mg/Ml Vial IVPUSH 04/17/24 01:55 EST 30 mg ONCE ONE Administration Magnesium Hydroxide 30 ml 04/17/24 04:32 04/17/24 04:42 Milk Of Magnesia 30 Ml Oral.Susp PO 04/17/24 04:33 30 ml ONCE ONE Administration Ondansetron HCl 4 mg 04/17/24 01:53 EST 04/17/24 02:10 Ondansetron Hcl 4 Mg/2 Ml Vial IVPUSH 04/17/24 01:54 EST 4 mg ONCE ONE Administration Tramadol HCl 50 mg 04/17/24 04:15 04/17/24 04:28 Tramadol Hcl 50 Mg Tablet PO 04/17/24 04:16 50 mg ONCE ONE Administration Discharge Plan Discharge Clinical Impression: Constipation Patient Disposition: Home, Self-Care Instructions: Constipation (ED) Additional Instructions: Continue medications as prescribed by your PCP You can take MiraLax twice a day for bowel movement Prescriptions: No Action sumatriptan succinate 100 mg tablet See Rx Instructions PO .COMPLEX 10 Days Qty: 10 0RF Rx Instructions: take 1 tab at onset of headache; if no relief, may repeat 1 tab after at least 2 hrs; max = 2 tabs/24 hrs PO epinephrine 0.3 mg/0.3 mL auto-injector 0.3 mg IM ONCE 30 Days Qty: 9 2RF (DME) premier protein ready to drink supplement 1 box See Rx Instructions .Route .MEDSUPPLY Qty: 30 0RF Rx Instructions: As directed finasteride 5 mg tablet 5 mg PO DAILY Qty: 90 4RF loratadine 10 mg tablet 10 mg PO DAILY Qty: 90 1RF ropinirole 1 mg tablet 1 mg PO BEDTIME 90 Days Qty: 90 1RF Rx Instructions: administer 1-3 hours before bedtime cyclobenzaprine 10 mg tablet 10 mg PO BEDTIME Qty: 30 1RF verapamil 80 mg tablet 80 mg PO BID 90 Days Qty: 180 1RF gabapentin 800 mg tablet 800 mg PO BID Qty: 60 2RF cyanocobalamin (vitamin B-12) 500 mcg tablet 500 mcg PO DAILY 90 Days Qty: 90 3RF ferrous sulfate 324 mg (65 mg iron) tablet,delayed release (DR/EC) 324 mg PO BID Qty: 180 1RF diphenhydramine HCl [Benadryl Allergy] 25 mg tablet 25 mg PO BID PRN (Reason: allergy symptoms) Qty: 7 0RF Rx Instructions: Take together with tramadol prazosin 5 mg capsule 5 mg PO BEDTIME prazosin 2 mg capsule 2 mg PO ONCE trazodone 50 mg tablet 100 mg PO BEDTIME PRN buspirone 30 mg tablet 30 mg PO BID duloxetine 60 mg capsule,delayed release(DR/EC) 60 mg PO BID clonazepam 1 mg tablet 1 mg PO TID PRN (Reason: anxiety) bupropion HCl 300 mg tablet extended release 24 hr 300 mg PO DAILY estradiol [Vivelle-Dot] 0.05 mg/24 hr patch semiweekly transdermal docusate sodium [Colace] 100 mg capsule 100 mg PO DAILY Qty: 90 2RF famotidine 20 mg tablet 20 mg PO DAILY Qty: 90 2RF pantoprazole 40 mg tablet,delayed release (DR/EC) 40 mg PO BID Qty: 180 2RF sennosides [Senna Laxative] 8.6 mg tablet 17.2 mg PO BEDTIME Qty: 60 3RF simethicone [Gas Relief (simethicone)] 80 mg tablet,chewable 80 mg PO QID PRN (Reason: abdominal distention) Qty: 90 6RF lamotrigine 100 mg tablet 200 mg PO BID multivitamin with folic acid [Daily-May (with folic acid)] 400 mcg tablet 1 tab PO DAILY Interventions: ED Discharge Assessment Last Done: 04/17/24 04:51 Discharge Date/Time: 04/17/24 04:52 Print Language: Malagasy
--- NOTE | 2024-04-17 01:38 | PC.NURSE ---
pt change into hospital attire, pt awaiting to see provider.
[2024-04-17] MEDS: 0.9 % Sodium Chloride 1,000 ML 999 ML IV (02:09)
[2024-04-17] MEDS: Ketorolac Tromethamine 30 MG/ML VIAL IVPUSH (02:10)
[2024-04-17] MEDS: ondansetron HCL 4 MG/2 ML VIAL IVPUSH (02:10)
--- NOTE | 2024-04-17 02:16 | PC.NURSE ---
medicated per mar,
[2024-04-17 03:25] VITALS: BP 113/66; PULSE 60; RESP 16; TEMP 36.6; O2SAT 97
--- NOTE | 2024-04-17 03:44 | PC.NURSE ---
pt resting in bed. notified Dr. Solares of pt pain level
[2024-04-17] MEDS: traMADoL HCL 50 MG TABLET PO (04:28)
--- NOTE | 2024-04-17 04:32 | PC.NURSE ---
Medicated per mar.
[2024-04-17] MEDS: Milk of Magnesia 30 ML ORAL.SUSP PO (04:42)
[2024-04-17] MEDS: bisacodyL 5 MG TABLET.DR 10 MG PO (04:42)
--- NOTE | 2024-04-17 04:49 | PC.NURSE ---
Medicated per mar, reviewed discharge instructions with pt. pt verbalized understanding, no sign of distress. pt had a steady gait upon discharge.
[2024-04-17 04:51] VITALS: BP 108/63; PULSE 57; RESP 20; TEMP 36.5; O2SAT 98
== END 2024-04-17 04:52 | disposition home or self-care (01) ==
PROVIDERS: Emergency Provider Internal Medicine; PCP Nurse Practitioner Family
DX: K59.00 Constipation, unspecified (principal); Z79.899 Other long term (current) drug therapy; K75.81 Nonalcoholic steatohepatitis (NASH)
CPT/HCPCS: 36415; 74018; 74176; 80053; 81001; 83690; 85025; 96361; 96374; 96375; 99284; 99285; J1885; J2405

== ENCOUNTER 2024-06-27 11:20 | Outpatient (AMB) | payer OTHER, SELFPAY ==
[2024-06-27 11:21] VITALS: BP 118/70; PULSE 71; O2SAT 98; BMI 27.5
--- NOTE | 2024-06-27 11:21 | MHC.PC.OV ---
Vital Signs 06/27/24 11:21 Height 5 ft 5 in Weight 165 lb BMI 27.5 BP 118/70 Blood Pressure Location Rt brachial Position Sitting Pulse 71 Pulse Source Pulse Oximeter Pulse Oximetry (%) 98 Intake Visit Reasons: 6 month follow up Intake Note: pt is here for 6 month f/up Lusterer Required: No Accompanied by: Self / Same As Patient Allergies codeine Allergy (Intermediate, Verified 06/27/24 11:21) Nausea and Vomiting hydrocodone [From Vicodin] Allergy (Intermediate, Verified 06/27/24 11:21) Nausea, Vomiting, Sweats, Spins hydromorphone [From DILAUDID] Allergy (Intermediate, Verified 06/27/24 11:21) HIVES morphine [MORPHINE] Allergy (Intermediate, Verified 06/27/24 11:21) RASH,DIZZINESS,VOMITING, hives, hives oxycodone Allergy (Intermediate, Verified 06/27/24 11:21) Nausea and Vomiting tramadol Allergy (Intermediate, Verified 06/27/24 11:21) Hives zolpidem [From AMBIEN] Allergy (Intermediate, Verified 06/27/24 11:21) BLACK OUTS influenza virus vaccine, specific [FLU VACCINE] Adverse Reaction (Severe, Verified 06/27/24 11:21) SWELLING, at injection site bees Allergy (Severe, Uncoded 12/25/23 10:06) Anaphylaxis TDAP Allergy (Severe, Uncoded 12/25/23 10:06) Swelling at injection site Medication List - Last Reconciled 06/27/24 by Med Duffy, PATTERN DUPLICATOR- bisacodyl (Dulcolax (bisacodyl)) 10 mg (2 x 5 mg) PO BEDTIME 30 days bupropion HCl XL 300 mg PO DAILY buspirone 30 mg PO BID clonazepam 1 mg PO TID PRN cyanocobalamin (vitamin B-12) 500 mcg PO DAILY 90 days cyclobenzaprine 10 mg PO BEDTIME diphenhydramine HCl (Benadryl Allergy) 25 mg PO BID PRN docusate sodium (Colace) 100 mg PO DAILY duloxetine 60 mg PO BID epinephrine 0.3 mg (0.3 mL) IM ONCE 30 days estradiol (Vivelle-Dot) patches transdermal famotidine 20 mg PO DAILY finasteride 5 mg PO DAILY fluoride (sodium) 1.1% (DentaGel) 0 appl dental gabapentin 800 mg PO BID lamotrigine 200 mg PO BID loratadine 10 mg PO DAILY multivitamin with folic acid 400 mcg (Daily-May (with folic acid)) 1 tab PO DAILY pantoprazole 40 mg PO BID prazosin 5 mg PO BEDTIME prazosin 2 mg PO ONCE [premier protein ready to drink supplement As directed NS] ropinirole 1 mg PO BEDTIME 90 days sennosides (Senna Laxative) 17.2 mg (2 x 8.6 mg) PO BEDTIME sumatriptan succinate take 1 tab at onset of headache; if no relief, may repeat 1 tab after at least 2 hrs; max = 2 tabs/24 hrs PO 10 days trazodone 200 mg PO BEDTIME PRN verapamil 40 mg PO BID 90 days Tobacco use date assessed: 06/27/24 Dental Screening Dental Screen Date: 06/27/24 Did you have a dental visit in the last 12 months?: Yes Did you have a dental problem in the last 6 months where you did not have access to dental care?: No Was dental information given to patient?: Patient has dentist HPI 6 month follow up HPI Details Chief Complaint The patient presents with a 2-month history of left scapular discomfort. History of Present Illness The patient is a 38-year-old female presenting with ongoing inferior and medial left scapular discomfort. The discomfort has persisted for about 2 months and is exacerbated by turning her upper torso side to side. On examination, the region is tender to touch. The patient has a history of fibromyalgia, which may contribute to her pain experience. She is seeking further evaluation and is requesting a referral to [facility]. Additionally, the patient reports experiencing dizziness and low blood pressure, which she attributes to her current Verapamil dosage of 80 mg twice a day. This medication was initially prescribed by her former primary care provider for migraine management. Since undergoing bariatric surgery, she has noticed a decrease in her blood pressure levels. Social History Health Maintenance Review of Systems - Cardiovascular: Reports dizziness Physical Exam General: Cooperative, healthy appearing, comfortable, no acute distress and well developed Orientation: Patient oriented x3 Limitations: No limitations Head: Normal to inspection Ears: Hearing grossly normal bilaterally Nose: Normal external nose present Face and sinus: Normal facial exam Eyes: Appearance normal, both eyes and all related structures Neck: Normal visual inspection and Yes full ROM Respiratory: Normal respiratory effort and able to speak in complete sentences. Clear to auscultation bilaterally Cardiovascular: Regular rate and rhythm. Normal S1 and S2 GI: Normal to inspection. Soft to palpation and nontender Skin: No rashes or lesions noted Neuro: Patient oriented x3 Extremities: Tender to touch in the inferior and medial left scapular region. Otherwise normal to inspection Results Plan - Adjust Verapamil dosage to 40 mg twice a day to address hypotensive episodes and resultant dizziness. - Place a referral to [facility] for further evaluation of left scapular discomfort and neuropathic pain management. Patient was informed and verbally consented to the use of an ambient scribe for clinic note documentation during this visit. Discussion Notes I discussed with the patient the adjustment of her Verapamil dosage from 80 mg twice a day to 40 mg twice a day to mitigate hypotensive side effects. This adjustment is intended to address her current symptoms of dizziness. We also talked about her ongoing left scapular pain, for which a referral to [facility] will be made to obtain a specialist's input, considering her existing fibromyalgia. Understanding the possible complications of her conditions, she agreed with the proposed management plan. I explained the importance of monitoring her blood pressure and pain levels and encouraged her to follow up if symptoms persist or worsen. Patient Instructions - Take Verapamil 40 mg twice daily instead of 80 mg. - Monitor blood pressure at home and report any persistent low readings or dizziness. - Follow up with [facility] as instructed for the evaluation of scapular discomfort. - Contact our office if symptoms do not improve or if new symptoms arise. [facility] Medical History Family hx-breast malignancy Family hx of ovarian malignancy Abnormal uterine bleeding Family history of polyps in the colon Breast cancer screening, high risk patient Immunizations incomplete Physical exam Viral illness Nausea Sleep apnea Constipation Excess skin Daytime sleepiness Snoring Tenderness of anatomical snuffbox Contusion of right wrist Right wrist pain Unsatisfactory cervical Papanicolaou smear Female pelvic pain Panniculitis At risk for breast cancer Well woman exam PCOS (polycystic ovarian syndrome) ASCUS with positive high risk HPV Cervical adenopathy Complex ovarian cyst Restless leg Depression Cyst of ovary Migraine Lymphadenopathy Elevated ferritin Asthma Hemochromatosis carrier Positive IVANA (antinuclear antibody) PTSD (post-traumatic stress disorder) Intestinal malabsorption Obesity (BMI 30.0-34.9) Surgical History S/P gastric sleeve procedure Hx of abdominal surgery S/P panniculectomy Hx of hysterectomy S/P laparoscopic sleeve gastrectomy History of esophagogastroduodenoscopy (EGD) Hx of colonoscopy S/P wisdom tooth extraction S/P tonsillectomy and adenoidectomy Hx of tubal ligation S/P appendectomy History of exploratory laparotomy Hx laparoscopic cholecystectomy Family History Father History of colon polyps Prostate CA Mother Thyroid disease Breast cancer, Onset Age: 35 Brother Cardiac abnormality Son No problems noted. Son No problems noted. Maternal Aunt Breast cancer, Onset Age: 44 Family/Other Breast cancer, Onset Age: 30 Maternal Grandmother Cervical cancer Paternal Grandmother Cervical cancer Other Mental health disorder Substance use disorder Social History Housing: House Are you a primary zoo caretaker to a significant other at home: No Do you presently have visiting nurse or other home services: No Alcohol intake: former Year quit: 2018 Patient Tobacco Use Status: Former Tobacco user Tobacco use type: Smokeless Tobacco Years Smoked: 10.5 e-Cigarette/Vaping Use: Currently Using Second Hand Smoke Exposure: Yes Substance Use Type: Marijuana service: No Current occupational status: unemployed and disabled Cognitive needs: No Hearing needs: No Vision needs: No Female Reproductive History Menstrual Age of Menarche: 9 Questionnaire PHQ-9 Over the last 2 weeks, how often have you been bothered by any of the following problems? 1. Little interest or pleasure in doing things: several days 2. Feeling down, depressed, or hopeless: several days 3. Trouble falling or staying asleep, or sleeping too much: several days 4. Feeling tired or having little energy: several days 5. Poor appetite or overeating: several days 6. Feeling bad about yourself - or that you are a failure or have let yourself or your family down: more than half the days 7. Trouble concentrating on things, such as reading the newspaper or watching television: several days 8. Moving or speaking so slowly that other people could have noticed. Or the opposite - being so fidgety or restless that you have been moving around a lot more than usual: several days 9. Thoughts that you would be better off or of hurting yourself in some way: not at all Total score: 9 Depression Screening Interpretation: Positive Depression Screening Done: Yes 92840 - PHQ-9 Billing: Yes Source: Developed by Drs. Alpesh Morocho, Rula Infante, Hollis Winkler and colleagues, with an educational teresa from [employer]. Thrive Questionnaire Date Thrive assessed: 06/27/24 I am a: Patient What is your living situation today?: I have a steady place to live Within the past 12 months, did the food you bought not last and you didn't have the money to get more?: Sometimes True Within the past 12 months, did you worry whether your food would run out before you got money to buy more?: Sometimes True Do you have trouble paying for medicines?: No Do you have trouble getting transportation to medical appointments?: No Do you have trouble paying your heating and electricity bill?: No Do you have trouble taking care of your child, family member or friend?: No Do you have trouble with day-to-day activities such as bathing, preparing meals, shopping, managing finances, etc.?: I choose not to answer this question Are you currently unemployed and looking for a job?: No Are you interested in more education?: No Please select the resources that you would like help with: None Currently or been in a relationship where the following occur: I choose not to answer THRIVE Score: 2 AUDIT C Alcohol Use Questionnaire (AUDIT-C) 1. How often do you have a drink containing alcohol?: Never 3. How often do you have six or more drinks on one occasion?: Never Total Score: 0 Score Reviewed/Action Taken: Yes SARABJIT-7 AMB Questionnaire SARABJIT-7 Date SARABJIT - 7 assessed: 06/27/24 Feeling nervous, anxious, or on edge: 2 = More than half the days Not being able to stop or control worryin = Several days Worrying too much about different things: 2 = More than half the days Trouble relaxin = Several days Being so restless that it is hard to sit still: 1 = Several days Becoming easily annoyed or irritable: 1 = Several days Feeling afraid as if something awful might happen: 1 = Several days Total SARABJIT-7 score (0-4 normal; 5-9 mild; 10-14 moderate; 15-21 severe): 9 Source: Developed by Drs. Alpesh Morocho, Rula Infante, Hollis Winkler and colleagues, with an educational teresa from [employer]. SARABJIT-7 Assessment Billing SARABJIT-7 Assessment Tool: SARABJIT-7 Assessment 67213 Physical exam (Primary Care) Vital Signs: Last Vital Signs Pulse 71 06/27/24 11:21 BP 118/70 06/27/24 11:21 Pulse Ox 98 06/27/24 11:21 BMI result Body Mass Index 27.5 Tobacco/Smoking Status: Tobacco use Status Tobacco use date assessed 06/27/24 06/27/24 11:27 Patient Tobacco Use Status Former Tobacco user 06/27/24 11:27 Tobacco use type Smokeless Tobacco 06/27/24 11:27 e-Cigarette/Vaping Use Currently Using 06/27/24 11:27 PHQ-9: PHQ-9 Score PHQ-9: Total score 9 06/27/24 11:27 Depression Screening Interpretation: Positive Thrive Assessment: Date of Thrive Assessment Date Thrive assessed 06/27/24 06/27/24 11:27 Currently or been in a relationship where the following occur: I choose not to answer Coding Level of Care Code Est Pt Level 3 (34694) Diagnoses Fibromyalgia M79.7 Pain of right scapula M89.8X1 Thoracic back pain M54.6 Hypotension I95.9 Additional Codes SARABJIT-7 Assessment Billing - SARABJIT-7 Assessment Tool: SARABJIT-7 Assessment [id number] ([id number]) PHQ-9 - 12234 - PHQ-9 Billing: Yes ([id number]) Assessment & Plan Assessment & Plan (1) Fibromyalgia: Code(s): M79.7 - Fibromyalgia Category: Medical (2) Pain of right scapula: Code(s): M89.8X1 - Other specified disorders of bone, shoulder Category: Medical (3) Thoracic back pain: Code(s): M54.6 - Pain in thoracic spine Category: Medical (4) Hypotension: Code(s): I95.9 - Hypotension, unspecified Category: Medical Plan . Orders: Orders XR thoracic spine 2V Today M54.6 - Pain in thoracic spine XR scapula RT Today M89.8X1 - Other specified disorders of bone, shoulder Referrals Massage Therapy Referral M89.8X1 - Other specified disorders of bone, shoulder Neurology Referral M79.7 - Fibromyalgia Medications: Changed From verapamil 80 mg PO BID 90 days 180 tabs 1RF To verapamil 40 mg PO BID 90 days 180 tabs 1RF
== END 2024-06-27 12:00 | disposition home or self-care (01) ==
PROVIDERS: PCP Nurse Practitioner Family; Visit Provider Nurse Practitioner Family
DX: M79.7 Fibromyalgia (principal); M89.8X1 Other specified disorders of bone, shoulder; M54.6 Pain in thoracic spine; I95.9 Hypotension, unspecified

== ENCOUNTER 2024-06-27 11:20 | Outpatient (REF) | payer OTHER, SELFPAY ==
--- NOTE | ~2024-06-27 | XR_ITS ---
CLINICAL HISTORY: M89.8X1 - Other specified disorders of bone, shoulder 2 view left scapula Comparison: None Findings: Bones intact. No dislocations. No significant arthritic change. No erosions. No radiopaque foreign body. IMPRESSION: 1. No acute findings This document has been electronically signed by: Washington Ryder MD on 07/01/2024 07:30:31
--- NOTE | ~2024-06-27 | XR_ITS ---
CLINICAL HISTORY: M54.6 - Pain in thoracic spine 2 views thoracic spine Comparison: None Findings: Normal vertebral body alignment. No acute fractures or dislocation. No significant degenerative change. IMPRESSION: No acute findings. This document has been electronically signed by: Washington yRder MD on 07/01/2024 07:28:38
== END 2024-06-27 11:21 | disposition home or self-care (01) ==
LOC: HO.HMGCX 11:20
PROVIDERS: PCP Nurse Practitioner Family; Visit Provider Nurse Practitioner Family
DX: M89.8X1 Other specified disorders of bone, shoulder (principal); M79.7 Fibromyalgia; M54.6 Pain in thoracic spine; I95.9 Hypotension, unspecified; Z79.899 Other long term (current) drug therapy
CPT/HCPCS: 72070; 73010; 96127; 99212

== ENCOUNTER → 2024-06-27 12:05 | Outpatient (BNV) | payer OTHER, SELFPAY | PROVIDERS: PCP Nurse Practitioner Family; Visit Provider Specialist | DX: M54.6 Pain in thoracic spine (principal); M89.8X1 Other specified disorders of bone, shoulder | CPT/HCPCS: 72070; 73010 ==

== ENCOUNTER 2024-06-29 12:36 | Outpatient (AMB) | payer OTHER, SELFPAY ==
--- NOTE | 2024-06-29 12:53 | MHC.OFFVISWM ---
VS Expanded 06/29/24 13:01 BP 120/60 Blood Pressure Location Rt brachial Blood Pressure Position Sitting Pulse 65 Pulse Source Pulse Oximeter Temp 98.4 F Temperature Source Temporal Artery Scan Pulse Oximetry 98 Oxygen Delivery Method Room Air Height 5 ft 5 in Weight 160 lb 9.6 oz BMI 26.7 Body Fat % 34.2 Body Fat Mass 54.8 Fat Free Mass 105.6 Visceral Fat Rating 6.0 Body Water % 47.0 Body Water Mass 75.4 Muscle Mass/Score 100.4 Basal Metabolic Rate/Score 1,446 Intake Visit Reasons: (OV) PO LSG 02/14/20 Allergies codeine Allergy (Intermediate, Verified 06/27/24 11:21) Nausea and Vomiting hydrocodone [From Vicodin] Allergy (Intermediate, Verified 06/27/24 11:21) Nausea, Vomiting, Sweats, Spins hydromorphone [From DILAUDID] Allergy (Intermediate, Verified 06/27/24 11:21) HIVES morphine [MORPHINE] Allergy (Intermediate, Verified 06/27/24 11:21) RASH,DIZZINESS,VOMITING, hives, hives oxycodone Allergy (Intermediate, Verified 06/27/24 11:21) Nausea and Vomiting tramadol Allergy (Intermediate, Verified 06/27/24 11:21) Hives zolpidem [From AMBIEN] Allergy (Intermediate, Verified 06/27/24 11:21) BLACK OUTS influenza virus vaccine, specific [FLU VACCINE] Adverse Reaction (Severe, Verified 06/27/24 11:21) SWELLING, at injection site bees Allergy (Severe, Uncoded 12/25/23 10:06) Anaphylaxis TDAP Allergy (Severe, Uncoded 12/25/23 10:06) Swelling at injection site HPI Comments Details: Patient is a pleasant 38-year-old female who returns to the office today in follow-up. She is status post panniculectomy on 01/22/2023 and sleeve gastrectomy on 02/14/2020. Current weight is 160.6 lb with a BMI of 26.7. She was able to get in touch with her insurance company and given her comorbidities of mixed IBS, diverticulosis, vitamin deficiencies and reflux as well as an intolerance to protein powders causing nausea and vomiting, it is necessary that she have ready to drink protein supplements in her meal plan. She is followed by GI as well. She has been having perimenopausal symptoms and is being worked up by gynecology. She is limited by fibromyalgia although is exercising as she is able. States she has been having diarrhea for the last month. She is going to be following up with GI regarding this. Additionally, she states that she would like to have her blood pressure and blood sugar monitored. She will follow up with her primary care regarding this matter. She additionally states that her insurance company may cover protein shakes but needs a note. She will get us the information and we will fax any information that is needed. Meal plan: 1 shake, ensure plus Two eggs or Liberian yogurt or 4 forks of protein and 4 forks of vegetables Meal 6 forks of protein 6 forks of vegetables 80 oz Exercise plan: walking outside daily, 1 mi PFSH Medical History Family hx-breast malignancy Family hx of ovarian malignancy Abnormal uterine bleeding Family history of polyps in the colon Breast cancer screening, high risk patient Immunizations incomplete Physical exam Viral illness Nausea Sleep apnea Constipation Excess skin Daytime sleepiness Snoring Tenderness of anatomical snuffbox Contusion of right wrist Right wrist pain Unsatisfactory cervical Papanicolaou smear Female pelvic pain Panniculitis At risk for breast cancer Well woman exam PCOS (polycystic ovarian syndrome) ASCUS with positive high risk HPV Cervical adenopathy Complex ovarian cyst Restless leg Depression Cyst of ovary Migraine Lymphadenopathy Elevated ferritin Asthma Hemochromatosis carrier Positive IVANA (antinuclear antibody) PTSD (post-traumatic stress disorder) Intestinal malabsorption Obesity (BMI 30.0-34.9) Surgical History S/P gastric sleeve procedure Hx of abdominal surgery S/P panniculectomy Hx of hysterectomy S/P laparoscopic sleeve gastrectomy History of esophagogastroduodenoscopy (EGD) Hx of colonoscopy S/P wisdom tooth extraction S/P tonsillectomy and adenoidectomy Hx of tubal ligation S/P appendectomy History of exploratory laparotomy Hx laparoscopic cholecystectomy Family History Father History of colon polyps Prostate CA Mother Thyroid disease Breast cancer, Onset Age: 35 Brother Cardiac abnormality Son No problems noted. Son No problems noted. Maternal Aunt Breast cancer, Onset Age: 44 Family/Other Breast cancer, Onset Age: 30 Maternal Grandmother Cervical cancer Paternal Grandmother Cervical cancer Other Mental health disorder Substance use disorder Social History Housing: House Are you a primary mall plant caretaker to a significant other at home: No Do you presently have visiting nurse or other home services: No Alcohol intake: former Year quit: 2018 Patient Tobacco Use Status: Former Tobacco user Tobacco use type: Smokeless Tobacco Years Smoked: 10.5 e-Cigarette/Vaping Use: Currently Using Second Hand Smoke Exposure: Yes Substance Use Type: Marijuana service: No Current occupational status: unemployed and disabled Cognitive needs: No Hearing needs: No Vision needs: No Female Reproductive History Menstrual Age of Menarche: 9 Physical Exam Vital Signs: Last Vital Signs Temp 98.4 F 06/29/24 13:01 Const General: healthy appearing and no acute distress Resp Effort & Inspection: normal respiratory effort Auscultation: clear to auscultation bilaterally Cardio Rate: regular rate Rhythm: regular rhythm GI Auscultation: normal bowel sounds Extrem General: Yes normal to inspection Assessment & Plan Assessment & Plan (1) S/P gastric sleeve procedure: Comment: 2020 Code(s): Z90.3 - Acquired absence of stomach [part of] Category: Surgical Plan: Meal plan as balanced. Discussed the importance of exercise. Given discount paperwork to the [place]. Additionally, discussed doing home videos, cardio 30 minutes. She will look into both of these things. Return to the office for 5 year follow-up in February
[2024-06-29 13:01] VITALS: BP 120/60; PULSE 65; TEMP 36.9; O2SAT 98; BMI 26.7
== END 2024-06-29 13:21 | disposition home or self-care (01) ==
PROVIDERS: PCP Nurse Practitioner Family; Visit Provider Physician Assistant Surgical
DX: K57.91 Diverticulosis of intestine, part unspecified, without perforation or abscess with bleeding (principal); E56.9 Vitamin deficiency, unspecified; K58.9 Irritable bowel syndrome, unspecified; Z90.3 Acquired absence of stomach [part of]
CPT/HCPCS: 99213

== ENCOUNTER → 2024-06-29 12:36 | Outpatient (BNVA) | payer OTHER, SELFPAY | PROVIDERS: PCP Nurse Practitioner Family; Visit Provider Physician Assistant Surgical | DX: Z90.3 Acquired absence of stomach [part of] (principal) | CPT/HCPCS: 99212 ==

== ENCOUNTER 2024-08-22 08:51 | Outpatient (REF) | payer OTHER, SELFPAY ==
--- NOTE | 2024-08-22 14:50 | MHC.AU.HA3 ---
Hearing Instrument Follow-Up- Binaural Date of Visit: 08/22/24 Right Ear: Blayne, Model, Color, Serial Number: Hao Main P 70-R Silver Griffin #[id number] [address] Judge Repair Warranty: 12/02/[address] Judge Loss and Damage Warranty: 12/02/2024 [facility] Service Plan: 09/18/2022 Battery Size: Rechargeable Heel Gouger/Slim Tube: Size 1 M Earmold/Dome/CShell/SlimTip:Small Open Type of Wax Guard: Cerushield Dispensed By: [facility] Date of Fittin09/18/2021 Left Ear: Blayne, Model, Color, Serial Number: Hao Main P 70-R Silver Griffin #[id number] Housing [address] Judge Repair Warranty: 12/02/[address] Judge Loss and Damage Warranty: 12/02/2024 [facility] Service Plan: 09/18/2022 Battery Size: Rechargeable Heel Gouger/Slim Tube: Size 0 M Earmold/Dome/CShell/SlimTip: Small Open Type of Wax Guard: Cerushield Dispensed By: [facility] Date of Fittin09/18/2021 Follow-Up Summary: Both aids dropped off with complaint of no sound from right. Cleaned all, replaced domes and wax guards. Right still not working. 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 Listening check positive. Recommendations: Recommendations: Hearing instrument follow-up or maintenance as needed. Diagnosis Code(s): Primary Diagnosis: H90.3 Bilateral Sensorineural Hearing Loss Signature: Provider: Cristiano Hillman, [facility]
== END 2024-08-22 08:52 | disposition home or self-care (01) ==
LOC: HO.HAP 08:51
PROVIDERS: Visit Provider Nurse Practitioner Family
DX: Z13.89 Encounter for screening for other disorder (principal)

== ENCOUNTER 2024-08-23 14:04 | Outpatient (REF) | payer OTHER, SELFPAY | END 2024-08-23 14:05 | disposition home or self-care (01) | LOC: HO.HAP 14:04 | PROVIDERS: Visit Provider Nurse Practitioner Family | DX: Z46.1 Encounter for fitting and adjustment of hearing aid (principal); H90.3 Sensorineural hearing loss, bilateral | CPT/HCPCS: 92593; 99499 ==

== ENCOUNTER 2025-02-07 09:27 | Outpatient (AMB) | payer OTHER, SELFPAY ==
--- NOTE | 2025-02-07 09:32 | MHC.OFFVISWM ---
VS Expanded 02/07/25 09:38 BP 117/77 Blood Pressure Location Rt brachial Blood Pressure Position Sitting Pulse 93 Pulse Source Pulse Oximeter Temp 97.0 F Temperature Source Temporal Artery Scan Pulse Oximetry 95 Oxygen Delivery Method Room Air Height 5 ft 5 in Weight 168 lb BMI 28.0 Body Fat % 39.5 Body Fat Mass 66.4 Fat Free Mass 101.6 Visceral Fat Rating 7.0 Body Water % 43.3 Body Water Mass 72.8 Muscle Mass/Score 96.6 Basal Metabolic Rate/Score 1,417 Intake Visit Reasons: (OV) PO LSG 02/14/20 Allergies codeine Allergy (Intermediate, Verified 02/07/25 09:41) Nausea and Vomiting hydrocodone (From Vicodin) Allergy (Intermediate, Verified 02/07/25 09:41) Nausea, Vomiting, Sweats, Spins hydromorphone (From DILAUDID) Allergy (Intermediate, Verified 02/07/25 09:41) HIVES morphine (MORPHINE) Allergy (Intermediate, Verified 02/07/25 09:41) RASH,DIZZINESS,VOMITING, hives, hives oxycodone Allergy (Intermediate, Verified 02/07/25 09:41) Nausea and Vomiting tramadol Allergy (Intermediate, Verified 02/07/25 09:41) Hives zolpidem (From AMBIEN) Allergy (Intermediate, Verified 02/07/25 09:41) BLACK OUTS influenza virus vaccine, specific (FLU VACCINE) Adverse Reaction (Severe, Verified 02/07/25 09:41) SWELLING, at injection site bees Allergy (Severe, Uncoded 12/25/23 10:06) Anaphylaxis TDAP Allergy (Severe, Uncoded 12/25/23 10:06) Swelling at injection site HPI Comments Details: Patient is a pleasant 39-year-old female who returns to the office today in follow-up. She is status post panniculectomy on 01/22/2023 and sleeve gastrectomy on 02/14/2020. Current weight is 168 lb with a BMI of 28. She was able to get in touch with her insurance company and given her comorbidities of mixed IBS, diverticulosis, vitamin deficiencies and reflux as well as an intolerance to protein powders causing nausea and vomiting, it is necessary that she have ready to drink protein supplements in her meal plan. She is followed by GI as well. She has been having perimenopausal symptoms and is being worked up by gynecology. She is limited by fibromyalgia although is exercising as she is able. States she has been having diarrhea for the last month. She is going to be following up with GI regarding this. Additionally, she states that she would like to have her blood pressure and blood sugar monitored. She will follow up with her primary care regarding this matter. She additionally states that her insurance company may cover protein shakes but needs a note. She will get us the information and we will fax any information that is needed. Continues mvi Meal plan: 2 coffees w sugar and whole milk 1 shake, ensure glucose control Two eggs or Indonesian yogurt or 4 forks of protein and 4 forks of vegetables another shake Meal 6 forks of protein 6 forks of vegetables 90-120 oz water Exercise plan: walking outside daily, 2-3 mi Any post op complications: none JOHANNA: never DM: never HTN: never Hyperlipidemia: resolved GERD:?0-5 scale ??0 = no symptoms ??1 = symptoms noticeable but not bothersome 2 =symptoms bothersome but not daily ? 3 = symptoms bothersome and daily 4 = symptoms affect daily activities 5 = symptoms are incapacitating, unable to do daily activities ? How bad is the heartburn: 2 ? Heartburn while lying down: 2 ? Heartburn when standing up: 0 ? Heartburn after meals: 2 ? Does heartburn change your diet: 2 ? Does heartburn wake you up from sleep: 0 ? Do you have difficulty swallowin ? Do you have pain with swallowin ? If you take medicine for your reflux, does this affect your daily life: 0 Satisfaction with present condition - satisfied or not satisfied: satisfied [facility] Medical History Family hx-breast malignancy Family hx of ovarian malignancy Abnormal uterine bleeding Family history of polyps in the colon Breast cancer screening, high risk patient Immunizations incomplete Physical exam Viral illness Nausea Sleep apnea Constipation Excess skin Daytime sleepiness Snoring Tenderness of anatomical snuffbox Contusion of right wrist Right wrist pain Unsatisfactory cervical Papanicolaou smear Female pelvic pain Panniculitis At risk for breast cancer Well woman exam PCOS (polycystic ovarian syndrome) ASCUS with positive high risk HPV Cervical adenopathy Complex ovarian cyst Restless leg Depression Cyst of ovary Migraine Lymphadenopathy Elevated ferritin Asthma Hemochromatosis carrier Positive IVANA (antinuclear antibody) PTSD (post-traumatic stress disorder) Intestinal malabsorption Obesity (BMI 30.0-34.9) Surgical History S/P gastric sleeve procedure Hx of abdominal surgery S/P panniculectomy Hx of hysterectomy S/P laparoscopic sleeve gastrectomy History of esophagogastroduodenoscopy (EGD) Hx of colonoscopy S/P wisdom tooth extraction S/P tonsillectomy and adenoidectomy Hx of tubal ligation S/P appendectomy History of exploratory laparotomy Hx laparoscopic cholecystectomy Family History Father History of colon polyps Prostate CA Mother Thyroid disease Breast cancer, Onset Age: 35 Brother Cardiac abnormality Son No problems noted. Son No problems noted. Maternal Aunt Breast cancer, Onset Age: 44 Family/Other Breast cancer, Onset Age: 30 Maternal Grandmother Cervical cancer Paternal Grandmother Cervical cancer Other Mental health disorder Substance use disorder Social History Housing: House Are you a primary nurse behavioral health care to a significant other at home: No Do you presently have visiting nurse or other home services: No Alcohol intake: former Year quit: 2018 Patient Tobacco Use Status: Former Tobacco user Tobacco use type: Smokeless Tobacco Years Smoked: 10.5 e-Cigarette/Vaping Use: Currently Using Second Hand Smoke Exposure: Yes Substance Use Type: Marijuana service: No Current occupational status: unemployed and disabled Cognitive needs: No Hearing needs: No Vision needs: No Female Reproductive History Menstrual Age of Menarche: 9 Physical Exam Const General: healthy appearing and no acute distress Resp Effort & Inspection: normal respiratory effort Auscultation: clear to auscultation bilaterally Cardio Rate: regular rate Rhythm: regular rhythm GI Auscultation: normal bowel sounds Extrem General: Yes normal to inspection Assessment & Plan Assessment & Plan (1) S/P gastric sleeve procedure: Comment: 2020 Code(s): Z90.3 - Acquired absence of stomach [part of] Category: Surgical Plan: Change meal plan: Remove sugar and home milk from coffee 1/2 shake, ensure glucose control (6 oz mixed w 2 oz unsweetened almond milk) Two eggs or Indonesian yogurt or 5 forks of protein and 5 forks of vegetables another shake Meal 5 forks of protein 5 forks of vegetables Decrease overall fluid intake to 60-80 oz of water. She is no longer drinking soda Decreased speed of intake as she previously was having her shake over 15 minutes, discussed doing this over 2 hours to eliminate reflux. Increase physical activity as she is able, she does deal with fibromyalgia and this is a rate limiting factor. Check 5 year postop labs Return to clinic 4 months Orders: Orders Insulin Today I95.9 - Hypotension, unspecified, K75.81 - Nonalcoholic steatohepatitis (CHATMAN), M79.7 - Fibromyalgia, Z90.3 - Acquired absence of stomach [part of] Hemoglobin A1c Today I95.9 - Hypotension, unspecified, K75.81 - Nonalcoholic steatohepatitis (CHATMAN), M79.7 - Fibromyalgia, Z90.3 - Acquired absence of stomach [part of] Complete Blood Count Auto Diff Today I95.9 - Hypotension, unspecified, K75.81 - Nonalcoholic steatohepatitis (CHATMAN), M79.7 - Fibromyalgia, Z90.3 - Acquired absence of stomach [part of] IRON PROFILE Today I95.9 - Hypotension, unspecified, K75.81 - Nonalcoholic steatohepatitis (CHATMAN), M79.7 - Fibromyalgia, Z90.3 - Acquired absence of stomach [part of] Comprehensive Met. Panel Today I95.9 - Hypotension, unspecified, K75.81 - Nonalcoholic steatohepatitis (CHATMAN), M79.7 - Fibromyalgia, Z90.3 - Acquired absence of stomach [part of] Zinc Today I95.9 - Hypotension, unspecified, K75.81 - Nonalcoholic steatohepatitis (CHATMAN), M79.7 - Fibromyalgia, Z90.3 - Acquired absence of stomach [part of] C Reactive Protein Today I95.9 - Hypotension, unspecified, K75.81 - Nonalcoholic steatohepatitis (CHATMAN), M79.7 - Fibromyalgia, Z90.3 - Acquired absence of stomach [part of] Ferritin Today I95.9 - Hypotension, unspecified, K75.81 - Nonalcoholic steatohepatitis (CHATMAN), M79.7 - Fibromyalgia, Z90.3 - Acquired absence of stomach [part of] Lipid Panel Today I95.9 - Hypotension, unspecified, K75.81 - Nonalcoholic steatohepatitis (CHATMAN), M79.7 - Fibromyalgia, Z90.3 - Acquired absence of stomach [part of] Vitamin B12 and Folate Today I95.9 - Hypotension, unspecified, K75.81 - Nonalcoholic steatohepatitis (CHATMAN), M79.7 - Fibromyalgia, Z90.3 - Acquired absence of stomach [part of] Vitamin B1 Today I95.9 - Hypotension, unspecified, K75.81 - Nonalcoholic steatohepatitis (CHATMAN), M79.7 - Fibromyalgia, Z90.3 - Acquired absence of stomach [part of] Vitamin A Today I95.9 - Hypotension, unspecified, K75.81 - Nonalcoholic steatohepatitis (CHATMAN), M79.7 - Fibromyalgia, Z90.3 - Acquired absence of stomach [part of] TSH reflex Free T4 Today I95.9 - Hypotension, unspecified, K75.81 - Nonalcoholic steatohepatitis (CHATMAN), M79.7 - Fibromyalgia, Z90.3 - Acquired absence of stomach [part of] Vitamin D 25-OH Total Today I95.9 - Hypotension, unspecified, K75.81 - Nonalcoholic steatohepatitis (CHATMAN), M79.7 - Fibromyalgia, Z90.3 - Acquired absence of stomach [part of]
[2025-02-07 09:38] VITALS: BP 117/77; PULSE 93; TEMP 36.1; O2SAT 95; BMI 28.0
--- OUTSIDE RECORDS SUMMARY | 2025-02-07 10:04 | XMS_ITS | Patient Health Record ---
Author Organization [facility] Address [address] [place] [id number] Care Team Providers Care Silk Finisher Name Role Phone Fuentes MENDOZA, Asma Primary Care Provider Alpesh Morgan [phone] Reason For Referral No Information Plan Of Treatment No Information Insurance Providers Payer Name Payer Address Payer Phone Subscriber Number Group Number Insured Name Patient Relationship to Insured Coverage Start Date Coverage End Date PGBA DO NOT USE DO NOT USE [facility] CLAIMS USE [facility] [address] [place] [address] [id number] JITENDRA LOPEZ Self - patient is the insured MEDICAID OF [employer] [address] [place] [address] [id number] JITENDRA LOPEZ Self - patient is the insured
== END 2025-02-07 09:58 | disposition home or self-care (01) ==
LOC: HO.HBS 09:28
PROVIDERS: PCP Nurse Practitioner Family; Visit Provider Physician Assistant Surgical
DX: E66.3 Overweight (principal); Z68.28 Body mass index [BMI] 28.0-28.9, adult; Z90.3 Acquired absence of stomach [part of]; Z98.84 Bariatric surgery status
CPT/HCPCS: 99213

== ENCOUNTER → 2025-02-07 09:27 | Outpatient (BNVA) | payer OTHER, SELFPAY | PROVIDERS: PCP Nurse Practitioner Family; Visit Provider Physician Assistant Surgical | DX: Z90.3 Acquired absence of stomach [part of] (principal); Z68.28 Body mass index [BMI] 28.0-28.9, adult | CPT/HCPCS: 99212 ==

== ENCOUNTER 2025-02-17 09:18 | Outpatient (REF) | payer OTHER, SELFPAY ==
[2025-02-17 09:56] LABS: MANUAL DIFF FLAG NO
--- OUTSIDE RECORDS SUMMARY | 2025-02-17 10:03 | XMS_ITS | Patient Health Record ---
Author Organization [facility] Address [address] [place] [id number] Care Team Providers Care Certified Welding Inspector Name Role Phone Fuentes MENDOZA, Asma Primary Care Provider Alpesh Morgan [phone] Reason For Referral No Information Plan Of Treatment No Information Insurance Providers Payer Name Payer Address Payer Phone Subscriber Number Group Number Insured Name Patient Relationship to Insured Coverage Start Date Coverage End Date PGBA DO NOT USE DO NOT USE [facility] CLAIMS USE [facility] [address] [place] [address] [id number] JITENDRA LOPEZ Self - patient is the insured MEDICAID OF [employer] [address] [place] [address] [id number] JITENDRA LOPEZ Self - patient is the insured
[2025-02-17 10:30] LABS: Hematocrit 39.1 % (37.0-47.0); Hemoglobin 13.1 g/dl (12.0-16.0); Imm Gran Abs Auto 0.02 X10*3/uL (0.00-0.03); Imm Gran Pct Auto 0.2 % (0.0-0.4); Lymphocytes Absolute Auto 1.7 X10*3/uL (1.2-4.9); Mean Corpuscular HGB Conc 33.5 g/dl (31.0-35.0); Mean Corpuscular Hemoglobin 31.3 pg (27.0-33.0); Mean Corpuscular Volume 93.3 fL (80.0-98.0); NRBC Abs Auto 0.000 X10*3/uL (0.0-0.012); NRBC Pct Auto 0.0 /100WBC (0.0-0.2); Platelet Count 185 X10*3/uL (160-400); Red Blood Count 4.19 X10*6/uL (4.20-5.50); White Blood Count 9.5 X10*3/uL (4.8-10.8)
[2025-02-17 10:53] LABS: Hemoglobin A1C 113.5708 umol/L; Total Hemoglobin (HGBA1C) 3504.0684 umol/L
[2025-02-17 11:02] LABS: Alanine Aminotransferase 18 U/L (0-31); Albumin Level 4.4 g/dL (3.5-5.0); Alkaline Phosphatase 55 U/L (39-117); Anion Gap 9 (12-20); Aspartate Amino Transferase 23 U/L (5-31); Blood Urea Nitrogen 11 mg/dL (9-16); Calcium 9.2 mg/dL (8.4-10.2); Carbon Dioxide 33 mmol/L (22-29); Chloride 103 mmol/L (96-108); Cholesterol 195 mg/dL (<200); Estimated Glomerular Filt Rate > 60; HDL Cholesterol 55 mg/dL (>40); Iron 96 mcg/dL (30-160); Percent Iron Saturation 33 % (15-50); Potassium 4.0 mmol/L (3.3-5.1); Sodium 141 mmol/L (135-145); Total Iron Binding Capacity 289 mcg/dL (228-428); Total Protein 6.8 g/dL (6.5-8.0); Triglycerides 84 mg/dL (<150); Unsaturated Iron Binding 193 ug/dL
[2025-02-17 11:23] LABS: Ferritin 26 ng/mL (10-250)
[2025-02-17 11:26] LABS: Folate 12.5 ng/mL (> or = 4.0); Vitamin B12 937 pg/mL (200-900)
== END 2025-02-17 09:19 | disposition home or self-care (01) ==
LOC: HO.LAB 09:18
PROVIDERS: PCP Nurse Practitioner Family; Visit Provider Physician Assistant Surgical
DX: M79.7 Fibromyalgia (principal); K75.81 Nonalcoholic steatohepatitis (NASH); K90.9 Intestinal malabsorption, unspecified; I95.9 Hypotension, unspecified; Z90.3 Acquired absence of stomach [part of]
CPT/HCPCS: 36415; 80053; 80061; 82306; 82607; 82728; 82746; 83036; 83525; 83540; 84425; 84443; 84590; 84630; 85025; 86140

== ENCOUNTER 2025-02-20 09:00 | Outpatient (AMB) | payer OTHER, SELFPAY ==
[2025-02-20 09:06] VITALS: BP 124/82; PULSE 74; O2SAT 96; BMI 29.8
--- NOTE | 2025-02-20 09:06 | MHC.OFFVIS ---
Vital Signs 02/20/25 09:06 Height 5 ft 5 in Weight 179 lb 6 oz BMI 29.8 BP 124/82 Blood Pressure Location Lt brachial Position Sitting Pulse 74 Pulse Source Pulse Oximeter Pulse Oximetry (%) 96 Oxygen Delivery Method Room Air Intake Visit Reasons: med follow up Intake Note: Patient presents follow up RLS/Sleep. Last seen 06/2022. Patient also here for her fibromyalgia. Accompanied by: Self / Same As Patient Allergies codeine Allergy (Intermediate, Verified 02/20/25 09:13) Nausea and Vomiting hydrocodone (From Vicodin) Allergy (Intermediate, Verified 02/20/25 09:13) Nausea, Vomiting, Sweats, Spins hydromorphone (From DILAUDID) Allergy (Intermediate, Verified 02/20/25 09:13) HIVES morphine (MORPHINE) Allergy (Intermediate, Verified 02/20/25 09:13) RASH,DIZZINESS,VOMITING, hives, hives oxycodone Allergy (Intermediate, Verified 02/20/25 09:13) Nausea and Vomiting tramadol Allergy (Intermediate, Verified 02/20/25 09:13) Hives zolpidem (From AMBIEN) Allergy (Intermediate, Verified 02/20/25 09:13) BLACK OUTS influenza virus vaccine, specific (FLU VACCINE) Adverse Reaction (Severe, Verified 02/20/25 09:13) SWELLING, at injection site bees Allergy (Severe, Uncoded 12/25/23 10:06) Anaphylaxis TDAP Allergy (Severe, Uncoded 12/25/23 10:06) Swelling at injection site HPI Comments Details: 39 year old female is a new patient visit for evaluation of JOHANNA with sleep difficulties. She is moves alot in her sleep. She kicks and punches her . She goes to bed at 10pm, wakes up at 7am, naps at noon, or will take a 2 hour nap daily. She has chronic fatigue due to fibromyalgia and is on trazadone, prazosin, and gabapentin. She uses a heating pad for pain in the lower/upper back and muscles. She has cervical spine degeneration of discs. She has pain bilaterally in both hands and wears compression gloves which alleviate radiation of the pain into the wrists and shoulders. She has sharp shooting pain in her feet, with paresthesias, tingling, pins, and needles. She wakes up multiple times to stretch and walk around due to the uncomfortable sensations. She has PTSD and speaks to her therapist weekly. Headaches 2/ month and takes sumatriptan for abortive and verapamil preventatively 40mg po BID. [facility] Medical History Family hx-breast malignancy Family hx of ovarian malignancy Abnormal uterine bleeding Family history of polyps in the colon Breast cancer screening, high risk patient Immunizations incomplete Physical exam Viral illness Nausea Sleep apnea Constipation Excess skin Daytime sleepiness Snoring Tenderness of anatomical snuffbox Contusion of right wrist Right wrist pain Unsatisfactory cervical Papanicolaou smear Female pelvic pain Panniculitis At risk for breast cancer Well woman exam PCOS (polycystic ovarian syndrome) ASCUS with positive high risk HPV Cervical adenopathy Complex ovarian cyst Restless leg Depression Cyst of ovary Migraine Lymphadenopathy Elevated ferritin Asthma Hemochromatosis carrier Positive IVANA (antinuclear antibody) PTSD (post-traumatic stress disorder) Intestinal malabsorption Obesity (BMI 30.0-34.9) Surgical History S/P gastric sleeve procedure Hx of abdominal surgery S/P panniculectomy Hx of hysterectomy S/P laparoscopic sleeve gastrectomy History of esophagogastroduodenoscopy (EGD) Hx of colonoscopy S/P wisdom tooth extraction S/P tonsillectomy and adenoidectomy Hx of tubal ligation S/P appendectomy History of exploratory laparotomy Hx laparoscopic cholecystectomy Family History Father History of colon polyps Prostate CA Mother Thyroid disease Breast cancer, Onset Age: 35 Brother Cardiac abnormality Son No problems noted. Son No problems noted. Maternal Aunt Breast cancer, Onset Age: 44 Family/Other Breast cancer, Onset Age: 30 Maternal Grandmother Cervical cancer Paternal Grandmother Cervical cancer Other Mental health disorder Substance use disorder Social History Housing: House Are you a primary patient care assistant to a significant other at home: No Do you presently have visiting nurse or other home services: No Alcohol intake: former Year quit: 2018 Patient Tobacco Use Status: Former Tobacco user Tobacco use type: Smokeless Tobacco Years Smoked: 10.5 e-Cigarette/Vaping Use: Currently Using Second Hand Smoke Exposure: Yes Substance Use Type: Marijuana service: No Current occupational status: unemployed and disabled Cognitive needs: No Hearing needs: No Vision needs: No Female Reproductive History Menstrual Age of Menarche: 9 Physical Exam Vital Signs: Last Vital Signs Pulse 74 02/20/25 09:06 BP 124/82 02/20/25 09:06 Pulse Ox 96 02/20/25 09:06 Oxygen Delivery Method Room Air 02/20/25 09:06 BMI result Body Mass Index 29.8 Const General: cooperative, comfortable and no acute distress Nutritional Appearance: average body habitus Orientation/consciousness: patient oriented x3 HEENT Face and sinus: Yes face symmetric Teeth and gingiva: other (mallampti score is 4) Eyes Pupils: Equal, round and reactive pupils present Neck Neck: Yes full ROM Resp Effort & Inspection: normal respiratory effort and able to speak in complete sentences Neuro General: patient oriented x3 and moves all extremities Cranial nerves: Yes Facial sensation intact/muscles of mastication intact, Yes Equal, round and reactive pupils present, Yes Normal accommodation reflex present, Yes Nystagmus not present, Yes Normal facial strength present, Yes Midline tongue present, Yes Ability to bilaterally rotate head present and Yes Ability to bilaterally elevate shoulders present Cognition (Neuro): normal cognition Gait exam (Neuro): Normal gait present Motor exam (neuro): 5/5 motor strength present throughout and Normal motor muscle tone present throughout Psych Appearance: grossly normal Thought process: Normal thought process present Results Reviewed Results Reviewed: 02/2024 FINDINGS: There is persistent mild degenerative disc changes at C4-C5 with disc space narrowing and endplate osteophytes, unchanged compared to prior. Minimal posterior subluxation of C4 on C5, unchanged, likely related to the degenerative changes. Otherwise, the disc spaces are normal. Vertebral bodies are otherwise normally aligned with normal height. Facets unremarkable, surrounding bone and soft tissues are unremarkable. 06/2024 CLINICAL HISTORY: M89.8X1 - Other specified disorders of bone, shoulder 2 view left scapula Comparison: None Findings: Bones intact. No dislocations. No significant arthritic change. No erosions. No radiopaque foreign body. IMPRESSION: 1. No acute findings Assessment & Plan Assessment & Plan (1) Excessive daytime sleepiness: Comment: hst Code(s): G47.19 - Other hypersomnia Category: Medical (2) Low ferritin: Comment: daily iron for rls Code(s): R79.0 - Abnormal level of blood mineral Category: Medical (3) Fibromyalgia: Comment: rheumatology referral Code(s): M79.7 - Fibromyalgia Category: Medical (4) Numbness and tingling in both hands: Code(s): R20.0 - Anesthesia of skin; R20.2 - Paresthesia of skin Category: Medical Plan PSG r/o johanna NCS/EMG upper extremities bilaterally r/o cts. Rheumatology Referral fibromyalgia. RLS Ferrous Sulfate 325mg po daily with a glass of OJ. Labs reviewed with pt. Orders: Orders RT PSG in-lab sleep study 02/20/25 G47.19 - Other hypersomnia NE nerve conduction velocity Today R20.0 - Anesthesia of skin, R20.2 - Paresthesia of skin NE electromyogram (EMG) Today R20.0 - Anesthesia of skin, R20.2 - Paresthesia of skin Referrals Rheumatology Referral M79.7 - Fibromyalgia Medications: New ferrous sulfate take one tablet daily by mouth with orange juice. 325 mg PO DAILY 90 tabs 2RF low ferritin 3 months MDD 325mg R79.0 - Abnormal level of blood mineral Patient Instructions: Sleep Hygiene provided: set a scheduled bedtime and wake time to help regulate the circadian rhythm and balance the release of pituitary hormones. Sleep in a dark room, temperatures below 68 degrees, and no devices n bed. Limit caffeinated products 6 hours prior to bed, and limit fluids 2-4 hours prior to bed. Gentle night yoga, diffusing essential oils, and playing soft music can be relaxing. Coding Level of Care Code New Pt Level 4 (28187) Diagnoses Excessive daytime sleepiness G47.19 Low ferritin R79.0 Fibromyalgia M79.7 Numbness and tingling in both hands R20.0; R20.2
--- OUTSIDE RECORDS SUMMARY | 2025-02-20 10:12 | XMS_ITS | Patient Health Record ---
Author Organization [facility] Address [address] [place] [id number] Care Team Providers Care Welt Insole Channeler Name Role Phone Fuentes MENDOZA, Asma Primary Care Provider Alpesh Morgan [phone] Reason For Referral No Information Plan Of Treatment No Information Insurance Providers Payer Name Payer Address Payer Phone Subscriber Number Group Number Insured Name Patient Relationship to Insured Coverage Start Date Coverage End Date PGBA DO NOT USE DO NOT USE [facility] CLAIMS USE [facility] [address] [place] [address] [id number] JITENDRA LOPEZ Self - patient is the insured MEDICAID OF [employer] [address] [place] [address] [id number] JITENDRA LOPEZ Self - patient is the insured
== END 2025-02-20 10:06 | disposition home or self-care (01) ==
LOC: HO.HSMS 09:01
PROVIDERS: PCP Nurse Practitioner Family; Visit Provider Physician Assistant Medical
DX: G47.19 Other hypersomnia (principal); R79.0 Abnormal level of blood mineral; M79.7 Fibromyalgia; R20.0 Anesthesia of skin; R20.2 Paresthesia of skin
CPT/HCPCS: 99204

== ENCOUNTER → 2025-02-20 09:00 | Outpatient (BNVA) | payer OTHER, SELFPAY | PROVIDERS: PCP Nurse Practitioner Family; Visit Provider Physician Assistant Medical | DX: R20.2 Paresthesia of skin (principal); R20.0 Anesthesia of skin; M79.7 Fibromyalgia; R79.0 Abnormal level of blood mineral; D50.9 Iron deficiency anemia, unspecified; G47.19 Other hypersomnia | CPT/HCPCS: 99202 ==

== ENCOUNTER 2025-03-08 14:01 | Emergency (ER) | payer OTHER, SELFPAY ==
--- NOTE | ~2025-03-08 | CT_ITS ---
CLINICAL HISTORY: LLQ pain CT abdomen and pelvis with contrast Comparison: CT/SR - CT ABDOMEN PELVIS WITHOUT IV CONTRAST - 04/17/24 04:19 EST Findings: Mild dependent atelectasis. Cholecystectomy. No biliary duct dilatation. Liver, spleen, pancreas, adrenal glands, and kidneys are within normal limits. No bowel obstruction, pneumoperitoneum, or pneumatosis. Hysterectomy. Urinary bladder is within normal limits. Two left ovarian cysts measuring up to 2.7 cm. No acute fracture. IMPRESSION: 1. No acute intraabdominal or pelvic pathology. 2. Two left ovarian cysts measuring up to 2.7 cm. This document has been electronically signed by: Massimo Martin MD on 03/08/2025 18:55:00
[2025-03-08 14:20] VITALS: BP 128/69; PULSE 80; RESP 16; TEMP 36.8; O2SAT 98; BMI 29.0
--- NOTE | 2025-03-08 14:20 | ED.GENADULT ---
HPI - General Adult General Chief complaint: Abdominal Pain Stated complaint: Lower L Quadrant pain Time Seen by Provider: 03/08/25 16:15 Source: patient, RN notes reviewed and old records reviewed Mode of arrival: ambulatory Limitations: no limitations History of Present Illness ED Provider: Kyle ALMONTE narrative: 39-year-old female with a past medical history significant for IBS, polycystic ovarian disease, fibromyalgia, PTSD, GERD presents for evaluation abdominal pain. Patient reports left lower abdominal pain since last night that has worsened today. She states her pain is now radiating to the right side of her lower abdomen. She is status post partial hysterectomy, her ovaries remain intact. This was performed 2 years ago The patient reports normal bowel movement yesterday, denies any black or bloody stool pain Denies any burning with urination She had associated nausea without vomiting She reports that she is also status post appendectomy and cholecystectomy Related Data Home Medications ?Medication ?Instructions ?Recorded ?Confirmed buspirone 30 mg tablet 30 mg PO BID 03/17/20 06/27/24 prazosin 5 mg capsule 5 mg PO BEDTIME 05/29/20 06/27/24 duloxetine 60 mg capsule,delayed 60 mg PO BID 04/23/22 06/27/24 release clonazepam 1 mg tablet 1 mg PO TID PRN anxiety 07/04/22 06/27/24 bupropion HCl 300 mg 24 hr tablet, 300 mg PO DAILY 09/12/22 06/27/24 extended release lamotrigine 100 mg tablet 200 mg PO BID 09/09/23 06/27/24 prazosin 2 mg capsule 2 mg PO ONCE 12/25/23 06/27/24 estradiol 0.05 mg/24 hr semiweekly patch transdermal 03/11/24 06/27/24 transdermal patch (Vivelle-Dot) fluoride (sodium) 1.1 % dental gel 0 appl dental 06/27/24 06/27/24 (DentaGel) trazodone 100 mg tablet 200 mg PO BEDTIME PRN 06/27/24 06/27/24 Previous Rx's ?Medication ?Instructions ?Recorded sumatriptan succinate 100 mg tablet See Rx Instructions PO .COMPLEX 10 01/28/21 days #10 tabs diphenhydramine HCl 25 mg tablet 25 mg PO BID PRN allergy symptoms 07/04/21 (Benadryl Allergy) #7 tabs finasteride 5 mg tablet 5 mg PO DAILY #90 tabs 04/04/23 loratadine 10 mg tablet 10 mg PO DAILY #90 tabs 12/14/23 docusate sodium 100 mg capsule 100 mg PO DAILY #90 caps 03/11/24 (Colace) famotidine 20 mg tablet 20 mg PO DAILY #90 tabs 03/11/24 cyanocobalamin (vitamin B-12) 500 500 mcg PO DAILY 90 days #90 tabs 04/07/24 mcg tablet multivitamin with folic acid 400 1 tab PO DAILY #90 tabs 05/27/24 mcg tablet (Daily-May (with folic acid)) verapamil 40 mg tablet 40 mg PO BID 90 days #180 tabs 06/27/24 sennosides 8.6 mg tablet (Senna 25.8 mg (3 x 8.6 mg) PO BEDTIME 07/06/24 Laxative) #90 tabs epinephrine 0.3 mg/0.3 mL 0.3 mg (0.3 mL) IM ONCE severe 08/21/24 injection, auto-injector allergic reaction 30 days #9 ea ropinirole 1 mg tablet 1 mg PO BEDTIME 90 days #90 tabs 12/05/24 Boost glucose control nutritional #60 ea 12/26/24 supplement pantoprazole 40 mg tablet,delayed 40 mg PO BID #180 tabs 01/19/25 release gabapentin 800 mg tablet 800 mg PO BID #60 tabs 02/08/25 ferrous sulfate 325 mg (65 mg 325 mg PO DAILY low ferritin 3 02/20/25 iron) tablet months #90 tabs cyclobenzaprine 10 mg tablet 10 mg PO BEDTIME #30 tabs 02/22/25 Allergies Allergy/AdvReac Type Severity Reaction Status Date / Time codeine Allergy Intermediate Nausea and Verified 03/08/25 14:23 Vomiting hydrocodone (From Vicodin) Allergy Intermediate Nausea, Verified 03/08/25 14:23 Vomiting, Sweats, Spins hydromorphone (From DILAUDID) Allergy Intermediate HIVES Verified 03/08/25 14:23 morphine (MORPHINE) Allergy Intermediate RASH,DIZZINESS,VOMITING, Verified 03/08/25 14:23 hives, hives oxycodone Allergy Intermediate Nausea and Verified 03/08/25 14:23 Vomiting tramadol Allergy Intermediate Hives Verified 03/08/25 14:23 zolpidem (From AMBIEN) Allergy Intermediate BLACK Verified 03/08/25 14:23 OUTS influenza virus vaccine, AdvReac Severe SWELLING, Verified 03/08/25 14:23 specific (FLU VACCINE) at injection site bees Allergy Severe Anaphylaxis Uncoded 03/08/25 14:23 TDAP Allergy Severe Swelling Uncoded 03/08/25 14:23 at injection site Review of Systems Constitutional: Constitutional: Denies body ache(s), Denies chills and Denies fever(s) Eyes: Eyes: Denies blurry vision ENT: Denies dizziness Cardiovascular: Cardiovascular: Denies chest pain and Denies dyspnea on exertion Respiratory: Respiratory: Denies cough and Denies dyspnea on exertion Gastrointestinal: Gastrointestinal: Reports abdominal pain, Denies melena, Denies hematochezia, Denies constipation, Reports nausea and Denies vomiting Genitourinary: Genitourinary: Denies dysuria, Denies pelvic pain and Denies flank pain Musculoskeletal: Musculoskeletal: Denies back pain Integumentary/Breasts: Skin/Breast: Denies rash Neurologic: Denies dizziness [facility] Past Medical History Medical History Family hx-breast malignancy Family hx of ovarian malignancy Abnormal uterine bleeding Family history of polyps in the colon Breast cancer screening, high risk patient Immunizations incomplete Physical exam Viral illness Nausea Sleep apnea Constipation Excess skin Daytime sleepiness Snoring Tenderness of anatomical snuffbox Contusion of right wrist Right wrist pain Unsatisfactory cervical Papanicolaou smear Female pelvic pain Panniculitis At risk for breast cancer Well woman exam PCOS (polycystic ovarian syndrome) ASCUS with positive high risk HPV Cervical adenopathy Complex ovarian cyst Restless leg Depression Cyst of ovary Migraine Lymphadenopathy Elevated ferritin Asthma Hemochromatosis carrier Positive IVANA (antinuclear antibody) PTSD (post-traumatic stress disorder) Intestinal malabsorption Obesity (BMI 30.0-34.9) Surgical History S/P gastric sleeve procedure Hx of abdominal surgery S/P panniculectomy Hx of hysterectomy S/P laparoscopic sleeve gastrectomy History of esophagogastroduodenoscopy (EGD) Hx of colonoscopy S/P wisdom tooth extraction S/P tonsillectomy and adenoidectomy Hx of tubal ligation S/P appendectomy History of exploratory laparotomy Hx laparoscopic cholecystectomy Family History Family History Father History of colon polyps Prostate CA Mother Thyroid disease Breast cancer, Onset Age: 35 Brother Cardiac abnormality Son No problems noted. Son No problems noted. Maternal Aunt Breast cancer, Onset Age: 44 Family/Other Breast cancer, Onset Age: 30 Maternal Grandmother Cervical cancer Paternal Grandmother Cervical cancer Other Mental health disorder Substance use disorder Social History Social History Housing: House Are you a primary rn homecare to a significant other at home: No Do you presently have visiting nurse or other home services: No Alcohol intake: former Year quit: 2018 Patient Tobacco Use Status: Former Tobacco user Tobacco use type: Smokeless Tobacco Years Smoked: 10.5 Smoked in Last 30 Days: Yes e-Cigarette/Vaping Use: Currently Using Second Hand Smoke Exposure: Yes Use of substances other than those prescribed or required for medical reasons: No Substance Use Type: Marijuana Advance Directives: No Advance Directives Information Provided: Yes Do you have a plan to hurt others: No Plan Patient : No service: No Current occupational status: unemployed and disabled Cognitive needs: No Hearing needs: No Vision needs: No Physical Exam ED Vital Signs: Vital Signs - 24 hr 03/08/25 14:20 03/08/25 15:18 03/08/25 15:38 Temperature 98.2 F 98.4 F 98.4 F Pulse Rate 80 66 66 Respiratory Rate 16 16 16 Blood Pressure 128/69 131/80 131/80 Pulse Oximetry 98 96 96 Oxygen Delivery Method Room Air Room Air Room Air 03/08/25 18:02 03/08/25 18:25 Temperature 98.3 F Pulse Rate 67 50 Respiratory Rate 16 12 Blood Pressure 145/63 H 137/78 Pulse Oximetry 98 96 Oxygen Delivery Method Room Air Room Air BMI result Body Mass Index 29.0 Const General: healthy appearing, comfortable, no acute distress, alert and awake Nutritional Appearance: well nourished Orientation/consciousness: patient oriented x3 HENMT Head: Yes normocephalic and Yes atraumatic Eyes Eyelids: Yes eyelids normal Conjunctivae: conjunctivae normal Sclerae: sclerae normal Corneas: corneas normal Pupils: Equal, round and reactive pupils present EOM: EOMs intact bilaterally Neck Neck: Yes full ROM Resp Effort & Inspection: normal respiratory effort, able to speak in complete sentences and not labored Cardio Rate: regular rate Rhythm: regular rhythm GI Inspection: No distended Palpation (GI): Soft to palpation, not firm, Tenderness to palpation present (GI) in the LLQ, in the RLQ and suprapubicly, Guarding due to palpation present (GI) (Left lower quadrant) and not rigid Skin General skin exam: elasticity normal Neuro General: patient oriented x3 Cranial nerves: Yes Equal, round and reactive pupils present and Yes Bilaterally intact EOM present Cognition (Neuro): normal cognition Extrem Other: Moving all extremities well without any obvious deformities Course Course Course Narrative: This is a rapid medical exam performed by Coral Cherry NP: Additional HPI, ROS, PE not included below will be deferred to primary provider. Patient is a 39y/o F presenting with complaint of sudden, sharp LLQ pain since yesterday. Spoke with PCP, GI, and [facility] who all referred her to the ED. Complains of severe nausea. Reports intermittent low grade fevers. Plan: labs, UA Reevaluation(s) Reevaluation #1: The patient's CT scan shows ovarian cyst in the left up the 2.7 cm. No surrounding inflammatory changes to suggest torsion. The patient is quite comfortable I have a very low suspicion for ovarian torsion. We will discharge the patient is symptomatic care. She will follow up with her OBGYN Time: 19:38 Medications Administered Discontinued Medications Generic Name Dose Route Start Last Admin Trade Name Fredisq PRN Reason Stop Dose Admin Acetaminophen 1,000 mg in 100 mls @ 400 mls/hr 03/08/25 18:39 03/08/25 18:45 Ofirmev IV 03/08/25 18:53 400 mls/hr ONCE ONE Administration Iohexol 100 ml 03/08/25 17:56 03/08/25 17:56 Iohexol 350 Mg/Ml 100 Ml Infus..Btl IV 03/08/25 17:57 85 ml ONCE ONE Administration Ketorolac Tromethamine 15 mg 03/08/25 17:04 03/08/25 17:35 Ketorolac Tromethamine 15 Mg/Ml Vial IVPUSH 03/08/25 17:05 15 mg ONCE ONE Administration Ondansetron HCl 4 mg 03/08/25 17:04 03/08/25 17:35 Ondansetron Hcl 4 Mg/2 Ml Vial IVPUSH 03/08/25 17:05 4 mg ONCE ONE Administration Medical Decision Making Medical Decision Making [facility] Narrative: 39-year-old female with a past medical history as above presents for evaluation of left lower abdominal pain starting less than it worsening today. She has a history ovarian cysts and has had similar pain in the past with a ruptured ovarian cyst. She also reports a history of diverticulitis and obstructive uropathy but feels it that this is a different kind of pain to those. She does not have a cervix or uterus and denies any STI symptoms. Denies any urinary symptoms as well. She is status post appendectomy. She reports a normal bowel movement this morning does not feel constipated. I think at this time are most likely diagnosis is an ovarian cyst but we will get a CT scan of the abdomen pelvis to evaluate for this and also hopefully rule out diverticulitis. Her vital signs are stable, she is afebrile with no leukocytosis. Differential Diagnosis Differential Diagnoses: The differential diagnosis associated with the presentation includes As above Lab Data [facility] Lab Attestation statement: I reviewed the patient's lab results. No leukocytosis or anemia. Normal platelet count. No significant electrolyte abnormalities warranting dimension. Renal function within normal limits. The patient is not 03/08/25 15:04 03/08/25 15:05 Labs: Lab Results 03/08/25 03/08/25 03/08/25 Range/Units 15:04 15:05 15:08 WBC 6.3 (4.8-10.8) X10*3/uL RBC 4.15 L (4.20-5.50) X10*6/uL Hgb 13.3 (12.0-16.0) g/dl Hct 37.4 (37.0-47.0) % MCV 90.1 (80.0-98.0) fL MCH 32.0 (27.0-33.0) pg MCHC 35.6 H (31.0-35.0) g/dl RDW 12.0 (11.0-16.0) % Plt Count 165 (160-400) X10*3/uL MPV 10.7 (9.4-12.3) fL Immature Gran % (Auto) 0.3 (0.0-0.4) % Neut % (Auto) 59.1 (45-73) % Lymph % (Auto) 31.2 (20-40) % [place] % (Auto) 6.6 (2-11) % Eos % (Auto) 2.2 (0-4) % Baso % (Auto) 0.6 (0-2) % Lymph # (Auto) 2.0 (1.2-4.9) X10*3/uL [place] # (Auto) 0.4 (0.1-1.2) X10*3/uL Eos # (Auto) 0.1 (0.0-0.4) X10*3/uL Baso # (Auto) 0.0 (0.0-0.2) X10*3/uL Abs Immat Gran (auto) 0.02 (0.00-0.03) X10*3/uL Absolute Neuts (auto) 3.7 (2.0-8.3) x10*3/uL Absolute Nucleated RBC 0.000 (0.0-0.012) X10*3/uL Nucleated RBC % (auto) 0.0 (0.0-0.2) /100WBC Sodium 142 (135-145) mmol/L Potassium 4.2 (3.3-5.1) mmol/L Chloride 105 (96-108) mmol/L Carbon Dioxide 31 H (22-29) mmol/L Anion Gap 10 L (12-20) BUN 8 L (9-16) mg/dL Creatinine 0.73 (0.5-1.4) mg/dL Estim Creat Clear Calc 105.4 Estimated GFR > 60 Random Glucose 95 (60-115) mg/dL Calcium 9.3 (8.4-10.2) mg/dL Total Bilirubin 0.2 (0.0-1.0) mg/dL AST 18 (5-31) U/L ALT 13 (0-31) U/L Alkaline Phosphatase 49 (39-117) U/L Total Protein 7.1 (6.5-8.0) g/dL Albumin 4.4 (3.5-5.0) g/dL Beta HCG, Quant < 2 mIU/mL Urine Color Yellow Urine Appearance Clear Urine pH 6.5 (5.0-9.0) Ur Specific [place] <= 1.005 (1.005-1.025) Urine Protein Negative (Neg-Trace) mg/dL Urine Glucose (UA) Negative (Negative) mg/dL Urine Ketones Negative (Negative) mg/dL Urine Blood Negative (Negative) Urine Nitrite Negative (Negative) Ur Leukocyte Esterase Negative (Negative) Discharge Plan Discharge Clinical Impression: Ovarian cyst Patient Disposition: Home, Self-Care Instructions: Ovarian Cyst (ED) Additional Instructions: Your CT scan showed 2 ovarian cyst in the left measuring up to 2.7 cm. You may use Tylenol as needed for pain. Follow up with your primary doctor, return for new or worsening symptoms Prescriptions: No Action sumatriptan succinate 100 mg tablet See Rx Instructions PO .COMPLEX 10 Days Qty: 10 0RF Rx Instructions: take 1 tab at onset of headache; if no relief, may repeat 1 tab after at least 2 hrs; max = 2 tabs/24 hrs PO finasteride 5 mg tablet 5 mg PO DAILY Qty: 90 4RF loratadine 10 mg tablet 10 mg PO DAILY Qty: 90 1RF cyanocobalamin (vitamin B-12) 500 mcg tablet 500 mcg PO DAILY 90 Days Qty: 90 3RF multivitamin with folic acid [Daily-May (with folic acid)] 400 mcg tablet 1 tab PO DAILY Qty: 90 4RF sennosides [Senna Laxative] 8.6 mg tablet 25.8 mg PO BEDTIME Qty: 90 3RF epinephrine 0.3 mg/0.3 mL auto-injector 0.3 mg IM ONCE 30 Days Qty: 9 2RF ropinirole 1 mg tablet 1 mg PO BEDTIME 90 Days Qty: 90 1RF Rx Instructions: administer 1-3 hours before bedtime (DME) Boost glucose control nutritional supplement 1 box See Rx Instructions .Route .MEDSUPPLY Qty: 60 6RF Rx Instructions: 2 boxes per day pantoprazole 40 mg tablet,delayed release (DR/EC) 40 mg PO BID Qty: 180 2RF gabapentin 800 mg tablet 800 mg PO BID Qty: 60 0RF cyclobenzaprine 10 mg tablet 10 mg PO BEDTIME Qty: 30 1RF diphenhydramine HCl [Benadryl Allergy] 25 mg tablet 25 mg PO BID PRN (Reason: allergy symptoms) Qty: 7 0RF Rx Instructions: Take together with tramadol prazosin 5 mg capsule 5 mg PO BEDTIME prazosin 2 mg capsule 2 mg PO ONCE buspirone 30 mg tablet 30 mg PO BID duloxetine 60 mg capsule,delayed release(DR/EC) 60 mg PO BID clonazepam 1 mg tablet 1 mg PO TID PRN (Reason: anxiety) bupropion HCl 300 mg tablet extended release 24 hr 300 mg PO DAILY estradiol [Vivelle-Dot] 0.05 mg/24 hr patch semiweekly transdermal docusate sodium [Colace] 100 mg capsule 100 mg PO DAILY Qty: 90 2RF famotidine 20 mg tablet 20 mg PO DAILY Qty: 90 2RF fluoride (sodium) [DentaGel] 1.1 % gel 0 appl dental trazodone 100 mg tablet 200 mg PO BEDTIME PRN verapamil 40 mg tablet 40 mg PO BID 90 Days Qty: 180 1RF lamotrigine 100 mg tablet 200 mg PO BID ferrous sulfate 325 mg (65 mg iron) tablet 325 mg PO DAILY MDD 325mg 90 Days Qty: 90 2RF Rx Instructions: take one tablet daily by mouth with orange juice. Print Language: Kiswahili
[2025-03-08 15:15] LABS: MANUAL DIFF FLAG NO
[2025-03-08 15:17] LABS: Hematocrit 37.4 % (37.0-47.0); Hemoglobin 13.3 g/dl (12.0-16.0); Imm Gran Abs Auto 0.02 X10*3/uL (0.00-0.03); Imm Gran Pct Auto 0.3 % (0.0-0.4); Lymphocytes Absolute Auto 2.0 X10*3/uL (1.2-4.9); Mean Corpuscular HGB Conc 35.6 g/dl (31.0-35.0); Mean Corpuscular Hemoglobin 32.0 pg (27.0-33.0); Mean Corpuscular Volume 90.1 fL (80.0-98.0); NRBC Abs Auto 0.000 X10*3/uL (0.0-0.012); NRBC Pct Auto 0.0 /100WBC (0.0-0.2); Platelet Count 165 X10*3/uL (160-400); Red Blood Count 4.15 X10*6/uL (4.20-5.50); White Blood Count 6.3 X10*3/uL (4.8-10.8)
[2025-03-08 15:18] VITALS: BP 131/80; PULSE 66; RESP 16; TEMP 36.9; O2SAT 96
[2025-03-08 15:19] LABS: Appearance Urine Clear; Glucose Urine UA Negative (Negative); PH 6.5 (5.0-9.0); Specific Gravity - Urine <= 1.005 (1.005-1.025)
--- NOTE | 2025-03-08 15:27 | PC.NURSE ---
XH PCO, hysterectomy with ovaries intact. Pt reports that heat, cold, repositioning has not helped. Normal BM's and voiding. Took tylenol and ibuprofen at 1000 today.
[2025-03-08 15:38] VITALS: BP 131/80; PULSE 66; RESP 16; TEMP 36.9; O2SAT 96
[2025-03-08 15:52] LABS: Alanine Aminotransferase 13 U/L (0-31); Albumin Level 4.4 g/dL (3.5-5.0); Alkaline Phosphatase 49 U/L (39-117); Anion Gap 10 (12-20); Aspartate Amino Transferase 18 U/L (5-31); Blood Urea Nitrogen 8 mg/dL (9-16); Calcium 9.3 mg/dL (8.4-10.2); Carbon Dioxide 31 mmol/L (22-29); Chloride 105 mmol/L (96-108); Creatinine Clr Calc Pharmacy 105.4; Estimated Glomerular Filt Rate > 60; Potassium 4.2 mmol/L (3.3-5.1); Sodium 142 mmol/L (135-145); Total Protein 7.1 g/dL (6.5-8.0)
--- OUTSIDE RECORDS SUMMARY | 2025-03-08 17:43 | XMS_ITS | Patient Health Record ---
Author Organization [facility] Address [address] [place] [id number] Care Team Providers Care Rouge Sifter Name Role Phone Fuentes MENDOZA, Asma Primary Care Provider Alpesh Morgan [phone] Reason For Referral No Information Plan Of Treatment No Information Insurance Providers Payer Name Payer Address Payer Phone Subscriber Number Group Number Insured Name Patient Relationship to Insured Coverage Start Date Coverage End Date PGBA DO NOT USE DO NOT USE [facility] CLAIMS USE [facility] [address] [place] [phone] [id number] JITENDRA LOPEZ Self - patient is the insured MEDICAID OF [employer] [address] [place] [address] [id number] JITENDRA LOPEZ Self - patient is the insured
[2025-03-08] MEDS: iohexoL 350 MG/ML 100 ML INFUS..BTL IV (17:56)
[2025-03-08 18:02] VITALS: BP 145/63; PULSE 67; RESP 16; TEMP 36.8; O2SAT 98
[2025-03-08 18:25] VITALS: BP 137/78; PULSE 50; RESP 12; O2SAT 96
[2025-03-08 20:10] VITALS: BP 137/78; PULSE 62; RESP 12; TEMP 36.8; O2SAT 96
== END 2025-03-08 20:13 | disposition home or self-care (01) ==
PROVIDERS: Registered Nurse Emergency; Emergency Provider Student in an Organized Health Care Education/Training Program; PCP Nurse Practitioner Family
DX: N83.202 Unspecified ovarian cyst, left side (principal)
CPT/HCPCS: 36415; 74177; 80053; 81003; 84702; 85025; 96365; 96375; 99285; J0131; J1885; J2405; Q9967

== ENCOUNTER → 2025-03-08 17:04 | Outpatient (BNV) | payer OTHER, SELFPAY | PROVIDERS: Emergency Provider Student in an Organized Health Care Education/Training Program; PCP Nurse Practitioner Family; Visit Provider Radiology Diagnostic Radiology | DX: N83.202 Unspecified ovarian cyst, left side (principal) | CPT/HCPCS: 74177 ==

== ENCOUNTER → 2025-03-20 20:30 | Outpatient (REF) | payer OTHER, SELFPAY ==
--- OUTSIDE RECORDS SUMMARY | 2025-03-20 21:32 | XMS_ITS | Patient Health Record ---
Author Organization [facility] Address [address] [place] [id number] Care Team Providers Care Digital Advisor Name Role Phone Fuentes MENDOZA, Asma Primary Care Provider Alpesh Morgan [phone] Reason For Referral No Information Plan Of Treatment No Information Insurance Providers Payer Name Payer Address Payer Phone Subscriber Number Group Number Insured Name Patient Relationship to Insured Coverage Start Date Coverage End Date PGBA DO NOT USE DO NOT USE [facility] CLAIMS USE [facility] [address] [place] [phone] [id number] JITENDRA LOPEZ Self - patient is the insured MEDICAID OF [email or web address] [address] [place] [phone] [id number] JITENDRA LOPEZ Self - patient is the insured
== END ==
LOC: HO.SL 20:30
PROVIDERS: PCP Nurse Practitioner Family; Visit Provider Physician Assistant Medical
DX: G47.19 Other hypersomnia (principal)
CPT/HCPCS: 95810

== ENCOUNTER → 2025-03-20 21:46 | Outpatient (BNV) | payer OTHER, SELFPAY | PROVIDERS: PCP Nurse Practitioner Family; Visit Provider Psychiatry & Neurology Neurology | DX: R40.0 Somnolence (principal) | CPT/HCPCS: 95810 ==

== ENCOUNTER 2025-04-11 09:22 | Outpatient (REF) | payer OTHER, SELFPAY ==
--- OUTSIDE RECORDS SUMMARY | 2025-04-06 23:59 | XMS_ITS | Continuity of Care Document ---
Author Organization [facility] Lucie Villegas ns [facility] Address [address] [place] [address], [address] [place] [address]- Care Team Providers Care Stoneworking Sander Name Role Phone Clive DUKES, Med Eduardo Primary Care Physician [phone] [place] [facility] [place] Date(s): 03/07/25 - [facility] [address], [address] [place], [place] [address] Encounter Type: Triage Allergies, Adverse Reactions, Alerts Substance Criticality Severity Reaction Reaction Severity Status codeine Throat swelling Acti ve morphine rash Active Dilaudid Vomitting, Rash, Vetigo Active traMADol Active Percocet Hives, Rash, Na usea & Vomitting Active Ambien Black outs Active Vicodin rash Active Hydrocodone-PPA Trouble breathing, Rash Active Medications acetaminophen 325 mg oral tablet 975 mg, By Mouth, Every 6 hours, # 50 tablet, Refills 0, Tot. Refills 0, Maintenance, 07/09/22 7:21:00 AM EST, Route to Pharmacy Electronically, [facility]/pharmacy #[id number], Partial fill upon patient request if the prescription is for a schedule II opioid drug., 165.1, cm, 07/09/22 3:41:00 EST, Height, 68.2,kg, 07/08/22 12:54:00 EST, Dry Weight Start Date: 07/09/22 Status: Ordered Medication Dispense Status: Completed Quantity: 50.0 Unit: tablet Total Allowed Fills: 1 Fills Dispensed: 0 Indications: Pelvic and perineal pain; ARIPiprazole 5 mg oral tablet 5 mg, 1, tablet, By Mouth, Daily in AM, # 30 tablet, Refills 0, Maintenance, 08/20/18 12:30:10 AM EST Start Date: 08/20/18 Status: Ordered Medication Dispense Status: Completed Quantity: 30.0 Unit: tablet Total Allowed Fills: 1 Fills Dispensed: 0 busPIRone 30 mg oral tablet 1 tablet = 30 mg, By Mouth, 2 times a day, # 180 tablet, 0 Refills, Maintenance, 08/20/18 12:27:48 AMEST, Tablet Start Date: 08/20/18 Status: Ordered Medication Dispense Status: Completed Quantity: 180.0 Unit: tablet Total Allowed Fills: 1 Fills Dispensed: 0 calcium-vitamin D 250 mg-200 intl units oral tablet 1 tablet, By Mouth, 2 times a day, 0 Refills, Maintenance, 04/14/22 4:02:00 PM EDT, Partial fill upon patient request if the prescription is for a schedule II opioid drug. Start Date: 04/14/22 Status: Ordered Medication Dispense Status: Completed Total Allowed Fills: 1 Fills Dispensed: 0 Claritin-D 1 tablet, By Mouth, Daily in AM, 0 Refills, Maintenance, 10/08/15 2:28:57 PM EDT Start Date: 10/08/15 Status: Ordered Medication Dispense Status: Completed Total Allowed Fills: 1 Fills Dispensed: 0 Climara 0.075 mg/24 hours weekly transdermal film, extended release 1 patch, Topically, Every week, # 5 patch, 6 Refills, Maintenance, 09/02/24 11:21:00 AM EDT, Patch, [facility]/pharmacy #[id number], Partial fill upon patient request if the prescription is for a schedule II opioid drug., 165.1, cm, 09/02/24 11:03:00 EDT, Height, 70.43, kg, 09/02/24 11:03:00 EDT, Dry Weight Start Date: 09/02/24 Stop Date: 03/31/25 Status: Ordered Medication Dispense Status: Completed Quantity: 5.0 Unit: patch Total Allowed Fills: 7 Fills Dispensed: 0 clonazePAM 1 mg oral tablet 1 tablet = 1 mg, By Mouth, 3 times a day, PRN Anxiety, 0 Refills, Maintenance, 08/20/18 12:34:43 AM EST, Tablet Start Date: 08/20/18 Status: Ordered Medication Dispense Status: Completed Total Allowed Fills: 1 Fills Dispensed: 0 cyclobenzaprine 10 mg oral tablet 10 mg, 1, tablet, By Mouth, Daily at bedtime, PRN, # 30 tablet, Refills 0, Maintenance, for spasm, 08/20/18 12:31:55 AM EST Start Date: 08/20/18 Status: Ordered Medication Dispense Status: Completed Quantity: 30.0 Unit: tablet Total Allowed Fills: 1 Fills Dispensed: 0 Dicyclomine = 20 mg, 0 Refills, Maintenance, 07/04/22 1:11:00 PM EST, Partial fill upon patient request if the prescription is for a schedule II opioid drug. Start Date: 07/04/22 Status: Ordered Medication Dispense Status: Completed Total Allowed Fills: 1 Fills Dispensed: 0 dicyclomine 20 mg oral tablet 1 tablet = 20 mg, By Mouth, 2 times a day, 0 Refills, Maintenance, 07/04/22 1:11:00 PM EST, Partial fill upon patient request if the prescription is for a schedule II opioid drug. Start Date: 07/04/22 Status: Ordered Medication Dispense Status: Completed Total Allowed Fills: 1 Fills Dispensed: 0 duloxetine 60 mg oral enteric coated capsule 1 capsule = 60 mg, By Mouth, 2 times a day, # 30 capsule, 0 Refills, Maintenance, 08/20/18 12:30:31 AM EST, EC Capsule Start Date: 08/20/18 Status: Ordered Medication Dispense Status: Completed Quantity: 30.0 Unit: capsule Total Allowed Fills: 1 Fills Dispensed: 0 Estradiol Patch 0.05 mg/24 hours twice weekly transdermal film, extended release 1 patch, Topically, Every Thursday and Thursday, # 9 patch, 4 Refills, Maintenance, 02/26/24 10:58:00 AM EDT, [facility]/pharmacy #[id number], Partial fill upon patient request if the prescription is for a schedule II opioid drug., 1 patch Topically Every Thursday and Thursday, 165.1, cm, 10/22/23 10:30:00 EDT, Height, 78, kg, 10/22/23 10:30:00 EDT, Dry Weight Start Date: 02/26/24 Status: Ordered Medication Dispense Status: Completed Quantity: 9.0 Unit: patch Total Allowed Fills: 5 Fills Dispensed: 0 Famotidine 0 Refills, Maintenance, 10/22/23 10:34:00 AM EDT, Partial fill upon patient request if the prescription is for a schedule II opioid drug. Start Date: 10/22/23 Status: Ordered Medication Dispense Status: Completed Total Allowed Fills: 1 Fills Dispensed: 0 Femring 0.05 mg/24 hr vaginal ring 1 each, Vaginally, Every 3 months, # 1 each, 1 Refills, Maintenance, 03/03/25 9:31:00 AM EDT, [facility]/pharmacy #[id number], Partial fill upon patient request if the prescription is for a schedule II opioid drug., 165.1, cm, 09/02/24 11:03:00 EDT, Height, 70.43, kg, 09/02/24 11:03:00 EDT, Dry Weight Start Date: 03/03/25 Status: Ordered Medication Dispense Status: Completed Quantity: 1.0 Unit: each Total Allowed Fills: 2 Fills Dispensed: 0 Finasteride = 5 mg, By Mouth, Daily at bedtime, 0 Refills, Maintenance, 04/14/22 4:02:00 PM EDT, Partial fill upon patient request if the prescription is for a schedule II opioid drug. Start Date: 04/14/22 Status: Ordered Medication Dispense Status: Completed Total Allowed Fills: 1 Fills Dispensed: 0 Gabapentin = 800 mg, By Mouth, 2 times a day, 0 Refills, Maintenance, 04/14/22 4:02:00 PM EDT, Partial fill upon patient request if the prescription is for a schedule II opioid drug. Start Date: 04/14/22 Status: Ordered Medication Dispense Status: Completed Total Allowed Fills: 1 Fills Dispensed: 0 ibuprofen 600 mg oral tablet 600 mg, 1, tablet, By Mouth, 3 times a day, # 90 tablet, Refills 0, Tot. Refills 0, Maintenance, 04/22/24 12:00:00 AM EST, Route to Pharmacy Electronically, [facility]/pharmacy #[id number], Partial fill upon patient request if the prescription is for a schedule II opioid drug., 165.1, cm, 04/21/24 17:18:00 EST, Height, 71.6, kg, 04/21/24 16:55:00 EST, Dry Weight Start Date: 04/22/24 Status: Ordered Medication Dispense Status: Completed Quantity: 90.0 Unit: tablet Total Allowed Fills: 1 Fills Dispensed: 0 ibuprofen 800 mg oral tablet 800 mg, 1, tablet, By Mouth, 3 times a day, PRN, # 50 tablet, Refills 0, Tot. Refills 0, Maintenance, for pain, 07/09/22 7:22:00 AM EST, Route to Pharmacy Electronically, [facility]/pharmacy #[id number], Partial fill upon patient request if the prescription is for a schedule II opioid drug., 165.1, cm, 07/09/22 3:41:00 EST, Height, 68.2, kg, 07/08/22 12:54:00 EST, Dry Weight Start Date: 07/09/22 Status: Ordered Medication Dispense Status: Completed Quantity: 50.0 Unit: tablet Total Allowed Fills: 1 Fills Dispensed: 0 lamotrigine 100 mg oral tablet, disintegrating 1 tablet = 100 mg, By Mouth, 2 times a day, 0 Refills, Maintenance, 10/22/23 10:33:00 AM EDT, Partialfill upon patient request if the prescription is for a schedule II opioid drug. Start Date: 10/22/23 Status: Ordered Medication Dispense Status: Completed Total Allowed Fills: 1 Fills Dispensed: 0 Multi Vitamin+ 0 Refills, Maintenance, 10/22/23 10:33:00 AM EDT, Partial fill upon patient request if the prescription is for a schedule II opioid drug. Start Date: 10/22/23 Status: Ordered Medication Dispense Status: Completed Total Allowed Fills: 1 Fills Dispensed: 0 prazosin 2 mg oral capsule 1 capsule = 2 mg, By Mouth, 2 times a day, 0 Refills, Maintenance, 07/04/22 1:02:00 PM EST, Partial fill upon patient request if the prescription is for a schedule II opioid drug. Start Date: 07/04/22 Status: Ordered Medication Dispense Status: Completed Total Allowed Fills: 1 Fills Dispensed: 0 prazosin 5 mg oral capsule 5 mg, 1, capsule, By Mouth, Daily at bedtime, Refills 0, Maintenance, 07/04/22 1:02:00 PM EST, Partial fill upon patient request if the prescription is for a schedule II opioid drug. Start Date: 07/04/22 Status: Ordered Medication Dispense Status: Completed Total Allowed Fills: 1 Fills Dispensed: 0 Protonix 40 mg oral granule 1 pack/packet, By Mouth, Daily at bedtime, # 30 each, 0 Refills, Maintenance, 08/20/18 12:32:40 AM EST, Granule Start Date: 08/20/18 Status: Ordered Medication Dispense Status: Completed Quantity: 30.0 Unit: each Total Allowed Fills: 1 Fills Dispensed: 0 senna 187 mg oral tablet 1 tablet = 8.6 mg, By Mouth, Daily, # 36 tablet, 0 Refills, Maintenance, 07/09/22 7:22:00 AM EST, Tablet, [facility]/pharmacy #[id number], Partial fill upon patient request if the prescription is for a schedule IIopioid drug., 165.1, cm, 07/09/22 3:41:00 EST, Height, 68.2, kg, 07/08/22 12:54:00 EST, Dry Weight Start Date: 07/09/22 Status: Ordered Medication Dispense Status: Completed Quantity: 36.0 Unit: tablet Total Allowed Fills: 1 Fills Dispensed: 0 Indications: Pelvic and perineal pain; simethicone 80 mg oral tablet, chewable 80 mg, Chew, 5 times a day, PRN, For Gaseous Distention/Discomfort, # 150 tablet, Refills 0, Tot. Refills 0, Maintenance, Other, 07/09/22 7:21:00 AM EST, Route to Pharmacy Electronically, [facility]/pharmacy#[id number], Partial fill upon patient request if the prescription is for a schedule II opioid drug., 165.1, cm, 07/09/22 3:41:00 EST, Height, 68.2, kg, 07/08/22 12:54:00 EST, Dry Weight Start Date: 1/25/23 Status: Ordered Medication Dispense Status: Completed Quantity: 150.0 Unit: tablet Total Allowed Fills: 1 Fills Dispensed: 0 Indications: Pelvic and perineal pain; SUMAtriptan 100 mg oral tablet 1 tablet = 100 mg, By Mouth, Once, PRN for migraine headache, NO MORE THAN 3 DOSES A WEEK., # 9 tablet, 1 Refills, Soft Stop, 07/30/17 11:59:43 AM EST, Tablet, [facility]/pharmacy #[id number] Start Date: 07/30/17 Status: Ordered Medication Dispense Status: Completed Quantity: 9.0 Unit: tablet Total Allowed Fills: 2 Fills Dispensed: 0 Trazodone = 25 mg, By Mouth, 0 Refills, Maintenance, 10/22/23 10:34:00 AM EDT, Partial fill upon patient request if the prescription is for a schedule II opioid drug. Start Date: 10/22/23 Status: Ordered Medication Dispense Status: Completed Total Allowed Fills: 1 Fills Dispensed: 0 triamcinolone 0.1% topical cream 1 application, Topically, 2 times a day, # 15 Gm, 0 Refills, Maintenance, 08/20/18 12:31:15 AM EST, Cream Start Date: 08/20/18 Stop Date: 09/03/18 Status: Ordered Medication Dispense Status: Completed Quantity: 15.0 Unit: g Total Allowed Fills: 1 Fills Dispensed: 0 verapamil 80 mg oral tablet 1 tablet = 80 mg, By Mouth, 2 times a day, # 270 tablet, 0 Refills, Maintenance, 08/20/18 12:34:08 AMEST, Tablet Start Date: 08/20/18 Status: Ordered Medication Dispense Status: Completed Quantity: 270.0 Unit: tablet Total Allowed Fills: 1 Fills Dispensed: 0 Vitamin B12 0 Refills, Maintenance, 10/22/23 10:32:00 AM EDT, Partial fill upon patient request if the prescription is for a schedule II opioid drug. Start Date: 10/22/23 Status: Ordered Medication Dispense Status: Completed Total Allowed Fills: 1 Fills Dispensed: 0 Vivelle-Dot 0.05 mg/24 hours twice weekly transdermal film, extended release See Instructions, Apply one patch to skin. Remove and replace twice weekly, # 24 patch, 1 Refills, Maintenance, 05/07/24 1:12:00 AM EST, [id number], Partial fill upon patient request if the prescription is for a schedule II opioid drug., 165.1, cm, 04/21/24 17:18:00 EST, Height, 71.6, kg, 04/21/24 16:55:00 EST, Dry Weight Start Date: 05/07/24 Status: Ordered Medication Dispense Status: Completed Quantity: 24.0 Unit: patch Total Allowed Fills: 2 Fills Dispensed: 0 Wellbutrin = 150 mg, By Mouth, Daily in AM, 0 Refills, Maintenance, 08/20/18 12:34:23 AM EST Start Date: 08/20/18 Status: Ordered Medication Dispense Status: Completed Total Allowed Fills: 1 Fills Dispensed: 0 Zofran 4 mg oral tablet 1 tablet = 4 mg, By Mouth, Every 8 hours, PRN Nausea & Vomiting, # 10 tablet, 1 Refills, Maintenance, 07/30/17 12:00:11 PM EST, Tablet, [id number] Start Date: 07/30/17 Status: Ordered Medication Dispense Status: Completed Quantity: 10.0 Unit: tablet Total Allowed Fills: 2 Fills Dispensed: 0 Problem List Condition Confirmation Course Effective Dates Status H ealth Status Informant Breast cancer screening, high risk patient Confirmed Active Endometriosis Confirmed Active Fibromyalgia Confirmed Active Hearing impairment Confirmed Active IBS (irritable bowel syndrome) Confirmed Active Obese class I Confirmed Active Pelvic pain Confirmed Active PTSD (post-traumatic stress disorder) Confirmed Active Premature ovarian insufficiency Confirmed Active Social History Social History Type Response Sexual Sexually involved in last 6 months: Yes. Smoking Status Former smoker, quit more than 30 days ago entered on: 03/09/25 Sex Female Sex Representation Female (finding) Patient Care team information Care Team Personnel Name: Sarah Holland RN Position: S RN Member Role: Primary Care Nurse Name: Med Duffy NP Position: Reference Physician Member Role: PCP Address: [address] [place] [address]- Telecom: Name: Lyndon Benitez RN Position: S RN Member Role: Primary Care Nurse Care Team Related Persons Name: CLARIBEL LOPEZ Name: PHOEBE GARRISON Name: MJ CRISTINA Name: EULALIO ROBBINS Insurance Providers Guarantor name: JITENDRA LOPEZ [facility] Plan Information #: 1 Payer: [employer] S[employer] AC Payer Identifier: NA Member Number: [id number] Group Number: BRADLEY Subscriber Identifier: BRADLEY Relationship to Subscriber: self Coverage Type: NA Coverage Verification Date: NA Telecom: BRADLEY Address: NA
--- OUTSIDE RECORDS SUMMARY | 2025-04-08 23:59 | XMS_ITS | Continuity of Care Document ---
Author Organization [facility] Vil[facility] Address [address] [place] [address], [address] [place] [address]- Care Team Providers Care Investor Relations Associate Name Role Phone Clive DUKES, Med Eduardo Primary Care Physician [place] [facility] [place] [facility] [address], [address] [place], [place] [address] Encounter Type: Triage Allergies, Adverse Reactions, Alerts Substance Criticality Severity Reaction Reaction Severity Status codeine Throat swelling Acti ve morphine rash Active Percocet Hives, Rash, Na usea & Vomitting Active Dilaudid Vomitting, Rash, Vetigo Active Ambien Black outs Active Vicodin rash Active Hydrocodone-PPA Trouble breathing, Rash Active traMADol Active Medications acetaminophen 325 mg oral tablet 975 mg, By Mouth, Every 6 hours, # 50 tablet, Refills 0, Tot. Refills 0, Maintenance, 07/09/22 7:21:00 AM EST, Route to Pharmacy Electronically, [facility]/pharmacy #[id number], Partial fill upon patient request if [...] Refills, Maintenance, 09/02/24 11:21:00 AM EDT, Patch, [facility]/pharmacy #[id number], Partial fill upon patient request if [...] 1 Refills, Maintenance, 03/03/25 9:31:00 AM EDT, [facility]/pharmacy #[id number], Partial fill upon patient request if [...] 12:00:00 AM EST, Route to Pharmacy Electronically, [facility]/pharmacy #[id number], Partial fill upon patient request if [...] 7:22:00 AM EST, Route to Pharmacy Electronically, [facility]/pharmacy #[id number], Partial fill upon patient request if [...] Refills, Maintenance, 07/09/22 7:22:00 AM EST, Tablet, [facility]/pharmacy #[id number], Partial fill upon patient request if [...] 7:21:00 AM EST, Route to Pharmacy Electronically, [facility]/pharmacy#[id number], Partial fill upon patient request if the [...] Soft Stop, 07/30/17 11:59:43 AM EST, Tablet, [facility]/pharmacy #[id number] Start Date: 07/30/17 Status: Ordered Medication [...] Position: Reference Physician Member Role: PCP Address: [address] [place] [address]- Telecom: Name: Lyndon Benitez RN Position: S RN Member Role: Primary Care Nurse Care Team Related Persons Name: CLARIBEL LOPEZ Name: PHOEBE GARRISON Name: MJ CRISTINA Name: EULALIO ROBBINS Insurance Providers Guarantor name: JITENDRA LOPEZ [employer] Plan Information #: 1 Payer: [employer] S[employer] AC Payer Identifier: NA Member Number: [id number] Group Number: BRADLEY Subscriber Identifier: BRADLEY Relationship to Subscriber: self Coverage Type: NA Coverage Verification Date: NA Telecom: BRADLEY Address: NA
--- NOTE | 2025-04-11 09:26 | EMG_ITS ---
Chief complaint:?R20.0 Anesthesia of skin R20.2 Paresthesia of skin Reason for referral: Numbness and tingling in both hands Referred by:?Alison BILLINGS Procedure done: Bilateral upper extremities NCS/EMG Bilateral median and ulnar motor studies were performed. Bilateral median and ulnar mixed sensory, bilateral radial sensory, and bilateral median and lateral antecubital brachial sensory studies were performed an EMG needle examination was performed. Findings: Left motor study revealed significant reduction of conduction velocity across elbow. Otherwise motor studies did not reveal any significant abnormality. Sensory studies were with a normal range. Paraspinal needle examination was normal. Impression: Mild left ulnar neuropathy across cubital tunnel [place] [id number] 2 extremities MTDD
== END 2025-04-11 09:23 | disposition home or self-care (01) ==
LOC: HO.NEURO 09:22
PROVIDERS: PCP Nurse Practitioner Family; Visit Provider Physician Assistant Medical
DX: R20.0 Anesthesia of skin (principal); R20.2 Paresthesia of skin
CPT/HCPCS: 95886; 95913

== ENCOUNTER → 2025-04-11 09:26 | Outpatient (BNV) | payer OTHER, SELFPAY | PROVIDERS: PCP Nurse Practitioner Family; Visit Provider Psychiatry & Neurology Neurology | DX: G56.02 Carpal tunnel syndrome, left upper limb (principal) | CPT/HCPCS: 95886; 95912 ==

== ENCOUNTER 2025-05-15 10:29 | Outpatient (AMB) | payer OTHER, SELFPAY ==
--- NOTE | 2025-05-15 10:15 | A.OFFVIS_ITS ---
VS Expanded 05/15/25 10:21 Height 5 ft 5 in Weight 170 lb BMI 28.3 Intake Visit Reasons: TV PO LSG 02/14/20 Allergies codeine Allergy (Intermediate, Verified 03/08/25 14:23) Nausea and Vomiting hydrocodone (From Vicodin) Allergy (Intermediate, Verified 03/08/25 14:23) Nausea, Vomiting, Sweats, Spins hydromorphone (From DILAUDID) Allergy (Intermediate, Verified 03/08/25 14:23) HIVES morphine (MORPHINE) Allergy (Intermediate, Verified 03/08/25 14:23) RASH,DIZZINESS,VOMITING, hives, hives oxycodone Allergy (Intermediate, Verified 03/08/25 14:23) Nausea and Vomiting tramadol Allergy (Intermediate, Verified 03/08/25 14:23) Hives zolpidem (From AMBIEN) Allergy (Intermediate, Verified 03/08/25 14:23) BLACK OUTS influenza virus vaccine, specific (FLU VACCINE) Adverse Reaction (Severe, Verified 03/08/25 14:23) SWELLING, at injection site bees Allergy (Severe, Uncoded 03/08/25 14:23) Anaphylaxis TDAP Allergy (Severe, Uncoded 03/08/25 14:23) Swelling at injection site Medication List - Last Reconciled 05/15/25 by AWA Pacheco [Boost glucose control nutritional supplement 2 boxes per day NS] bupropion HCl XL 300 mg PO DAILY buspirone 30 mg PO BID clonazepam 1 mg PO TID PRN cyanocobalamin (vitamin B-12) 500 mcg PO DAILY 90 days cyclobenzaprine 10 mg PO BEDTIME diphenhydramine HCl (Benadryl Allergy) 25 mg PO BID PRN docusate sodium (Colace) 100 mg PO DAILY duloxetine 60 mg PO BID epinephrine 0.3 mg (0.3 mL) IM ONCE 30 days estradiol (Vivelle-Dot) patches transdermal famotidine 20 mg PO DAILY ferrous sulfate 325 mg PO DAILY 3 months MDD 325mg finasteride 5 mg PO DAILY fluoride (sodium) 1.1% (DentaGel) 0 appl dental gabapentin 800 mg PO BID lamotrigine 200 mg PO BID loratadine 10 mg PO DAILY multivitamin with folic acid 400 mcg (Daily-May (with folic acid)) 1 tab PO DAILY pantoprazole 40 mg PO BID prazosin 5 mg PO BEDTIME prazosin 2 mg PO ONCE ropinirole 1 mg PO BEDTIME 90 days sennosides (Senna Laxative) 25.8 mg (3 x 8.6 mg) PO BEDTIME sumatriptan succinate take 1 tab at onset of headache; if no relief, may repeat 1 tab after at least 2 hrs; max = 2 tabs/24 hrs PO 10 days trazodone 200 mg PO BEDTIME PRN verapamil 40 mg PO BID 90 days HPI Comments Details: Patient is a pleasant 39-year-old female who returns to the office today in follow-up. She is status post panniculectomy on 01/22/2023 and sleeve gastrectomy on 02/14/2020. Current weight is 170 lb with a BMI of 28.3. She was able to get in touch with her insurance company and given her comorbidities of mixed IBS, diverticulosis, vitamin deficiencies and reflux as well as an intolerance to protein powders causing nausea and vomiting, it is necessary that she have ready to drink protein supplements in her meal plan. She has an active script with [facility] currently. She is followed by GI as well. She has been having perimenopausal symptoms and is being worked up by gynecology. She is limited by fibromyalgia although is exercising as she is able. She had a bladder sling surgery last week, doing okay with recovery but having some nausea. She felt comfortable with weight of 150-160s. Continues mvi Meal plan: Remove sugar and home milk from coffee 1/2 shake, ensure glucose control (6 oz mixed w 2 oz unsweetened almond milk) Two eggs or Angolan yogurt or 5 forks of protein and 5 forks of vegetables another shake Meal 5 forks of protein 5 forks of vegetables 80oz fluids -she notes that she continues on this plan Exercise plan: walking outside daily, 2-3 mi limited in activity after surgery last week [facility] Medical History Family hx-breast malignancy Family hx of ovarian malignancy Abnormal uterine bleeding Family history of polyps in the colon Breast cancer screening, high risk patient Immunizations incomplete Physical exam Viral illness Nausea Sleep apnea Constipation Excess skin Daytime sleepiness Snoring Tenderness of anatomical snuffbox Contusion of right wrist Right wrist pain Unsatisfactory cervical Papanicolaou smear Female pelvic pain Panniculitis At risk for breast cancer Well woman exam PCOS (polycystic ovarian syndrome) ASCUS with positive high risk HPV Cervical adenopathy Complex ovarian cyst Restless leg Depression Cyst of ovary Migraine Lymphadenopathy Elevated ferritin Asthma Hemochromatosis carrier Positive IVANA (antinuclear antibody) PTSD (post-traumatic stress disorder) Intestinal malabsorption Obesity (BMI 30.0-34.9) Surgical History S/P gastric sleeve procedure Hx of abdominal surgery S/P panniculectomy Hx of hysterectomy S/P laparoscopic sleeve gastrectomy History of esophagogastroduodenoscopy (EGD) Hx of colonoscopy S/P wisdom tooth extraction S/P tonsillectomy and adenoidectomy Hx of tubal ligation S/P appendectomy History of exploratory laparotomy Hx laparoscopic cholecystectomy Family History Father History of colon polyps Prostate CA Mother Thyroid disease Breast cancer, Onset Age: 35 Brother Cardiac abnormality Son No problems noted. Son No problems noted. Maternal Aunt Breast cancer, Onset Age: 44 Family/Other Breast cancer, Onset Age: 30 Maternal Grandmother Cervical cancer Paternal Grandmother Cervical cancer Other Mental health disorder Substance use disorder Social History Housing: House Are you a primary care program director to a significant other at home: No Do you presently have visiting nurse or other home services: No Alcohol intake: former Year quit: 2018 Patient Tobacco Use Status: Former Tobacco user Tobacco use type: Smokeless Tobacco Years Smoked: 10.5 e-Cigarette/Vaping Use: Currently Using Second Hand Smoke Exposure: Yes Substance Use Type: Marijuana service: No Current occupational status: unemployed and disabled Cognitive needs: No Hearing needs: No Vision needs: No Female Reproductive History Menstrual Age of Menarche: 9 Telehealth Telehealth Telehealth Platform: Telephone Location of provider rendering services: practice address Location of patient: address on file Patient Identification confirmed using: Name, : Yes Telehealth method: voice only Patient verbally consented to treatment: Yes Patient verbally consented to billing insurance company: Yes Patient informed of any privacy concerns related to visit: Yes Minutes spent on Phone/Video with Pt.: 15 Assessment & Plan Assessment & Plan (1) S/P gastric sleeve procedure: Comment: 2020 Code(s): Z90.3 - Acquired absence of stomach [part of] Category: Surgical (2) Overweight: Code(s): E66.3 - Overweight Category: Surgical Plan She will continue above meal plan as she is doing well with it. She plans to increase her activity/exercise once she recovers from recent surgery. She continues to be limited in activity due to chronic medical issues and does not have the finances for [facility]. Had labs done in Feb. RTC 3mo for TV.
[2025-05-15 10:21] VITALS: BMI 28.3
== END 2025-05-15 10:31 | disposition home or self-care (01) ==
LOC: HO.HBS 10:29
PROVIDERS: PCP Nurse Practitioner Family; Visit Provider Physician Assistant Surgical
DX: E66.3 Overweight (principal); Z68.28 Body mass index [BMI] 28.0-28.9, adult; Z90.3 Acquired absence of stomach [part of]; Z98.84 Bariatric surgery status
CPT/HCPCS: 98013

== ENCOUNTER 2025-05-23 09:29 | Outpatient (REF) | payer OTHER, SELFPAY ==
--- NOTE | 2025-05-23 09:33 | EMG_ITS ---
Chief complaint: Paresthesia of both lower extremities Referred by:Malathi Quinones Procedure done: Bilateral lower extremities NCS/EMG Bilateral tibial and peroneal motor studies were performed with F responses and tibial H reflexes. Bilateral superficial peroneal and sural sensory studies and median lateral mixed plantars sensory studies were performed and needle examination was performed. Findings: Bilateral superficial peroneal conduction velocity was mildly slow. Sensory studies in feet revealed decreased amplitude with intact conduction velocities. Otherwise no significant abnormality noted. 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 Codin [id number] 2 extremities MTDD
== END 2025-05-23 09:30 | disposition home or self-care (01) ==
LOC: HO.NEURO 09:29
PROVIDERS: PCP Nurse Practitioner Family; Visit Provider Physician Assistant Medical
DX: R20.2 Paresthesia of skin (principal)
CPT/HCPCS: 95886; 95913

== ENCOUNTER → 2025-05-23 09:33 | Outpatient (BNV) | payer OTHER, SELFPAY | PROVIDERS: PCP Nurse Practitioner Family; Visit Provider Psychiatry & Neurology Neurology | DX: R20.2 Paresthesia of skin (principal) | CPT/HCPCS: 95886; 95912 ==

== ENCOUNTER 2025-05-31 12:39 | Outpatient (AMB) | payer OTHER, SELFPAY ==
--- OUTSIDE RECORDS SUMMARY | 2025-05-26 23:59 | XMS_ITS | Continuity of Care Document ---
Author Organization [facility] Lucie Villegas ns [facility] Address [address] [place] [address], [address] [place] [address]- Care Team Providers Care Weaving Teacher Name Role Phone Clive DUKES, Med Eduardo Primary Care Physician [phone] Encounter [facility] Date(s): 04/26/25 - [facility]26/[facility] [address], [address] [place] [id number] Encounter Type: Triage Allergies, Adverse Reactions, Alerts Substance Criticality Severity Reaction Reaction Severity Status codeine Throat swelling Acti ve morphine rash Active Percocet Hives, Rash, Na usea & Vomitting Active Dilaudid Vomitting, Rash, Vetigo Active Ambien Black outs Active Vicodin rash Active Hydrocodone-PPA Trouble breathing, Rash Active traMADol rash Active Medications acetaminophen 325 mg oral tablet 975 mg, By Mouth, Every 6 hours, # 50 tablet, Refills 0, Tot. Refills 0, Maintenance, 07/09/22 7:21:00 AM EST, Route to Pharmacy Electronically, [facility]/pharmacy #[id number], Partial fill upon patient request if [...] Total Allowed Fills: 1 Fills Dispensed: 0 clonazePAM 1 mg oral tablet 1 tablet = 1 mg, By Mouth, 3 times a day, PRN Anxiety, 0 Refills, Maintenance, 08/20/18 12:34:43 AM EST, Tablet Start Date: 08/20/18 Status: Ordered Medication Dispense Status: Completed Total Allowed Fills: 1 Fills Dispensed: 0 Colace sodium 100 mg oral capsule 100 mg, 1, capsule, By Mouth, 2 times a day, PRN, # 20 capsule, Refills 0, Tot. Refills 0, Maintenance, for constipation, 05/10/25 7:29:00 AM EST, Route to Pharmacy Electronically, [facility]/pharmacy #[id number], Partial fill upon patient request if the prescription is for a schedule II opioid drug., 163, cm, 05/05/25 10:12:00 EST, Height, 80.3, kg, 05/10/25 6:26:00 EST, Dry Weight Start Date: 05/10/25 Status: Ordered Medication Dispense Status: Completed Quantity: 20.0 Unit: capsule Total Allowed Fills: 1 Fills [...] Total Allowed Fills: 1 Fills Dispensed: 0 estradiol 1 mg oral tablet 1 mg, 1, tablet, By Mouth, Daily, to start postop, # 90 tablet, Refills 1, Tot. Refills 1, Maintenance, 05/05/25 10:08:00 AM EST, Route to Pharmacy Electronically, [facility]/pharmacy #[id number], Partial fill upon patient request if the prescription is for a schedule II opioid drug., 163, cm, 03/28/25 9:17:00 EDT, Height, 76.5, kg, 05/04/25 13:14:00 EST, Dry Weight Start Date: 05/05/25 Status: Ordered Medication Dispense Status: Completed Quantity: 90.0 Unit: tablet Total Allowed Fills: 2 Fills Dispensed: 0 Famotidine 0 Refills, Maintenance, [...] 1 Refills, Maintenance, 03/03/25 9:31:00 AM EDT, [facility]/pharmacy #[id number], Partial fill upon patient request if the prescription is for a schedule II opioid drug., 165.1, cm, 09/02/24 11:03:00 EDT, Height, 70.43, kg, 09/02/24 11:03:00 EDT, Dry Weight Start Date: 03/03/25 Status: Ordered Medication Dispense Status: Completed Quantity: 1.0 Unit: each Total Allowed Fills: 2 Fills Dispensed: 0 ferrous sulfate 325 mg oral tablet 1 tablet = 325 mg, PLEASE SEE ATTACHED FOR DETAILED DIRECTIONS Start Date: 05/10/25 Status: Ordered Medication Dispense Status: Completed Total Allowed Fills: 1 Fills Dispensed: 0 Finasteride = 5 mg, [...] 7:22:00 AM EST, Route to Pharmacy Electronically, [facility]/pharmacy #[id number], Partial fill upon patient request if [...] Total Allowed Fills: 1 Fills Dispensed: 0 rOPINIRole 1 mg oral tablet 1 tablet = 1 mg, TAKE 1 TABLET BY MOUTH EVERY DAY 1-3 HOURS BEFORE BEDTIME Start Date: 05/10/25 Status: Ordered Medication Dispense Status: Completed Total Allowed Fills: 1 Fills Dispensed: 0 SUMAtriptan 100 mg oral tablet 1 tablet = 100 mg, By Mouth, Once, PRN for migraine headache, NO MORE THAN 3 DOSES A WEEK., # 9 tablet, 1 Refills, Soft Stop, 07/30/17 11:59:43 AM EST, Tablet, [facility]/pharmacy #[id number] Start Date: 07/30/17 Status: Ordered Medication [...] Allowed Fills: 1 Fills Dispensed: 0 Vitamin B-12 500 mcg oral tablet 1 tablet = 500 mcg, By Mouth, Daily, # 30 tablet, 0 Refills, Maintenance, 05/10/25 6:22:00 AM EST, Tablet, Partial fill upon patient request if the prescription is for a schedule II opioid drug. Start Date: 05/10/25 Status: Ordered Medication Dispense Status: Completed Quantity: 30.0 Unit: tablet Total Allowed Fills: 1 Fills Dispensed: 0 Wellbutrin = 150 mg, [...] Refills, Maintenance, 07/30/17 12:00:11 PM EST, Tablet, [facility]/pharmacy #[id number] Start Date: 07/30/17 Status: Ordered Medication Dispense Status: Completed Quantity: 10.0 Unit: tablet Total Allowed Fills: 2 Fills Dispensed: 0 Problem List Condition Confirmation Course Effective Dates Status H ealth Status Informant Breast cancer screening, high risk patient Confirmed Active Endometriosis Confirmed Active Fibromyalgia Confirmed Active Hearing impairment Confirmed Active IBS (irritable bowel syndrome) Confirmed Active Pelvic pain Confirmed Active PTSD (post-traumatic stress disorder) Confirmed Active Premature ovarian insufficiency Confirmed Active Social History Social History Type Response Sexual Sexually involved in last 6 months: Yes. Smoking Status Former smoker, quit more than 30 days ago entered on: 03/09/25 Sex Female Sex Representation Female (finding) Patient Care team information Care Team Personnel Name: Sarah Holland RN Position: [facility]ERD RN Member Role: Primary Care Nurse Name: Med Duffy NP Position: Reference Physician Member Role: PCP Address: [address] [place] [address] Telecom: Name: Eli BERNARDO, Lyndon Bergman Position: S RN Member Role: Primary Care Nurse Care Team Related Persons Name: CLARIBEL LOPEZ Name: PHOEBE GARRISON Name: MJ CRISTINA Name: EULALIO ROBBINS Insurance Providers Guarantor name: JITENDRAQUE HARRISGREY [employer] Plan Information #: 1 Payer: [employer] Payer Identifier: BRADLEY Member Number: [id number] Group Number: [id number] Subscriber Identifier: NA Relationship to Subscriber: self Coverage Type: NA Coverage Verification Date: NA Telecom: Address:
[2025-05-31 12:45] VITALS: BP 112/59; PULSE 96; BMI 29.1
--- NOTE | 2025-05-31 12:45 | A.OFFVIS_ITS ---
Vital Signs 05/31/25 12:45 Height 5 ft 5 in Weight 174 lb 9.698 oz BMI 29.1 BP 112/59 L Blood Pressure Location Rt brachial Position Sitting Pulse 96 Intake Visit Reasons: GERD follow up Intake Note: Suni returns in follow up of GERD. CC: Patient reports a little bit of nausea and most of her BMs are loose and a few times not been able to hold stool. She also reports having a lot of lower colon pain. 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: No Accompanied by: Self / Same As Patient Allergies codeine Allergy (Intermediate, Verified 03/08/25 14:23) Nausea and Vomiting hydrocodone (From Vicodin) Allergy (Intermediate, Verified 03/08/25 14:23) Nausea, Vomiting, Sweats, Spins hydromorphone (From DILAUDID) Allergy (Intermediate, Verified 03/08/25 14:23) HIVES morphine (MORPHINE) Allergy (Intermediate, Verified 03/08/25 14:23) RASH,DIZZINESS,VOMITING, hives, hives oxycodone Allergy (Intermediate, Verified 03/08/25 14:23) Nausea and Vomiting tramadol Allergy (Intermediate, Verified 03/08/25 14:23) Hives zolpidem (From AMBIEN) Allergy (Intermediate, Verified 03/08/25 14:23) BLACK OUTS influenza virus vaccine, specific (FLU VACCINE) Adverse Reaction (Severe, Verified 03/08/25 14:23) SWELLING, at injection site bees Allergy (Severe, Uncoded 03/08/25 14:23) Anaphylaxis TDAP Allergy (Severe, Uncoded 03/08/25 14:23) Swelling at injection site HPI HPI GERD follow up: Details: Assessment & Plan (1) Irritable bowel syndrome with both constipation and diarrhea: Code(s): K58.2 - Mixed irritable bowel syndrome Category: Medical (2) Diverticulitis: Code(s): K57.92 - Diverticulitis of intestine, part unspecified, without perforation or abscess without bleeding Category: Medical (3) Upper abdominal pain: Code(s): R10.10 - Upper abdominal pain, unspecified Category: Medical Plan he says she has a pain in the lower abd like my TICS which she has had 4 ti mes. Will tx with augmentin. In general her IBS is doing ok with her current regimen. She asks for an explanation of IBS vs IBD - educated. Once a day, pantoprazole twice a day with famotidine for breakthrough, simethicone and senna. She also wants and HP test for upper abd pain. Will get stool antigen. Return office visit in 3 months per patient request. Orders: Orders H pylori Ag Stool 03/11/24 R10.10 - Upper abdominal pain, unspecified Medications: New amoxicillin-pot clavulanate 875-125 mg 1 tab PO BID 10 tabs 0RF K57.92 - Diverticulitis of intestine, part unspecified, without perforation or abscess without bleeding Refilled docusate sodium (Colace) 100 mg PO DAILY 90 caps 2RF K59.00 - Constipation, unspecified famotidine 20 mg PO DAILY 90 tabs 2RF K21.9 - Gastro-esophageal reflux disease without esophagitis pantoprazole 40 mg PO BID 180 tabs 2RF sennosides (Senna Laxative) 17.2 mg (2 x 8.6 mg) PO BEDTIME 60 tabs 3RF K59.00 - Constipation, unspecified simethicone (Gas Relief (simethicone)) 80 mg PO QID PRN 90 tabs 6RF abdominal distention LABS: TODAY'S VISIT Patient has been lost to follow-up since 02/2024. [facility] Medical History (Updated 05/31/25 @ 14:51 by FELY Colbert) Diverticulitis Excessive daytime sleepiness Fibromyalgia Upper back pain HPV in female Upper abdominal pain Irritable bowel syndrome with both constipation and diarrhea Family hx-breast malignancy Family hx of ovarian malignancy Abnormal uterine bleeding Family history of polyps in the colon Breast cancer screening, high risk patient Immunizations incomplete Physical exam Viral illness Nausea Sleep apnea Constipation Excess skin Daytime sleepiness Snoring Tenderness of anatomical snuffbox Contusion of right wrist Right wrist pain Unsatisfactory cervical Papanicolaou smear Female pelvic pain Panniculitis At risk for breast cancer Well woman exam PCOS (polycystic ovarian syndrome) ASCUS with positive high risk HPV Cervical adenopathy Complex ovarian cyst Restless leg Depression Cyst of ovary Migraine Lymphadenopathy Elevated ferritin Asthma Hemochromatosis carrier Positive IVANA (antinuclear antibody) PTSD (post-traumatic stress disorder) Intestinal malabsorption Obesity (BMI 30.0-34.9) Surgical History (Updated 05/31/25 @ 14:51 by FELY Colbert) S/P gastric sleeve procedure Hx of abdominal surgery S/P panniculectomy Hx of hysterectomy S/P laparoscopic sleeve gastrectomy History of esophagogastroduodenoscopy (EGD) Hx of colonoscopy S/P wisdom tooth extraction S/P tonsillectomy and adenoidectomy Hx of tubal ligation S/P appendectomy History of exploratory laparotomy Hx laparoscopic cholecystectomy Family History Father History of colon polyps Prostate CA Mother Thyroid disease Breast cancer, Onset Age: 35 Brother Cardiac abnormality Son No problems noted. Son No problems noted. Maternal Aunt Breast cancer, Onset Age: 44 Family/Other Breast cancer, Onset Age: 30 Maternal Grandmother Cervical cancer Paternal Grandmother Cervical cancer Other Mental health disorder Substance use disorder Social History Housing: House Are you a primary animal caretaker supervisor to a significant other at home: No Do you presently have visiting nurse or other home services: No Alcohol intake: former Year quit: 2018 Patient Tobacco Use Status: Former Tobacco user Tobacco use type: Smokeless Tobacco Years Smoked: 10.5 e-Cigarette/Vaping Use: Currently Using Second Hand Smoke Exposure: Yes Substance Use Type: Marijuana service: No Current occupational status: unemployed and disabled Cognitive needs: No Hearing needs: No Vision needs: No Female Reproductive History Menstrual Age of Menarche: 9 Review of Systems Const Denies fatigue, Denies fever(s), Denies night sweats, Denies poor appetite and Denies weight loss Eyes Details: GLASSES Reports requires corrective lenses ENT Reports Normal hearing present, Denies dysphagia, Denies odynophagia, Denies throat swelling and Denies tongue swelling Card Reports no additional complaints Resp Reports no additional complaints GI Details: Reports abdominal pain, Denies melena, Denies bloating, Denies hematochezia, Denies constipation, Denies GI cramping, Denies dysphagia, Denies excessive flatus, Denies early satiety, Reports heartburn, Reports diarrhea, Denies nausea, Denies odynophagia, Denies vomiting and Denies hematemesis Skin/Breast Denies pruritus, Denies lesions, Denies rash and Denies jaundice Neuro Reports Normal hearing present and Denies Abnormal speech present Endo Denies fatigue Aller/Immun Denies throat swelling and Denies tongue swelling Physical Exam Vital Signs: Last Vital Signs Pulse 96 05/31/25 12:45 BP 112/59 L 05/31/25 12:45 BMI result Body Mass Index 29.1 Const General: cooperative, no acute distress, well developed and well groomed Nutritional Appearance: well nourished and overweight Orientation/consciousness: oriented to person, oriented to place and oriented to time Limitations: No language barrier HEENT Head: Yes normocephalic and Yes atraumatic Eyes General: appearance normal, both eyes and all related structures Pupils: Equal, round and reactive pupils present Neck Neck: Yes normal visual inspection and Yes no lymphadenopathy Thyroid: Thyroid normal Resp Effort & Inspection: normal respiratory effort and able to speak in complete sentences Auscultation: clear to auscultation bilaterally Cardio Rate: regular rate Rhythm: regular rhythm Heart sounds: Normal, physiologic split S2 sound present Peripheral pulses: radial pulses present and posterior tibial pulses present GI Inspection: No distended, No Abdominal panniculus present and Yes obesity Palpation (GI): Soft to palpation, nontender, no guarding, not rigid and No hepatosplenomegaly present Percussion: Yes normal to percussion Auscultation: normal bowel sounds Rectal Exam - Female: deferred Skin General skin exam: no rashes or lesions noted, turgor normal, skin not dry, no jaundice, No spider nevi and no striae Rashes: no rashes Nails: normal Neuro General: oriented to person, oriented to place and oriented to time Cranial nerves: Yes Equal, round and reactive pupils present and Yes Normal hearing present Speech: No Abnormal speech present Extrem General: Yes normal to inspection, No clubbing, No cyanosis and No edema Psych Appearance: grossly normal and well kempt Mental Status: mental status grossly normal Speech and movement: Normal speech and movement present Affect: normal affect Attitude: cooperative Thought process: Normal thought process present and not confabulating Thought content: Normal thought content present Insight: Fair insight present (Psych) and Limited insight present (Psych) Judgement: Fair judgement present (Psych) and Limited judgement present (Psych) Assessment & Plan Assessment & Plan (1) Diarrhea: Code(s): R19.7 - Diarrhea, unspecified Category: Medical (2) Diarrhea: Code(s): R19.7 - Diarrhea, unspecified Category: Medical (3) GERD (gastroesophageal reflux disease): Code(s): K21.9 - Gastro-esophageal reflux disease without esophagitis Category: Medical Plan pantoprazole twice a day with famotidine for breakthrough, simethicone and senna. Subjective Patient presents for evaluation of several months of diarrhea characterized by 1?2 loose bowel movements daily, sometimes liquid mixed with solids, with fecal urgency and occasional incontinence. This is a big change from her prior baseline of constipation. Reports intermittent bilateral lower abdominal cramping pain that can be severe at times, causing her to double over; symptoms come and go. She attempted increased dietary fiber with limited benefit. Denies recent antibiotic use and is not taking [id number] laxatives or magnesium. She is taking pantoprazole twice daily for reflux and uses simethicone as needed for gas. She is status post bladder sling surgery the day before Thanksgiving and is still recovering; external stitches healed and postoperative follow-up completed. Reports prior cholecystectomy and gastric sleeve surgery. History notable for IBS and diverticulosis after a prior colonoscopy. She notes memory concerns and is being referred for neuropsychological evaluation and a functional MRI; prior nerve conduction studies showed nerve damage. She has been on various estrogen formulations this year (patch, vaginal ring), currently oral estrogen 1 mg after surgery. Relevant Past Medical, Social, and Family History - IBS; diverticulosis after prior colonoscopy - Cholecystectomy (remote); gastric sleeve - Family history: mother with thyroid disease; father with numerous colon polyps Objective - February comprehensive metabolic panel reviewed: liver function tests were normal. Assessment & Plan Chronic diarrhea with fecal urgency and intermittent lower abdominal cramping; history of IBS: Several months of predominantly loose stools (1?2/day) with urgency and occasional fecal incontinence, intermittent bilateral lower abdominal cramping. No recent antibiotics, no osmotic agents or magnesium use. Post-cholecystectomy and gastric sleeve may affect digestion, but timing unclear. Differential includes infectious etiology, inflammatory bowel disease, pancreatic insufficiency, thyroid dysfunction, and food-related triggers, in the context of known IBS. - Stool studies: send for infectious pathogens and markers of inflammatory bowel disease; include pancreatic function testing. - Blood work: thyroid testing (including TSH). - Food allergy testing: order RAST panel; patient to bring the RAST sheet to the lab to ensure correct processing. - Symptomatic therapy: may use [id number] loperamide as needed. - Antispasmodic: restart dicyclomine at a low dose, up to four times daily as needed for cramping/diarrhea, monitoring for constipation. - Logistics: patient to ask the lab about stool collection cup quantity and return instructions; stool collections to be done at home. Blood work can be completed at any time. - Follow-up: return in approximately 8?10 weeks to review results and adjust management accordingly. Orders: Orders Calprotectin, Fecal Today R19.7 - Diarrhea, unspecified Transglutaminase IgA Today R19.7 - Diarrhea, unspecified Transglutaminase Ab IgG Today R19.7 - Diarrhea, unspecified Pancreatic Elastase-1 Today R19.7 - Diarrhea, unspecified GI Panel Today R19.7 - Diarrhea, unspecified C Reactive Protein Today R19.7 - Diarrhea, unspecified TSH reflex Free T4 Today R19.7 - Diarrhea, unspecified Rast Allergen Today R19.7 - Diarrhea, unspecified Medications: New dicyclomine 10 mg PO QID 90 caps 3RF R19.7 - Diarrhea, unspecified Refilled pantoprazole 40 mg PO BID 180 tabs 0RF Discontinued famotidine Discontinued Reason: Doctor's Order 20 mg PO DAILY 90 tabs 2RF K21.9 - Gas tro-esophageal reflux disease without esophagitis On Hold sennosides (Senna Laxative) Hold Comment: Doctor's Order 25.8 mg (3 x 8.6 mg) PO BEDTIME 90 tabs 3RF K59.00 - Constipation, unspecified docusate sodium (Colace) Hold Comment: Doctor's Order 100 mg PO DAILY 90 caps 2RF K59.00 - Constipation, unspecified Coding Level of Care Code Est Pt Level 4 (40365) Diagnoses Diarrhea R19.7 GERD (gastroesophageal reflux disease) K21.9 Time Spent (min) 35
--- OUTSIDE RECORDS SUMMARY | 2025-05-31 16:50 | XMS_ITS | Patient Health Record ---
Author Organization [facility] Address [address] [place] [id number] Care Team Providers Care Academic Guidance Specialist Name Role Phone Fuentes MENDOZA, Asma Primary Care Provider Alpesh Morgan [phone] Reason For Referral No Information Plan Of Treatment No Information Insurance Providers Payer Name Payer Address Payer Phone Subscriber Number Group Number Insured Name Patient Relationship to Insured Coverage Start Date Coverage End Date PGBA DO NOT USE DO NOT USE [facility] CLAIMS USE [facility] [address] [place] [phone] [id number] JITENDRA LOPEZ Self - patient is the insured MEDICAID OF [employer] [address] [place] [address] [id number] JITENDRA LOPEZ Self - patient is the insured
== END 2025-05-31 13:31 | disposition home or self-care (01) ==
LOC: HO.HGI 12:39
PROVIDERS: PCP Nurse Practitioner Family; Visit Provider Nurse Practitioner
DX: R19.7 Diarrhea, unspecified (principal); K21.9 Gastro-esophageal reflux disease without esophagitis
CPT/HCPCS: 99214

== ENCOUNTER → 2025-05-31 12:39 | Outpatient (BNVA) | payer OTHER, SELFPAY | PROVIDERS: PCP Nurse Practitioner Family; Visit Provider Nurse Practitioner | DX: K21.9 Gastro-esophageal reflux disease without esophagitis (principal) | CPT/HCPCS: 99212 ==